=== PATIENT | female | born 1945 | race Caucasian/White ===

== ENCOUNTER → 2016-07-07 | Outpatient (CLI) | payer OTHER, MEDICARE ==
[~2016-07-07] MED LIST: AMLO-110 PO; BUSP15TA70 PO; CALC-354 PO; CALC0.2510 PO; CHOL1000 PO; CLOP1TAB15 PO; CPR250 PO; FURO-85 PO; GLYB5TAB8 PO; LBT/100 PO; LEVO150T PO; PRED20TA PO; ROSU40TA PO; SITA100T3 PO; SYN150 PO; TRAM-10 PO; VSC/5 PO
[2016-07-07 12:17] LABS: BASO % 0.2 %; BASO ABS # 0.02 K/uL (0-0.2); COMPLETE YES; HEMATOCRIT 31.1 % (37-47); IG% 0.2 %; LYMPH % 11.6 %; LYMPH ABS # 0.99 K/uL (1.2-3.4); MEAN CELL VOLUME 84.1 fL (80-100); MEAN CORPUSCULAR HEMOGLOBIN 28.1 pg (25-34); MEAN CORPUSCULAR HGB CONC 33.4 g/dl (32-36); MEAN PLATELET VOLUME 9.8 fL (7.4-10.4); MONO % 3.6 %; NEUT % 82.4 %; PLATELET COUNT 197 K/uL (130-400); WHITE BLOOD COUNT 8.55 K/uL (4.8-10.8)
[2016-07-07 12:27] LABS: BLOOD UREA NITROGEN 37 mg/dl (7-18); BUN/CREATININE RATIO 19.7 (10-20); CALCIUM 9.5 mg/dl (8.5-10.1); CARBON DIOXIDE 17 mmol/L (21-32); CHLORIDE 109 mmol/L (98-107); CHOLESTEROL 169 mg/dl (0-200); GLUCOSE 199 mg/dl (70-99); SODIUM 137 mmol/L (136-145); TRIGLYCERIDES 165 mg/dl (0-150); VERY LOW DENSITY LIPOPROT CALC 33 mg/dl
[2016-07-07 12:35] LABS: ALB/GLOB RATIO 0.7 (0.9-2); ALKALINE PHOSPHATASE 57 U/L (45-117); ALT/SGPT 15 U/L (12-78); AST/SGOT 13 U/L (15-37); CHOLESTEROL/HDL RATIO 3.2; FERRITIN 96.7 ng/ml (8.0-388.0); HDL CHOLESTEROL 53 mg/dl; LDL CHOLESTEROL CALCULATED 83 mg/dl; THYROID STIMULATING HORMONE 0.796 uIu/ml (0.300-4.500); TOTAL IRON BINDING CAPACITY 282 mcg/dl (250-450)
[2016-07-07 12:56] LABS: ESTIMATED AVERAGE GLUCOSE 169 mg/dl; HA1C FLAG Normal (Normal)
--- NOTE | 2016-07-17 10:06 | CODING QUERY MEDICAL NECESSITY ---
CQSUPPORTING DIAGNOSIS NEEDED A supporting diagnosis is required for the test/procedure performed on this patient in order for us to be reimbursed by the patient's insurance. Please provide a supporting diagnosis for the following test/procedure listed below next to the test name along with your signature. *If there is no additional diagnosis for this patient that would support the following test/procedure please document that below next to the test/procedure. Test(s)/Procedure(s) that require a supporting diagnosis: DOS 07/07/16 VITAMIN B12 TEST Provider Signature: Date: Thank you Akanksha Holt Health Information Management Once completed, please kindly fax back to [phone] For questions please call [phone]
== END | disposition home or self-care (01) ==
LOC: C.LABBFT 10:03
PROVIDERS: ATTEND Internal Medicine
DX: N39.0 Urinary tract infection, site not specified (principal); E11.29 Type 2 diabetes mellitus with other diabetic kidney complication; D64.9 Anemia, unspecified

== ENCOUNTER 2016-09-02 19:54 | Emergency (ER) | payer OTHER, MEDICARE ==
[~2016-09-02] VITALS: Ht 162.6 cm; Wt 109.0 kg
[~2016-09-02 19:54] MED LIST changes: -CALC0.2510 PO; -CHOL1000 PO; -CPR250 PO; -FURO-85 PO; -PRED20TA PO; -SITA100T3 PO; -SYN150 PO; -TRAM-10 PO; -VSC/5 PO
[2016-09-02 19:56] VITALS: TEMP 36.9; Ht 162.6 cm; Wt 109.0 kg
--- NOTE | 2016-09-02 20:10 | EMERGENCY ROOM VISIT NOTE ---
History Report prepared by Mellisa: Laurel Yeung Under the Supervision of: Dr. Momo Ng M.D. First contact with patient: 20:01 Chief Complaint: PAIN (GENERALIZED) Stated Complaint: ARM AND HAND PAIN,KIDNEY DISEASE History of Present Illness The patient is a 71 year old female who presents to the Emergency Room with complaints of constant generalized severe pain beginning 5 weeks ago. The patient states that she has kidney disease and has been having a lot of pain that she believes is associated with her kidney function. The patient reports that she has a history of strokes and diabetes and is on Plavix. She notes that she fell one month ago but her pain from the fall has resolved. The patient complains of hand pain, hand swelling, buttock soreness that is now resolved, and knee pain. She denies any fever, chills, chest pain, shortness of breath, history of gout, and urinary symptoms. Source of History: patient, family Onset: 5 weeks ago Position: other (global) Symptom Intensity: severe Timing: constant Associated Symptoms: No SOB, No chest pain, No chills, No fevers, No urinary symptoms Note: The patient complains of hand pain, hand swelling, buttock soreness that is now resolved, and knee pain. Review of Systems See HPI for pertinent positives & negatives. A total of 10 systems reviewed and were otherwise negative. Past Medical & Surgical Medical Problems: (1) Benign hypertension (2) Diabetes mellitus (3) Hypothyroidism (4) Hysterectomy (5) TIA (transient ischemic attack) Old medical records were reviewed. Nurse's notes were reviewed and I agree with. Family History Cardiovascular disease Diabetes mellitus Social History Smoking Status: Former Smoker Alcohol Use: none Drug Use: none Marital Status: Housing Status: lives with family Current/Historical Medications Scheduled Amlodipine (Norvasc), 5 MG PO DAILY Buspirone Hcl (Buspar), 15 MG PO BID Calcium Carbonate-Cholecalcife (Caltrate 600+D), 1 TAB PO BID Clopidogrel (Plavix), 75 MG PO DAILY Glyburide (Micronase), 10 MG PO BID Labetalol Hcl (Normodyne), 100 MG PO BID Levothyroxine Sodium (Synthroid), 150 MCG PO DAILY Rosuvastatin Calcium (Crestor), 40 MG PO DAILY Scheduled PRN Tramadol (Ultram), 1 TABS PO Q6 PRN for Pain Allergies Coded Allergies: No Known Allergies (Verified , 09/02/16) Physical Exam Vital Signs Date Time Temp Pulse Resp B/P Pulse Ox O2 Delivery O2 Flow Rate FiO2 09/02/16 21:53 81 18 192/86 98 Room Air 09/02/16 19:56 36.9 83 20 162/76 95 Room Air Physical Exam General: Well developed well nourished non ill appearing older female in no acute distress, breathing comfortably on room air. Normal speech HEENT: Normal cephalic atraumatic. Pupils are equal round and reactive to light. Extraocular movements are intact. Oropharynx is pink with moist mucous membranes. No swelling of the mouth lips or tongue. Neck: Supple with a midline trachea. No meningeal signs or stiffness, no JVD or bruits. No Stridor. Chest: Clear to auscultation bilaterally. No wheezes or rhonchi. No increased work of breathing. Heart: regular rate and rhythm. Abdomen: Soft nontender, nondistended without rebound guarding or rigidity. Extremities: No cyanosis clubbing. No calf tenderness or assymetry. Hands are not red or warm and have minimal swelling. Spine/Back. Non tender to palpation. No CVA tenderness Skin: Good turgor without rashes. Neurologic exam: Cranial nerves two through 12 are intact. Motor and sensation are intact and symmetrical throughout. Normal motor and sensation. Medical Decision & Procedures ER Provider Diagnostic Interpretation: X-ray results as stated below per interpretation by me and the radiologist: CHEST ONE VIEW PORTABLE FINDINGS: The bones soft tissues and hemidiaphragms are normal. The cardiomediastinal silhouette is normal. The lungs are clear. The pulmonary vasculature is normal. IMPRESSION: Negative chest. Electronically signed by: Ajay Barlow M.D. 09/02/2016 8:33 PM Dictated Date/Time: 09/02/2016 8:33 PM Laboratory Results 09/02/16 20:25 Red Blood Count 3.58, Mean Corpuscular Volume 84.1, Mean Corpuscular Hemoglobin 26.8, Mean Corpuscular Hemoglobin Concent 31.9, Mean Platelet Volume 8.2, Neutrophils (%) (Auto) 85.4, Lymphocytes (%) (Auto) 8.3, Monocytes (%) (Auto) 4.7, Eosinophils (%) (Auto) 1.3, Basophils (%) (Auto) 0.2, Neutrophils # (Auto) 7.70, Lymphocytes # (Auto) 0.75, Monocytes # (Auto) 0.42, Eosinophils # (Auto) 0.12, Basophils # (Auto) 0.02 09/02/16 20:25 Test 09/02/16 20:25 09/02/16 20:38 White Blood Count 9.02 K/uL (4.8-10.8) Red Blood Count 3.58 M/uL (4.2-5.4) Hemoglobin 9.6 g/dL (12.0-16.0) Hematocrit 30.1 % (37-47) Mean Corpuscular Volume 84.1 fL (80-100) Mean Corpuscular Hemoglobin 26.8 pg (25-34) Mean Corpuscular Hemoglobin Concent 31.9 g/dl (32-36) Platelet Count 190 K/uL (130-400) Mean Platelet Volume 8.2 fL (7.4-10.4) Neutrophils (%) (Auto) 85.4 % Lymphocytes (%) (Auto) 8.3 % Monocytes (%) (Auto) 4.7 % Eosinophils (%) (Auto) 1.3 % Basophils (%) (Auto) 0.2 % Neutrophils # (Auto) 7.70 K/uL (1.4-6.5) Lymphocytes # (Auto) 0.75 K/uL (1.2-3.4) Monocytes # (Auto) 0.42 K/uL (0.11-0.59) Eosinophils # (Auto) 0.12 K/uL (0-0.5) Basophils # (Auto) 0.02 K/uL (0-0.2) RDW Standard Deviation 46.5 fL (36.4-46.3) RDW Coefficient of Variation 15.0 % (11.5-14.5) Immature Granulocyte % (Auto) 0.1 % Immature Granulocyte # (Auto) 0.01 K/uL (0.00-0.02) Microcytosis PRESENT Anion Gap 10.0 mmol/L (3-11) Est Creatinine Clear Calc Drug Dose 27.5 ml/min Estimated GFR () 24.1 Estimated GFR (Non- 20.8 BUN/Creatinine Ratio 15.1 (10-20) Uric Acid 8.3 mg/dl (2.6-7.2) Calcium Level 9.6 mg/dl (8.5-10.1) Total Bilirubin 0.7 mg/dl (0.2-1) Direct Bilirubin 0.2 mg/dl (0-0.2) Aspartate Amino Transf (AST/SGOT) 11 U/L (15-37) Alanine Aminotransferase (ALT/SGPT) 11 U/L (12-78) Alkaline Phosphatase 67 U/L (45-117) Total Protein 7.9 gm/dl (6.4-8.2) Albumin 3.3 gm/dl (3.4-5.0) Lipase 178 U/L (73-393) Bedside Troponin I 0.000 ng/ml (0-0.045) CC-Hum-B-Type Natriuretic Peptide 979 pg/ml (0-900) Laboratory studies as stated above per my review. ECG Indication: other (Generalized pain) Rate (beats per minute): 70 Rhythm: normal sinus Findings: nonspecific-ST abn, no acute ischemic change, no ectopy Comparison ECG Date: 06/29/14 Change: no significant change ED Course 2000: Past medical records reviewed. The patient was evaluated in room A3, and a complete history and physical examination were performed. 2150: Upon reevaluation, the patient is doing well. I discussed the results and treatment plan with the patient. She verbalized agreement of the treatment plan. The patient was discharged home. Medical Decision Differential diagnosis includes renal failure, arthritis, infection, gout, electrolyte or metabolic abnormality, CHF. This patient comes in as described above. She was placed in room A3. She's been having hand pain for several months. On exam, she does have some arthritis but she has no redness or warmth or any neurologic or neurovascular compromise . She is concerned about her kidneys. Multiple blood tests were obtained. I also did obtain an EKG and there is nothing to suggest acute coronary syndrome or arrhythmia. Chest x-ray was unremarkable. She does not congestive heart failure. Blood work shows renal insufficiency with creatinine which is mildly elevated compared to her last one. Her potassium is not elevated. Uric acid is mildly elevated as well could be gout related although seems a more diffuse. I talked about pain management with her renal insufficiency and they should not use NSAIDs. She is also on Plavix. She's done well with Ultram but was only taking it once a day. I think she could take it a little more frequently and I told her to take it 1 pill every 6-8 hours but be very careful is a could make her drowsy, be especially careful been up and down. Do not take with alcohol or other sedating medications. She should follow-up with her regular doctor return if increasing pain, worsening symptoms, any new problems or concerns. Impression Primary Impression: Bilateral hand pain Additional Impression: Renal insufficiency Scribe Attestation The scribe's documentation has been prepared under my direction and personally reviewed by me in its entirety. I confirm that the note above accurately reflects all work, treatment, procedures, and medical decision making performed by me. Departure Information Dispostion Home / Self-Care Prescriptions Tramadol (Ultram) 50 Mg Tab 1 TABS PO Q6 Y for Pain, #20 TAB Prov: Momo Ng M.D. 09/02/16 Referrals Bryn Marin M.D. (PCP) Forms HOME CARE DOCUMENTATION FORM, IMPORTANT VISIT INFORMATION, WORK / SCHOOL INSTRUCTIONS Patient Instructions My [facility] Additional Instructions Rest. Drink plenty of fluids. May use Ultram/tramadol 50 mg, 1 pill every 6-8 hours as needed This medication may make you drowsy and be very careful getting up and down and do not take with any other medications that can make you drowsy and do not take with alcohol Return if: Worsening of symptoms, fever or chills, numbness weakness, any new problems or concerns Follow-up with your doctor for recheck this week Problem Qualifiers
--- NOTE | 2016-09-02 20:35 | DIAGNOSTIC IMAGING REPORT ---
CHEST ONE VIEW PORTABLE CLINICAL HISTORY: CHEST PAIN COMPARISON STUDY: 06/29/2014 FINDINGS: The bones soft tissues and hemidiaphragms are normal. The cardiomediastinal silhouette is normal. The lungs are clear. The pulmonary vasculature is normal. IMPRESSION: Negative chest. Electronically signed by: Ajay Barlow M.D. 09/02/2016 8:33 PM Dictated Date/Time: 09/02/2016 8:33 PM
[2016-09-02 20:41] LABS: HEMATOCRIT 30.1 % (37-47); MEAN CELL VOLUME 84.1 fL (80-100); MEAN CORPUSCULAR HEMOGLOBIN 26.8 pg (25-34); MEAN CORPUSCULAR HGB CONC 31.9 g/dl (32-36); MEAN PLATELET VOLUME 8.2 fL (7.4-10.4); PLATELET COUNT 190 K/uL (130-400); RED BLOOD COUNT 3.58 M/uL (4.2-5.4); WHITE BLOOD COUNT 9.02 K/uL (4.8-10.8)
[2016-09-02 20:57] LABS: BUN/CREATININE RATIO 15.1 (10-20); CREATININE 2.3 mg/dl (0.60-1.20); POTASSIUM 4.6 mmol/L (3.5-5.1); URIC ACID 8.3 mg/dl (2.6-7.2)
[2016-09-02 21:12] LABS: BASO % 0.2 %; BASO ABS # 0.02 K/uL (0-0.2); COMPLETE YES; EOS % 1.3 %; IG% 0.1 %; LYMPH % 8.3 %; LYMPH ABS # 0.75 K/uL (1.2-3.4); MICROCYTOSIS PRESENT; MONO % 4.7 %; NEUT % 85.4 %
[2016-09-02] MEDS ORDERED: TRAM-10 PO (21:43)
[2016-09-02 21:53] VITALS: BP 192/86; PULSE 81; O2SAT 98
[2016-09-02 22:13] LABS: CALCIUM 9.6 mg/dl (8.5-10.1)
[2016-11-07] MEDS ORDERED: PRED20TA PO (07:43)
[2017-01-23] MEDS ORDERED: CIPR250T5 PO (12:24)
== END 2016-09-02 22:29 | disposition home or self-care (01) ==
LOC: C.EDB 19:55 → C.EDA 22:29
DX: M79.642 Pain in left hand (principal); M79.641 Pain in right hand; N28.9 Disorder of kidney and ureter, unspecified; E11.9 Type 2 diabetes mellitus without complications; Z86.73 Personal history of transient ischemic attack (TIA), and cerebral infarction without residual deficits; Z82.49 Family history of ischemic heart disease and other diseases of the circulatory system; Z83.3 Family history of diabetes mellitus; Z87.891 Personal history of nicotine dependence

== ENCOUNTER → 2016-09-12 | Outpatient (CLI) | payer OTHER, MEDICARE ==
[~2016-09-12] MED LIST changes: +CALC0.2510 PO; +CHOL1000 PO; +CIPR250T5 PO; +FURO-85 PO; +PRED20TA PO; +SITA100T3 PO; +SYN150 PO; +TRAM-10 PO; +VSC/5 PO
[2016-09-12 17:39] LABS: BLOOD UREA NITROGEN 39 mg/dl (7-18); CALCIUM 9.7 mg/dl (8.5-10.1); CARBON DIOXIDE 21 mmol/L (21-32); CHLORIDE 107 mmol/L (98-107); GLUCOSE 197 mg/dl (70-99); SODIUM 137 mmol/L (136-145)
[2016-09-12 17:44] LABS: C-REACTIVE PROTEIN 1.69 mg/dl (0-0.29); RHEUMATOID FACTOR < 10.0 U/mL (0-15)
[2016-09-12 18:13] LABS: LYME DISEASE AB IGG NEG (NEG); LYME DISEASE AB IGM NEG (NEG)
== END | disposition home or self-care (01) ==
LOC: C.LABBFT 08:51
PROVIDERS: ATTEND Physician Assistant Medical
DX: E11.29 Type 2 diabetes mellitus with other diabetic kidney complication (principal); E11.22 Type 2 diabetes mellitus with diabetic chronic kidney disease; N18.9 Chronic kidney disease, unspecified; M19.049 Primary osteoarthritis, unspecified hand; M25.50 Pain in unspecified joint; M79.1 Myalgia

== ENCOUNTER → 2016-09-19 | Outpatient (CLI) | payer OTHER, MEDICARE ==
--- NOTE | 2016-09-19 15:57 | DIAGNOSTIC IMAGING REPORT ---
RENAL ULTRASOUND CLINICAL HISTORY: Acute kidney injury. COMPARISON STUDY: CT of the abdomen June 23, 2008. TECHNIQUE: Sonography of the kidneys and the urinary bladder was performed. FINDINGS: This exam is moderately compromised by suboptimal penetration. There is no hydronephrosis. The right kidney measures approximately 10.7 cm and the left measures approximately 13.6 cm. There is a 6.8 cm left renal cyst. The bladder is decompressed. There is moderate renal cortical thinning. IMPRESSION: 1. No hydronephrosis. 2. Moderate renal cortical thinning. 3. Study compromised by suboptimal penetration. 4. 6.8 cm left renal cyst. Electronically signed by: Ranjeet Sumner M.D. 09/19/2016 3:56 PM Dictated Date/Time: 09/19/2016 3:54 PM
== END | disposition home or self-care (01) ==
LOC: C.ULTR 15:26
PROVIDERS: ATTEND Internal Medicine Nephrology
DX: N17.9 Acute kidney failure, unspecified (principal); N28.1 Cyst of kidney, acquired

== ENCOUNTER → 2016-09-26 | Outpatient (CLI) | payer OTHER, MEDICARE ==
[2016-09-26 12:28] LABS: MEAN CELL VOLUME 84.6 fL (80-100); MEAN CORPUSCULAR HEMOGLOBIN 26.9 pg (25-34); MEAN CORPUSCULAR HGB CONC 31.8 g/dl (32-36); MEAN PLATELET VOLUME 9.2 fL (7.4-10.4); PLATELET COUNT 272 K/uL (130-400); RED BLOOD COUNT 3.31 M/uL (4.2-5.4); WHITE BLOOD COUNT 10.45 K/uL (4.8-10.8)
[2016-09-26 12:47] LABS: CALCIUM 9.8 mg/dl (8.5-10.1)
[2016-09-26 12:59] LABS: BLOOD UREA NITROGEN 38 mg/dl (7-18); BUN/CREATININE RATIO 16.4 (10-20); CARBON DIOXIDE 21 mmol/L (21-32); CHLORIDE 105 mmol/L (98-107); GLUCOSE 213 mg/dl (70-99); POTASSIUM 4.6 mmol/L (3.5-5.1); SODIUM 138 mmol/L (136-145)
[2016-09-26 13:00] LABS: PHOSPHORUS 3.3 mg/dl (2.5-4.9)
[2016-09-27 16:31] LABS: ALBUMIN 3.4 G/DL (3.8-4.8); FREE KAPPA 65.6 MG/L (3.3-19.4); FREE KAPPA/LAMBDA RATIO 1.54 (0.26-1.65); FREE LAMBDA 42.5 MG/L (5.7-26.3); GAMMA GLOBULIN 1.1 G/DL (0.8-1.7)
== END | disposition home or self-care (01) ==
LOC: C.LABBFT 10:49
PROVIDERS: ATTEND Internal Medicine Nephrology
DX: N17.9 Acute kidney failure, unspecified (principal); D64.9 Anemia, unspecified; N18.9 Chronic kidney disease, unspecified; M19.049 Primary osteoarthritis, unspecified hand

== ENCOUNTER → 2016-09-27 | Outpatient (CLI) | payer OTHER, MEDICARE ==
[2016-09-27 13:50] LABS: URINE PROTIEN/CREAT RATIO 0.6 (0-0.2); URINE TOTAL PROTEIN 71.5 mg/dl (0-11.9)
[2016-09-27 14:14] LABS: URINE APPEARANCE CLOUDY (CLEAR); URINE BILIRUBIN NEG (NEG); URINE COLOR YELLOW; URINE EPITHELIAL CELL AUTO >30 /lpf (0-5); URINE NITRITE NEG (NEG); URINE PH 7.5 (4.5-7.5); URINE SPECIFIC GRAVITY 1.013 (1.000-1.030); UROBILINOGEN NEG (NEG)
[2016-09-27 14:41] LABS: MANUAL MICROSCOPIC REQUIRED? NO; REVIEW REQ? YES; SULFASALICYLIC ACID POS (NEG)
[2016-09-29 06:41] LABS: ALBUMIN % 65.44 %; ALPHA-2-GLOBULIN % 7.78 %; BETA GLOBULIN % 17.53 %; CREATININE UR 129 MG/DL (20-320); GAMMA GLOBULIN % 8.19 %
== END | disposition home or self-care (01) ==
LOC: C.PATHSPEC 12:27 → C.LABSPEC 12:27
PROVIDERS: ATTEND Internal Medicine Nephrology
DX: N17.9 Acute kidney failure, unspecified (principal); N18.9 Chronic kidney disease, unspecified

== ENCOUNTER → 2016-10-09 | Outpatient (CLI) | payer OTHER, MEDICARE ==
--- NOTE | 2016-10-09 11:41 | DIAGNOSTIC IMAGING REPORT ---
LEFT KNEE 1 OR 2 VIEWS ROUTINE, RIGHT KNEE 1 OR 2 VIEWS ROUTINE CLINICAL HISTORY: R53.83 [id number] Shoulder pain, [id number] Polymyalgia COMPARISON STUDY: None. FINDINGS: No fracture or dislocation within the right or left knee. Bone mineralization is intact for age. Mild vascular calcifications. No significant knee effusions. Soft tissues are unremarkable. Minor cartilage space narrowing within the medial compartment of the right knee. The left knee cartilage spaces are maintained. Tiny marginal osteophytes within the right patella. IMPRESSION: Minimal degenerative changes within the right knee as described above. Unremarkable left knee Electronically signed by: Travon Castellano M.D. 10/09/2016 11:39 AM Dictated Date/Time: 10/09/2016 11:37 AM
--- NOTE | 2016-10-09 11:41 | DIAGNOSTIC IMAGING REPORT ---
RIGHT HAND MIN 3 VIEWS ROUTINE CLINICAL HISTORY: Right hand pain. Polymyalgia. COMPARISON: None. DISCUSSION: The bones are mildly osteopenic. There are vascular calcifications present. There are no acute fractures. There are moderate erosive osteoarthritic changes at the level of the proximal and distal interphalangeal joints. IMPRESSION: 1. No acute fractures 2. 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 10/09/2016 11:39 AM Dictated Date/Time: 10/09/2016 11:38 AM
--- NOTE | 2016-10-09 11:41 | DIAGNOSTIC IMAGING REPORT ---
LEFT KNEE 1 OR 2 VIEWS ROUTINE, RIGHT KNEE 1 OR 2 VIEWS ROUTINE CLINICAL HISTORY: R53.83 [id number] Shoulder pain, [id number] Polymyalgia COMPARISON STUDY: None. FINDINGS: No fracture or dislocation within the right or left knee. Bone mineralization is intact for age. Mild vascular calcifications. No significant knee effusions. Soft tissues are unremarkable. Minor cartilage space narrowing within the medial compartment of the right knee. The left knee cartilage spaces are maintained. Tiny marginal osteophytes within the right patella. IMPRESSION: Minimal degenerative changes within the right knee as described above. Unremarkable left knee Electronically signed by: Travon Castellano M.D. 10/09/2016 11:39 AM Dictated Date/Time: 10/09/2016 11:37 AM
--- NOTE | 2016-10-09 11:50 | DIAGNOSTIC IMAGING REPORT ---
LEFT HAND MIN 3 VIEWS ROUTINE CLINICAL HISTORY: R53.83 [id number] Shoulder pain, [id number] Polymyalgic COMPARISON: None. DISCUSSION: Severe degenerative change of the interphalangeal joints. Marginal erosive changes. Periarticular osteopenia. There is no evidence for soft tissue swelling. IMPRESSION: Findings consistent with developing rheumatoid change. Electronically signed by: Ajay Barlow M.D. 10/09/2016 11:49 AM Dictated Date/Time: 10/09/2016 11:48 AM
== END | disposition home or self-care (01) ==
LOC: C.RAD1850 10:59
PROVIDERS: ATTEND Internal Medicine Rheumatology
DX: M25.511 Pain in right shoulder (principal); M25.512 Pain in left shoulder; M25.561 Pain in right knee; M25.562 Pain in left knee; M35.3 Polymyalgia rheumatica; R53.83 Other fatigue; R70.0 Elevated erythrocyte sedimentation rate; M19.041 Primary osteoarthritis, right hand

== ENCOUNTER → 2016-10-16 | Outpatient (CLI) | payer OTHER, MEDICARE ==
[2016-10-16 13:17] LABS: ESTIMATED AVERAGE GLUCOSE 174 mg/dl; HA1C FLAG Normal (Normal)
== END | disposition home or self-care (01) ==
LOC: C.LABBFT 09:10
PROVIDERS: ATTEND Internal Medicine Rheumatology
DX: E11.29 Type 2 diabetes mellitus with other diabetic kidney complication (principal)

== ENCOUNTER → 2016-10-23 | Outpatient (CLI) | payer OTHER, MEDICARE ==
--- NOTE | 2016-10-23 15:25 | DIAGNOSTIC IMAGING REPORT ---
RIGHT HIP UNILATERAL 2 VIEWS CLINICAL HISTORY: M35.3 Polymyalgia [id number] director long term care (current) use of sym Right COMPARISON: None. DISCUSSION: Calcific trochanteric bursitis. Mild degenerative narrowing right hip joint space. Mineralization is at the lower limits of normal. Mild degenerative change sequelae joint. There is no evidence for soft tissue swelling. IMPRESSION: Mild degenerative change. Calcific trochanteric bursitis. Electronically signed by: Ajay Barlow M.D. 10/23/2016 3:24 PM Dictated Date/Time: 10/23/2016 3:22 PM
== END | disposition home or self-care (01) ==
LOC: C.RAD1850 15:00
PROVIDERS: ATTEND Internal Medicine Rheumatology
DX: M25.551 Pain in right hip (principal); M35.3 Polymyalgia rheumatica; Z79.52 Long term (current) use of systemic steroids

== ENCOUNTER → 2016-11-06 | Outpatient (CLI) | payer OTHER, MEDICARE ==
[~2016-11-06] MED LIST changes: -CIPR250T5 PO; +CPR250 PO
== END | disposition home or self-care (01) ==
LOC: C.LABBFT 09:30
PROVIDERS: ATTEND Internal Medicine Rheumatology
DX: M35.3 Polymyalgia rheumatica (principal); E55.9 Vitamin D deficiency, unspecified

== ENCOUNTER → 2016-11-24 | Outpatient (CLI) | payer OTHER, MEDICARE ==
[~2016-11-24] MED LIST changes: -TRAM-10 PO
[2016-11-24 12:36] LABS: HEMATOCRIT 28.9 % (37-47); MEAN CORPUSCULAR HEMOGLOBIN 27.4 pg (25-34); MEAN CORPUSCULAR HGB CONC 32.2 g/dl (32-36); MEAN PLATELET VOLUME 8.6 fL (7.4-10.4); PLATELET COUNT 227 K/uL (130-400); WHITE BLOOD COUNT 10.05 K/uL (4.8-10.8)
[2016-11-24 12:40] LABS: BLOOD UREA NITROGEN 43 mg/dl (7-18); BUN/CREATININE RATIO 18.5 (10-20); CALCIUM 9.2 mg/dl (8.5-10.1); CARBON DIOXIDE 23 mmol/L (21-32); CHLORIDE 109 mmol/L (98-107); GLUCOSE 106 mg/dl (70-99); POTASSIUM 4.5 mmol/L (3.5-5.1); SODIUM 141 mmol/L (136-145)
[2016-11-24 12:45] LABS: FERRITIN 989.6 ng/ml (8.0-388.0); PHOSPHORUS 2.9 mg/dl (2.5-4.9); TOTAL IRON BINDING CAPACITY 258 mcg/dl (250-450)
== END | disposition home or self-care (01) ==
LOC: C.LABBFT 08:24
PROVIDERS: ATTEND Internal Medicine Nephrology
DX: D64.9 Anemia, unspecified (principal); E55.9 Vitamin D deficiency, unspecified; N17.9 Acute kidney failure, unspecified; N18.9 Chronic kidney disease, unspecified

== ENCOUNTER → 2016-12-13 | Outpatient (CLI) | payer OTHER, MEDICARE | END | disposition home or self-care (01) | LOC: C.LAB1850 11:32 | PROVIDERS: ATTEND Internal Medicine Rheumatology | DX: E55.9 Vitamin D deficiency, unspecified (principal); M35.3 Polymyalgia rheumatica ==

== ENCOUNTER 2017-01-18 14:46 | Inpatient (IN) | payer OTHER, MEDICARE ==
[~2017-01-18] VITALS: Ht 177.8 cm; Wt 93.2 kg
[~2017-01-18 14:46] MED LIST changes: -CALC0.2510 PO; -CHOL1000 PO; -CPR250 PO; -FURO-85 PO; -SITA100T3 PO; -SYN150 PO; -VSC/5 PO
[2017-01-18] MEDS ORDERED: SODIUM CHLORIDE 0.9% 1000ML 1,000 ML IV STA (15:10)
[2017-01-18] MEDS ORDERED: SODIUM CHLORIDE 0.9% 250ML 250 ML IV STA (15:10)
--- NOTE | 2017-01-18 15:20 | EMERGENCY ROOM VISIT NOTE ---
History Report prepared by Mellisa: Roberto Nayak Under the Supervision of: Dr. Jyoti Grant M.D. First contact with patient: 15:07 Chief Complaint: ALTERED MENTAL STATUS Stated Complaint: ALTERED MENTAL History of Present Illness The patient is a 71 year old female who presents to the Emergency Room with complaints of altered mental status that began a couple of days ago. Per the patient's children, they have noticed she has been confused as of late. She has not left her chair for the past five days. She has been sitting in her urine and stool as well, unable to bathe herself. The patient states she is usually able to bathe herself and get to the bathroom. She has not been able to over this time. She has also not been eating her dinner or taking her medications. Yesterday, she could not recognize her daughter and was quite aggressive toward her. She has a past medical history of hypertension, diabetes, and past UTI's. She was placed on Lasix a couple of months ago. She denies any chest pain, shortness of breath, or abdominal pain. She denies any recent falls. Source of History: patient, family Onset: a couple of days ago Position: other (global) Symptom Intensity: moderate Quality: other (Confusion) Timing: constant Associated Symptoms: + weakness, No chest pain, No SOB, No abdominal pain Review of Systems See HPI for pertinent positives & negatives. A total of 10 systems reviewed and were otherwise negative. Past Medical & Surgical Medical Problems: (1) Benign hypertension (2) Diabetes mellitus (3) Hypothyroidism (4) Hysterectomy (5) TIA (transient ischemic attack) Family History Cardiovascular disease Diabetes mellitus Social History Smoking Status: Unknown if Ever Smoked Alcohol Use: none Drug Use: none Marital Status: Housing Status: lives with family Current/Historical Medications Scheduled Amlodipine (Norvasc), 5 MG PO DAILY Buspirone Hcl (Buspar), 15 MG PO BID Calcitriol (Rocaltrol Cap), 0.25 MCG PO 3XWK Cholecalciferol (Vitamin D3), 1,000 INTER.UNIT PO DAILY Clopidogrel (Plavix), 75 MG PO DAILY Furosemide (Lasix), 20 MG PO QAM Glyburide (Micronase), 10 MG PO BID Labetalol Hcl (Normodyne), 100 MG PO BID Levothyroxine Sodium (Synthroid), 150 MCG PO QAM Prednisone (Prednisone), 20 MG PO QAM Sitagliptin Phosphate (Januvia), 100 MG PO QPM Solifenacin (Vesicare), 5 MG PO DAILY Miscellaneous Medications Rosuvastatin Calcium (Crestor), 40 MG PO Allergies Coded Allergies: Statins (Unverified Allergy, Unknown, VOMITING/GI ISSUES, 01/18/17) Physical Exam Vital Signs Date Time Temp Pulse Resp B/P (MAP) Pulse Ox O2 Delivery O2 Flow Rate FiO2 01/18/17 16:58 78 20 147/58 95 Room Air 01/18/17 15:13 73 01/18/17 14:59 94 Room Air 01/18/17 14:59 36.7 76 20 160/96 92 Room Air Physical Exam Vital signs reviewed. General: Chronically ill appearing, obese elderly female, in no significant distress. Smells of old urine. Noted to be in wet pants HEENT: No scleral icterus, PERRLA, neck supple. Atraumatic. Cardiovascular: Regular rate and rhythm, no extra sounds. Pulmonary: Clear to auscultation bilaterally, normal work of breathing. Abdomen: Soft, nontender, nondistended, positive bowel sounds. Musculoskeletal: Atraumatic, no peripheral edema. Neurologic: Patient is somnolent but responsive. Answers questions appropriately. Follows simple commands. Generalized weakness. No focal deficits. Skin: Warm, dry, no rash Medical Decision & Procedures ER Provider Diagnostic Interpretation: Radiology results as stated below per my review and radiologist interpretation: CT HEAD WITHOUT CONTRAST (CT) CLINICAL HISTORY: Acute change in mental status. Weakness. COMPARISON STUDY: 09/08/2013 TECHNIQUE: Axial CT of the brain is performed from the vertex to the skull base. IV contrast was not administered for this examination. A dose lowering technique was utilized adhering to the principles of ALARA. CT DOSE: 1311.06 mGy.cm FINDINGS: No intra or extra-axial mass lesions are visualized. There is no CT evidence of acute cortical infarction. There is no evidence of midline shift. There is no acute hemorrhage. No calvarial fractures are visualized. There are patchy white matter hypodensities likely on a small vessel basis. There are bilateral basal ganglia lacunar infarcts. There is an old left cerebellar infarct. There is mild cerebellar atrophy. There is no evidence of pathologic ventricular dilatation. There is no evidence of acute sinusitis IMPRESSION: Old infarcts, similar to the prior study. No acute intracranial findings. Electronically signed by: Wilberto Worthy M.D. 01/18/2017 4:48 PM Dictated Date/Time: 01/18/2017 4:46 PM CHEST ONE VIEW PORTABLE CLINICAL HISTORY: weakness COMPARISON STUDY: 09/02/2016 FINDINGS: The study is limited from a technical standpoint. The patient's right hand projects over the right lung base. The heart is normal in size. There is no failure. There is no focal pulmonary consolidation. There are no pleural effusions.[ IMPRESSION: Technically limited AP portable study. No acute findings. Electronically signed by: Wilberto Worthy M.D. 01/18/2017 3:28 PM Dictated Date/Time: 01/18/2017 3:27 PM Laboratory Results Test 01/18/17 14:26 01/18/17 15:50 01/18/17 16:06 Estimated Average Glucose 177 mg/dl Hemoglobin A1c 7.8 % (4.5-5.6) Magnesium Level 2.2 mg/dl (1.8-2.4) Direct Bilirubin 0.2 mg/dl (0-0.2) Total Creatine Kinase 98 U/L (26-192) Lipase 252 U/L (73-393) Urine Color YELLOW Urine Appearance TURBID (CLEAR) Urine pH 8.0 (4.5-7.5) Urine Specific [place] 1.014 (1.000-1.030) Urine Protein 2+ (NEG) Urine Glucose (UA) NEG (NEG) Urine Ketones NEG (NEG) Urine Occult Blood NEG (NEG) Urine Nitrite NEG (NEG) Urine Bilirubin NEG (NEG) Urine Urobilinogen NEG (NEG) Urine Leukocyte Esterase MODERATE (NEG) Urine WBC (Auto) >30 /hpf (0-5) Urine RBC (Auto) 0-4 /hpf (0-4) Urine Hyaline Casts (Auto) 1-5 /lpf (0-5) Urine Epithelial Cells (Auto) 0-5 /lpf (0-5) Urine Bacteria (Auto) 4+ (NEG) Bedside Troponin I 0.030 ng/ml (0-0.045) Laboratory results per my review. Medications Administered Medications (Trade) Dose Ordered Sig/Kirk Route Start Time Stop Time Status Last Admin Dose Admin Sodium Chloride 250 ml @ 999 mls/hr Q16M STAT IV 01/18/17 15:10 9/21/17 15:25 DC 01/18/17 15:56 999 MLS/HR Sodium Chloride 1,000 ml @ 150 mls/hr Q6H40M STAT IV 01/18/17 15:10 01/18/17 19:07 DC 01/18/17 15:57 150 MLS/HR Sodium Chloride 1,000 ml @ 100 mls/hr Q10H IV 01/18/17 17:29 02/17/17 17:28 01/19/17 23:12 100 MLS/HR ED Course 1507: Past medical records reviewed. The patient was evaluated in room B7. A complete history and physical examination was performed. 1510: Ordered Sodium Chloride 1000 ml @ 150 mls/hr IV, Sodium Chloride 250 ml @ 999 mls/hr IV 1705: Upon reevaluation, the patient is resting comfortably. I discussed laboratory and radiographic results with the patient and her daughter. They verbalized agreement of the treatment plan. I spoke with Dr. Ordaz of the [facility]. The patient will be evaluated for further management and care. Medical Decision Differential diagnosis: Etiologies such as metabolic, infection, hypo/hyperglycemia, electrolyte abnormalities, cardiac sources, intracerebral event, toxicologic, neurologic, as well as others were entertained. This pt was evaluated and appeared to be in no distress. Pt was found to be incontinent and changed by nursing staff. IV access was obtained and lab work was drawn. Pt was hydrated with NSS. Lab work reveals mild leukocytosis, acute on chronic renal failure. Potassium is 5.0. UA is positive for infection. Head CT is negative for acute intracranial abnl. CXR is negative. Pt's daughter states she had a similar presentation with UTI in the past. Case was d/w the hospitalist service for further management. Pt's family is aware of the plan and agrees. Medication Reconcilliation Current Medication List: was personally reviewed by me Blood Pressure Screening Patient's blood pressure: Elevated blood pressure Blood pressure disposition: Elevated BP felt to be situational Consults Time Called: 1700 Consulting Physician: Dr. Ordaz - [facility] Returned Call: [phone] I reviewed the patient's case with him. He will evaluate the patient for further management. Impression Primary Impression: Urinary tract infection Additional Impressions: Acute kidney failure Altered mental status Weakness Scribe Attestation The scribe's documentation has been prepared under my direction and personally reviewed by me in its entirety. I confirm that the note above accurately reflects all work, treatment, procedures, and medical decision making performed by me. Departure Information Dispostion Being Evaluated By Hospitalist Referrals Bryn Marin M.D. (PCP) Patient Instructions My [facility] Problem Qualifiers
[2017-01-18 15:26] LABS: COMPLETE YES; EOS % 0.3 %; HEMATOCRIT 31.8 % (37-47); IG% 0.4 %; LYMPH % 8.8 %; MEAN CELL VOLUME 87.4 fL (80-100); MEAN CORPUSCULAR HEMOGLOBIN 28.3 pg (25-34); MEAN CORPUSCULAR HGB CONC 32.4 g/dl (32-36); MEAN PLATELET VOLUME 9.6 fL (7.4-10.4); MONO % 1.8 %; NEUT % 88.7 %; PLATELET COUNT 202 K/uL (130-400); RED BLOOD COUNT 3.64 M/uL (4.2-5.4); WHITE BLOOD COUNT 11.37 K/uL (4.8-10.8)
--- NOTE | 2017-01-18 15:29 | DIAGNOSTIC IMAGING REPORT ---
CHEST ONE VIEW PORTABLE CLINICAL HISTORY: weakness COMPARISON STUDY: 09/02/2016 FINDINGS: The study is limited from a technical standpoint. The patient's right hand projects over the right lung base. The heart is normal in size. There is no failure. There is no focal pulmonary consolidation. There are no pleural effusions.[ IMPRESSION: Technically limited AP portable study. No acute findings. Electronically signed by: Wilberto Worthy M.D. 01/18/2017 3:28 PM Dictated Date/Time: 01/18/2017 3:27 PM
[2017-01-18] MEDS ORDERED: SYN150 PO (15:43)
[2017-01-18] MEDS ORDERED: CHOL1000 PO (15:43)
[2017-01-18] MEDS ORDERED: FURO-85 PO (15:44)
[2017-01-18] MEDS ORDERED: SITA100T3 PO (15:44)
[2017-01-18] MEDS ORDERED: CALC0.2510 PO (15:44)
[2017-01-18 15:47] LABS: BUN/CREATININE RATIO 19.4 (10-20); CREATININE 4.9 mg/dl (0.60-1.20); MAGNESIUM 2.2 mg/dl (1.8-2.4)
[2017-01-18 16:30] LABS: URINE APPEARANCE TURBID (CLEAR); URINE BILIRUBIN NEG (NEG); URINE COLOR YELLOW; URINE EPITHELIAL CELL AUTO 0-5 /lpf (0-5); URINE NITRITE NEG (NEG); URINE SPECIFIC GRAVITY 1.014 (1.000-1.030); UROBILINOGEN NEG (NEG); ZZURINE CULT IF INDIC CATH YES
[2017-01-18 16:34] LABS: MANUAL MICROSCOPIC REQUIRED? NO; REVIEW REQ? NO
[2017-01-18 16:41] LABS: SULFASALICYLIC ACID POS (NEG)
--- NOTE | 2017-01-18 16:50 | DIAGNOSTIC IMAGING REPORT ---
CT HEAD WITHOUT CONTRAST (CT) CLINICAL HISTORY: Acute change in mental status. Weakness. COMPARISON STUDY: 09/08/2013 TECHNIQUE: Axial CT of the brain is performed from the vertex to the skull base. IV contrast was not administered for this examination. A dose lowering technique was utilized adhering to the principles of ALARA. CT DOSE: 1311.06 mGy.cm FINDINGS: No intra or extra-axial mass lesions are visualized. There is no CT evidence of acute cortical infarction. There is no evidence of midline shift. There is no acute hemorrhage. No calvarial fractures are visualized. There are patchy white matter hypodensities likely on a small vessel basis. There are bilateral basal ganglia lacunar infarcts. There is an old left cerebellar infarct. There is mild cerebellar atrophy. There is no evidence of pathologic ventricular dilatation. There is no evidence of acute sinusitis IMPRESSION: Old infarcts, similar to the prior study. No acute intracranial findings. Electronically signed by: Wilberto Worthy M.D. 01/18/2017 4:48 PM Dictated Date/Time: 01/18/2017 4:46 PM
[2017-01-18] MEDS ORDERED: ACETAMINOPHEN 325 MG TAB PO PRN (17:30)
[2017-01-18] MEDS ORDERED: ONDANSETRON INJ 2 MG/ML 2 ML VIAL IV PRN (17:30)
--- NOTE | 2017-01-18 17:36 | History and Physical ---
History & Physical Date & Time of Service: Jan 18, 2017 at 17:17 Chief Complaint: Altered Mental Primary Care Physician: Bryn Marin M.D. History of Present Illness Source: patient Pt is a 71 yo female who presents to the ER with complaints of AMS. Pt is a poor historian and was not able to reach daughter so hx obtained per ER records. Per report, she lives at home with daughter who has noticed she has become increasingly weak and has been sitting in her urine and stools. She has also been having increasing confusion, to the point she was unable to recognize daughter. Upon interview, pt not noted to be in any distress, and alert and oriented x 2. Pt states she is "here for her appendix." Past Medical/Surgical History Medical Problems: (1) Benign hypertension Status: Chronic (2) Diabetes mellitus Status: Chronic (3) Hypothyroidism Status: Chronic (4) Hysterectomy Status: Resolved (5) TIA (transient ischemic attack) Status: Resolved Family History Cardiovascular disease Diabetes mellitus Social History Smoking Status: Unknown if Ever Smoked Drug Use: none Marital Status: Housing status: lives with family Immunizations History of Influenza Vaccine: N/A Influenza Vaccine Date: Feb 01, 2009 History of Tetanus Vaccine?: Yes History of Pneumococcal: Unknown History of Hepatitis B Vaccine: No Allergies Coded Allergies: Statins (Unverified Allergy, Unknown, VOMITING/GI ISSUES, 01/18/17) Home Medications Scheduled Amlodipine (Norvasc), 5 MG PO DAILY Buspirone Hcl (Buspar), 15 MG PO BID Calcitriol (Rocaltrol Cap), 0.25 MCG PO 3XWK Cholecalciferol (Vitamin D3), 1,000 INTER.UNIT PO DAILY Clopidogrel (Plavix), 75 MG PO DAILY Furosemide (Lasix), 20 MG PO QAM Glyburide (Micronase), 10 MG PO BID Labetalol Hcl (Normodyne), 100 MG PO BID Levothyroxine Sodium (Synthroid), 150 MCG PO QAM Prednisone (Prednisone), 20 MG PO QAM Sitagliptin Phosphate (Januvia), 100 MG PO QPM Review of Systems Constitutional: + weakness, + fatigue, No fever, No chills, No sweats Respiratory: No cough, No sputum, No wheezing, No shortness of breath, No dyspnea on exertion, No dyspnea at rest Cardiovascular: No chest pain, No orthopnea, No PND, No edema, No claudication Abdomen: No pain, No nausea, No vomiting, No diarrhea, No constipation Musculoskeletal: No joint pain, No muscle pain, No swelling, No calf pain Genitourinary - Female: No dysuria, No urinary frequency, No urinary urgency, No urinary incontinence, No urinary retention Neurologic: No memory loss, No paralysis, No weakness, No numbness/tingling Psychiatric: No depression symptoms, No anhedonism, No anxiety Endocrine: No fatigue, No excessive thirst Integumentary: No rash, No itch Physical Exam Vital Signs Date Time Temp Pulse Resp B/P (MAP) Pulse Ox O2 Delivery O2 Flow Rate FiO2 01/18/17 16:58 78 20 147/58 95 Room Air 01/18/17 15:13 73 01/18/17 14:59 94 Room Air 01/18/17 14:59 36.7 76 20 160/96 92 Room Air General Appearance: WD/WN, no apparent distress, + obese Eyes: normal inspection, PERRL, EOMI, sclerae normal Neck: supple, no adenopathy, thyroid normal, no JVD Respiratory/Chest: chest non-tender, lungs clear, normal breath sounds, no respiratory distress Cardiovascular: no edema, no gallop, no JVD, no murmur Abdomen/GI: normal bowel sounds, non tender, soft, no organomegaly Back: normal inspection, no CVA tenderness, no muscle spasm, normal range of motion Extremities/Musculoskelatal: normal inspection, no calf tenderness, normal capillary refill, no pedal edema Neurologic/Psych: alert, normal mood/affect, normal reflexes, + disoriented Skin: warm/dry, no rash Lymphatic: no adenopathy Diagnostics Laboratory Results Results Past 24 Hours Test 01/18/17 14:26 01/18/17 15:50 Range/Units White Blood Count 11.37 4.8-10.8 K/uL Red Blood Count 3.64 4.2-5.4 M/uL Hemoglobin 10.3 12.0-16.0 g/dL Hematocrit 31.8 37-47 % Mean Corpuscular Volume 87.4 80-100 fL Mean Corpuscular Hemoglobin 28.3 25-34 pg Mean Corpuscular Hemoglobin Concent 32.4 32-36 g/dl Platelet Count 202 130-400 K/uL Mean Platelet Volume 9.6 7.4-10.4 fL Neutrophils (%) (Auto) 88.7 % Lymphocytes (%) (Auto) 8.8 % Monocytes (%) (Auto) 1.8 % Eosinophils (%) (Auto) 0.3 % Basophils (%) (Auto) 0.0 % Neutrophils # (Auto) 10.08 1.4-6.5 K/uL Lymphocytes # (Auto) 1.00 1.2-3.4 K/uL Monocytes # (Auto) 0.21 0.11-0.59 K/uL Eosinophils # (Auto) 0.03 0-0.5 K/uL Basophils # (Auto) 0.00 0-0.2 K/uL RDW Standard Deviation 53.2 36.4-46.3 fL RDW Coefficient of Variation 16.6 11.5-14.5 % Immature Granulocyte % (Auto) 0.4 % Immature Granulocyte # (Auto) 0.05 0.00-0.02 K/uL Sodium Level 136 136-145 mmol/L Potassium Level 5.0 3.5-5.1 mmol/L Chloride Level 106 98-107 mmol/L Carbon Dioxide Level 21 21-32 mmol/L Anion Gap 9.0 3-11 mmol/L Blood Urea Nitrogen 95 7-18 mg/dl Creatinine 4.90 0.60-1.20 mg/dl Est Creatinine Clear Calc Drug Dose 13.4 ml/min Estimated GFR () 9.7 Estimated GFR (Non- 8.3 BUN/Creatinine Ratio 19.4 10-20 Random Glucose 271 70-99 mg/dl Calcium Level 10.0 8.5-10.1 mg/dl Magnesium Level 2.2 1.8-2.4 mg/dl Total Bilirubin 0.8 0.2-1 mg/dl Direct Bilirubin 0.2 0-0.2 mg/dl Aspartate Amino Transf (AST/SGOT) 14 15-37 U/L Alanine Aminotransferase (ALT/SGPT) 19 12-78 U/L Alkaline Phosphatase 81 45-117 U/L Total Creatine Kinase 98 26-192 U/L Total Protein 7.6 6.4-8.2 gm/dl Albumin 3.7 3.4-5.0 gm/dl Lipase 252 73-393 U/L Urine Color YELLOW Urine Appearance TURBID CLEAR Urine pH 8.0 4.5-7.5 Urine Specific [place] 1.014 1.000-1.030 Urine Protein 2+ NEG Urine Glucose (UA) NEG NEG Urine Ketones NEG NEG Urine Occult Blood NEG NEG Urine Nitrite NEG NEG Urine Bilirubin NEG NEG Urine Urobilinogen NEG NEG Urine Leukocyte Esterase MODERATE NEG Urine WBC (Auto) >30 0-5 /hpf Urine RBC (Auto) 0-4 0-4 /hpf Urine Hyaline Casts (Auto) 1-5 0-5 /lpf Urine Epithelial Cells (Auto) 0-5 0-5 /lpf Urine Bacteria (Auto) 4+ NEG Microbiology Results 01/18/17 Blood Culture, Received Pending 01/18/17 Blood Culture, Received Pending 01/18/17 Urine Culture, Received Pending Impression Assessment and Plan Pt is a 71 yo female admitted for worsening confusion and incontinence of urine/ stool Encephalopathy likely infectious in nature vs metabolic due to worsening renal insuff. UA indicative of UTI. Urine cx pos for pansens E Coli on 06/2016. Will start on cipro 500 mg IV daily. Obtain urine cx as well. Not noted to be in sepsis. Mild leukocytosis. CT head neg for any acute abnormality. Discharge planning. PT/OT consulted. Will likely need placement. Acute on CKD stage 3 - Will utilize IV NS at 100 cc/hr. Baseline Cr 2.3. Hold lasix at this time. DM II - Hold PO meds, place on ISS at this time. Check HgA1c HTN - uncontrolled, cont labetolol 100 mg PO BID Hx of CVA - Cont plavix a this time DVT ppx with heparin
[2017-01-18] MEDS ORDERED: GLUCOSE 40% GEL 15 GM TUBE PO PRN (18:00)
[2017-01-18] MEDS ORDERED: GLUCOSE 10 TABS/TUBE PO PRN (18:00)
[2017-01-18] MEDS ORDERED: GLUCAGON FOR INJ 1 MG VIAL SQ PRN (18:00)
[2017-01-18] MEDS ORDERED: DEXTROSE 50% 50 ML SYR IV PRN (18:00)
[2017-01-18] MEDS: SODIUM CHLORIDE 0.9% 1000ML 1,000 ML IV SCH (18:30)
[2017-01-18] MEDS ORDERED: IV FLUIDS COMPLETED PRN (19:00)
[2017-01-18 19:10] VITALS: BP 117/62; PULSE 79; TEMP 36.8; O2SAT 97
[2017-01-18 19:33] VITALS: BP 117/62; PULSE 79; TEMP 36.8; Ht 177.8 cm; Wt 93.2 kg
[2017-01-18 19:54] LABS: PROTHROMBIN TIME (PATIENT) 10.3 SECONDS (9.0-12.0)
[2017-01-18] MEDS ORDERED: VSC/5 PO (20:19)
[2017-01-18] MEDS ORDERED: ROSU40TA PO (20:19)
[2017-01-18] MEDS: INSULIN ASPART 100 UNITS/ML 3 ML PEN SC SCH (21:00)
[2017-01-18] MEDS: CIPROFLOXACIN / D5W 400 MG in PREMIXED IN D5W 200 ML IV SCH (21:04)
[2017-01-18] MEDS: BusPIRone 15 MG TAB PO SCH (21:55)
[2017-01-18] MEDS: LABETALOL HCL 100 MG TAB PO SCH (21:55)
[2017-01-18] MEDS: HEPARIN SOD 5000 UNIT/0.5 ML CARP SQ SCH (21:57)
[2017-01-19] VITALS (9 sets, daily range): BP systolic 129–188; BP diastolic 65–82; PULSE 59–80; TEMP 36.4–37.1; O2SAT 94–97
[2017-01-19] MEDS: SODIUM CHLORIDE 0.9% 1000ML 1,000 ML IV SCH ×3 (03:17→23:12)
[2017-01-19 06:06] LABS: ESTIMATED AVERAGE GLUCOSE 177 mg/dl; HA1C FLAG Normal (Normal)
[2017-01-19] MEDS: LEVOTHYROXINE 150 MCG TAB PO SCH (06:17)
[2017-01-19] MEDS: HEPARIN SOD 5000 UNIT/0.5 ML CARP SQ SCH ×3 (06:22→21:45)
[2017-01-19 06:47] LABS: BASO % 0.2 %; BASO ABS # 0.02 K/uL (0-0.2); COMPLETE YES; EOS % 2.1 %; HEMATOCRIT 29.4 % (37-47); IG% 0.8 %; LYMPH % 18.4 %; LYMPH ABS # 1.65 K/uL (1.2-3.4); MEAN CELL VOLUME 87.8 fL (80-100); MEAN CORPUSCULAR HEMOGLOBIN 28.7 pg (25-34); MEAN CORPUSCULAR HGB CONC 32.7 g/dl (32-36); MEAN PLATELET VOLUME 9.7 fL (7.4-10.4); NEUT % 72.5 %; PLATELET COUNT 174 K/uL (130-400); RED BLOOD COUNT 3.35 M/uL (4.2-5.4); WHITE BLOOD COUNT 8.99 K/uL (4.8-10.8)
[2017-01-19 07:10] LABS: BUN/CREATININE RATIO 19.7 (10-20); CALCIUM 9.2 mg/dl (8.5-10.1); CREATININE 3.8 mg/dl (0.60-1.20); POTASSIUM 4.4 mmol/L (3.5-5.1)
[2017-01-19 07:13] LABS: ALB/GLOB RATIO 0.9 (0.9-2)
[2017-01-19] MEDS: BusPIRone 15 MG TAB PO SCH ×2 (07:49→20:47)
[2017-01-19] MEDS: CLOPIDOGREL BISULFATE 75 MG TAB PO SCH (07:49)
[2017-01-19] MEDS: CALCITRIOL 0.25 MCG CAP PO SCH (07:49)
[2017-01-19] MEDS: LABETALOL HCL 100 MG TAB PO SCH ×2 (07:49→20:47)
[2017-01-19] MEDS: CHOLECALCIFEROL 1000 INTER.UNIT TAB PO SCH (07:50)
[2017-01-19] MEDS: INSULIN ASPART 100 UNITS/ML 3 ML PEN SC SCH ×4 (08:00→20:48)
--- NOTE | 2017-01-19 18:13 | Progress Note ---
Subjective Date of Service: Jan 19, 2017. Subjective Pt evaluation today including: conversation w/ patient, physical exam, chart review, lab review, review of inpatient medication list feeling better still somewhat confused but better. [email or web address], thinks we're in [place] but doesn't protest to realizing she's in hospital otherwise no complaints no f/c/s no breathing problems Problem List Medical Problems: (1) Acute kidney failure Status: Acute (2) Bilateral hand pain Status: Acute (3) Urinary tract infection Status: Acute Review of Systems ROS otherwise unobtainable except for as above Objective Vital Signs Date Time Temp Pulse Resp B/P (MAP) Pulse Ox O2 Delivery O2 Flow Rate FiO2 01/19/17 14:50 36.7 70 20 144/81 (102) 94 01/19/17 12:00 Room Air 01/19/17 11:15 36.7 69 20 148/82 (104) 96 Room Air 01/19/17 07:45 Room Air 01/19/17 07:01 36.6 70 18 154/81 (105) 97 Room Air 01/19/17 04:00 Room Air 01/19/17 03:47 36.8 59 16 150/65 (93) 95 Room Air 01/19/17 00:26 36.4 64 17 129/67 (87) 96 Room Air 01/19/17 00:00 Room Air 01/18/17 20:31 Room Air 01/18/17 19:33 36.8 79 22 117/62 01/18/17 19:10 36.8 79 22 117/62 (80) 97 Room Air Physical Exam General Appearance: no apparent distress Eyes: EOMI ENT: hearing grossly normal Neck: trachea midline Respiratory/Chest: no respiratory distress, no accessory muscle use Extremities: normal range of motion Neurologic/Psychiatric: special education aide II-XII nml as tested, alert, normal mood/affect, + disoriented (see above) Skin: normal color, warm/dry Laboratory Results Last 24 Hours Test 01/18/17 19:22 01/18/17 21:02 01/19/17 06:10 01/19/17 07:14 Prothrombin Time 10.3 SECONDS Prothromb Time International Ratio 1.0 Activated Partial Thromboplast Time 26.6 SECONDS Partial Thromboplastin Ratio 1.0 Bedside Glucose 109 mg/dl 71 mg/dl White Blood Count 8.99 K/uL Red Blood Count 3.35 M/uL Hemoglobin 9.6 g/dL Hematocrit 29.4 % Mean Corpuscular Volume 87.8 fL Mean Corpuscular Hemoglobin 28.7 pg Mean Corpuscular Hemoglobin Concent 32.7 g/dl Platelet Count 174 K/uL Mean Platelet Volume 9.7 fL Neutrophils (%) (Auto) 72.5 % Lymphocytes (%) (Auto) 18.4 % Monocytes (%) (Auto) 6.0 % Eosinophils (%) (Auto) 2.1 % Basophils (%) (Auto) 0.2 % Neutrophils # (Auto) 6.52 K/uL Lymphocytes # (Auto) 1.65 K/uL Monocytes # (Auto) 0.54 K/uL Eosinophils # (Auto) 0.19 K/uL Basophils # (Auto) 0.02 K/uL RDW Standard Deviation 54.1 fL RDW Coefficient of Variation 16.7 % Immature Granulocyte % (Auto) 0.8 % Immature Granulocyte # (Auto) 0.07 K/uL Sodium Level 142 mmol/L Potassium Level 4.4 mmol/L Chloride Level 114 mmol/L Carbon Dioxide Level 20 mmol/L Anion Gap 8.0 mmol/L Blood Urea Nitrogen 75 mg/dl Creatinine 3.80 mg/dl Est Creatinine Clear Calc Drug Dose 17.3 ml/min Estimated GFR () 13.2 Estimated GFR (Non- 11.4 BUN/Creatinine Ratio 19.7 Random Glucose 67 mg/dl Calcium Level 9.2 mg/dl Total Bilirubin 0.6 mg/dl Aspartate Amino Transf (AST/SGOT) 15 U/L Alanine Aminotransferase (ALT/SGPT) 17 U/L Alkaline Phosphatase 72 U/L Total Protein 6.6 gm/dl Albumin 3.1 gm/dl Globulin 3.5 gm/dl Albumin/Globulin Ratio 0.9 Test 01/19/17 11:23 01/19/17 16:02 Bedside Glucose 211 mg/dl 256 mg/dl Assessment and Plan Infectious / septic and metabolic encephalopathy -due to UTI and ARF -continue cipro and supportive care UTI -gram negative bacilli -continue cipro pending further ID&S Acute renal failure on CKD stage 3 present on admission - continue IVF, improving. Baseline Cr 2.3. Hold lasix at this time. DM II - A1c 7.8. increase insulins HTN - reasonable control at this time, cont labetolol 100 mg PO BID Hx of CVA - Cont plavix a this time DVT ppx with heparin
[2017-01-19] MEDS: CIPROFLOXACIN / D5W 400 MG in PREMIXED IN D5W 200 ML IV SCH (20:34)
[2017-01-19] MEDS: INSULIN GLARGINE SOLOSTAR 100 UNITS/ML 3 ML PEN SC SCH (20:49)
[2017-01-20 00:21] VITALS: BP 147/72; PULSE 72; TEMP 36.4; O2SAT 97
[2017-01-20 05:11] VITALS: BP 152/76; PULSE 64; TEMP 36.7; O2SAT 95
[2017-01-20] MEDS: HEPARIN SOD 5000 UNIT/0.5 ML CARP SQ SCH ×3 (05:37→20:41)
[2017-01-20] MEDS: LEVOTHYROXINE 150 MCG TAB PO SCH (05:38)
[2017-01-20 07:36] VITALS: BP 171/80; PULSE 65; TEMP 36.4; O2SAT 97
[2017-01-20] MEDS: BusPIRone 15 MG TAB PO SCH ×2 (07:49→19:46)
[2017-01-20] MEDS: CHOLECALCIFEROL 1000 INTER.UNIT TAB PO SCH (07:49)
[2017-01-20] MEDS: CLOPIDOGREL BISULFATE 75 MG TAB PO SCH (07:49)
[2017-01-20] MEDS: LABETALOL HCL 100 MG TAB PO SCH ×2 (07:49→19:47)
[2017-01-20 08:23] LABS: CREATININE 2.9 mg/dl (0.60-1.20)
[2017-01-20 08:24] LABS: BUN/CREATININE RATIO 20.6 (10-20); CALCIUM 9.1 mg/dl (8.5-10.1); POTASSIUM 3.9 mmol/L (3.5-5.1)
[2017-01-20] MEDS: INSULIN ASPART 100 UNITS/ML 3 ML PEN SC SCH ×4 (08:44→20:40)
[2017-01-20] MEDS: INSULIN GLARGINE SOLOSTAR 100 UNITS/ML 3 ML PEN SC SCH ×2 (08:45→20:41)
[2017-01-20] MEDS: SODIUM CHLORIDE 0.9% 1000ML 1,000 ML IV SCH ×2 (09:35→19:51)
[2017-01-20 11:08] VITALS: BP 147/75; PULSE 65; TEMP 36.6; O2SAT 97
[2017-01-20 16:30] VITALS: BP 158/78; PULSE 72; TEMP 36.4; O2SAT 98
--- NOTE | 2017-01-20 17:10 | Progress Note ---
Subjective Date of Service: Jan 20, 2017. Subjective Pt evaluation today including: conversation w/ patient, conversation w/ family , physical exam, chart review, lab review, review of inpatient medication list feeling better, more like herself. is weak but very against going to rehab. "i 'm 71, what can i really gain?" when discussing fall risk, losing independence forever etc she notes "i'm not going to listen to you" discussed with family - dtr annmarie notes she is concerned about mom's fall risk and that she's home alone unsupervised most of the day when brother at work, so she'll be tlaking w pt to reconsider Problem List Medical Problems: (1) Acute kidney failure Status: Acute (2) Altered mental status Status: Acute (3) Bilateral hand pain Status: Acute (4) Urinary tract infection Status: Acute (5) Weakness Status: Acute Review of Systems all other ROS otherwise negative except for as above Objective Vital Signs Date Time Temp Pulse Resp B/P (MAP) Pulse Ox O2 Delivery O2 Flow Rate FiO2 01/20/17 11:08 36.6 65 18 147/75 (99) 97 Room Air 01/20/17 08:00 Room Air 01/20/17 07:36 36.4 65 20 171/80 (110) 97 Room Air 01/20/17 05:11 36.7 64 18 152/76 (101) 95 Room Air 01/20/17 04:00 Room Air 01/20/17 00:21 36.4 72 19 147/72 (97) 97 Room Air 01/20/17 00:00 Room Air 01/19/17 20:43 73 188/81 (116) 01/19/17 20:00 94 Room Air 01/19/17 19:39 37.1 80 19 147/81 (103) 95 Room Air Physical Exam General Appearance: no apparent distress Eyes: EOMI ENT: hearing grossly normal Neck: trachea midline Respiratory/Chest: no respiratory distress, no accessory muscle use Neurologic/Psychiatric: policy advisor II-XII nml as tested, alert Skin: normal color, warm/dry Laboratory Results Last 24 Hours Test 01/19/17 20:11 01/20/17 07:23 01/20/17 07:28 01/20/17 11:18 Bedside Glucose 282 mg/dl 79 mg/dl 229 mg/dl Sodium Level 142 mmol/L Potassium Level 3.9 mmol/L Chloride Level 112 mmol/L Carbon Dioxide Level 18 mmol/L Anion Gap 12.0 mmol/L Blood Urea Nitrogen 60 mg/dl Creatinine 2.90 mg/dl Est Creatinine Clear Calc Drug Dose 22.6 ml/min Estimated GFR () 18.2 Estimated GFR (Non- 15.7 BUN/Creatinine Ratio 20.6 Random Glucose 76 mg/dl Calcium Level 9.1 mg/dl Test 01/20/17 16:47 Bedside Glucose 299 mg/dl Assessment and Plan Infectious / septic and metabolic encephalopathy -due to UTI and ARF -continue cipro and supportive care, improving deconditioning/weakness -high risk for falls/catastrophes without rehab - family aware. case management aware. discussing with pt/family ongoing UTI -sensitive to cipro -continue cipro x7 days for complicated UTI - can change to PO Acute renal failure on CKD stage 3 present on admission - continue IVF, improving. Baseline Cr 2.3. Hold lasix at this time. DM II - A1c 7.8. sugars high postprandial, lower fasting - tighten mealtime, adjust lantus, follow HTN - reasonable control at this time, cont labetolol 100 mg PO BID Hx of CVA - Cont plavix at this time DVT ppx with heparin SQ
[2017-01-20] MEDS: CIPROFLOXACIN 250 MG TAB PO SCH (19:51)
[2017-01-21] VITALS: BP 159/80; PULSE 66; TEMP 36.8; O2SAT 94
[2017-01-21 05:13] VITALS: BP 150/74; PULSE 64; TEMP 36.7; O2SAT 94
[2017-01-21] MEDS: HEPARIN SOD 5000 UNIT/0.5 ML CARP SQ SCH ×3 (05:41→21:07)
[2017-01-21] MEDS: SODIUM CHLORIDE 0.9% 1000ML 1,000 ML IV SCH (05:41)
[2017-01-21] MEDS: LEVOTHYROXINE 150 MCG TAB PO SCH (05:44)
[2017-01-21 07:20] LABS: HEMATOCRIT 29.8 % (37-47); MEAN CELL VOLUME 89.5 fL (80-100); MEAN CORPUSCULAR HEMOGLOBIN 28.8 pg (25-34); MEAN CORPUSCULAR HGB CONC 32.2 g/dl (32-36); MEAN PLATELET VOLUME 9.2 fL (7.4-10.4); PLATELET COUNT 169 K/uL (130-400); RED BLOOD COUNT 3.33 M/uL (4.2-5.4); WHITE BLOOD COUNT 7.77 K/uL (4.8-10.8)
[2017-01-21 07:30] VITALS: BP 167/85; PULSE 72; TEMP 36.7; O2SAT 97
[2017-01-21 07:50] LABS: BUN/CREATININE RATIO 19.8 (10-20); CALCIUM 9.3 mg/dl (8.5-10.1); CREATININE 2.5 mg/dl (0.60-1.20); POTASSIUM 4.3 mmol/L (3.5-5.1)
[2017-01-21] MEDS: CHOLECALCIFEROL 1000 INTER.UNIT TAB PO SCH (08:42)
[2017-01-21] MEDS: CLOPIDOGREL BISULFATE 75 MG TAB PO SCH (08:42)
[2017-01-21] MEDS: LABETALOL HCL 100 MG TAB PO SCH ×2 (08:42→21:05)
[2017-01-21] MEDS: CIPROFLOXACIN 250 MG TAB PO SCH ×2 (08:42→21:05)
[2017-01-21] MEDS: BusPIRone 15 MG TAB PO SCH ×2 (08:42→21:05)
[2017-01-21] MEDS: INSULIN GLARGINE SOLOSTAR 100 UNITS/ML 3 ML PEN SC SCH ×2 (08:44→21:07)
[2017-01-21] MEDS: INSULIN ASPART 100 UNITS/ML 3 ML PEN SC SCH ×4 (08:44→21:07)
[2017-01-21 15:50] VITALS: BP 159/79; PULSE 72; TEMP 36.5; O2SAT 97
--- NOTE | 2017-01-21 15:51 | Progress Note ---
Subjective Date of Service: Jan 21, 2017. Subjective Pt evaluation today including: conversation w/ patient, physical exam, chart review, lab review, review of inpatient medication list feeling about the same. no new complaints. nursing notes some ongoing periods of confusion. no new issues have arisen. ROS otherwise unobtainable except for as above Problem List Medical Problems: (1) Acute kidney failure Status: Acute (2) Altered mental status Status: Acute (3) Bilateral hand pain Status: Acute (4) Urinary tract infection Status: Acute (5) Weakness Status: Acute Review of Systems all other ROS otherwise negative except for as above Objective Vital Signs Date Time Temp Pulse Resp B/P (MAP) Pulse Ox O2 Delivery O2 Flow Rate FiO2 01/21/17 08:00 Room Air 01/21/17 07:30 36.7 72 16 167/85 (112) 97 Room Air 01/21/17 05:13 36.7 64 17 150/74 (99) 94 Room Air 01/21/17 00:00 36.8 66 18 159/80 (106) 94 Room Air 01/21/17 00:00 Room Air 01/20/17 20:00 Room Air 01/20/17 16:30 36.4 72 16 158/78 (104) 98 Room Air 01/20/17 16:30 Room Air Physical Exam General Appearance: no apparent distress Eyes: EOMI ENT: hearing grossly normal Neck: trachea midline Respiratory/Chest: no respiratory distress, no accessory muscle use Extremities: normal range of motion Neurologic/Psychiatric: starch cooker II-XII nml as tested, alert Skin: normal color, warm/dry Laboratory Results Last 24 Hours Test 01/20/17 16:47 01/20/17 20:19 01/21/17 06:44 01/21/17 07:37 Bedside Glucose 299 mg/dl 181 mg/dl 92 mg/dl White Blood Count 7.77 K/uL Red Blood Count 3.33 M/uL Hemoglobin 9.6 g/dL Hematocrit 29.8 % Mean Corpuscular Volume 89.5 fL Mean Corpuscular Hemoglobin 28.8 pg Mean Corpuscular Hemoglobin Concent 32.2 g/dl RDW Standard Deviation 55.5 fL RDW Coefficient of Variation 16.9 % Platelet Count 169 K/uL Mean Platelet Volume 9.2 fL Sodium Level 143 mmol/L Potassium Level 4.3 mmol/L Chloride Level 116 mmol/L Carbon Dioxide Level 17 mmol/L Anion Gap 10.0 mmol/L Blood Urea Nitrogen 50 mg/dl Creatinine 2.50 mg/dl Est Creatinine Clear Calc Drug Dose 26.3 ml/min Estimated GFR () 21.8 Estimated GFR (Non- 18.8 BUN/Creatinine Ratio 19.8 Random Glucose 76 mg/dl Calcium Level 9.3 mg/dl Test 01/21/17 11:43 Bedside Glucose 139 mg/dl Assessment and Plan Infectious / septic and metabolic encephalopathy -due to UTI and ARF -continue cipro and supportive care, improving overall - still a degree of confusion deconditioning/weakness -high risk for falls/catastrophes without rehab - family aware. case management aware. stable for rehab when approved and available. pt wasn't entirely amenable but not clear she has capacity to refuse right now w encephalopathy, and family (who are her caregivers) are quite positive for her having SNF or rehab UTI -sensitive to cipro -continue cipro x7 days for complicated UTI - changed to PO Acute renal failure on CKD stage 3 present on admission - now around baseline. stop IVF. DM II - A1c 7.8. sugars more reasonable today. HTN - reasonable control at this time given circumstances, cont labetolol 100 mg PO BID Hx of CVA - Cont plavix at this time DVT ppx with heparin SQ stable for SNF/rehab once set up
[2017-01-22 00:12] VITALS: BP 179/77; PULSE 70; TEMP 36.7; O2SAT 95
[2017-01-22] MEDS: LEVOTHYROXINE 150 MCG TAB PO SCH (05:35)
[2017-01-22] MEDS: HEPARIN SOD 5000 UNIT/0.5 ML CARP SQ SCH ×3 (05:41→20:51)
[2017-01-22 06:36] LABS: BUN/CREATININE RATIO 17.5 (10-20); CALCIUM 9.3 mg/dl (8.5-10.1); CREATININE 2.3 mg/dl (0.60-1.20); POTASSIUM 4.2 mmol/L (3.5-5.1)
[2017-01-22 08:09] VITALS: BP_SYST 180; BP_SYST 212; BP_DIAS 80; BP_DIAS 90; PULSE 73; TEMP 36.8; O2SAT 96
[2017-01-22] MEDS: LABETALOL HCL 100 MG TAB PO SCH ×2 (08:39→20:36)
[2017-01-22] MEDS: CHOLECALCIFEROL 1000 INTER.UNIT TAB PO SCH (08:39)
[2017-01-22] MEDS: BusPIRone 15 MG TAB PO SCH ×2 (08:39→20:36)
[2017-01-22] MEDS: CALCITRIOL 0.25 MCG CAP PO SCH (08:39)
[2017-01-22] MEDS: CLOPIDOGREL BISULFATE 75 MG TAB PO SCH (08:39)
[2017-01-22] MEDS: CIPROFLOXACIN 250 MG TAB PO SCH ×2 (08:39→20:36)
[2017-01-22] MEDS: INSULIN GLARGINE SOLOSTAR 100 UNITS/ML 3 ML PEN SC SCH ×2 (08:43→20:51)
[2017-01-22] MEDS: INSULIN ASPART 100 UNITS/ML 3 ML PEN SC SCH ×4 (08:43→20:51)
[2017-01-22 09:04] VITALS: O2SAT 96
[2017-01-22 10:16] LABS: HEMATOCRIT 32.3 % (37-47); MEAN CELL VOLUME 90.7 fL (80-100); MEAN CORPUSCULAR HEMOGLOBIN 28.4 pg (25-34); MEAN CORPUSCULAR HGB CONC 31.3 g/dl (32-36); PLATELET COUNT 203 K/uL (130-400); RED BLOOD COUNT 3.56 M/uL (4.2-5.4); WHITE BLOOD COUNT 8.38 K/uL (4.8-10.8)
[2017-01-22 10:43] VITALS: BP 171/85
--- NOTE | 2017-01-22 14:53 | Hospitalist Progress Note ---
Hospitalist Progress Note Date of Service Jan 22, 2017. (Yamileth Stringer .SIDNEYC) Subjective Pt evaluation today including: conversation w/ patient, physical exam, chart review, lab review, review of inpatient medication list Pain: None PO Intake: Tolerating PO diet Voiding: no voiding problems Patient reports feeling well. She does admit to weakness and fatigue. She states she is eating well and denies any urinary symptoms. The patient denies fevers, chills, sweats, chest pain, palpitations, claudication, cough, wheezing , shortness of breath, nausea, vomiting, abdominal pain, dysuria, hematuria, urinary retention, paralysis, weakness, numbness and tingling. Additional Comments: See HPI for pertinent positives and negatives. All other systems reviewed and negative. (Yamileth Stringer PA-C) Objective Vital Signs Date Time Temp Pulse Resp B/P (MAP) Pulse Ox O2 Delivery O2 Flow Rate FiO2 01/22/17 10:43 171/85 (113) 01/22/17 09:04 96 Room Air 01/22/17 08:09 36.8 73 18 212/80 (124) 96 Room Air 180/90 (120) 01/22/17 08:00 Room Air 01/22/17 00:12 36.7 70 17 179/77 (111) 95 Room Air 01/22/17 00:00 Room Air 01/21/17 16:30 Room Air 01/21/17 15:50 36.5 72 18 159/79 (105) 97 Room Air (Yamileth Stringer PA-C) Physical Exam Notes: General appearance: Well-developed, well-nourished, no apparent distress Head: Normocephalic, atraumatic Eyes: Normal inspection, PERRL, EOMI ENT: Normal ENT inspection, hearing grossly normal, pharynx normal Neck: Supple, no JVD, trachea midline Respiratory/Chest: Lungs clear to auscultation, normal breath sounds, no respiratory distress Cardiovascular: Regular rate & rhythm, no gallop, no murmur Abdomen/GI: Normal bowel sounds, non-tender, soft Extremities/Musculoskeletal: Normal inspection, no calf tenderness, no pedal edema Neurological/Psych: +Confused. Pt told me she was refusing rehab because she had worked at [employer] [facility] [employer] and didn't like it, but she had told case management that it was [employer] she worked for. Could not remember name of [facility] but knew she was in a hospital in [place]. Alert, normal mood/affect, oriented x 3 Skin: Normal color, warm/dry, no rash (Yamileth Stringer ., PA-C) Laboratory Results Last 24 Hours Test 01/21/17 16:25 01/21/17 20:12 01/22/17 05:46 01/22/17 07:23 Bedside Glucose 171 mg/dl 174 mg/dl 100 mg/dl White Blood Count 8.38 K/uL Red Blood Count 3.56 M/uL Hemoglobin 10.1 g/dL Hematocrit 32.3 % Mean Corpuscular Volume 90.7 fL Mean Corpuscular Hemoglobin 28.4 pg Mean Corpuscular Hemoglobin Concent 31.3 g/dl RDW Standard Deviation 57.3 fL RDW Coefficient of Variation 17.0 % Platelet Count 203 K/uL Mean Platelet Volume 10.0 fL Sodium Level 143 mmol/L Potassium Level 4.2 mmol/L Chloride Level 115 mmol/L Carbon Dioxide Level 20 mmol/L Anion Gap 8.0 mmol/L Blood Urea Nitrogen 40 mg/dl Creatinine 2.30 mg/dl Est Creatinine Clear Calc Drug Dose 28.6 ml/min Estimated GFR () 24.1 Estimated GFR (Non- 20.8 BUN/Creatinine Ratio 17.5 Random Glucose 87 mg/dl Calcium Level 9.3 mg/dl (Yamileth Stringer ., PA-C) Assessment and Plan 71 y/o female with a history of HTN, HLD, CAD, leg edema, DM II, CKD stage III, hypothyroidism, PMR, and anxiety who presented with altered mental status. UTI with encephalopathy--stable. Oriented but confused -Admit to med/surg -Urine culture positive for pansensitive E. coli -Continue Cipro 250 mg PO BID. Day #5 of 7 MARGARET on CKD stage III--stable. Baseline creatinine 2.3 -Pt had received IVF -Creatinine stable, at baseline -IVF d/c'd Deconditioning/weakness -High fall risk -PT/OT evaluate and treat. Recommend rehab. Family wants pt to go to [facility] but pt is refusing -Unclear if pt capable of making decisions. Oriented but still with confusion -Talked to pt again about rehab, and she is agreeable to learning more about all the different facilities in the area -Case management spoke to pt again, and she is now agreeable to [facility]. Referral sent HTN, CAD, h/o CVA--stable. BP had been elevated this morning but improving -Continue labetalol 100 mg PO BID, Plavix 75 mg PO qd -Norvasc had been on hold, will resume 5 mg PO qd HLD -Pt's statin had been d/c'd by PCP due to myalgias DM II--HgbA1c 7.8 on 01/18/17 -Hold glyburide and Januvia -Lantus 15 units SC qam and 5 units SC qhs -Insulin sliding scale -Check BSGs q ac and qhs Hypothyroidism -Continue Synthroid 150 mcg PO qd PMR -Continue Prednisone 20 mg PO qd Anxiety -Continue Buspar 15 mg PO BID DVT prophylaxis -Heparin 5000 units SC q8h Dispo -Lives with son. PT recommends rehab. Will send referral to [facility] (Yamileth Stringer ., CARLOZ) Reviewed: Pt Seen/Exam by Me (Pratima Contreras MD) History Physician Value Analysis Coordinator Supervision Note: I interviewed and examined the patient. Discussed with SHAYY Stringer and agree with findings and plan as documented in the note. Any exceptions or clarifications are listed here: Pt feeling much better, stronger, was able to ambulate today. Denies CP/SOB/Abd pain. Vitals reviewed NAD RRR 2/6 LAWRENCE at [facility] no wcr Abd +BS soft NT ND Ext no edema 71 yo female here with UTI and acute metabolic encephalopathy and MARGARET on CKD stage IV. 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 Also with acute on chronic metabolic acidosis likely related to her CKD stage IV and infection superimposed (no lactate drawn on admission but may have had lactic acidosis) -renally dose all meds, holding lasix but can restart on discharge most likely, avoid nephrotoxins--> consider getting established with Nephrology as an outpt as she may end up needing dialysis in the future -plan to dc to SNF when bed available Documented By: Pratima Contreras (Pratima Contreras MD)
[2017-01-22 15:08] VITALS: BP 141/82; PULSE 66; TEMP 37.3; O2SAT 95
[2017-01-22] MEDS ORDERED: AMLODIPINE BESYLATE 5 MG TAB PO ONE (17:45)
[2017-01-22 20:45] VITALS: BP 188/78; PULSE 65
[2017-01-23 00:04] VITALS: BP 154/68; PULSE 61; TEMP 36.8; O2SAT 95
[2017-01-23] MEDS: LEVOTHYROXINE 150 MCG TAB PO SCH (05:35)
[2017-01-23] MEDS: HEPARIN SOD 5000 UNIT/0.5 ML CARP SQ SCH ×2 (05:36→12:50)
[2017-01-23 06:28] LABS: HEMATOCRIT 31.8 % (37-47); MEAN CELL VOLUME 90.3 fL (80-100); MEAN CORPUSCULAR HEMOGLOBIN 28.7 pg (25-34); MEAN CORPUSCULAR HGB CONC 31.8 g/dl (32-36); MEAN PLATELET VOLUME 9.4 fL (7.4-10.4); PLATELET COUNT 184 K/uL (130-400); RED BLOOD COUNT 3.52 M/uL (4.2-5.4); WHITE BLOOD COUNT 8.45 K/uL (4.8-10.8)
[2017-01-23 07:02] LABS: BUN/CREATININE RATIO 15.8 (10-20); CREATININE 2.2 mg/dl (0.60-1.20); POTASSIUM 3.9 mmol/L (3.5-5.1)
[2017-01-23] MEDS: CIPROFLOXACIN 250 MG TAB PO SCH (07:42)
[2017-01-23] MEDS: CHOLECALCIFEROL 1000 INTER.UNIT TAB PO SCH (07:42)
[2017-01-23] MEDS: LABETALOL HCL 100 MG TAB PO SCH (07:42)
[2017-01-23] MEDS: CLOPIDOGREL BISULFATE 75 MG TAB PO SCH (07:42)
[2017-01-23] MEDS: BusPIRone 15 MG TAB PO SCH (07:43)
[2017-01-23 08:01] VITALS: BP 176/73; PULSE 60; TEMP 36.9; O2SAT 96
[2017-01-23] MEDS: INSULIN GLARGINE SOLOSTAR 100 UNITS/ML 3 ML PEN SC SCH (08:26)
[2017-01-23] MEDS: INSULIN ASPART 100 UNITS/ML 3 ML PEN SC SCH ×2 (08:26→12:50)
[2017-01-23] MEDS ORDERED: AMLODIPINE BESYLATE 5 MG TAB PO SCH (09:00)
[2017-01-23] MEDS ORDERED: CPR250 PO (12:24)
--- NOTE | 2017-01-23 12:40 | Discharge Instructions ---
Discharge Instructions Date of Service Jan 23, 2017. Admission Reason for Admission: Acute Kidney Failure, Urinary Tract Infection Discharge Discharge Diagnosis / Problem: Urinary tract infection, encephalopathy, acute kidney injury Discharge Goals Goal(s): Decrease discomfort, Improve function, Diagnostic testing, Therapeutic intervention Activity Recommendations Activity Level: Assistance Required Therapies: Physical Therapy, Occupational Therapy Exercise/Sports Limitations: as tolerated . Additional Information Patient informed of condition: Yes Advance Directives: No DNR: No Level of Care: Acute Rehab Communicable Disease: No Prognosis: Stable Pryor Catheter: No Instructions / Follow-Up Instructions / Follow-Up The patient was admitted to the hospital with worsening confusion and incontinence. The patient was found to have a urinary tract infection with wood- sensitive E. Coli. She was started on Cipro. She has completed 6 days of a 7 day course of the Cipro. She was not septic on arrival. Head CT and CXR were negative for acute abnormalities. She was found to have acute kidney injury on top of her CKD and was treated with IVF. Her home Lasix was held. As her renal function has returned to her baseline for the last 2 days prior to discharge, this may be resumed. PT/OT evaluated the patient and recommended rehab. Medications: *Cipro 250 mg by mouth twice daily x 1 more day to complete 7 day course for complicated UTI. *Resume home Lasix as prescribed. *Statin discontinued. Per outpatient records, patient had been having myalgias and was instructed to stop her statin. *Continue other home medications as prescribed. Follow up: *Follow up with primary care provider in 1 week regarding hospital stay. *Continue routine follow up with nephrology regarding chronic kidney disease and chronic metabolic acidosis. Please seek medical attention if patient experiences fevers, chills, sweats, dizziness/lightheadedness, loss of consciousness, fall, chest pain, shortness of breath, nausea, vomiting, numbness or tingling. Current Hospital Diet Patient's current hospital diet: Diabetes Type 2 Diet Discharge Diet Recommended Diet: Diabetes Type 2 Diet Pending Studies Studies pending at discharge: no Physician Orders On Transfer Special Precautions: Fall precautions Vital Signs: Routine Additional Orders: 1 more day of Cipro Laboratory Results Hemoglobin A1c Test 01/18/17 14:26 Range/Units Estimated Average Glucose 177 mg/dl Hemoglobin A1c 7.8 H 4.5-5.6 % Medical Emergencies . Who to Call and When: Medical Emergencies: If at any time you feel your situation is an emergency, please call 911 immediately. . Non-Emergent Contact Non-Emergency issues call your: Primary Care Provider, Stake Setter Call Non-Emergent contact if: you have a fever, you have any medication questions . Past History Medical & Surgical History: (1) Urinary tract infection (2) Altered mental status (3) Acute kidney failure . "Provider Documentation" section prepared by Yamileth Stringer. . Core Measure Problem Core Measures: None
--- NOTE | 2017-01-23 12:49 | Discharge Summary ---
Discharge Summary Date of Service Jan 23, 2017. (Yamileth Stringer .CARLOZ) Discharge Summary Admission Date: Jan 20, 2017 at 17:11 Discharge Date: Jan 23, 2017 Discharge Disposition: intermediate facility ([facility]) Principal Diagnosis: Urinary tract infection, encephalopathy, acute kidney injury Problems/Secondary Diagnoses: HTN HLD CAD Leg edema DM II CKD stage III Hypothyroidism PMR Anxiety Immunizations: Have You Had Influenza Vaccine: N/A Influenza Vaccine Date: Feb 01, 2009 History of Tetanus Vaccine?: Yes History of Pneumococcal: Unknown History of Hepatitis B Vaccine: No Procedures: CT HEAD WITHOUT CONTRAST (CT) CLINICAL HISTORY: Acute change in mental status. Weakness. COMPARISON STUDY: 09/08/2013 TECHNIQUE: Axial CT of the brain is performed from the vertex to the skull base. IV contrast was not administered for this examination. A dose lowering technique was utilized adhering to the principles of ALARA. CT DOSE: 1311.06 mGy.cm FINDINGS: No intra or extra-axial mass lesions are visualized. There is no CT evidence of acute cortical infarction. There is no evidence of midline shift. There is no acute hemorrhage. No calvarial fractures are visualized. There are patchy white matter hypodensities likely on a small vessel basis. There are bilateral basal ganglia lacunar infarcts. There is an old left cerebellar infarct. There is mild cerebellar atrophy. There is no evidence of pathologic ventricular dilatation. There is no evidence of acute sinusitis IMPRESSION: Old infarcts, similar to the prior study. No acute intracranial findings. CHEST ONE VIEW PORTABLE CLINICAL HISTORY: weakness COMPARISON STUDY: 09/02/2016 FINDINGS: The study is limited from a technical standpoint. The patient's right hand projects over the right lung base. The heart is normal in size. There is no failure. There is no focal pulmonary consolidation. There are no pleural effusions.[ IMPRESSION: Technically limited AP portable study. No acute findings. (Yamileth Stringer .CARLOZ) Medication Reconciliation New Medications: Ciprofloxacin (Ciprofloxacin HCl) 250 Mg Tab 250 MG PO BID for 1 Day, #2 TAB Continued Medications: Amlodipine (Norvasc) 5 Mg Tab 5 MG PO DAILY, TAB Buspirone Hcl (Buspar) 15 Mg Tab 15 MG PO BID, TAB Calcitriol (Rocaltrol Cap) 0.25 Mcg Cap 0.25 MCG PO 3XWK, CAP Cholecalciferol (Vitamin D3) 1,000 Unit Tab 1000 INTER.UNIT PO DAILY, TAB 3 Refills Clopidogrel (Plavix) 75 Mg Tab 75 MG PO DAILY, TAB Furosemide (Lasix) 20 Mg Tab 20 MG PO QAM, TAB Glyburide (Micronase) 5 Mg Tab 10 MG PO BID, TAB Labetalol Hcl (Normodyne) 100 Mg Tab 100 MG PO BID Levothyroxine Sodium (Synthroid) 150 Mcg Tab 150 MCG PO QAM Prednisone (Prednisone) 20 Mg Tab 20 MG PO QAM, #5 TAB Sitagliptin Phosphate (Januvia) 100 Mg Tab 100 MG PO QPM, TAB Solifenacin (Vesicare) 5 Mg Tab 5 MG PO DAILY, TAB Discontinued Medications: Rosuvastatin Calcium (Crestor) 40 Mg Tab 40 MG PO, TAB Referrals At Discharge Follow up Referrals: Family Practice Referral - Within 1 Week with Bryn Marin M.D. Discharge Exam Patient reports feeling well. She states she did very well with physical therapy today. She denies any complaints currently and does not feel as weak or fatigued as yesterday. The patient denies fevers, chills, sweats, chest pain , palpitations, claudication, cough, wheezing, shortness of breath, nausea, vomiting, abdominal pain, dysuria, hematuria, urinary retention, paralysis, weakness, numbness and tingling. Review of Systems: Constitutional: No fever, No chills, No sweats, No weakness, No fatigue Eyes: No worsening of vision, No eye pain, No diplopia ENT: No hearing loss, No sore throat, No trouble swallowing Respiratory: No cough, No wheezing, No shortness of breath Cardiovascular: No chest pain, No claudication, No palpitations Abdomen: No pain, No nausea, No vomiting Musculoskeletal: No joint pain, No muscle pain, No calf pain Genitourinary - Female: No dysuria, No urinary retention, No hematuria Neurologic: No paralysis, No weakness, No numbness/tingling Integumentary: No rash, No itch, No color change Physical Exam: General Appearance: WD/WN, no apparent distress Eyes: normal inspection, PERRL, EOMI ENT: normal ENT inspection, hearing grossly normal, pharynx normal Neck: supple, no JVD, trachea midline Respiratory/Chest: lungs clear, normal breath sounds, no respiratory distress Cardiovascular: regular rate, rhythm, no gallop, no murmur Abdomen / GI: normal bowel sounds, non tender, soft Extremities: normal inspection, no calf tenderness, no pedal edema Neurologic/Psychiatric: alert, normal mood/affect, + disoriented ( disoriented to time. Pt knew it was 2016 but thought it was October. Oriented to person and place) Skin: normal color, warm/dry, no rash (Yamileth Stringer PA-C) Hospital Course 71 y/o female with a history of HTN, HLD, CAD, leg edema, DM II, CKD stage III, hypothyroidism, PMR, and anxiety who presented with altered mental status. UTI with encephalopathy--stable. Oriented but easily confused -Admit to med/surg -Urine culture positive for pansensitive E. coli -Continue Cipro 250 mg PO BID. Day #6 of 7 MARGARET on CKD stage III--stable. Baseline creatinine 2.3 -Pt had received IVF -Creatinine stable, at baseline -IVF d/c'd -May resume Lasix on discharge Deconditioning/weakness -High fall risk -PT/OT evaluate and treat. Recommend rehab. -Pt accepted to [facility] HTN, CAD, h/o CVA--stable -Continue labetalol 100 mg PO BID, Norvasc 5 mg PO qd, Plavix 75 mg PO qd HLD -Pt's statin had been d/c'd by PCP due to myalgias DM II--HgbA1c 7.8 on 01/18/17 -Hold glyburide and Januvia, resume on discharge -Lantus 15 units SC qam and 5 units SC qhs -Insulin sliding scale -Check BSGs q ac and qhs Hypothyroidism -Continue Synthroid 150 mcg PO qd PMR -Continue Prednisone 20 mg PO qd Anxiety -Continue Buspar 15 mg PO BID DVT prophylaxis -Heparin 5000 units SC q8h Dispo -Lives with son. PT recommends rehab. Accepted to [facility] Total Time Spent: Greater than 30 minutes This includes examination of the patient, discharge planning, medication reconciliation, and communication with other providers. (Yamileth Stringer ., CARLOZ) Discharge Instructions Please refer to the electronic Patient Visit Report (Discharge Instructions) for additional information. (Yamileth Stringer ., CARLOZ) Additional Copies To Bryn Marin M.D. Reviewed: Pt Seen/Exam by Me (Pratima Contreras MD) History Physician Stitcher Operator Supervision Note: I interviewed and examined the patient. Discussed with SHAYY Stringer and agree with findings and plan as documented in the note. Any exceptions or clarifications are listed here: Pt feeling well. Denies CP/SOB/Abd pain. Vitals reviewed NAD RRR 2/6 [facility] at [facility] no wcr Abd +BS soft NT ND Ext no edema 71 yo female here with UTI and acute metabolic encephalopathy and MARGARET on CKD stage IV. UTI and encephalopathy improving, continue 7 day course of Cipro Shoe Dresser improved back to baseline. Also with acute on chronic metabolic acidosis likely related to her CKD stage IV and infection superimposed (no lactate drawn on admission but may have had lactic acidosis)-hedis nurse improved to 2.2 and HCO3 improved to 22 on day of discharge -renally dose all meds, restart lasix on discharge most likely, avoid nephrotoxins--> f/u with Nephrology as an outpt - dc to SNF today Documented By: Pratima Contreras (Pratima Contreras MD)
[2017-01-23 13:03] VITALS: BP 176/73; PULSE 60; TEMP 36.9; O2SAT 96
== END 2017-01-23 15:33 | DRG 682 ==
LOC: EDBD 14:46 → C.EDB 14:47 → C.MED 17:30 → ENRESERV 17:55 → OBSVTOIN 01-20 17:11
PROVIDERS: ADMIT Hospitalist; ATTEND Family Medicine
DX: N17.9 Acute kidney failure, unspecified (principal); G93.41 Metabolic encephalopathy; E87.2 Acidosis; N39.0 Urinary tract infection, site not specified; B96.20 Unspecified Escherichia coli [E. coli] as the cause of diseases classified elsewhere; R53.81 Other malaise; R53.1 Weakness; R15.9 Full incontinence of feces; R32 Unspecified urinary incontinence; I25.10 Atherosclerotic heart disease of native coronary artery without angina pectoris; I12.9 Hypertensive chronic kidney disease with stage 1 through stage 4 chronic kidney disease, or unspecified chronic kidney disease; E11.22 Type 2 diabetes mellitus with diabetic chronic kidney disease; N18.3 Chronic kidney disease, stage 3 (moderate); E78.5 Hyperlipidemia, unspecified; R60.0 Localized edema; M35.3 Polymyalgia rheumatica; E03.9 Hypothyroidism, unspecified; F41.9 Anxiety disorder, unspecified; E66.9 Obesity, unspecified; Z68.30 Body mass index [BMI] 30.0-30.9, adult; Z91.81 History of falling; Z86.73 Personal history of transient ischemic attack (TIA), and cerebral infarction without residual deficits; Z79.02 Long term (current) use of antithrombotics/antiplatelets; Z79.52 Long term (current) use of systemic steroids; Z79.84 Long term (current) use of oral hypoglycemic drugs; Z79.899 Other long term (current) drug therapy

== ENCOUNTER → 2017-03-05 | Outpatient (CLI) | payer OTHER, MEDICARE ==
[~2017-03-05] MED LIST changes: -CALC-354 PO; +CALC0.2510 PO; +CHOL1000 PO; +CIPR250T5 PO; +FURO-85 PO; -LEVO150T PO; -ROSU40TA PO; +SITA100T3 PO; +SYN150 PO; +VSC/5 PO
== END | disposition home or self-care (01) ==
LOC: C.LAB1850 14:20
PROVIDERS: ATTEND Internal Medicine Rheumatology
DX: M35.3 Polymyalgia rheumatica (principal); Z79.52 Long term (current) use of systemic steroids

== ENCOUNTER → 2017-04-03 | Outpatient (CLI) | payer OTHER, MEDICARE | END | disposition home or self-care (01) | LOC: C.LABBFT 13:58 | PROVIDERS: ATTEND Internal Medicine Rheumatology | DX: M25.50 Pain in unspecified joint (principal); M35.3 Polymyalgia rheumatica ==

== ENCOUNTER → 2017-05-08 | Outpatient (CLI) | payer OTHER, MEDICARE | END | disposition home or self-care (01) | LOC: C.LABBFT 13:52 | PROVIDERS: ATTEND Internal Medicine Rheumatology | DX: R70.0 Elevated erythrocyte sedimentation rate (principal); M35.3 Polymyalgia rheumatica; Z79.52 Long term (current) use of systemic steroids ==

== ENCOUNTER → 2017-07-03 | Outpatient (CLI) | payer OTHER, MEDICARE ==
[~2017-07-03] MED LIST changes: +CIPR250T23 PO; -CIPR250T5 PO
== END | disposition home or self-care (01) ==
LOC: C.LAB1850 14:03
PROVIDERS: ATTEND Internal Medicine Rheumatology
DX: Z51.81 Encounter for therapeutic drug level monitoring (principal); M35.3 Polymyalgia rheumatica; Z79.52 Long term (current) use of systemic steroids; M62.81 Muscle weakness (generalized)

== ENCOUNTER → 2017-07-31 | Outpatient (CLI) | payer OTHER, MEDICARE | END | disposition home or self-care (01) | LOC: C.LABBFT 09:03 | PROVIDERS: ATTEND Internal Medicine Rheumatology | DX: M35.3 Polymyalgia rheumatica (principal); Z79.52 Long term (current) use of systemic steroids; M81.8 Other osteoporosis without current pathological fracture ==

== ENCOUNTER → 2017-08-09 | Outpatient (CLI) | payer OTHER, MEDICARE ==
[2017-08-09 12:37] LABS: BASO % 0.1 %; BASO ABS # 0.01 K/uL (0-0.2); EOS % 0.9 %; EOS ABS # 0.11 K/uL (0-0.5); HEMATOCRIT 31.4 % (37-47); HEMOGLOBIN 10.4 g/dL (12.0-16.0); IG# 0.28 K/uL (0.00-0.02); LYMPH % 13.1 %; LYMPH ABS # 1.62 K/uL (1.2-3.4); MEAN CELL VOLUME 87.5 fL (80-100); MEAN CORPUSCULAR HGB CONC 33.1 g/dl (32-36); MEAN PLATELET VOLUME 9.4 fL (7.4-10.4); NEUT % 79.6 %; NEUT ABS # 9.86 K/uL (1.4-6.5); PLATELET COUNT 230 K/uL (130-400); RED CELL DISTRIBUTION WIDTH CV 16.8 % (11.5-14.5); RED CELL DISTRIBUTION WIDTH SD 53.5 fL (36.4-46.3); WHITE BLOOD COUNT 12.38 K/uL (4.8-10.8)
[2017-08-09 13:05] LABS: HEMOGLOBIN A1C 8.3 % (4.5-5.6)
[2017-08-09 13:14] LABS: ALBUMIN 3.4 gm/dl (3.4-5.0); ALT/SGPT 15 U/L (12-78); AST/SGOT 8 U/L (15-37); BLOOD UREA NITROGEN 60 mg/dl (7-18); CALCIUM 9.5 mg/dl (8.5-10.1); CARBON DIOXIDE 19 mmol/L (21-32); CREATININE 2.52 mg/dl (0.60-1.20); GLUCOSE 173 mg/dl (70-99); POTASSIUM 5.4 mmol/L (3.5-5.1); SODIUM 135 mmol/L (136-145)
[2017-08-09 13:25] LABS: ALKALINE PHOSPHATASE 57 U/L (45-117); CHOLESTEROL 422 mg/dl (0-200); TOTAL PROTEIN 7.7 gm/dl (6.4-8.2)
== END | disposition home or self-care (01) ==
LOC: C.LABBFT 10:27
PROVIDERS: ATTEND Nurse Practitioner
DX: E11.29 Type 2 diabetes mellitus with other diabetic kidney complication (principal); N18.9 Chronic kidney disease, unspecified; E03.9 Hypothyroidism, unspecified

== ENCOUNTER → 2017-09-04 | Outpatient (CLI) | payer OTHER, MEDICARE | END | disposition home or self-care (01) | LOC: C.LABBFT 10:00 | PROVIDERS: ATTEND Internal Medicine Rheumatology | DX: M25.511 Pain in right shoulder (principal); M25.512 Pain in left shoulder ==

== ENCOUNTER → 2017-09-06 | Outpatient (CLI) | payer OTHER, MEDICARE ==
[~2017-09-06] MED LIST changes: -CIPR250T23 PO; +CIPR250T26 PO
[2017-09-06 12:14] LABS: BASO % 0.1 %; BASO ABS # 0.01 K/uL (0-0.2); EOS % 1.1 %; EOS ABS # 0.14 K/uL (0-0.5); HEMATOCRIT 25.9 % (37-47); HEMOGLOBIN 8.5 g/dL (12.0-16.0); IG# 0.11 K/uL (0.00-0.02); LYMPH ABS # 1.51 K/uL (1.2-3.4); MEAN CELL VOLUME 86.9 fL (80-100); MEAN CORPUSCULAR HEMOGLOBIN 28.5 pg (25-34); MEAN CORPUSCULAR HGB CONC 32.8 g/dl (32-36); MONO % 4.5 %; MONO ABS # 0.57 K/uL (0.11-0.59); NEUT % 81.4 %; NEUT ABS # 10.23 K/uL (1.4-6.5); PLATELET COUNT 268 K/uL (130-400); RED CELL DISTRIBUTION WIDTH SD 54.1 fL (36.4-46.3); WHITE BLOOD COUNT 12.57 K/uL (4.8-10.8)
[2017-09-06 12:34] LABS: ALBUMIN 3.3 gm/dl (3.4-5.0); ALKALINE PHOSPHATASE 66 U/L (45-117); ALT/SGPT 20 U/L (12-78); AST/SGOT 13 U/L (15-37); BLOOD UREA NITROGEN 63 mg/dl (7-18); CALCIUM 9.4 mg/dl (8.5-10.1); CARBON DIOXIDE 22 mmol/L (21-32); CREATININE 2.26 mg/dl (0.60-1.20); GLUCOSE 155 mg/dl (70-99); POTASSIUM 4.9 mmol/L (3.5-5.1); SODIUM 137 mmol/L (136-145); TOTAL PROTEIN 7.6 gm/dl (6.4-8.2)
== END | disposition home or self-care (01) ==
LOC: C.LABBFT 10:22
PROVIDERS: ATTEND Internal Medicine Rheumatology
DX: R32 Unspecified urinary incontinence (principal); R70.0 Elevated erythrocyte sedimentation rate; M35.3 Polymyalgia rheumatica

== ENCOUNTER 2018-05-13 12:26 | Inpatient (IN) ==
[2018-05-13 13:47] LABS: Appearance Urine Turbid (Clear); Bacteria Urine Automated 1+ (Negative); Glucose Urine UA 1+ (Negative); Ketones Urine Negative (Negative); Leukocyte Esterase Urine 2+ (Negative); Nitrite Urine Negative (Negative); Protein Urine 3+ (Negative); Urobilinogen Urine Negative (Negative); WBC Urine Automated >30 /hpf (0-5)
[2018-05-13 13:49] LABS: Color Urine Brown
[2018-05-13 13:52] LABS: Bilirubin Urine Negative (Negative); Ictotest Urine Negative (Negative)
[2018-05-13 13:58] LABS: Basophils # (auto) 0.01 K/uL (0-0.2); Basophils % (auto) 0.1 %; Eosinophils # (auto) 0.07 K/uL (0-0.5); Eosinophils % (auto) 0.5 %; Hematocrit (blood only) 32.3 % (37-47); Hemoglobin 10.3 g/dL (12.0-16.0); Immature Granulocytes # (auto) 0.03 K/uL (0.00-0.02); Immature Granulocytes % (auto) 0.2 %; Lymphocytes # (auto) 0.65 K/uL (1.2-3.4); Mean Corpuscular Hgb Conc 31.9 g/dL (32-36); Mean Corpuscular Volume 89.5 fL (80-100); Mean Platelet Volume 10.1 fL (7.4-10.4); Monocytes # (auto) 0.18 K/uL (0.11-0.59); Monocytes % (auto) 1.4 %; Neutrophils # (auto) 12.07 K/uL (1.4-6.5); Neutrophils % (auto) 92.8 %; Platelet Count 211 K/uL (130-400); RDW Coefficient of Variation 15.6 % (11.5-14.5); RDW Standard Deviation 50.6 fL (36.4-46.3); Red Blood Count 3.61 M/uL (4.2-5.4); White Blood Count 13.01 K/uL (4.8-10.8)
--- NOTE | 2018-05-13 14:03 | XRay Report ---
XR chest 1V portable CLINICAL HISTORY: weakness COMPARISON STUDY: 01/31/2018 FINDINGS: The cardiac and mediastinal contours are normal. There is no evidence of focal pulmonary co nsolidation. There is no evidence of failure. No pleural effusions are visualized.[ IMPRESSION: No active disease in the chest. Electronically signed by: Wilberto Worthy M.D. 05/13/2018 2:01 PM
[2018-05-13] MEDS ORDERED: CEFEPIME 2,000 MG in SYRINGE 7.5 ML IV STA (14:09)
[2018-05-13 14:13] LABS: Alanine Aminotransferase 17 U/L (12-78); Albumin Level 3.3 gm/dl (3.4-5.0); Aspartate Aminotransferase 10 U/L (15-37); BUN Creatinine Ratio 15.2 (10-20); Blood Urea Nitrogen 60 mg/dl (7-18); Calcium 10.1 mg/dl (8.5-10.1); Carbon Dioxide 17 mmol/L (21-32); Chloride 108 mmol/L (98-107); Est GFR (African American) 12.4; Est GFR (Non-African American) 10.7; Glucose 201 mg/dl (70-99); Potassium 5.5 mmol/L (3.5-5.1); Sodium 137 mmol/L (136-145)
[2018-05-13 14:24] LABS: Albumin Globulin Ratio 0.8 (0.9-2); Alkaline Phosphatase 50 U/L (45-117); Bilirubin,Total 0.7 mg/dl (0.2-1); Globulin 4.1 gm/dl (2.5-4.0); Total Protein 7.4 gm/dl (6.4-8.2); Troponin I 0.016 ng/ml (0-0.045)
[2018-05-13] MEDS ORDERED: SODIUM CHLORIDE 0.9% 500 ML IV ONE (14:35)
--- NOTE | 2018-05-13 17:02 | History & Physical Report ---
Date of Service May 13, 2018 Assessment & Plan (1) UTI (urinary tract infection): Probable early sepsis given confusion UA noted Failed oupt tx with amoxicillin Urine cx pending Blood cx pending Cefepime started in the ED for prior cx sensitivity noted, however given presumed failure of amoxcillin, will add vanco as well until C&S returned (2) Generalized weakness: Likely related to above Monitor with current tx PT/OT pending Has private duty home nursing M-F (3) Acute kidney injury: Likely dehydration in the setting of UTI Gentle IVF and monitor (4) HTN (hypertension): Elevated in the ED Son states pt takes meds in the afternoon and is therefor due Give amlodipine and labetolol now (5) Diabetes: Holding PO meds Lantus 10 units HS as at home SSI PRN (6) Hypothyroid: continue home meds TSH WNL (7) Personal history of transient ischemic attack (TIA), and cerebral infarction without residual deficits: Continue home plavix (8) PMR (polymyalgia rheumatica): Presumed dx as pt could not confirm Continue home steroid dosing (9) Anxiety and depression: continue home meds (10) HLD (hyperlipidemia): continue home meds (11) Hyperkalemia: Monitor with IVF Mild elevation, will hold on kayexalate, etc (12) DVT prophylaxis: SCDs Avoid rx given plavix use to avoid GIB History of Present Illness Chief Complaint: 73 y/o F c/o weakness. Pt states she has been hallucinating and confused starting yesterday "like I was in a car accident is the best way I can explain it". She states this comes and goes. Pt was dx with a UTI and started on Bactrim. She is unclear how she came to the doctor to be dx with a UTI. Son states it was more for weakness and so a urine was checked. Pt denies dysuria or other UTI sx. She had diarrhea with bactrim after the first day, so this was changed to amoxicillin. She has been on this x4 days and while she tolerated it without issue, she is getting worse. She felt like she couldn't "catch my breath" yesterday. She was nauseated and had an episode of emesis in the last few days. She has not been eating much. Son is present. He lives with her. He states that there is a private duty retired RN who comes in for 4hrs daily M-F. She helps with bathing and medications, etc. He states pt takes her BP meds in the afternoon and has not had them yet today. Pt is unable to tell me what she takes and when. She confirms that she takes prednisone, but does not know why. She confirms that she takes plavix but does not know why until I prompted that it can be for TIA. Denies full CVA hx. Pt denies fever, SOB, chest pain, abd pain, n/v/c/d, LE pain or swelling at present. She states she does feel confused, but not as much as YARN EXAMINER. Primary Care Provider: Bryn Marin III, MD Allergies Allergy/AdvReac Type Severity Reaction Status Date / Time [id number] Reductase Allergy Unknown VOMITING/GI Verified 05/13/18 13:30 Inhibitor ISSUES Home Medications Home Medications Medication Instructions Recorded Confirmed Type amlodipine 10 mg PO QAM 01/31/18 05/13/18 History bupropion HCl 150 mg PO BID 01/31/18 05/13/18 History buspirone 15 mg PO BID 01/31/18 05/13/18 History calcitriol 0.25 mcg PO 3XWK 01/31/18 05/13/18 History cholecalciferol (vitamin D3) 1,000 unit PO QAM 01/31/18 05/13/18 History [Vitamin D3] clopidogrel 75 mg PO QAM 01/31/18 05/13/18 History diclofenac sodium 2 g TOPICAL TID 01/31/18 05/13/18 History labetalol 100 mg PO BID 01/31/18 05/13/18 History levothyroxine 150 mcg PO QAM 01/31/18 05/13/18 History rosuvastatin [Crestor] 40 mg PO DAILY 01/31/18 05/13/18 History sitagliptin [Januvia] 100 mg PO DAILY 01/31/18 05/13/18 History amoxicillin 250 mg PO TID 05/13/18 05/13/18 History ergocalciferol (vitamin D2) 50,000 unit PO WK 05/13/18 05/13/18 History ferrous sulfate 325 mg PO BID 05/13/18 05/13/18 History glyburide 5 mg PO BID 05/13/18 05/13/18 History insulin glargine [Lantus Solostar 10 units SQ PM 05/13/18 05/13/18 History U-100 Insulin] insulin lispro [Humalog KwikPen 0 unit SUBCUT UD 05/13/18 05/13/18 History Insulin] prednisone 17.5 mg PO QAM 05/13/18 05/13/18 History tocilizumab [Actemra] 400 mg IV MONTHLY 05/13/18 05/13/18 History Past Med/Surg History Medical History Hypothyroid Personal history of transient ischemic attack (TIA), and cerebral infarction without residual deficits PMR (polymyalgia rheumatica) Anxiety and depression HTN (hypertension) HLD (hyperlipidemia) Diabetes Overactive bladder Anemia (Acute) Shortness of breath (Acute) TIA (transient ischemic attack) (Resolved) Bilateral leg edema Cramp of both lower extremities SEN (headache) Renal insufficiency TIA (transient ischemic attack) Surgical History Status post hysterectomy Family History Other No pertinent family history Social History Current Living Situation: Family Feels Safe at Home: Yes Smoking Status: Never smoker Hx Alcohol Use: No Hx Substance Use: No Beliefs That Will Affect Care: None Preferred Language: [place] Review of Systems Pertinent positives and negatives reviewed in HPI--all others negative Physical Exam 2 Vital Signs (Past 24 Hours): Last Vital Signs Temp 36.7 C 05/13/18 12:33 Pulse 102 H 05/13/18 15:28 Resp 20 05/13/18 15:28 BP 204/119 H 05/13/18 15:28 Pulse Ox 96 05/13/18 15:28 Constitutional: WD/WN, vitals as above Eyes: normal visual [place]nesen by confrontation and + anicteric sclerae Neck: normal visual inspection and trachea midline Respiratory: normal respiratory effort, lungs clear to auscultation Cardiovascular: Rate/Rhythm: regular rate and regular rhythm Gastrointestinal (Abdomen): Inspection/Auscultation: abdomen not distended Percussion/Palpation: abdomen soft; abdomen nontender Musculoskeletal: Head/Neck/Chest: normocephalic and head atraumatic negative for edema, peripheral pulses intact Skin: no rashes, warm and dry Neurologic: awake Speech / Cognition: normal speech answers questions however son does correct some responses regarding meds and HHN, speech is clear Psychiatric: Orientation: alert, oriented to person, oriented to place, oriented to time and cooperative Eye Contact: good eye contact Speech: normal rate/rhythm/volume of speech Results & Data Diagnostic Findings CXR neg for acute Code Status & VTE Plan Code Status Full code although states she does not want prolonged mechanical life support. Son is present. VTE Prophylaxis Plan VTE Prophylaxis will be ordered: Yes _ (1) UTI (urinary tract infection) Encounter type: Hematuria presence: with hematuria Indwelling urinary catheter type: Urinary tract infection type: acute cystitis Qualified Code(s) : N30.01 - Acute cystitis with hematuria
[2018-05-13] MEDS ORDERED: LABETALOL HCL 100 MG TAB PO ONE (17:24)
[2018-05-13] MEDS ORDERED: AMLODIPINE BESYLATE 5 MG TAB PO ONE (17:24)
[2018-05-13] MEDS ORDERED: CARBOHYDRATES FOR HYPOGLYCEMIA PO PRN (18:40)
[2018-05-13] MEDS ORDERED: GLUCOSE 40% GEL 15 GM TUBE PO PRN (18:40)
[2018-05-13] MEDS ORDERED: INSULIN LISPRO SQ SCH (18:40)
[2018-05-13] MEDS ORDERED: GLUCAGON FOR INJ 1 MG VIAL SQ PRN (18:40)
[2018-05-13] MEDS ORDERED: VANCOMYCIN HCL 500 MG in SODIUM CHLORIDE 0.9% 250 ML IV SCH (18:40)
[2018-05-13] MEDS ORDERED: ONDANSETRON INJ 2 MG/ML 2 ML VIAL IV PRN (18:40)
[2018-05-13] MEDS ORDERED: TOCILIZUMAB 400 MG IV SCH (18:40)
[2018-05-13] MEDS ORDERED: VANCOMYCIN CONSULT ACTIVE PRN (18:40)
[2018-05-13] MEDS ORDERED: MAGNESIUM HYDROXIDE SUSP 30 ML UDC PO PRN (18:40)
[2018-05-13] MEDS ORDERED: ACETAMINOPHEN 325 MG TAB PO PRN (18:40)
[2018-05-13] MEDS ORDERED: GLUCOSE 10 TABS/TUBE PO PRN (18:40)
[2018-05-13] MEDS ORDERED: DEXTROSE 50% 50 ML SYRINGE IV PRN (18:40)
[2018-05-13] MEDS ORDERED: PNEUMOCOCCAL ADMINISTRATION CHARGE ONE (19:00)
[2018-05-13] MEDS ORDERED: INFLUENZA VACCINE HIGH DOSE 65+ 0.5 ML SYR IM ONE (19:00)
[2018-05-13] MEDS ORDERED: PNEUMOCOCCAL POLYSACCHARIDES 25 MCG/0.5 ML VIAL/SYR IM ONE (19:00)
[2018-05-13] MEDS ORDERED: INFLUENZA ADMINISTRATION CHARGE ONE (19:00)
--- NOTE | 2018-05-13 19:12 | Emergency Department Note ---
Entered by Anastacio Knight acting as a scribe for Marco Rodríguez MD History of Present Illness General Chief complaint: Urinary Symptoms Stated complaint: WEAKNESS UTI Source: patient History of Present Illness Onset (ago): hour(s) (today) Location: head (generalized), upper extremity (generalized) and lower extremity (generalized) Pain Consistency: + other (persistent) Quality: + other (weakness, hematuria) Associated symptoms: + confusion (earlier today) and + other (recent UTI treated with antibiotics); no chest pain and no nausea/vomiting The patient is a 73 year old female who presents to the Emergency Room with complaints of persistent generalized weakness and hematuria beginning today. The patient reports that she is usually able to stand up from bed without assistance and walk using her walker, but today she has been unable to get out of bed unless she has help. The caregiver reports that the patient had hematuria this morning, noting that it appeared red. Nursing staff state that the urine sample obtained here appears �like tea.� The patient states that she felt confused earlier but not currently, although the caregiver notes that her confusion has recently been increasing. She notes that the patient was diagnosed with a UTI six days ago and was placed on Bactrim for a single day, developed abdominal cramping, and then was switched to Amoxicillin that she has now taken for four days. The patient denies nausea, current abdominal pain, chest pain, back pain, urinary frequency, or burning with urination. She states that she ate breakfast this morning. She reports that she lives at home with family. Home Medications Home Medications Medication Instructions Recorded Confirmed Type amlodipine 10 mg PO QAM 01/31/18 05/13/18 History bupropion HCl 150 mg PO BID 01/31/18 05/13/18 History buspirone 15 mg PO BID 01/31/18 05/13/18 History calcitriol 0.25 mcg PO 3XWK 01/31/18 05/13/18 History cholecalciferol (vitamin D3) 1,000 unit PO QAM 01/31/18 05/13/18 History [Vitamin D3] clopidogrel 75 mg PO QAM 01/31/18 05/13/18 History diclofenac sodium 2 g TOPICAL TID 01/31/18 05/13/18 History labetalol 100 mg PO BID 01/31/18 05/13/18 History levothyroxine 150 mcg PO QAM 01/31/18 05/13/18 History rosuvastatin [Crestor] 40 mg PO DAILY 01/31/18 05/13/18 History sitagliptin [Januvia] 100 mg PO DAILY 01/31/18 05/13/18 History amoxicillin 250 mg PO TID 05/13/18 05/13/18 History ergocalciferol (vitamin D2) 50,000 unit PO WK 05/13/18 05/13/18 History ferrous sulfate 325 mg PO BID 05/13/18 05/13/18 History glyburide 5 mg PO BID 05/13/18 05/13/18 History insulin glargine [Lantus Solostar 10 units SQ PM 05/13/18 05/13/18 History U-100 Insulin] insulin lispro [Humalog KwikPen 0 unit SUBCUT UD 05/13/18 05/13/18 History Insulin] prednisone 17.5 mg PO QAM 05/13/18 05/13/18 History tocilizumab [Actemra] 400 mg IV MONTHLY 05/13/18 05/13/18 History Allergies Allergy/AdvReac Type Severity Reaction Status Date / Time [id number]-Gwt-Sms Reductase Allergy Unknown VOMITING/GI Verified 05/13/18 13:30 Inhibitor ISSUES Past Med/Surg History Medical History Hypothyroid Personal history of transient ischemic attack (TIA), and cerebral infarction without residual deficits PMR (polymyalgia rheumatica) Anxiety and depression HTN (hypertension) HLD (hyperlipidemia) Diabetes Overactive bladder Anemia (Acute) Shortness of breath (Acute) TIA (transient ischemic attack) (Resolved) Bilateral leg edema Cramp of both lower extremities SEN (headache) Renal insufficiency TIA (transient ischemic attack) Surgical History Status post hysterectomy Family History Other No pertinent family history Social History Current Living Situation: Family Other Information That Helps Us Care for You: No Safety Concerns: Feels Safe At This Time Smoking Status: Former smoker Hx Alcohol Use: No Hx Substance Use: No Beliefs That Will Affect Care: None Preferred Language: Amharic 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 and A total of 10 systems reviewed and were otherwise negative Physical Exam Vital Signs Vital Signs - 24 hr 05/13/18 12:33 05/13/18 13:34 05/13/18 14:20 Temperature 36.7 C Temperature Source Oral Sepsis Recent Fever Within 48 Hours No Sepsis New/Unexplained Change in Mental Status No Sepsis Action Taken by Nursing No Action Required Pulse Rate 76 Pulse Rate [Apical] 81 80 Respiratory Rate 18 20 18 Respiratory Effort / Characteristics Non-Labored Respiratory Depth Normal Blood Pressure 165/68 H Blood Pressure [Right Arm] 207/73 H 200/70 H Blood Pressure Mean 100 Blood Pressure Mean [Right Arm] 117 113 Blood Pressure Position [Right Arm] Pulse Oximetry 97 94 96 Pulse Oximetry [Left Hand] Oxygen Delivery Method Room Air Room Air Room Air Oxygen Delivery Method [Left Hand] 05/13/18 15:28 05/13/18 17:20 05/13/18 18:06 Temperature 36.8 C Temperature Source Oral Sepsis Recent Fever Within 48 Hours Sepsis New/Unexplained Change in Mental Status Sepsis Action Taken by Nursing Pulse Rate Pulse Rate [Apical] 102 H 92 H 89 Respiratory Rate 20 20 16 Respiratory Effort / Characteristics Non-Labored Respiratory Depth Normal Blood Pressure Blood Pressure [Right Arm] 204/119 H 180/113 H 198/74 H Blood Pressure Mean Blood Pressure Mean [Right Arm] 147 135 115 Blood Pressure Position [Right Arm] Sitting Pulse Oximetry 96 94 97 Pulse Oximetry [Left Hand] Oxygen Delivery Method Room Air Room Air Room Air Oxygen Delivery Method [Left Hand] 05/13/18 18:40 05/13/18 18:41 Temperature Temperature Source Sepsis Recent Fever Within 48 Hours Sepsis New/Unexplained Change in Mental Status Sepsis Action Taken by Nursing Pulse Rate 89 Pulse Rate [Apical] Respiratory Rate Respiratory Effort / Characteristics Respiratory Depth Blood Pressure Blood Pressure [Right Arm] Blood Pressure Mean Blood Pressure Mean [Right Arm] Blood Pressure Position [Right Arm] Pulse Oximetry Pulse Oximetry [Left Hand] 96 Oxygen Delivery Method Oxygen Delivery Method [Left Hand] Room Air Constitutional: Vital signs reviewed. Eyes: Pupils are equal round reactive to light. Conjunctiva are noninjected. ENT: Pharynx is clear without erythema or exudate. Mucous membranes are moist. Neck supple without meningeal signs. Respiratory: Clear to auscultation bilaterally. Breath sounds are equal bilaterally. Cardiovascular: Early systolic humming murmur, best heard in the second left ICS GI: Soft, nondistended and nontender. Bowel sounds are present. Musculoskeletal: No peripheral edema. No lower extremity tenderness. Integumentary: No cyanosis. Neurological: The patient is awake and alert. No focal deficits. Psychiatric: Normal affect. Course 1309: Past medical records reviewed. The patient was evaluated in room D4B, and a complete history and physical examination were performed. 1430: I updated the patient on her test results. 1440: I consulted Dr. Almodovar � [facility] Hospitalist. She will reevaluate the patient for hospitalization. Consultations Consultation #1: I consulted Dr. Almodovar � [facility] Hospitalist. She will reevaluate the patient for hospitalization. Time: 14:40 Administered Medications Discontinued Medications Amlodipine Besylate (Norvasc) 10 mg PO NOW ONE Stop: 05/13/18 17:25 Last Admin: 05/13/18 17:40 Dose: 10 mg Cefepime HCl 2,000 mg/ Syringe 20 mls @ 5.5 mls/min IV NOW STA Stop: 05/13/18 14:12 Last Admin: 05/13/18 14:18 Dose: 5.5 mls/min Sodium Chloride (Nss) 500 mls @ 999 mls/hr IV .Q31M ONE Stop: 05/13/18 15:05 Last Infusion: 05/13/18 15:55 Dose: 0 mls/hr Admin: 05/13/18 14:54 Dose: 999 mls/hr Labetalol HCl (Normodyne) 100 mg PO NOW ONE Stop: 05/13/18 17:25 Last Admin: 05/13/18 17:40 Dose: 100 mg Medical Decision Making Differential Diagnosis Differential diagnosis: UTI, urosepsis, anemia, cardiac, dehydration Medical Records Attestation: I reviewed the patient's medical records. Home Medications Current Medication List: was personally reviewed by me Laboratory Data Attestation: I reviewed the patient's lab results. Result diagrams: 05/13/18 13:45 05/13/18 13:45 Lab Results 05/13/18 05/13/18 05/13/18 Range/Units 12:55 13:45 13:45 WBC 13.01 H (4.8-10.8) K/uL RBC 3.61 L (4.2-5.4) M/uL Hgb 10.3 L (12.0-16.0) g/dL Hct 32.3 L (37-47) % MCV 89.5 (80-100) fL MCH 28.5 (25-34) pg MCHC 31.9 L (32-36) g/dL RDW Std Deviation 50.6 H (36.4-46.3) fL RDW Coeff of Tanya 15.6 H (11.5-14.5) % Plt Count 211 (130-400) K/uL MPV 10.1 (7.4-10.4) fL Immature Gran % (Auto) 0.2 % Neut % (Auto) 92.8 % Lymph % (Auto) 5.0 % Piatt % (Auto) 1.4 % Eos % (Auto) 0.5 % Baso % (Auto) 0.1 % Immature Gran # (Auto) 0.03 H (0.00-0.02) K/uL Neut # (Auto) 12.07 H (1.4-6.5) K/uL Lymph # (Auto) 0.65 L (1.2-3.4) K/uL Piatt # (Auto) 0.18 (0.11-0.59) K/uL Eos # (Auto) 0.07 (0-0.5) K/uL Baso # (Auto) 0.01 (0-0.2) K/uL Sodium 137 (136-145) mmol/L Potassium 5.5 H (3.5-5.1) mmol/L Chloride 108 H (98-107) mmol/L Carbon Dioxide 17 L (21-32) mmol/L Anion Gap 12.0 H (3-11) BUN 60 H (7-18) mg/dl Creatinine 3.94 H (0.6-1.2) mg/dl Est Cr Clr Drug Dosing Not Reportable Est GFR ( Amer) 12.4 Est GFR (Non-Af Amer) 10.7 BUN/Creatinine Ratio 15.2 (10-20) Glucose 201 H (70-99) mg/dl Calcium 10.1 (8.5-10.1) mg/dl Total Bilirubin 0.7 (0.2-1) mg/dl AST 10 L (15-37) U/L ALT 17 (12-78) U/L Alkaline Phosphatase 50 (45-117) U/L Troponin I 0.016 (0-0.045) ng/ml Total Protein 7.4 (6.4-8.2) gm/dl Albumin 3.3 L (3.4-5.0) gm/dl Globulin 4.1 H (2.5-4.0) gm/dl Albumin/Globulin Ratio 0.8 L (0.9-2) TSH 0.423 (0.300-4.500) uIu/ml Urine Color Brown Urine Appearance Turbid H (Clear) Urine pH 5.0 (4.5-7.5) Ur Specific [place] 1.020 (1.000-1.030) Urine Protein 3+ H (Negative) Urine Glucose (UA) 1+ H (Negative) Urine Ketones Negative (Negative) Urine Blood 3+ H (Negative) Urine Nitrite Negative (Negative) Urine Bilirubin Negative (Negative) Urine Urobilinogen Negative (Negative) Ur Leukocyte Esterase 2+ H (Negative) Urine WBC (Auto) >30 H (0-5) /hpf Urine RBC (Auto) >30 H (0-4) /hpf U Hyaline Cast (Auto) 5-10 H (0-5) /lpf U Epithel Cells (Auto) 5-10 H (0-5) /lpf Urine Bacteria (Auto) 1+ H (Negative) Granular Casts 1-5 H (0) /lpf Urine Yeast Not Reportable Imaging Data Radiologist's Impression: Radiology results as stated below per my review and the radiologist's interpretation: XR chest 1V portable CLINICAL HISTORY: weakness COMPARISON STUDY: 01/31/2018 FINDINGS: The cardiac and mediastinal contours are normal. There is no evidence of focal pulmonary consolidation. There is no evidence of failure. No pleural effusions are visualized.[ IMPRESSION: No active disease in the chest. Electronically signed by: Wilberto Worthy M.D. 05/13/2018 2:01 PM ECG Data Attestation: I personally reviewed and interpreted this ECG as follows: Indication: weakness Rate (beats per minute): 72 Rhythm: normal sinus Findings: + ST depression (slight in leads V6 and I); no PVC and no ST elevation Blood Pressure Blood Pressure Findings: Elevated blood pressure Blood Pressure Disposition: further management by hospitalist NEPTALI Narrative I did perform a limited focused review of portions of the patient's old chart on the electronic medical record. The patient was admitted in January for altered mental status with MARGARET and UTI. Her cultures at that time grew gardnerella. I did evaluate the patient as noted above. Patient is presenting with generalized weakness. She was diagnosed with a UTI last week and has been on antibiotics for about 5 days. Her family is concerned that she is having a worsening infection. She has no complaints other than feeling weak. She has no abdominal pain or back pain or dysuria. Her urine here is tea colored. IV access was established. The patient was placed on a continuous hall monitor. I did order and personally review the patient's 12-lead EKG and chest x-ray as described above. Twelve-lead EKG shows some nonspecific ST changes. Chest x-ray does not show any evidence of pneumonia. I did order and review the patient's blood work as noted in the electronic medical record. Her creatinine is elevated with some mild hyperkalemia. She has an elevated white count as well. I did order a urinalysis. She does have an obvious infection. I did treat her with cefepime IV after discussion with the ED pharmacist and review of her cultures. I did recommend hospitalization. I did discuss the case with the hospitalist and rehabilitation caseworker. Impression & Plan Acute kidney injury, UTI (urinary tract infection), Failure of outpatient treatment, Generalized weakness, Hyperkalemia Discharge Plan Visit Data *Final* Discharge Date/Time: 05/13/18 17:48 Chief Complaint: Urinary Symptoms Stated Complaint: WEAKNESS UTI ED Provider: Marco Rodríguez Discharge Problem: Acute kidney injury, UTI (urinary tract infection), Failure of outpatient treatment, Generalized weakness, Hyperkalemia Patient Disposition: Admitted As Inpatient Discharge Instructions Interventions: ED Discharge Assessment Last Done: 05/13/18 17:48 The scribe's documentation has been prepared under my direction and personally reviewed by me in its entirety. I confirm that the note above accurately reflects all work, treatment, procedures, and medical decision making performed by me.
[2018-05-13] MEDS: SODIUM CHLORIDE 0.45 % 1,000 ML IV SCH (19:52)
[2018-05-13] MEDS ORDERED: VANCOMYCIN HCL 1,750 MG in SODIUM CHLORIDE 0.9% 500 ML IV ONE (20:00)
[2018-05-13] MEDS: LABETALOL HCL 100 MG TAB PO SCH (20:27)
[2018-05-13] MEDS: FERROUS SULFATE 325 MG TAB PO SCH (20:27)
[2018-05-13] MEDS: AMLODIPINE BESYLATE 5 MG TAB PO SCH (20:29)
[2018-05-13] MEDS: BusPIRone 15 MG TAB PO SCH (20:32)
[2018-05-13] MEDS: BuPROPion SR 150 MG TABCR PO SCH (20:32)
[2018-05-13] MEDS: CEFEPIME 1,000 MG in SYRINGE 0 ML IV SCH (20:35)
[2018-05-13] MEDS: INSULIN GLARGINE SOLOSTAR 100 UNITS/ML 3 ML PEN SQ SCH (20:41)
[2018-05-13] MEDS: INSULIN ASPART 100 UNITS/ML 3 ML PEN SC SCH (20:43)
[2018-05-13] MEDS: DICLOFENAC SOD 1% GEL 100 GM TUBE EXT SCH (21:24)
[2018-05-14] MEDS: LEVOTHYROXINE SODIUM 150 MCG TABLET PO SCH (06:14)
[2018-05-14 06:36] LABS: Basophils # (auto) 0.02 K/uL (0-0.2); Basophils % (auto) 0.2 %; Eosinophils # (auto) 0.34 K/uL (0-0.5); Eosinophils % (auto) 3.5 %; Hematocrit (blood only) 30.4 % (37-47); Hemoglobin 9.7 g/dL (12.0-16.0); Immature Granulocytes # (auto) 0.04 K/uL (0.00-0.02); Immature Granulocytes % (auto) 0.4 %; Lymphocytes # (auto) 1.73 K/uL (1.2-3.4); Lymphocytes % (auto) 17.7 %; Mean Corpuscular Hgb Conc 31.9 g/dL (32-36); Mean Corpuscular Volume 89.1 fL (80-100); Mean Platelet Volume 10.1 fL (7.4-10.4); Monocytes # (auto) 0.61 K/uL (0.11-0.59); Monocytes % (auto) 6.2 %; Neutrophils # (auto) 7.03 K/uL (1.4-6.5); Platelet Count 197 K/uL (130-400); RDW Coefficient of Variation 15.6 % (11.5-14.5); RDW Standard Deviation 49.8 fL (36.4-46.3); Red Blood Count 3.41 M/uL (4.2-5.4); White Blood Count 9.77 K/uL (4.8-10.8)
[2018-05-14 06:51] LABS: Estimated Average Glucose 180 mg/dl
[2018-05-14 07:06] LABS: BUN Creatinine Ratio 15.7 (10-20); Calcium 9.3 mg/dl (8.5-10.1); Creatinine Clr Calc Pharmacy 16.4 ml/min; Est GFR (Non-African American) 13.8; Magnesium 2.1 mg/dl (1.8-2.4); Phosphorus 3.7 mg/dl (2.5-4.9); Potassium 4.3 mmol/L (3.5-5.1)
[2018-05-14] MEDS: INSULIN ASPART 100 UNITS/ML 3 ML PEN SC SCH ×4 (07:53→20:40)
[2018-05-14] MEDS: CHOLECALCIFEROL 1,000 UNITS TAB PO SCH (07:55)
[2018-05-14] MEDS: CLOPIDOGREL BISULFATE 75 MG TAB PO SCH (07:55)
[2018-05-14] MEDS: ROSUVASTATIN CALCIUM 20 MG TAB PO SCH (07:56)
[2018-05-14] MEDS: predniSONE 5 MG TAB PO SCH (07:56)
[2018-05-14] MEDS: FERROUS SULFATE 325 MG TAB PO SCH ×2 (07:56→20:09)
[2018-05-14] MEDS: LABETALOL HCL 100 MG TAB PO SCH ×2 (07:56→20:09)
[2018-05-14] MEDS: AMLODIPINE BESYLATE 5 MG TAB PO SCH (07:57)
[2018-05-14] MEDS: BuPROPion SR 150 MG TABCR PO SCH ×2 (07:57→20:09)
[2018-05-14] MEDS: BusPIRone 15 MG TAB PO SCH ×2 (07:57→20:09)
[2018-05-14] MEDS: CEFEPIME 1,000 MG in SYRINGE 0 ML IV SCH (08:03)
[2018-05-14] MEDS: SODIUM CHLORIDE 0.45 % 1,000 ML IV SCH ×2 (08:05→20:08)
[2018-05-14] MEDS ORDERED: CEFEPIME CONSULT ACTIVE PRN (08:48)
[2018-05-14] MEDS: DICLOFENAC SOD 1% GEL 100 GM TUBE EXT SCH ×3 (10:48→20:10)
[2018-05-14] MEDS ORDERED: Nursing to Pharmacy Communication ONE ×2 (16:55→19:11)
[2018-05-14] MEDS ORDERED: INSULIN ASPART 100 UNITS/ML 3 ML PEN SC STA ×2 (16:59→19:13)
[2018-05-14] MEDS: INSULIN GLARGINE SOLOSTAR 100 UNITS/ML 3 ML PEN SQ SCH (20:40)
--- NOTE | 2018-05-14 22:57 | Hospitalist Progress Note ---
Date of Service May 14, 2018 Assessment & Plan (1) UTI (urinary tract infection): Probable early sepsis given confusion on admission. UA noted Failed oupt tx with amoxicillin Urine cx pending (05/14) Blood cx pending (05/14) Cefepime started in the ED for prior cx sensitivity noted, however given presumed failure of amoxcillin, will add vanco as well until C&S returned. Continue above antibiotics given no sensitivites as of yet. 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 (3) Acute kidney injury: Likely dehydration in the setting of UTI Gentle IVF and monitor. Will continue IVF given her acute renal failue. (4) HTN (hypertension): BP remains elevated, will continue home meds for now. (5) Diabetes: Lantus 10 units HS as at home SSI PRN (6) Hypothyroid: continue home meds TSH WNL (7) Personal history of transient ischemic attack (TIA), and cerebral infarction without residual deficits: Continue home plavix (8) PMR (polymyalgia rheumatica): Presumed dx as pt could not confirm Continue home steroid dosing (9) Anxiety and depression: continue home meds (10) HLD (hyperlipidemia): continue home meds (11) Hyperkalemia: Monitor with IVF Mild elevation, will continue to hold kaylexalate (12) Acute renal failure due to tubular necrosis: * Acute kidney failure with ATN Probable 73 yo female presenting with confusion and UTI with failed outpatient tx. Cr 3.94, UA brown, turbid, with granular casts 1-5 and hyaline casts 5-10. Treatment: 500 cc NSS bolus, then continuous, IV cefepime, IV vancomcyin, I/O Will continue to monitor creatinine. May consider nephro consult. (13) Metabolic encephalopathy: Patient has acute metabolic encephalopathy. Likely from acute renal failure. (14) CKD (chronic kidney disease) stage 4, GFR 15-29 ml/min: Probable CKD stage 4. Will continue to monitor BMP daily. Will continue fluids at this time. (15) DVT prophylaxis: SCDs Avoid rx given plavix use to avoid GIB Spent 35 minutes in management of patient. Subjective 73 yo female continues to be confused. She knows she is in the hospital, but does not know why she is in the hospital, nor does she know the month, date or year. Patient reports she denies any symptoms. Constitutional: no fever and no chills Eyes: no diplopia Ear, Nose, Mouth, Throat: no ear trauma and no hyperacusis Respiratory: no cough Cardiovascular: no chest pain Gastrointestinal: no abdominal pain Musculoskeletal: no back pain Integumentary: no rash Neurologic: no falls Psychiatric: no hopelessness Endocrine: no fatigue Physical Exam 2 Vital Signs (Past 24 Hours): Last Vital Signs Temp 36.9 C 05/14/18 19:33 Pulse 74 05/14/18 19:33 Resp 18 05/14/18 19:33 BP 153/84 H 05/14/18 19:33 Pulse Ox 97 05/14/18 19:33 Physical Exam: Constitutional: WD/WN, vitals as above Neck: normal visual inspection and trachea midline Respiratory: normal respiratory effort, lungs clear to auscultation Cardiovascular: Rate/Rhythm: regular rate and regular rhythm Gastrointestinal (Abdomen): Inspection/Auscultation: abdomen not distended Percussion/Palpation: abdomen soft; abdomen nontender Musculoskeletal: Head/Neck/Chest: normocephalic and head atraumatic negative for edema, peripheral pulses intact Skin: no rashes, warm and dry Neurologic: awake Speech / Cognition: normal speech Psychiatric: Orientation: alert, oriented to person, oriented to place, and cooperative. Not oriented to time. Eye Contact: good eye contact Speech: normal rate/rhythm/volume of speech _ (1) UTI (urinary tract infection) Encounter type: Hematuria presence: with hematuria Indwelling urinary catheter type: Urinary tract infection type: acute cystitis Qualified Code(s) : N30.01 - Acute cystitis with hematuria
[2018-05-15] MEDS: LEVOTHYROXINE SODIUM 150 MCG TABLET PO SCH (05:47)
[2018-05-15] MEDS: SODIUM CHLORIDE 0.45 % 1,000 ML IV SCH ×2 (05:47→15:21)
[2018-05-15] MEDS ORDERED: CEFEPIME 1,000 MG in SYRINGE 0 ML IV SCH (08:00)
[2018-05-15] MEDS: FERROUS SULFATE 325 MG TAB PO SCH ×2 (08:36→21:13)
[2018-05-15] MEDS: ROSUVASTATIN CALCIUM 20 MG TAB PO SCH (08:36)
[2018-05-15] MEDS: AMLODIPINE BESYLATE 5 MG TAB PO SCH (08:36)
[2018-05-15] MEDS: BuPROPion SR 150 MG TABCR PO SCH ×2 (08:36→21:14)
[2018-05-15] MEDS: predniSONE 5 MG TAB PO SCH (08:36)
[2018-05-15] MEDS: LABETALOL HCL 100 MG TAB PO SCH ×2 (08:36→21:13)
[2018-05-15] MEDS: CHOLECALCIFEROL 1,000 UNITS TAB PO SCH (08:36)
[2018-05-15] MEDS: CLOPIDOGREL BISULFATE 75 MG TAB PO SCH (08:36)
[2018-05-15] MEDS: BusPIRone 15 MG TAB PO SCH ×2 (08:37→21:12)
[2018-05-15] MEDS: INSULIN ASPART 100 UNITS/ML 3 ML PEN SC SCH ×4 (08:40→21:16)
[2018-05-15] MEDS: DICLOFENAC SOD 1% GEL 100 GM TUBE EXT SCH ×3 (08:56→21:13)
[2018-05-15 09:51] LABS: Basophils # (auto) 0.01 K/uL (0-0.2); Basophils % (auto) 0.1 %; Eosinophils # (auto) 0.32 K/uL (0-0.5); Eosinophils % (auto) 3.2 %; Hemoglobin 10.5 g/dL (12.0-16.0); Immature Granulocytes # (auto) 0.04 K/uL (0.00-0.02); Immature Granulocytes % (auto) 0.4 %; Lymphocytes % (auto) 14.9 %; Mean Corpuscular Hgb Conc 31.8 g/dL (32-36); Mean Corpuscular Volume 88.9 fL (80-100); Mean Platelet Volume 10.2 fL (7.4-10.4); Monocytes # (auto) 0.35 K/uL (0.11-0.59); Monocytes % (auto) 3.5 %; Neutrophils # (auto) 7.84 K/uL (1.4-6.5); Neutrophils % (auto) 77.9 %; Platelet Count 210 K/uL (130-400); RDW Coefficient of Variation 15.6 % (11.5-14.5); RDW Standard Deviation 50.5 fL (36.4-46.3); Red Blood Count 3.71 M/uL (4.2-5.4); White Blood Count 10.06 K/uL (4.8-10.8)
[2018-05-15 10:17] LABS: BUN Creatinine Ratio 16.5 (10-20); Creatinine Clr Calc Pharmacy 18.4 ml/min; Est GFR (African American) 18.6; Est GFR (Non-African American) 16.1; Potassium 4.1 mmol/L (3.5-5.1)
--- NOTE | 2018-05-15 12:45 | Hospitalist Progress Note ---
Date of Service May 15, 2018 Assessment & Plan (1) UTI (urinary tract infection): Probable early sepsis given confusion on admission. UA noted Failed oupt tx with amoxicillin Urine cx positive E. Coli (05/15) Blood cx negative (05/15) Initially on cefepime, now on ceftriaxone. 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 Consult Neuro. (3) Acute kidney injury: Likely dehydration in the setting of UTI Gentle IVF and monitor. Will continue IVF given her acute renal failue. (4) HTN (hypertension): BP remains elevated, will continue home meds for now. (5) Diabetes: Lantus 10 units HS as at home SSI PRN (6) Hypothyroid: continue home meds TSH WNL (7) Personal history of transient ischemic attack (TIA), and cerebral infarction without residual deficits: Continue home plavix (8) PMR (polymyalgia rheumatica): Presumed dx as pt could not confirm Continue home steroid dosing (9) Anxiety and depression: continue home meds (10) HLD (hyperlipidemia): continue home meds (11) Hyperkalemia: Monitor with IVF Mild elevation, will continue to hold kaylexalate (12) Acute renal failure due to tubular necrosis: * Acute kidney failure with ATN Probable 73 yo female presenting with confusion and UTI with failed outpatient tx. Cr 3.94, UA brown, turbid, with granular casts 1-5 and hyaline casts 5-10. Will continue to monitor creatinine. May consider nephro consult. (13) Metabolic encephalopathy: Patient has acute metabolic encephalopathy. Likely from acute renal failure.Patient appears to be nearing baseline. Concerned over advanced dementia. will consult neurology. Patient may benefit from placement. (14) CKD (chronic kidney disease) stage 4, GFR 15-29 ml/min: Probable CKD stage 4. Will continue to monitor BMP daily. Will continue fluids at this time. (15) DVT prophylaxis: SCDs Avoid rx given plavix use to avoid GIB Spent 65 minutes in management of patient. fROM 10:00 TO 11:05 Subjective Caregiver is at bedisde. She states that since she has been seeing the patient. She has been having visual halucinations and has been confused. Patient does not remember the names of her caregiver and her son. She calls her son . When left alone, sometimes patient wonders around the house. Te caregiver takes care of the patient in the morning and the son in the afternoon. Howevr sometimes, there are gaps and patient may be by herself at home. Caregiver states that the patient's son states was hospitalized with a possible UTI and since then she has been hallucinating. However her dementia predates this. Patient is able to get clothes on, but most of the time needs help. Physical Exam 2 Vital Signs (Past 24 Hours): Last Vital Signs Temp 36.6 C 05/15/18 11:33 Pulse 59 L 05/15/18 11:33 Resp 16 05/15/18 11:33 BP 141/78 H 05/15/18 11:33 Pulse Ox 97 05/15/18 11:33 Physical Exam: Constitutional: WD/WN, vitals as above Neck: normal visual inspection and trachea midline Respiratory: normal respiratory effort, lungs clear to auscultation Cardiovascular: Rate/Rhythm: regular rate and regular rhythm Gastrointestinal (Abdomen): Inspection: abdomen not distended Percussion/ Palpation: abdomen soft; abdomen nontender Musculoskeletal: Head/Neck/Chest: normocephalic and head atraumatic negative for edema, peripheral pulses intact Skin: no rashes, warm and dry Neurologic: awake Speech / Cognition: normal speech Psychiatric: Orientation: alert, oriented to person, oriented to place, and cooperative. Not oriented to time. Eye Contact: good eye contact Speech: normal rate/rhythm/volume of speech _ (1) UTI (urinary tract infection) Encounter type: Hematuria presence: with hematuria Indwelling urinary catheter type: Urinary tract infection type: acute cystitis Qualified Code(s) : N30.01 - Acute cystitis with hematuria
[2018-05-15] MEDS: INSULIN GLARGINE SOLOSTAR 100 UNITS/ML 3 ML PEN SQ SCH (21:14)
[2018-05-16] MEDS: SODIUM CHLORIDE 0.45 % 1,000 ML IV SCH ×2 (03:18→16:27)
[2018-05-16] MEDS: LEVOTHYROXINE SODIUM 150 MCG TABLET PO SCH (05:33)
[2018-05-16] MEDS: cefTRIAXone SODIUM 1,000 MG in DEXTROSE 5% 50 ML IV SCH (08:19)
[2018-05-16] MEDS: DICLOFENAC SOD 1% GEL 100 GM TUBE EXT SCH ×3 (08:20→20:56)
[2018-05-16] MEDS: INSULIN ASPART 100 UNITS/ML 3 ML PEN SC SCH ×4 (08:22→20:58)
[2018-05-16] MEDS: BuPROPion SR 150 MG TABCR PO SCH ×2 (08:24→20:56)
[2018-05-16] MEDS: CLOPIDOGREL BISULFATE 75 MG TAB PO SCH (08:24)
[2018-05-16] MEDS: CHOLECALCIFEROL 1,000 UNITS TAB PO SCH (08:24)
[2018-05-16] MEDS: AMLODIPINE BESYLATE 5 MG TAB PO SCH (08:24)
[2018-05-16] MEDS: predniSONE 5 MG TAB PO SCH (08:24)
[2018-05-16] MEDS: FERROUS SULFATE 325 MG TAB PO SCH ×2 (08:25→20:55)
[2018-05-16] MEDS: BusPIRone 15 MG TAB PO SCH ×2 (08:25→20:55)
[2018-05-16] MEDS: ROSUVASTATIN CALCIUM 20 MG TAB PO SCH (08:25)
[2018-05-16] MEDS: LABETALOL HCL 100 MG TAB PO SCH ×2 (08:25→20:57)
--- NOTE | 2018-05-16 08:28 | Neurology Consultation ---
Date of Consultation May 16, 2018 Assessment & Plan (1) Dementia: Patient had acute encephalopathy likely secondary to a combination of metabolic issues (anemia, chronic renal disease, diabetes) and an acute urinary tract infection which had not been responding to her antibiotic as an outpatient. I believe the patient has a significant underlying dementia, likely secondary to vascular causes. Any metabolic issues or infection would create a worsening of her dementia. Today, she is quite calm and cooperative at although she has significant dementia I see no evidence of acute encephalopathy. Currently she has no focal neurologic findings or meningeal signs. (2) Generalized weakness: Patient has a generalized sense of weakness particularly on admission. She denies any specific weakness, and in fact, on exam she is quite strong with no focal weakness, proximal weakness, or generalize issues including rigidity a comma spasticity, tremor. She has no evidence of Parkinson's disease. Certainly, she cannot walk well and this is likely multifactorial including diabetes, underlying rheumatologic/inflammatory disease, and her recent urinary tract infection. 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 (3) Anxiety and depression: Patient has an underlying history of dementia a generalized anxiety disorder. These issues seem fairly stable today. (4) Personal history of transient ischemic attack (TIA), and cerebral infarction without residual deficits: Patient has a history of old lacunar infarcts in various places as listed above including central ernestina to the right, left cerebellum, and left periventricular white matter. In addition she has chronic cerebral ischemia in general. She is on clopidogrel and stable. There is nothing by this current history or exam that suggest a new TIA or stroke. Recommendations: 1. Continue treating urinary tract infection as you are doing 2. Controlling glucose, renal function, blood pressure, and anemia as best as can be done will help as well. 3. Physical and occupational therapy for general strengthening/gait training 4. Social service consult as it seems apparent the patient's family is not interested in taking her home again. She may need placement. 5. I see no need for additional neurologic testing at this time, although if she changes/worsens, I might consider an MRI of the brain and compare to the previous study. I see no need to order this now. 6. Continue steroid use as per Dr. Morgan for her temporal arteritis/polymyalgia rheumatica. 7. Continue clopidogrel 75 mg daily to prevent TIAs and strokes. 8. She can be followed as an outpatient. I have no desire to initiate a new medication during this hospitalization for dementia. I may consider memantine. Overall, I spent a total of 85 minutes with this case including review of records, review of films, direct evaluation the patient at bedside, and discussion of the case with the patient, clinical staff, and Dr. Chase. History of Present Illness Reason for Consultation: Patient is a 73-year-old , who I was asked to see at the request of Dr. Chase, for neurologic consultation regarding confusion/ dementia. Requesting Physician: Dr. Chase Attending Physician: Kevin Chase History of Present Illness This patient has a longstanding history of diabetes, hypertension, and chronic renal disease. In November of 2012, she had an MRI of the brain because of some new onset visual symptoms in each showed old lacunar type infarcts in the right central ernestina, left cerebellum, and left deep periventricular white matter. There was scattered old diffuse small vessel ischemic changes as well. Patient has been on clopidogrel and has been very stable with no further neurovascular events as far as anyone is aware. In August of 2017, patient was diagnosed with temporal arteritis with a sed rate of greater than 140. She was put on high-dose steroids and improved. She already had a diagnosis polymyalgia rheumatica. Currently, she is down to 17.5 mg a day of prednisone and is stable. She last saw Rheumatology, Dr. Morgan, April 28. On May 07, 2018, a sed rate was 61. Patient carries a diagnosis of confusion and memory loss, chronic depression and generalized anxiety disorder, and chronic weakness and fatigue. She is incontinent of urine and has chronic anemia. There is also a diagnosis carotid artery stenosis in the past. For approximately 5-7 days prior to admission the patient was having increased confusion, generalized weakness, hallucinations, and poor ability to walk/ ambulate. On May 13, they saw Dr. Marin, her primary care physician, who sent her to the emergency room because of the relatively acute deterioration. At that time, she had had a urinary tract infection and been on amoxicillin for 5 days and was not improving. She arrived to the emergency room May 13 with a blood pressure of 165/68, temperature 36.7�, pulse 76, respiratory 18, and O2 saturation 97%. She was described as alert and oriented on admission. BUN was 60 and creatinine was 3.94. Yesterday BUN was 47 and creatinine was 2.82. She has elevated glucose is but these are variable. She is anemic. The patient has an E coli UTI which was resistant I believe to amoxicillin. She is now on other antibiotics which the organism is sensitive to. She has made improvements and remained afebrile. Today, the patient is calm and has no complaints of pain, headaches, shortness of breath, vision problems, dizziness, weakness, numbness, or fatigue. She denies just about any review of systems that I ask her. Nursing reports no new problems overnight and she has been pleasant and cooperative. She has significant dementia however. Allergies Allergy/AdvReac Type Severity Reaction Status Date / Time [id number]-Aqh-Igq Reductase Allergy Unknown VOMITING/GI Verified 05/13/18 13:30 Inhibitor ISSUES Home Medications Home Medications Medication Instructions Recorded Confirmed Type amlodipine 10 mg PO QAM 01/31/18 05/13/18 History bupropion HCl 150 mg PO BID 01/31/18 05/13/18 History buspirone 15 mg PO BID 01/31/18 05/13/18 History calcitriol 0.25 mcg PO 3XWK 01/31/18 05/13/18 History cholecalciferol (vitamin D3) 1,000 unit PO QAM 01/31/18 05/13/18 History [Vitamin D3] clopidogrel 75 mg PO QAM 01/31/18 05/13/18 History diclofenac sodium 2 g TOPICAL TID 01/31/18 05/13/18 History labetalol 100 mg PO BID 01/31/18 05/13/18 History levothyroxine 150 mcg PO QAM 01/31/18 05/13/18 History rosuvastatin [Crestor] 40 mg PO DAILY 01/31/18 05/13/18 History sitagliptin [Januvia] 100 mg PO DAILY 01/31/18 05/13/18 History amoxicillin 250 mg PO TID 05/13/18 05/13/18 History ergocalciferol (vitamin D2) 50,000 unit PO WK 05/13/18 05/13/18 History ferrous sulfate 325 mg PO BID 05/13/18 05/13/18 History glyburide 5 mg PO BID 05/13/18 05/13/18 History insulin glargine [Lantus Solostar 10 units SQ PM 05/13/18 05/13/18 History U-100 Insulin] insulin lispro [Humalog KwikPen 0 unit SUBCUT UD 05/13/18 05/13/18 History Insulin] prednisone 17.5 mg PO QAM 05/13/18 05/13/18 History tocilizumab [Actemra] 400 mg IV MONTHLY 05/13/18 05/13/18 History Patient History Medical History Hypothyroid Personal history of transient ischemic attack (TIA), and cerebral infarction without residual deficits PMR (polymyalgia rheumatica) Anxiety and depression HTN (hypertension) HLD (hyperlipidemia) Diabetes Overactive bladder Anemia (Acute) Shortness of breath (Acute) TIA (transient ischemic attack) (Resolved) Bilateral leg edema Cramp of both lower extremities SEN (headache) Renal insufficiency TIA (transient ischemic attack) Surgical History Status post hysterectomy Family History Mother , around age 70 Diabetes Hypertension Coronary artery disease Father , around age 70 Hypertension Diabetes Coronary artery disease Other No pertinent family history Social History marital status: / Current Living Situation: Family current occupational status: 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 Constitutional: no fever and no fatigue Eyes: no diplopia, no eye pain and no worsening vision Ear, Nose, Mouth, Throat: no ear pain, no tinnitus, no hearing loss and no dysphagia Respiratory: no cough and no dyspnea Cardiovascular: no chest pain, no dyspnea and no palpitations Gastrointestinal: no abdominal pain, no nausea and no vomiting Genitourinary (Female): no dysuria, no urinary frequency and no urinary incontinence Musculoskeletal: no back pain, no neck pain, no radicular pain, no myalgia, no muscle weakness and no muscle atrophy Integumentary: no rash and no lesions Neurologic: no gait abnormality, no falls, no localized weakness, no generalized weakness, no tingling, no numbness, no tremor(s), no abnormal movements, no dizziness, no headache(s), no abnormal speech, no behavioral changes, no confusion and no memory loss Psychiatric: no depression, no abnormal sleep pattern, no anxiety, no difficulty concentrating, no confusion and no hallucinations Endocrine: no fatigue and no flushing Hematologic / Lymphatic: no easy bleeding and no easy bruising Allergy / Immunological: no urticaria Physical Exam 2 Vital Signs (Past 24 Hours): Last Vital Signs Temp 37.0 C 05/16/18 07:15 Pulse 64 05/16/18 07:15 Resp 20 05/16/18 07:15 BP 178/76 H 05/16/18 07:15 Pulse Ox 96 05/16/18 07:15 Physical Exam: The patient is right-handed. The patient is awake, alert, and attentive. Speech is normal without any aphasia or dysarthria. Mood and affect the are normal appropriate. She is pleasant and cooperative. She is attentive and concentrates fairly well to the question not getting distracted. Her memory is poor long and short-term. She did know her name, the fact that she was in a hospital ([facility]), new left from right, and followed one-step commands very well. She did not know her age date, day of the week, month, year, president, and had no idea why she was in the hospital. She thought had something to do with her heart. She thought she live with both parents her all 4 children at 1st but later on after we set her up in the chair she said that she lives with her and 1 son. The discs are sharp with positive venous pulsations bilaterally. There are no exudates, hemorrhages, or blood vessel changes seen. Pupils are 4 mm bilaterally and reactive to light. Extraocular eye muscles are intact without nystagmus. Visual acuity and visual christensen seem normal grossly to confrontation. There are no deficits to sensation in the face in all 3 distributions of the fifth cranial nerve bilaterally. Corneal reflexes are positive bilaterally. Facial strength and symmetry was normal bilaterally. Hearing seems intact grossly to voice and finger rub bilaterally. Palate moves well without asymmetry. There is normal sternocleidomastoid and trapezius (shoulder shrug) strength bilaterally. Tongue is midline with good strength bilaterally. Neck has a full range of motion without discomfort. There are no cervical bruits bilaterally. There are no cranial or ocular bruits. Heart is without murmur. There is a regular rhythm and rate. Cervical, thoracic, and lumbar spine are nontender to palpation. Gait is narrow based, but very slow and cautious taking short steps. Stance sitting up on the edge of the bed is normal. She needs the assistance of at least 1 to walk. With outstretched arms there is no drift. There are no resting, postural, or action tremors. There is no ataxia with finger to nose testing. There is good facility in the hands. No other abnormal involuntary movements are noted. Motor strength is 5/5 diffusely in the arms bilaterally including deltoids, biceps, triceps, brachioradialis, wrist flexors and extensors, outsole splicer, and intrinsic hand muscles. Motor strength is 5/5 diffusely in the legs bilaterally including hip flexors, quadriceps, hamstrings, gastrocnemius, tibialis anterior , tibialis posterior, and Peroneii muscles bilaterally. Toe extensors are normal and there is good bulk in the extensor digitorum brevis muscles bilaterally. I noted no focal weakness or atrophy. The limbs have good tone without rigidity or spasticity. There is no atrophy noted in the muscles. Muscle bulk is normal, there is no tenderness to palpation , no myotonia to percussion, and no fasciculations seen. Sensory examination is intact to touch and pin throughout all 4 limbs diffusely. Reflexes are 1/4 in the biceps, triceps, brachioradialis, quadriceps, and Achilles tendons bilaterally. Toes are downgoing with plantar stimulation bilaterally. Peripheral pulses are present and of normal quality distally in all 4 limbs. There is no peripheral edema noted in the limbs.
[2018-05-16] MEDS: INSULIN GLARGINE SOLOSTAR 100 UNITS/ML 3 ML PEN SQ SCH (20:57)
--- NOTE | 2018-05-16 21:30 | Hospitalist Progress Note ---
Date of Service May 16, 2018 Assessment & Plan (1) UTI (urinary tract infection): UA noted Failed oupt tx with amoxicillin Urine cx positive E. Coli (05/15) Blood cx negative (05/16) Initially on cefepime, now on ceftriaxone. Will continue on ceftriaxone (05/16) Will switch to nitrofurantoin tomorrow. Unsure how much of a role this is playing. 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 Consult Neuro. Ann patient has advanced dementia. May likely start on namenda as an outpatient. (3) Acute kidney injury: Likely dehydration in the setting of UTI Gentle IVF and monitor. Will continue IVF given her acute renal failue. (4) HTN (hypertension): BP remains elevated, will continue home meds for now. (5) Diabetes: Lantus 10 units HS as at home SSI PRN (6) Hypothyroid: continue home meds TSH WNL (7) Personal history of transient ischemic attack (TIA), and cerebral infarction without residual deficits: Continue home plavix (8) PMR (polymyalgia rheumatica): Presumed dx as pt could not confirm Continue home steroid dosing (9) Anxiety and depression: continue home meds (10) HLD (hyperlipidemia): continue home meds (11) Hyperkalemia: Monitor with IVF Mild elevation, will continue to hold kaylexalate (12) Acute renal failure due to tubular necrosis: * Acute kidney failure with ATN Probable 73 yo female presenting with confusion and UTI with failed outpatient tx. Cr 3.94, UA brown, turbid, with granular casts 1-5 and hyaline casts 5-10. (13) Metabolic encephalopathy: Patient has acute metabolic encephalopathy. Likely from acute renal failure.Patient appears to be nearing baseline. Concerned over advanced dementia. will consult neurology. Patient may benefit from placement. Awaiting placement (14) CKD (chronic kidney disease) stage 4, GFR 15-29 ml/min: Probable CKD stage 4. Will continue to monitor BMP daily. Will continue fluids at this time. (15) DVT prophylaxis: SCDs Avoid rx given plavix use to avoid GIB Spent 35 minutes in management of patient. This included phone call to son. Subjective Patient appears more awake and is able to maintain a conversation. Patient has no complaints today. Caregiver is at bedside and states that patient is back to her baseline. I called the son and updated him. All questions were answered. Physical Exam 2 Vital Signs (Past 24 Hours): Last Vital Signs Temp 36.8 C 05/16/18 15:19 Pulse 78 05/16/18 21:04 Resp 18 05/16/18 21:04 BP 147/75 H 05/16/18 21:04 Pulse Ox 97 05/16/18 21:04 Physical Exam: Constitutional: WD/WN, vitals as above Neck: normal visual inspection and trachea midline Respiratory: normal respiratory effort, lungs clear to auscultation Cardiovascular: Rate/Rhythm: regular rate and regular rhythm Gastrointestinal (Abdomen): Inspection: abdomen not distended Percussion/ Palpation: abdomen soft; abdomen nontender Musculoskeletal: Head/Neck/Chest: normocephalic and head atraumatic negative for edema, peripheral pulses intact Skin: no rashes, warm and dry Neurologic: awake Speech / Cognition: normal speech Psychiatric: Orientation: alert, oriented to person, oriented to place, and cooperative. Not oriented to time. Eye Contact: good eye contact Speech: normal rate/rhythm/volume of speech _ (1) UTI (urinary tract infection) Encounter type: Hematuria presence: with hematuria Indwelling urinary catheter type: Urinary tract infection type: acute cystitis Qualified Code(s) : N30.01 - Acute cystitis with hematuria
[2018-05-17] MEDS: SODIUM CHLORIDE 0.45 % 1,000 ML IV SCH (05:11)
[2018-05-17] MEDS: LEVOTHYROXINE SODIUM 150 MCG TABLET PO SCH (05:37)
--- NOTE | 2018-05-17 07:22 | Neurology Progress Note ---
Date of Service May 17, 2018 Assessment & Plan (1) Dementia: Patient had acute encephalopathy likely secondary to a combination of metabolic issues (anemia, chronic renal disease, diabetes) and an acute urinary tract infection which had not been responding to her antibiotic as an outpatient. I believe the patient has a significant underlying dementia, likely secondary to vascular causes. Any metabolic issues or infection would create a worsening of her dementia. Today, she is quite calm and cooperative, similar to yesterday. Although she has significant dementia, I see no evidence of acute encephalopathy. Currently she has no focal neurologic findings or meningeal signs. (2) Generalized weakness: Patient has a generalized sense of weakness particularly on admission. She denies any specific weakness, and in fact, on exam she is quite strong with no focal weakness, proximal weakness, or generalize issues including rigidity a comma spasticity, tremor. She has no evidence of Parkinson's disease. Certainly, she cannot walk well and this is likely multifactorial including diabetes, underlying rheumatologic/inflammatory disease, and her recent urinary tract infection. 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 (3) Anxiety and depression: Patient has an underlying history of dementia a generalized anxiety disorder. These issues seem fairly stable today. (4) Personal history of transient ischemic attack (TIA), and cerebral infarction without residual deficits: Patient has a history of old lacunar infarcts in various places as listed above including central ernestina to the right, left cerebellum, and left periventricular white matter. In addition she has chronic cerebral ischemia in general. She is on clopidogrel and stable. There is nothing by this current history or exam that suggest a new TIA or stroke. Recommendations: 1. Continue treating urinary tract infection as you are doing 2. Controlling glucose, renal function, blood pressure, and anemia as best as can be done will help as well. 3. Physical and occupational therapy for general strengthening/gait training 4. Social service consult as it seems apparent the patient's family is not interested in taking her home again. She may need placement. 5. I see no need for additional neurologic testing at this time, although if she changes/worsens, I might consider an MRI of the brain and compare to the previous study. I see no need to order this now. 6. Continue steroid use as per Dr. Morgan for her temporal arteritis/polymyalgia rheumatica. 7. Continue clopidogrel 75 mg daily to prevent TIAs and strokes. 8. I have no further recommendations to make otherwise, please contact me if I can be of further assistance. She can be followed as an outpatient. I have no desire to initiate a new medication during this hospitalization for dementia. I may consider memantine. Overall, I spent a total of 25 minutes with this case including review of records, direct evaluation the patient at bedside, and discussion of the case with the patient and clinical staff. Subjective Patient has no complaint of pain. She is not dizzy and has no weakness, vision problems, or shortness of breath. Nursing reports no issues overnight although she can get confused. She is afebrile and glucose was 242 this morning Physical Exam 2 Vital Signs (Past 24 Hours): Last Vital Signs Temp 36.8 C 05/16/18 23:23 Pulse 62 05/16/18 23:23 Resp 18 05/16/18 23:23 BP 152/73 H 05/16/18 23:23 Pulse Ox 96 05/16/18 23:23 Physical Exam: She is awake and alert. She is lying in bed watching TV. I asked how she was doing and she answered she is watching �[employer]�. She knows her name and where she is. She follows one-step commands well. She is moving her limbs equally. She has no abnormal involuntary movements. There is no facial droop. Extraocular eye muscles are intact without nystagmus
[2018-05-17] MEDS: FERROUS SULFATE 325 MG TAB PO SCH ×2 (09:33→21:43)
[2018-05-17] MEDS: BuPROPion SR 150 MG TABCR PO SCH ×2 (09:33→21:44)
[2018-05-17] MEDS: predniSONE 5 MG TAB PO SCH (09:33)
[2018-05-17] MEDS: LABETALOL HCL 100 MG TAB PO SCH ×2 (09:34→21:42)
[2018-05-17] MEDS: CLOPIDOGREL BISULFATE 75 MG TAB PO SCH (09:34)
[2018-05-17] MEDS: AMLODIPINE BESYLATE 5 MG TAB PO SCH (09:34)
[2018-05-17] MEDS: BusPIRone 15 MG TAB PO SCH ×2 (09:34→21:43)
[2018-05-17] MEDS: cefTRIAXone SODIUM 1,000 MG in DEXTROSE 5% 50 ML IV SCH (09:34)
[2018-05-17] MEDS: CHOLECALCIFEROL 1,000 UNITS TAB PO SCH (09:34)
[2018-05-17] MEDS: ROSUVASTATIN CALCIUM 20 MG TAB PO SCH (09:35)
[2018-05-17] MEDS: INSULIN ASPART 100 UNITS/ML 3 ML PEN SC SCH ×4 (09:37→21:47)
[2018-05-17] MEDS: DICLOFENAC SOD 1% GEL 100 GM TUBE EXT SCH ×3 (09:39→21:44)
[2018-05-17 17:33] LABS: Basophils # (auto) 0.01 K/uL (0-0.2); Basophils % (auto) 0.1 %; Eosinophils # (auto) 0.02 K/uL (0-0.5); Eosinophils % (auto) 0.2 %; Hematocrit (blood only) 33.6 % (37-47); Hemoglobin 10.7 g/dL (12.0-16.0); Immature Granulocytes # (auto) 0.05 K/uL (0.00-0.02); Immature Granulocytes % (auto) 0.5 %; Lymphocytes # (auto) 0.63 K/uL (1.2-3.4); Lymphocytes % (auto) 6.1 %; Mean Corpuscular Hgb Conc 31.8 g/dL (32-36); Mean Corpuscular Volume 89.8 fL (80-100); Mean Platelet Volume 9.5 fL (7.4-10.4); Monocytes # (auto) 0.17 K/uL (0.11-0.59); Monocytes % (auto) 1.6 %; Neutrophils # (auto) 9.48 K/uL (1.4-6.5); Neutrophils % (auto) 91.5 %; Platelet Count 218 K/uL (130-400); RDW Coefficient of Variation 15.7 % (11.5-14.5); RDW Standard Deviation 51.5 fL (36.4-46.3); Red Blood Count 3.74 M/uL (4.2-5.4); White Blood Count 10.36 K/uL (4.8-10.8)
[2018-05-17 18:15] LABS: Calcium 9.5 mg/dl (8.5-10.1); Creatinine Clr Calc Pharmacy 18.6 ml/min; Est GFR (African American) 18.8; Est GFR (Non-African American) 16.2; Potassium 5.3 mmol/L (3.5-5.1)
[2018-05-17] MEDS: CIPROFLOXACIN 500 MG TAB PO SCH (21:45)
[2018-05-17] MEDS: INSULIN GLARGINE SOLOSTAR 100 UNITS/ML 3 ML PEN SQ SCH (21:46)
--- NOTE | 2018-05-17 22:58 | Hospitalist Progress Note ---
Date of Service May 17, 2018 Assessment & Plan (1) UTI (urinary tract infection): UA noted Failed oupt tx with amoxicillin Urine cx positive E. Coli (05/15) Blood cx negative (05/16) Initially on cefepime, now on ceftriaxone. Will continue on ceftriaxone (05/16) Due to GFR, patient was switched to cipro. will be on this medicine for 3 days. As stated previously, unsure if this is playing a role in her confusion. 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 Consult Neuro. Ann patient has advanced dementia. May likely start on namenda as an outpatient. (3) Acute kidney injury: Likely dehydration in the setting of UTI Gentle IVF and monitor. Her creat is at 2.8, which is likely her new baseline. will recheck creat in AM. Will stop her IVF as she appears to be back to her baseline. (4) HTN (hypertension): BP remains elevated, will continue home meds for now. (5) Diabetes: Lantus 10 units HS as at home SSI PRN (6) Hypothyroid: continue home meds TSH WNL (7) Personal history of transient ischemic attack (TIA), and cerebral infarction without residual deficits: Continue home plavix (8) PMR (polymyalgia rheumatica): Presumed dx as pt could not confirm Continue home steroid dosing (9) Anxiety and depression: continue home meds (10) HLD (hyperlipidemia): continue home meds (11) Hyperkalemia: Monitor with IVF Mild elevation, will continue to hold kaylexalate (12) Acute renal failure due to tubular necrosis: * Acute kidney failure with ATN Probable 73 yo female presenting with confusion and UTI with failed outpatient tx. Cr 3.94, UA brown, turbid, with granular casts 1-5 and hyaline casts 5-10. (13) Metabolic encephalopathy: Patient has acute metabolic encephalopathy. Likely from acute renal failure.Patient appears to be nearing baseline. Concerned over advanced dementia. will consult neurology. Patient may benefit from placement. Awaiting placement (14) CKD (chronic kidney disease) stage 4, GFR 15-29 ml/min: Probable CKD stage 4. Will continue to monitor BMP daily. Will continue fluids at this time. (15) DVT prophylaxis: SCDs Avoid rx given plavix use to avoid GIB Spent 25 minutes in management of patient. This included discussion with informatics consultant. Subjective Patient states she has no complaints at this time. All questions were answered. Physical Exam 2 Vital Signs (Past 24 Hours): Last Vital Signs Temp 36.8 C 05/17/18 14:54 Pulse 74 05/17/18 21:45 Resp 18 05/17/18 14:54 BP 157/79 H 05/17/18 21:45 Pulse Ox 95 05/17/18 14:54 Physical Exam: Constitutional: WD/WN, vitals as above Neck: normal visual inspection and trachea midline Respiratory: normal respiratory effort, lungs clear to auscultation Cardiovascular: Rate/Rhythm: regular rate and regular rhythm Gastrointestinal (Abdomen): Inspection: abdomen not distended Percussion/ Palpation: abdomen soft; abdomen nontender Musculoskeletal: Head/Neck/Chest: normocephalic and head atraumatic negative for edema, peripheral pulses intact Skin: no rashes, warm and dry Neurologic: awake Speech / Cognition: normal speech Psychiatric: Orientation: alert, oriented to person, oriented to place, and cooperative. Not oriented to time. Eye Contact: good eye contact Speech: normal rate/rhythm/volume of speech _ (1) UTI (urinary tract infection) Encounter type: Hematuria presence: with hematuria Indwelling urinary catheter type: Urinary tract infection type: acute cystitis Qualified Code(s) : N30.01 - Acute cystitis with hematuria
[2018-05-18] MEDS: LEVOTHYROXINE SODIUM 150 MCG TABLET PO SCH (06:13)
[2018-05-18] MEDS: AMLODIPINE BESYLATE 5 MG TAB PO SCH (07:59)
[2018-05-18] MEDS: CLOPIDOGREL BISULFATE 75 MG TAB PO SCH (08:00)
[2018-05-18] MEDS: predniSONE 5 MG TAB PO SCH (08:00)
[2018-05-18] MEDS: CHOLECALCIFEROL 1,000 UNITS TAB PO SCH (08:00)
[2018-05-18] MEDS: LABETALOL HCL 100 MG TAB PO SCH ×2 (08:00→21:52)
[2018-05-18] MEDS: BuPROPion SR 150 MG TABCR PO SCH ×2 (08:00→21:52)
[2018-05-18] MEDS: BusPIRone 15 MG TAB PO SCH ×2 (08:01→21:52)
[2018-05-18] MEDS: ROSUVASTATIN CALCIUM 20 MG TAB PO SCH (08:01)
[2018-05-18] MEDS: FERROUS SULFATE 325 MG TAB PO SCH ×2 (08:01→21:52)
[2018-05-18] MEDS ORDERED: cefUROXime axetil 250 MG TABLET PO SCH (09:00)
[2018-05-18] MEDS ORDERED: NITROFURANTOIN MONOHYDRATE 100 MG CAP PO SCH (09:00)
[2018-05-18] MEDS: INSULIN ASPART 100 UNITS/ML 3 ML PEN SC SCH ×4 (09:58→21:55)
[2018-05-18] MEDS: DICLOFENAC SOD 1% GEL 100 GM TUBE EXT SCH ×3 (09:59→22:00)
[2018-05-18] MEDS: CIPROFLOXACIN 500 MG TAB PO SCH (21:52)
[2018-05-18] MEDS: INSULIN GLARGINE SOLOSTAR 100 UNITS/ML 3 ML PEN SQ SCH (21:55)
[2018-05-19] MEDS: LEVOTHYROXINE SODIUM 150 MCG TABLET PO SCH (05:56)
[2018-05-19] MEDS: predniSONE 5 MG TAB PO SCH (07:42)
[2018-05-19] MEDS: ROSUVASTATIN CALCIUM 20 MG TAB PO SCH (07:43)
[2018-05-19] MEDS: BusPIRone 15 MG TAB PO SCH ×2 (07:43→20:42)
[2018-05-19] MEDS: CLOPIDOGREL BISULFATE 75 MG TAB PO SCH (07:44)
[2018-05-19] MEDS: BuPROPion SR 150 MG TABCR PO SCH ×2 (07:44→20:44)
[2018-05-19] MEDS: CHOLECALCIFEROL 1,000 UNITS TAB PO SCH (07:44)
[2018-05-19] MEDS: LABETALOL HCL 100 MG TAB PO SCH ×2 (07:44→20:43)
[2018-05-19] MEDS: FERROUS SULFATE 325 MG TAB PO SCH ×2 (07:45→20:43)
[2018-05-19] MEDS: AMLODIPINE BESYLATE 5 MG TAB PO SCH (07:45)
[2018-05-19] MEDS: DICLOFENAC SOD 1% GEL 100 GM TUBE EXT SCH ×4 (07:55→20:44)
[2018-05-19] MEDS: INSULIN ASPART 100 UNITS/ML 3 ML PEN SC SCH ×4 (09:08→20:47)
--- NOTE | 2018-05-19 12:38 | Hospitalist Progress Note ---
Date of Service May 18, 2018 Assessment & Plan (1) UTI (urinary tract infection): UA noted Failed oupt tx with amoxicillin Urine cx positive E. Coli (05/15) Blood cx negative (05/16) Initially on cefepime, then on ceftriaxone Due to GFR, patient was switched to cipro (05/17). will be on this medicine for 3 days. As stated previously, unsure if this is playing a role in her confusion. 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 Consult Neuro. Ann patient has advanced dementia. May likely start on namenda as an outpatient. (3) Acute kidney injury: Likely dehydration in the setting of UTI Gentle IVF and monitor. Her creat is at 2.8, which is likely her new baseline. will recheck creat in AM. Will stop her IVF as she appears to be back to her baseline. (4) HTN (hypertension): BP remains elevated, will continue home meds for now. (5) Diabetes: Lantus 10 units HS as at home SSI PRN (6) Hypothyroid: continue home meds TSH WNL (7) Personal history of transient ischemic attack (TIA), and cerebral infarction without residual deficits: Continue home plavix (8) PMR (polymyalgia rheumatica): Presumed dx as pt could not confirm Continue home steroid dosing (9) Anxiety and depression: continue home meds (10) HLD (hyperlipidemia): continue home meds (11) Hyperkalemia: Monitor with IVF Mild elevation, will continue to hold kaylexalate (12) Acute renal failure due to tubular necrosis: * Acute kidney failure with ATN Probable 73 yo female presenting with confusion and UTI with failed outpatient tx. Cr 3.94, UA brown, turbid, with granular casts 1-5 and hyaline casts 5-10. (13) Metabolic encephalopathy: Patient has acute metabolic encephalopathy. Likely from acute renal failure.Patient appears to be nearing baseline. Concerned over advanced dementia. will consult neurology. Patient may benefit from placement. Awaiting placement (14) CKD (chronic kidney disease) stage 4, GFR 15-29 ml/min: Probable CKD stage 4. Will continue to monitor BMP daily. Will continue fluids at this time. (15) DVT prophylaxis: SCDs Avoid rx given plavix use to avoid GIB Spent 25 minutes in management of patient. Subjective Patient reports feeling fine. Patient has no new complaints. Physical Exam 2 Vital Signs (Past 24 Hours): Last Vital Signs Temp 36.6 C 05/18/18 14:59 Pulse 78 05/18/18 14:59 Resp 18 05/18/18 14:59 BP 138/66 H 05/18/18 14:59 Pulse Ox 100 05/18/18 14:59 Physical Exam: Constitutional: WD/WN, vitals as above Neck: normal visual inspection and trachea midline Respiratory: normal respiratory effort, lungs clear to auscultation Cardiovascular: Rate/Rhythm: regular rate and regular rhythm Gastrointestinal (Abdomen): Inspection: abdomen not distended Percussion/ Palpation: abdomen soft; abdomen nontender Musculoskeletal: Head/Neck/Chest: normocephalic and head atraumatic negative for edema, peripheral pulses intact Skin: no rashes, warm and dry Neurologic: awake Speech / Cognition: normal speech Psychiatric: Orientation: alert, oriented to person, oriented to place, and cooperative. Not oriented to time. Eye Contact: good eye contact Speech: normal rate/rhythm/volume of speech _ (1) UTI (urinary tract infection) Encounter type: Hematuria presence: with hematuria Indwelling urinary catheter type: Urinary tract infection type: acute cystitis Qualified Code(s) : N30.01 - Acute cystitis with hematuria
--- NOTE | 2018-05-19 13:39 | Hospitalist Progress Note ---
Date of Service May 19, 2018 Assessment & Plan (1) UTI (urinary tract infection): UA noted Failed oupt tx with amoxicillin Urine cx positive E. Coli (05/15) Blood cx negative (05/16) Initially on cefepime, then on ceftriaxone Due to GFR, patient was switched to cipro (05/17). will be on this medicine for 3 days. Last dose will be 05/20 (AM) As stated previously, unsure if this is playing a role in her confusion. (2) Generalized weakness: Likely related to above Monitor with current tx PT/OT consulted Has private duty home nursing M-F. Consult Neuro. Agree patient has advanced dementia. May likely start on namenda as an outpatient. (3) Acute kidney injury: Likely dehydration in the setting of UTI Gentle IVF was given for first 3 days of hospital stay. Her creat is at 3.1; Patient though appears hydrated and no longer dry. Will hold fluids. (4) HTN (hypertension): BP remains elevated, will continue home meds for now. Will add lisnopril at PM. However at a low dose due to low GFR (5) Diabetes: Lantus 10 units HS as at home SSI PRN (6) Hypothyroid: continue home meds TSH WNL (7) Personal history of transient ischemic attack (TIA), and cerebral infarction without residual deficits: Continue home plavix (8) PMR (polymyalgia rheumatica): Presumed dx as pt could not confirm Continue home steroid dosing (9) Anxiety and depression: continue home meds (10) HLD (hyperlipidemia): continue home meds (11) Hyperkalemia: Monitor with IVF Mild elevation, will continue to hold kaylexalate (12) Acute renal failure due to tubular necrosis: * Acute kidney failure with ATN Probable 73 yo female presenting with confusion and UTI with failed outpatient tx. Cr 3.94, UA brown, turbid, with granular casts 1-5 and hyaline casts 5-10. (13) Metabolic encephalopathy: Patient has acute metabolic encephalopathy. Likely from acute renal failure.Patient appears to be nearing baseline. Concerned over advanced dementia. Consulted neuro who agree with above. May add namenda at f/u appointment Patient may benefit from placement. Awaiting placement (14) CKD (chronic kidney disease) stage 4, GFR 15-29 ml/min: Probable CKD stage 4. Will continue to monitor BMP daily. Will continue fluids at this time. (15) DVT prophylaxis: SCDs Avoid rx given plavix use to avoid GIB Spent 25 minutes in management of patient. Awaiting placement. Subjective Patient reports no symptoms today. Patient tolerated her lunch. Physical Exam 2 Vital Signs (Past 24 Hours): Last Vital Signs Temp 36.8 C 05/19/18 07:09 Pulse 74 05/19/18 07:09 Resp 20 05/19/18 07:09 BP 170/78 H 05/19/18 12:45 Pulse Ox 95RA by 05/19/18 12:45 Physical Exam: Constitutional: WD/WN, vitals as above Neck: normal visual inspection and trachea midline Respiratory: normal respiratory effort, lungs clear to auscultation Cardiovascular: Rate/Rhythm: regular rate and regular rhythm Gastrointestinal (Abdomen): Inspection: abdomen not distended Percussion/ Palpation: abdomen soft; abdomen nontender Musculoskeletal: Head/Neck/Chest: normocephalic and head atraumatic negative for edema, peripheral pulses intact Skin: no rashes, warm and dry Neurologic: awake Speech / Cognition: normal speech Psychiatric: Orientation: alert, oriented to person, oriented to place, and cooperative. Not oriented to time. Eye Contact: good eye contact Speech: normal rate/rhythm/volume of speech _ (1) UTI (urinary tract infection) Encounter type: Hematuria presence: with hematuria Indwelling urinary catheter type: Urinary tract infection type: acute cystitis Qualified Code(s) : N30.01 - Acute cystitis with hematuria
[2018-05-19 14:30] LABS: BUN Creatinine Ratio 15.4 (10-20); Creatinine Clr Calc Pharmacy 16.6 ml/min; Est GFR (African American) 16.3; Est GFR (Non-African American) 14.1; Potassium 4.8 mmol/L (3.5-5.1)
[2018-05-19] MEDS: CIPROFLOXACIN 500 MG TAB PO SCH (20:42)
[2018-05-19] MEDS: INSULIN GLARGINE SOLOSTAR 100 UNITS/ML 3 ML PEN SQ SCH (20:45)
[2018-05-19] MEDS ORDERED: LISINOPRIL 2.5 MG TAB PO SCH (21:00)
[2018-05-20] MEDS: LEVOTHYROXINE SODIUM 150 MCG TABLET PO SCH (06:34)
[2018-05-20] MEDS: ROSUVASTATIN CALCIUM 20 MG TAB PO SCH (08:00)
[2018-05-20] MEDS: predniSONE 5 MG TAB PO SCH (08:00)
[2018-05-20] MEDS: AMLODIPINE BESYLATE 5 MG TAB PO SCH (08:00)
[2018-05-20] MEDS: CLOPIDOGREL BISULFATE 75 MG TAB PO SCH (08:01)
[2018-05-20] MEDS: CHOLECALCIFEROL 1,000 UNITS TAB PO SCH (08:01)
[2018-05-20] MEDS: BusPIRone 15 MG TAB PO SCH (08:01)
[2018-05-20] MEDS: BuPROPion SR 150 MG TABCR PO SCH (08:01)
[2018-05-20] MEDS: LABETALOL HCL 100 MG TAB PO SCH (08:01)
[2018-05-20] MEDS: FERROUS SULFATE 325 MG TAB PO SCH (08:01)
[2018-05-20] MEDS: DICLOFENAC SOD 1% GEL 100 GM TUBE EXT SCH (08:05)
[2018-05-20] MEDS: INSULIN ASPART 100 UNITS/ML 3 ML PEN SC SCH ×2 (09:14→12:54)
--- NOTE | 2018-05-20 09:48 | Hospitalist Progress Note ---
Date of Service May 20, 2018 Assessment & Plan (1) UTI (urinary tract infection): UA failed oupt tx with amoxicillin Urine cx positive E. Coli (05/15) Blood cx negative (05/16) Initially on cefepime, switched to renal dosed cipro (05/17 last dose 05/20) concern that infection maybe causing metabolic encephalopathy (2) Generalized weakness: PT/OT consulted Has private duty home nursing M-F. Consulting Neurologist agrees patient has advanced dementia. Considering to start on namenda as an outpatient. (3) Acute kidney injury: Pt has had eleveted Cr for some time, maybe not acute kidney injury but more her baseline of CKD 4 (4) HTN (hypertension): BP added lisnopril at PM with some increase in renal numbers will stop and escalate labetolol, also taking amlodipine (5) Diabetes: Lantus 10 units HS as at home SSI PRN (6) Hypothyroid: clinically stable TSH WNL (7) Personal history of transient ischemic attack (TIA), and cerebral infarction without residual deficits: Continue home plavix (8) PMR (polymyalgia rheumatica): Presumed dx as pt could not confirm Continue home steroid dosing, wathcing for need for stress dosing (9) Anxiety and depression: continue buspar and wellbutrin (10) DVT prophylaxis: SCDs Avoid rx given plavix use to avoid GIB Spent 25 minutes in management of patient. Awaiting placement. Physical Exam 2 Vital Signs (Past 24 Hours): Last Vital Signs Temp 36.7 C 05/20/18 07:13 Pulse 71 05/20/18 07:13 Resp 20 05/20/18 07:13 BP 175/85 H 05/20/18 07:13 Pulse Ox 95 05/20/18 07:13 _ (1) UTI (urinary tract infection) Encounter type: Hematuria presence: with hematuria Indwelling urinary catheter type: Urinary tract infection type: acute cystitis Qualified Code(s) : N30.01 - Acute cystitis with hematuria
--- NOTE | 2018-05-20 16:28 | Discharge Summary ---
Date of Service May 20, 2018 Principal Diagnosis e coli uti poa, deconditioining Discharge Exam The patient appeared well nourished and normally developed. Although pleasantly confused Vital signs as documented. Head exam is unremarkable. normocephalic, atraumatic Neck is without jugular venous distension, thyromegaly, or lymphademopathy Lungs are clear to auscultation and percussion. Cardiac exam reveals Rhythm is regular. First and second heart sounds normal. Abdominal exam reveals normal bowel sounds, no masses, no organomegaly Extremities are nonedematous and both pedal pulses are present Neurologic exam is A&Ox2, no focal deficits, strength is equal bilateral Psychologically seems neither anxious or depressed Skin is warm Dry without bruises or lesions Discharge Data Allergies Allergy/AdvReac Type Severity Reaction Status Date / Time [id number] Reductase Allergy Unknown VOMITING/GI Verified 05/13/18 13:30 Inhibitor ISSUES Consultations 05/13/18 14:23 ED Decision to Admit Stat 05/13/18 18:40 Consult Case Management - Discharge Planning Routine 05/15/18 12:33 Consult Neurology Routine Hospital Course (1) UTI (urinary tract infection): UA failed oupt tx with amoxicillin Urine cx positive E. Coli (05/15) Blood cx negative (05/16) Initially on cefepime, switched to renal dosed cipro (05/17 last dose 05/20) concern that infection may have been causing metabolic encephalopathy (2) Generalized weakness: PT/OT consulted will transition to snf for subacute rehab Consulting Neurologist agrees patient has advanced dementia. Considering to start on namenda as an outpatient. (3) Acute kidney injury: Pt has had eleveted Cr for some time, maybe not acute kidney injury but more her baseline of CKD 4, will recommend snf follow Chemistry closely (4) HTN (hypertension): BP added lisnopril at PM with some increase in renal numbers will stop and escalate labetolol, also taking amlodipine (5) Diabetes: Lantus 10 units HS as at home SSI PRN (6) Hypothyroid: clinically stable TSH WNL (7) Personal history of transient ischemic attack (TIA), and cerebral infarction without residual deficits: Continue home plavix (8) PMR (polymyalgia rheumatica): Presumed dx as pt could not confirm Continue home steroid dosing, watching for need for stress dosing (9) Anxiety and depression: continue buspar and wellbutrin Total Time Total Time Spent Total Time Spent (In Minutes): greater than 30 minutes were required to prepare discharge Discharge Plan Discharge Items Patient Disposition: Transfer Longterm Fac Reason For Visit: UTI,FAILURE OF OUTPT Discharge Diagnosis: urinary infection, failing outpt treatment hypertension, needs continued monitoring and med adjust Discharge Goals: Decrease discomfort and Diagnostic testing Activity: Resume your previous activity Non-emergency contact: Primary Care Provider Call non-emergency contact if: you have any medication questions Diet: Low Sodium (2gm) Addtl Provider Instructions: Pt did have some increased CR with quinton inhibitor use, please monitor renal funciton and blood pressure in the next few weeks Prescriptions: New insulin glargine [Lantus Solostar U-100 Insulin] 100 unit/mL (3 mL) Insulin Pen 10 unit subcut PM Qty: 1 RF: 0 Continue bupropion HCl 150 mg Tablet Sustained-Release 12 Hr 150 mg PO BID RF: 0 clopidogrel 75 mg Tablet 75 mg PO QAM RF: 0 amlodipine 10 mg Tablet 10 mg PO QAM RF: 0 levothyroxine 150 mcg Tablet 150 mcg PO QAM RF: 0 calcitriol 0.25 mcg Capsule 0.25 mcg PO 3XWK RF: 0 buspirone 15 mg Tablet 15 mg PO BID RF: 0 cholecalciferol (vitamin D3) [Vitamin D3] 1,000 unit Capsule 1,000 unit PO QAM RF: 0 rosuvastatin [Crestor] 40 mg Tablet 40 mg PO DAILY RF: 0 diclofenac sodium 1 % Gel 2 g TOPICAL TID RF: 0 prednisone 5 mg tablet 17.5 mg PO QAM RF: 0 ergocalciferol (vitamin D2) 50,000 unit Capsule 50,000 unit PO WK RF: 0 ferrous sulfate 325 mg (65 mg iron) Tablet,Delayed Release (Dr/Ec) 325 mg PO BID RF: 0 Changed labetalol 100 mg Tablet 200 mg PO BID Qty: 60 RF: 0 insulin glargine [Lantus Solostar U-100 Insulin] 100 unit/mL (3 mL) insulin pen 1 units SQ UD Qty: 15 RF: 0 Discontinued sitagliptin [Januvia] 100 mg Tablet 100 mg PO DAILY RF: 0 glyburide 5 mg Tablet 5 mg PO BID RF: 0 amoxicillin 250 mg capsule 250 mg PO TID RF: 0 insulin lispro [Humalog KwikPen Insulin] 100 unit/mL insulin pen subcut UD RF: 0 tocilizumab [Actemra] 400 mg/20 mL (20 mg/mL) Solution 400 mg IV MONTHLY RF: 0 Stand-Alone Forms: [facility] Discharge Orders: Discharge Order (Routine); Ordered 05/20/18 Ordered By: Marco Chauhan Skilled Items Patient informed of condition?: Yes DNR: No Discharge Level of Care: Skilled Communicable Disease: No Discharge Prognosis: Stable Admission Data Admit Date/Time: 05/13/18 16:53 Attending Provider: Marco Chauhan Admit Provider: Avelina Almodovar Primary Care Provider: Bryn Marin III Other Providers: Avelina Almodovar ; Rosie Rodgers George A Service: Medical Other Interventions: Discharge Summary Assessment (RN) Last Done: 05/20/18 13:45 Pending Studies at Discharge: No DC Date/Time DO NOT enter until pt leaves facility: 05/20/18 14:00
[2018-05-20] MEDS ORDERED: LABETALOL HCL 100 MG TAB PO SCH (21:00)
--- NOTE | 2018-05-22 06:28 | Coding Query ---
To promote full compliance with coding requirements relating to patient care, provider participation is requested in all cases of elementary education tutor uncertainty. Please assist us with the question(s) below: Coding Question: Sepsis was documented in the H&P and PN until 05/16 then subsequently fell off all further documentation. Please indicate if it is still a possible diagnosis or ruled out. Thank you for your help! SEPSIS ( ) Diagnosed and POA ( ) Diagnosed and not POA (xxx ) Ruled out ( ) Other (please specify) MTDD
== END 2018-05-20 14:00 | DRG 689 ==
LOC: ED 12:26 → SUATTDRO 16:53 → 2S 16:53 → 4W 05-15 13:59

== ENCOUNTER 2018-08-01 23:04 | Inpatient (IN) ==
[2018-08-01] MEDS ORDERED: D5W AND NSS 1,000 ML IV STA (23:34)
[2018-08-01 23:42] LABS: Basophils # (auto) 0.01 K/uL (0-0.2); Basophils % (auto) 0.1 %; Eosinophils # (auto) 0.06 K/uL (0-0.5); Eosinophils % (auto) 0.7 %; Hematocrit (blood only) 30.4 % (37-47); Hemoglobin 9.7 g/dL (12.0-16.0); Immature Granulocytes % (auto) 1.2 %; Lymphocytes # (auto) 1.27 K/uL (1.2-3.4); Lymphocytes % (auto) 15.9 %; Mean Corpuscular Hgb Conc 31.9 g/dL (32-36); Mean Corpuscular Volume 89.4 fL (80-100); Mean Platelet Volume 9.2 fL (7.4-10.4); Monocytes # (auto) 0.46 K/uL (0.11-0.59); Monocytes % (auto) 5.7 %; Neutrophils # (auto) 6.11 K/uL (1.4-6.5); Neutrophils % (auto) 76.4 %; Platelet Count 277 K/uL (130-400); RDW Coefficient of Variation 16.9 % (11.5-14.5); RDW Standard Deviation 55.7 fL (36.4-46.3); White Blood Count 8.01 K/uL (4.8-10.8)
[2018-08-02 00:03] LABS: Alanine Aminotransferase 19 U/L (12-78); Albumin Level 3.5 gm/dl (3.4-5.0); Aspartate Aminotransferase 12 U/L (15-37); BUN Creatinine Ratio 15.3 (10-20); Blood Urea Nitrogen 59 mg/dl (7-18); Calcium 9.9 mg/dl (8.5-10.1); Carbon Dioxide 23 mmol/L (21-32); Chloride 111 mmol/L (98-107); Est GFR (African American) 12.8; Glucose 100 mg/dl (70-99); Potassium 4.7 mmol/L (3.5-5.1); Sodium 141 mmol/L (136-145)
[2018-08-02 00:13] LABS: Albumin Globulin Ratio 0.9 (0.9-2); Alkaline Phosphatase 52 U/L (45-117); Bilirubin,Total 0.4 mg/dl (0.2-1); Globulin 3.8 gm/dl (2.5-4.0); Total Protein 7.3 gm/dl (6.4-8.2)
[2018-08-02 00:25] LABS: T4 Free Thyroxine 1.24 ng/dl (0.8-1.6)
[2018-08-02 00:26] LABS: Appearance Urine Turbid (Clear); Bacteria Urine Automated 1+ (Negative); Bilirubin Urine Negative (Negative); Blood Urine Negative (Negative); Color Urine Yellow; Epithelial Cell Urine Auto 0-5 /lpf (0-5); Glucose Urine UA Negative (Negative); Ketones Urine Negative (Negative); Leukocyte Esterase Urine 3+ (Negative); Nitrite Urine Negative (Negative); RBC Urine Automated 0-4 /hpf (0-4); Specific Gravity Urine 1.015 (1.000-1.030); Urobilinogen Urine Negative (Negative); WBC Urine Automated >30 /hpf (0-5)
[2018-08-02] MEDS ORDERED: IMIPENEM/CILASTATIN SODIUM 500 MG in DEXTROSE 5% 100 ML IV STA (00:37)
[2018-08-02] MEDS ORDERED: DAPTOmycin 500 MG in SYRINGE 0 ML IV STA (00:37)
[2018-08-02 00:40] LABS: Protein Urine 2+ (Negative)
[2018-08-02] MEDS ORDERED: SODIUM CHLORIDE 0.9% 1000ML 500 ML IV ONE (00:43)
[2018-08-02 01:09] LABS: Troponin I < 0.015 ng/ml (0-0.045)
--- NOTE | 2018-08-02 01:36 | History & Physical Report ---
Date of Service August 02, 2018 Assessment & Plan (1) UTI (urinary tract infection): 73yoF with hx of advanced dementia, DM2, HTN, CKD, hypothyroidism, hx of TIA, PMR, anxiety/depression presents with AMS in the setting of initial hypoglycemia, hypothermia and found to have UTI. Concern for urosepsis. Concern for urosepsis -WBC and lactate normal -UA positive -UCx pending -BCx 2 pending -Previous UCx on 05/15 grew E.coli resistant to aminoglycosides, bactrim and ancef, 02/2018 culture grew pansensitive E. coli -Consider abdominal imaging if pt fails to show improvement -Received Daptomycin, imipenem/cilastin x 1 in ED -Started on Rocephin -Follow cultures AMS likely in the setting of urosepsis vs. hypoglycemia -Hx of advanced dementia -Glucose was reported to be 31 prior to ED arrival -per family nurse checks glucose Q1H per ED nursing report -possible concern of insulin overdose -improved to 100s post D5NS 1L in the ED -UA positive and concerning for UTI -Continue to monitor clinically MARGARET on CKD 4 in the setting of acute illness and significant hypovolemia -Baseline Cr around 2.5 -BUN/Cr 59/3.85 -received 2.5L fluid bolus in ED -Continue D5NS at 125cc/hr -Continue to monitor BMP HTN: -ECHO: 09/10 EF 65% mod LVH, diastolic dysfunction, mild AAV stenosis, mild MV and TV regurg -Hold lisinopril in the setting of MARGARET -Continue home amlodipine and labetalol DM: -Hold home insulin regimen in the setting of hypoglycemia -SSI as needed -Continue to monitor BSG Hypothyroidism: -TSH 0.228 likely impacted by acute illness, Nl Free T4 -Continue home levothyroxine -Follow up outpatient in 2 weeks History of transient ischemic attack (TIA), and cerebral infarction without residual deficits: -Continue home plavix PMR (polymyalgia rheumatica): -Hold home prednisone 5mg daily -stress dosing with hydrocortisone 100mg IV Q8H Anxiety and depression: -continue buspar and wellbutrin -continue ativan prn Chronic anemia: -Hgb 9.7 (baseline around 10) -Continue home fesol -Monitor closely GERD: -continue home protonix Overactive bladder: -continue home oxybutynin Diet: NPO pending improvement in mental status DVT: heparin 5000u SQ Q12H Code: Full Dispo: pcu telemetry [employer] consult: assess home care adequacy (2) Acute renal failure: (3) Hypothermia: (4) Hypoglycemia: (5) CKD (chronic kidney disease) stage 4, GFR 15-29 ml/min: (6) Dementia: (7) Hypothyroid: (8) PMR (polymyalgia rheumatica): (9) Personal history of transient ischemic attack (TIA), and cerebral infarction without residual deficits: (10) Anxiety and depression: (11) HTN (hypertension): (12) Diabetes: (13) Overactive bladder: (14) Anemia: History of Present Illness Primary Care Provider: Bryn Marin MD 73yoF with hx of dementia, DM2, HTN, CKD, hypothyroidism, hx of TIA/CVA, PMR, anxiety/depression, chronic anemia, and GERD presents with AMS in the setting of initial hypoglycemia, hypothermia and found to have UTI. Concern for urosepsis. Per nursing, BSG prior to arrival was 31. Due to pt mental status history limited/not very reliable. When examined family was not in the room. Pt aroused when name called, reports feeling cold, denies any pain. In the ED: found to have positive UA. Normal WBC and lactate. Hgb 9.7 (baseline around 10), BUN/Cr elevated at 59/3.85, Glucose improved to 100 s/p D5. Given NC 1500cc, D5NS 1L, Daptomycin, imipenem/cilastin x 1. Warmed via warming blanket. Allergies Allergy/AdvReac Type Severity Reaction Status Date / Time [id number] Reductase Allergy Unknown VOMITING/GI Verified 08/01/18 23:48 Inhibitor ISSUES Home Medications Home Medications Medication Instructions Recorded Confirmed Type amlodipine 10 mg PO QAM 01/31/18 08/01/18 History bupropion HCl 150 mg PO BID 01/31/18 08/01/18 History buspirone 15 mg PO BID 01/31/18 08/01/18 History calcitriol 0.25 mcg PO 3XWK 01/31/18 08/01/18 History cholecalciferol (vitamin D3) 1,000 unit PO QAM 01/31/18 08/01/18 History [Vitamin D3] clopidogrel 75 mg PO QAM 01/31/18 08/01/18 History levothyroxine 150 mcg PO QAM 01/31/18 08/01/18 History rosuvastatin [Crestor] 40 mg PO DAILY 01/31/18 08/01/18 History ergocalciferol (vitamin D2) 50,000 unit PO WK 05/13/18 08/01/18 History ferrous sulfate 325 mg PO BID 05/13/18 08/01/18 History prednisone 17.5 mg PO QAM 05/13/18 08/01/18 History cefuroxime axetil 250 mg PO DAILY 08/01/18 08/01/18 History epoetin anny [Procrit] 20,000 unit SUBCUT MONTHLY 08/01/18 08/01/18 History insulin glargine [Lantus Solostar 20 unit SUBCUT DAILY 08/01/18 08/01/18 History U-100 Insulin] insulin lispro [Humalog KwikPen 10 unit SUBCUT DIRECTED 08/01/18 08/01/18 History Insulin] labetalol 100 mg PO Q12H 08/01/18 08/01/18 History lorazepam [Ativan] 0.5 - 1 mg PO BID PRN 08/01/18 08/01/18 History oxybutynin chloride 5 mg PO DAILY 08/01/18 08/01/18 History pantoprazole 40 mg PO DAILY 08/01/18 08/01/18 History Past Med/Surg History Medical History Dementia CKD (chronic kidney disease) stage 4, GFR 15-29 ml/min Metabolic encephalopathy Acute renal failure due to tubular necrosis Hyperkalemia (Acute) UTI (urinary tract infection) (Acute) Hypothyroid Personal history of transient ischemic attack (TIA), and cerebral infarction without residual deficits PMR (polymyalgia rheumatica) Anxiety and depression HTN (hypertension) HLD (hyperlipidemia) Diabetes Overactive bladder Anemia (Acute) Shortness of breath (Acute) TIA (transient ischemic attack) (Resolved) Bilateral leg edema Cramp of both lower extremities SEN (headache) Renal insufficiency TIA (transient ischemic attack) Surgical History Status post hysterectomy Family History Mother , around age 70 Diabetes Hypertension Coronary heart disease Father , around age 70 Hypertension Diabetes Coronary heart disease Other No pertinent family history Social History Preferred Language: Taiwanese Communication Ability: Impaired Cattle Sticker Required: No Beliefs That Will Affect Care: None marital status: / Current Living Situation: Family current occupational status: 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[employer] Other Information That Helps Us Care for You: No Feels Safe at Home: Yes Safety Concerns: Feels Safe At This Time Smoking Status: Former smoker Hx Alcohol Use: No Hx Substance Use: No Review of Systems Unable to obtain due to pt mental status Physical Exam Vital Signs (Past 24 Hours): Last Vital Signs Temp 34.3 C L 08/02/18 00:36 Pulse 52 L 08/02/18 01:01 Resp 12 08/02/18 01:01 BP 135/39 L 08/02/18 01:01 Pulse Ox 92 08/02/18 00:31 Physical Exam: General: In NAD, resting and reports being cold depite being warmed by warming blanket Neuro: alert but not oriented CV: RRR, no m/r/g Pulm: CTAB, equal breath sounds bilaterally, on RA GI: +BS, non-distended, NTTP in all quadrants extremities: no calf tenderness, no LE edema Results & Data Laboratory Results Abnormal lab results 08/01/18 08/01/18 08/01/18 Range/Units 23:00 23:00 23:11 RBC 3.40 L (4.2-5.4) M/uL Hgb 9.7 L (12.0-16.0) g/dL Hct 30.4 L (37-47) % MCHC 31.9 L (32-36) g/dL RDW Std Deviation 55.7 H (36.4-46.3) fL RDW Coeff of Tanya 16.9 H (11.5-14.5) % Immature Gran # (Auto) 0.10 H (0.00-0.02) K/uL Chloride 111 H (98-107) mmol/L BUN 59 H (7-18) mg/dl Creatinine 3.85 H (0.6-1.2) mg/dl Glucose 100 H (70-99) mg/dl POC Glucose 101 H (70-99) AST 12 L (15-37) U/L TSH 0.228 L (0.300-4.500) uIu/ml Urine Appearance (Clear) Urine pH (4.5-7.5) Urine Protein (Negative) Ur Leukocyte Esterase (Negative) Urine WBC (Auto) (0-5) /hpf Urine Bacteria (Auto) (Negative) 08/02/18 08/02/18 08/02/18 Range/Units 00:05 00:06 00:36 RBC (4.2-5.4) M/uL Hgb (12.0-16.0) g/dL Hct (37-47) % MCHC (32-36) g/dL RDW Std Deviation (36.4-46.3) fL RDW Coeff of Tanya (11.5-14.5) % Immature Gran # (Auto) (0.00-0.02) K/uL Chloride (98-107) mmol/L BUN (7-18) mg/dl Creatinine (0.6-1.2) mg/dl Glucose (70-99) mg/dl POC Glucose 120 H 164 H (70-99) AST (15-37) U/L TSH (0.300-4.500) uIu/ml Urine Appearance Turbid H (Clear) Urine pH 8.0 H (4.5-7.5) Urine Protein 2+ H (Negative) Ur Leukocyte Esterase 3+ H (Negative) Urine WBC (Auto) >30 H (0-5) /hpf Urine Bacteria (Auto) 1+ H (Negative) Code Status & VTE Plan Code Status Full VTE Prophylaxis Plan VTE Prophylaxis will be ordered: Yes Supervising Physician Co-Signing Physician Notes Attending addendum: I have physically seen this patient, have supervised the medical residents activities, and agree with the H&P unless as otherwise noted. Assessment and Plan: Sepsis due to UTI-- Follow urine culture and sensitivity. Received daptomycin and Primaxin IV for empiric treatment by the ED. Previous culture results reviewed: Micrococcus on 01/31/18, pansensitive E. coli on 03/19/18, E. coli resistant to Bactrim, aminoglycosides and cefazolin on 05/13/18. Start ceftriaxone 1 g IV daily. Follow urine culture and sensitivity. Rehydration with IV fluids. MARGARET on CKD stage IV/hypertension-- Baseline creatinine 2.5, with today's creatinine 3.85. Received 2-1/2 L normal saline fluid bolus in ED. Placed on D5 normal saline at 125 mL's per hour. Hold lisinopril. Continue labetalol and amlodipine. Remainder of orders and notations as noted. Resident Activity Tracking Resident Involvement: Resident Care Provided Care Provided: Adult Hospital Medicine (1) UTI (urinary tract infection) Hematuria presence: without hematuria Urinary tract infection type: site unspecified Qualified Code(s): N39.0 - Urinary tract infection, site not specified (2) Acute renal failure Acute renal failure type: unspecified Qualified Code(s): N17.9 - Acute kidney failure, unspecified (3) Hypothermia Encounter type: initial encounter Qualified Code(s): T68.XXXA - Hypothermia, initial encounter
[2018-08-02] MEDS ORDERED: ONDANSETRON INJ 2 MG/ML 2 ML VIAL IV PRN (03:56)
[2018-08-02] MEDS ORDERED: HYDROCORTISONE SOD SUCCINATE 100 MG/2 ML VIAL IV SCH (03:56)
[2018-08-02] MEDS: D5W AND NSS 1,000 ML IV SCH ×2 (04:27→16:43)
[2018-08-02] MEDS ORDERED: MICONAZOLE NITRATE POWDER 43 GM EXT PRN (05:06)
[2018-08-02] MEDS: HYDROCORTISONE SOD 100 MG in SYRINGE 0 ML IV SCH ×3 (05:14→20:28)
[2018-08-02] MEDS: INSULIN ASPART 100 UNITS/ML 3 ML PEN SC SCH ×4 (06:01→20:47)
[2018-08-02] MEDS: LEVOTHYROXINE SODIUM 150 MCG TABLET PO SCH (06:03)
[2018-08-02 06:12] LABS: Basophils # (auto) 0.01 K/uL (0-0.2); Basophils % (auto) 0.1 %; Eosinophils # (auto) 0.09 K/uL (0-0.5); Eosinophils % (auto) 1.3 %; Hematocrit (blood only) 30.3 % (37-47); Hemoglobin 9.7 g/dL (12.0-16.0); Immature Granulocytes # (auto) 0.05 K/uL (0.00-0.02); Immature Granulocytes % (auto) 0.7 %; Lymphocytes # (auto) 1.48 K/uL (1.2-3.4); Lymphocytes % (auto) 20.8 %; Mean Corpuscular Volume 89.6 fL (80-100); Mean Platelet Volume 9.3 fL (7.4-10.4); Monocytes # (auto) 0.35 K/uL (0.11-0.59); Monocytes % (auto) 4.9 %; Neutrophils # (auto) 5.14 K/uL (1.4-6.5); Neutrophils % (auto) 72.2 %; Platelet Count 286 K/uL (130-400); RDW Coefficient of Variation 16.8 % (11.5-14.5); RDW Standard Deviation 55.8 fL (36.4-46.3); Red Blood Count 3.38 M/uL (4.2-5.4); White Blood Count 7.12 K/uL (4.8-10.8)
--- NOTE | 2018-08-02 07:27 | XRay Report ---
SINGLE VIEW CHEST CLINICAL HISTORY: Generalized weakness. FINDINGS: An AP, portable, supine chest radiograph is compared to study dated 05/13/2018. Correlation is made with chest CT dated 01/01/2009. The examination is degraded by portable technique and patient r otation. The patient's head partially obscures the apices. The heart is top normal for projection an d there is atherosclerotic calcification of the thoracic aorta. The pulmonary vasculature is nonconge sted. There are low lung volumes. There is mild elevation of the right hemidiaphragm with patchy airs pace opacities at the right lung base. No large pleural effusion or pneumothorax is seen. The skeleta l structures are osteopenic. The bony thorax is grossly intact. IMPRESSION: Patchy airspace opacities are seen at the right lung base. This could represent atelecta sis versus an infectious/inflammatory pneumonitis. Clinical correlation will be required. Electronically signed by: Nicolás Henning M.D. 08/02/2018 7:25 AM
--- NOTE | 2018-08-02 07:36 | Emergency Department Note ---
Entered by Kathrine Bonner acting as a scribe for Medina Scott DO History of Present Illness General Chief complaint: Hypoglycemia Time Seen by Provider: 08/01/18 23:06 Source: patient, EMS and other (nursing staff) Limitations: altered mental status (dementia) History of Present Illness Onset (ago): day(s) (this evening) Severity: severe (31) Pain Consistency: + other (episode) Quality: + other (hypoglycemia) Associated symptoms: + denies other symptoms (being in any pain), + loss of appetite and + other (not moving much) The patient is a 73 year old female who presents to the Emergency Room with co mplaints of an episode of hypoglycemia starting this evening. Per EMS, the patient lives with family and has a history of dementia. They report that the family said she has not been eating or drinking the past few days. They state that the family reported trying to feed her, but she just didnt want to eat. They report that the family told them they have been giving her insulin like normal. EMS states that they were called tonight because her blood sugar was 31 and she wasnt moving much. They report that they gave her 25 grams of Dextrose and she came up to 171. Nursing staff reports that she is down again to 101. The patient denies being in any pain. HPI and ROS limited secondary to patients dementia. Home Medications Home Medications Medication Instructions Recorded Confirmed Type amlodipine 10 mg PO QAM 01/31/18 08/01/18 History bupropion HCl 150 mg PO BID 01/31/18 08/01/18 History buspirone 15 mg PO BID 01/31/18 08/01/18 History calcitriol 0.25 mcg PO 3XWK 01/31/18 08/01/18 History cholecalciferol (vitamin D3) 1,000 unit PO QAM 01/31/18 08/01/18 History [Vitamin D3] clopidogrel 75 mg PO QAM 01/31/18 08/01/18 History levothyroxine 150 mcg PO QAM 01/31/18 08/01/18 History rosuvastatin [Crestor] 40 mg PO DAILY 01/31/18 08/01/18 History ergocalciferol (vitamin D2) 50,000 unit PO WK 05/13/18 08/01/18 History ferrous sulfate 325 mg PO BID 05/13/18 08/01/18 History prednisone 17.5 mg PO QAM 05/13/18 08/01/18 History cefuroxime axetil 250 mg PO DAILY 08/01/18 08/01/18 History epoetin anny [Procrit] 20,000 unit SUBCUT MONTHLY 08/01/18 08/01/18 History insulin glargine [Lantus Solostar 20 unit SUBCUT DAILY 08/01/18 08/01/18 History U-100 Insulin] insulin lispro [Humalog KwikPen 10 unit SUBCUT DIRECTED 08/01/18 08/01/18 History Insulin] labetalol 100 mg PO Q12H 08/01/18 08/01/18 History lorazepam [Ativan] 0.5 - 1 mg PO BID PRN 08/01/18 08/01/18 History oxybutynin chloride 5 mg PO DAILY 08/01/18 08/01/18 History pantoprazole 40 mg PO DAILY 08/01/18 08/01/18 History Allergies Allergy/AdvReac Type Severity Reaction Status Date / Time Dbfvfvn-Oyk-Oqe Reductase Allergy Unknown VOMITING/GI Verified 08/01/18 23:48 Inhibitor ISSUES Past Med/Surg History Medical History Dementia CKD (chronic kidney disease) stage 4, GFR 15-29 ml/min Metabolic encephalopathy Acute renal failure due to tubular necrosis Hyperkalemia (Acute) UTI (urinary tract infection) (Acute) Hypothyroid Personal history of transient ischemic attack (TIA), and cerebral infarction without residual deficits PMR (polymyalgia rheumatica) Anxiety and depression HTN (hypertension) HLD (hyperlipidemia) Diabetes Overactive bladder Anemia (Acute) Shortness of breath (Acute) TIA (transient ischemic attack) (Resolved) Bilateral leg edema Cramp of both lower extremities SEN (headache) Renal insufficiency TIA (transient ischemic attack) Surgical History Status post hysterectomy Family History Mother , around age 70 Diabetes Hypertension Coronary heart disease Father , around age 70 Hypertension Diabetes Coronary heart disease Other No pertinent family history Social History Preferred Language: [place] Communication Ability: Impaired Housing Case Manager Required: No Beliefs That Will Affect Care: None marital status: / Current Living Situation: Family current occupational status: 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 Physical Exam Vital Signs Vital Signs - 24 hr 08/01/18 23:10 08/01/18 23:11 08/01/18 23:31 Temperature 34.5 C L Temperature Source Rectal Sepsis Recent Fever Within 48 Hours No Sepsis New/Unexplained Change in Mental Status No Sepsis Action Taken by Nursing No Action Required Pulse Rate 53 L 63 48 L Pulse Rate [Brachial] Pulse Rate from SpO2 Sensor 52 L 48 L Respiratory Rate 14 18 13 Respiratory Effort / Characteristics Respiratory Depth Blood Pressure 142/69 H 142/69 H 132/58 L Blood Pressure [Right Arm] Blood Pressure Mean 93 93 82 Blood Pressure Mean [Right Arm] Blood Pressure Position [Right Arm] Pulse Oximetry 95 96 96 Oxygen Delivery Method Room Air Room Air Room Air 08/01/18 23:43 08/02/18 00:01 08/02/18 00:31 Temperature Temperature Source Sepsis Recent Fever Within 48 Hours Sepsis New/Unexplained Change in Mental Status Sepsis Action Taken by Nursing Pulse Rate 53 L 51 L Pulse Rate [Brachial] Pulse Rate from SpO2 Sensor 53 L 51 L Respiratory Rate 14 16 Respiratory Effort / Characteristics Respiratory Depth Blood Pressure 140/54 L 116/48 L Blood Pressure [Right Arm] Blood Pressure Mean 82 70 Blood Pressure Mean [Right Arm] Blood Pressure Position [Right Arm] Pulse Oximetry 95 100 92 Oxygen Delivery Method Room Air Room Air 08/02/18 00:36 08/02/18 01:01 08/02/18 01:31 Temperature 34.3 C L Temperature Source Rectal Sepsis Recent Fever Within 48 Hours Sepsis New/Unexplained Change in Mental Status Sepsis Action Taken by Nursing Pulse Rate 52 L 56 L Pulse Rate [Brachial] Pulse Rate from SpO2 Sensor 56 L Respiratory Rate 12 12 Respiratory Effort / Characteristics Respiratory Depth Blood Pressure 135/39 L 140/43 L Blood Pressure [Right Arm] Blood Pressure Mean 71 75 Blood Pressure Mean [Right Arm] Blood Pressure Position [Right Arm] Pulse Oximetry 93 Oxygen Delivery Method 08/02/18 02:01 08/02/18 02:13 08/02/18 02:31 Temperature 34.2 C L Temperature Source Rectal Sepsis Recent Fever Within 48 Hours Sepsis New/Unexplained Change in Mental Status Sepsis Action Taken by Nursing Pulse Rate 57 L 56 L Pulse Rate [Brachial] Pulse Rate from SpO2 Sensor 57 L 57 L Respiratory Rate 12 13 Respiratory Effort / Characteristics Respiratory Depth Blood Pressure 121/46 L 122/46 L Blood Pressure [Right Arm] Blood Pressure Mean 71 71 Blood Pressure Mean [Right Arm] Blood Pressure Position [Right Arm] Pulse Oximetry 94 95 Oxygen Delivery Method 08/02/18 03:22 08/02/18 04:00 08/02/18 04:10 Temperature 34.2 C L 36.3 C L Temperature Source Rectal Oral Sepsis Recent Fever Within 48 Hours Sepsis New/Unexplained Change in Mental Status Sepsis Action Taken by Nursing Pulse Rate 59 L Pulse Rate [Brachial] 63 Pulse Rate from SpO2 Sensor Respiratory Rate 14 20 Respiratory Effort / Characteristics Non-Labored Spontaneous Respiratory Depth Normal Normal Blood Pressure 142/67 H Blood Pressure [Right Arm] 164/76 H Blood Pressure Mean Blood Pressure Mean [Right Arm] 105 Blood Pressure Position [Right Arm] Lying Pulse Oximetry 95 100 Oxygen Delivery Method Room Air Room Air Room Air General: Demented and lethargic. HEENT: Head - normocephalic and atraumatic Pupils are equal, round, and reactive to light. Extraocular eye muscles are intact, and sclera are anicteric. Nose - moist nasal mucosa without discharge. Mouth - moist buccal mucosa. Oropharynx is nonerythematous and there is no tonsillar exudate or edema noted. Neck: Supple; no JVD, nuchal rigidity, cervical lymphadenopathy. Heart: Bradycardic rate and regular rhythm. There is a normal S1 and S2 with no murmurs, clicks, or gallops appreciated. Lungs: Clear to auscultation bilaterally with no wheezes, rales, or rhonchi. Abdomen: Soft, completely nontender, nondistended, with good bowel sounds. There are no palpable pulsatile masses or hepatosplenomegaly. There is no guarding, rigidity, or rebound noted. Extremities: No evidence of cyanosis, clubbing, or edema. There are easily palpable peripheral pulses. Skin: Extremely cold to the touch. Pale. No rashes. Course 2322: The patient was evaluated in room A10, and a complete history and physical examination were performed. Laboratory studies were drawn as above. 2334: The patient's blood sugar dropped again and I ordered D5w and NSS 500 mls/hr IV. The patient was catheterized for urine specimen. 0031: I reevaluated the patient and updated the patient and her family at this time. The family said that she has been complaining of suprapubic abdominal pain all day today and didn't urinate at all today. I discussed code status with them and they reported that she is a full code. ' 0037: A septic protocol was performed including lactic acid and blood cultures. I ordered Primaxin 500 mg IV, Cubicin 500 mg IV. 0042: The patient's blood sugar is now 165. We will switch her from D5/ normal saline to just normal saline. 0043: Ordered NSS 1000 ml @ 999 mls/hr IV. 0058: I reviewed the patient's case with Dr. Dandy DHALIWAL Hospitalist. He will evaluate the patient for further management. Consultations Consultation #1: I reviewed the patient's case with Dr. Dandy DHALIWAL Hospitalist. He will evaluate the patient for further management. Time: 00:58 Administered Medications Dextrose/Sodium Chloride (D5w And Nss) 1,000 mls @ 125 mls/hr IV .Q8H JUSTYN Stop: 09/01/18 03:55 Last Admin: 08/02/18 04:27 Dose: 125 mls/hr Documented by: [id number] Hydrocortisone Sodium (Succinate 100 mg/ Syringe) 2 mls @ 4 mls/min IV Q8H JUSTYN Stop: 09/01/18 03:59 Last Admin: 08/02/18 05:14 Dose: 4 mls/min Documented by: [id number] Insulin Aspart (Novolog Flexpen) 0 units SC Q6H JUSTYN Stop: 09/01/18 05:59 Last Admin: 08/02/18 06:01 Dose: Not Given Documented by: [id number] Cosigned by: [id number] Levothyroxine Sodium (Synthroid) 150 mcg PO DAILYBB [facility] Stop: 09/01/18 06:29 Last Admin: 08/02/18 06:03 Dose: Not Given Documented by: [id number] Discontinued Medications Dextrose/Sodium Chloride (D5w And Nss) 1,000 mls @ 500 mls/hr IV .Q2H STA Stop: 08/02/18 01:33 Last Infusion: 08/02/18 00:56 Dose: 0 mls/hr Documented by: [id number] Admin: 08/01/18 23:49 Dose: 500 mls/hr Documented by: [id number] Imipenem/Cilastatin Sodium 500 (mg/ Dextrose) 110 mls @ 100 mls/hr IV NOW STA Stop: 08/02/18 01:42 Last Infusion: 08/02/18 02:06 Dose: 0 mls/hr Documented by: [id number] Admin: 08/02/18 01:00 Dose: 100 mls/hr Documented by: [id number] Daptomycin 500 mg/ Syringe 10 mls @ 5 mls/min IV NOW STA; Protocol Stop: 08/02/18 00:38 Last Admin: 08/02/18 01:00 Dose: 5 mls/min Documented by: [id number] Sodium Chloride (Nss 1000ml) 500 mls @ 999 mls/hr IV .Q31M ONE Stop: 08/02/18 01:13 Last Infusion: 08/02/18 01:30 Dose: 0 mls/hr Documented by: [id number] Admin: 08/02/18 00:57 Dose: 999 mls/hr Documented by: [id number] Medical Decision Making Differential Diagnosis Differential diagnoses include hypoglycemia, hypothermia, sepsis, electrolyte abnormality. Medical Records Attestation: I reviewed the patient's medical records. Home Medications Current Medication List: was personally reviewed by me Laboratory Data Attestation: I reviewed the patient's lab results. Result diagrams: 08/02/18 05:25 08/01/18 23:00 Lab Results 08/01/18 08/01/18 08/01/18 Range/Units 23:00 23:00 23:11 WBC 8.01 (4.8-10.8) K/uL RBC 3.40 L (4.2-5.4) M/uL Hgb 9.7 L (12.0-16.0) g/dL Hct 30.4 L (37-47) % MCV 89.4 (80-100) fL MCH 28.5 (25-34) pg MCHC 31.9 L (32-36) g/dL RDW Std Deviation 55.7 H (36.4-46.3) fL RDW Coeff of Tanya 16.9 H (11.5-14.5) % Plt Count 277 (130-400) K/uL MPV 9.2 (7.4-10.4) fL Immature Gran % (Auto) 1.2 % Neut % (Auto) 76.4 % Lymph % (Auto) 15.9 % [place] % (Auto) 5.7 % Eos % (Auto) 0.7 % Baso % (Auto) 0.1 % Immature Gran # (Auto) 0.10 H (0.00-0.02) K/uL Neut # (Auto) 6.11 (1.4-6.5) K/uL Lymph # (Auto) 1.27 (1.2-3.4) K/uL [place] # (Auto) 0.46 (0.11-0.59) K/uL Eos # (Auto) 0.06 (0-0.5) K/uL Baso # (Auto) 0.01 (0-0.2) K/uL PT (9.0-12.0) Seconds INR (0.9-1.1) Sodium 141 (136-145) mmol/L Potassium 4.7 (3.5-5.1) mmol/L Chloride 111 H (98-107) mmol/L Carbon Dioxide 23 (21-32) mmol/L Anion Gap 7.0 (3-11) BUN 59 H (7-18) mg/dl Creatinine 3.85 H (0.6-1.2) mg/dl Est Cr Clr Drug Dosing Not Reportable Est GFR ( Amer) 12.8 Est GFR (Non-Af Amer) 11.0 BUN/Creatinine Ratio 15.3 (10-20) Glucose 100 H (70-99) mg/dl POC Glucose 101 H (70-99) Lactate (0.4-2.0) mmol/L Calcium 9.9 (8.5-10.1) mg/dl Total Bilirubin 0.4 (0.2-1) mg/dl AST 12 L (15-37) U/L ALT 19 (12-78) U/L Alkaline Phosphatase 52 (45-117) U/L Troponin I < 0.015 (0-0.045) ng/ml Total Protein 7.3 (6.4-8.2) gm/dl Albumin 3.5 (3.4-5.0) gm/dl Globulin 3.8 (2.5-4.0) gm/dl Albumin/Globulin Ratio 0.9 (0.9-2) TSH 0.228 L (0.300-4.500) uIu/ml Free T4 1.24 (0.8-1.6) ng/dl Urine Color Urine Appearance (Clear) Urine pH (4.5-7.5) Ur Specific [place] (1.000-1.030) Urine Protein (Negative) Urine Glucose (UA) (Negative) Urine Ketones (Negative) Urine Blood (Negative) Urine Nitrite (Negative) Urine Bilirubin (Negative) Urine Urobilinogen (Negative) Ur Leukocyte Esterase (Negative) Urine WBC (Auto) (0-5) /hpf Urine RBC (Auto) (0-4) /hpf U Hyaline Cast (Auto) (0-5) /lpf U Epithel Cells (Auto) (0-5) /lpf Urine Bacteria (Auto) (Negative) 08/01/18 08/02/18 08/02/18 Range/Units 23:28 00:05 00:06 WBC (4.8-10.8) K/uL RBC (4.2-5.4) M/uL Hgb (12.0-16.0) g/dL Hct (37-47) % MCV (80-100) fL MCH (25-34) pg MCHC (32-36) g/dL RDW Std Deviation (36.4-46.3) fL RDW Coeff of Tanya (11.5-14.5) % Plt Count (130-400) K/uL MPV (7.4-10.4) fL Immature Gran % (Auto) % Neut % (Auto) % Lymph % (Auto) % [place] % (Auto) % Eos % (Auto) % Baso % (Auto) % Immature Gran # (Auto) (0.00-0.02) K/uL Neut # (Auto) (1.4-6.5) K/uL Lymph # (Auto) (1.2-3.4) K/uL [place] # (Auto) (0.11-0.59) K/uL Eos # (Auto) (0-0.5) K/uL Baso # (Auto) (0-0.2) K/uL PT (9.0-12.0) Seconds INR (0.9-1.1) Sodium (136-145) mmol/L Potassium (3.5-5.1) mmol/L Chloride (98-107) mmol/L Carbon Dioxide (21-32) mmol/L Anion Gap (3-11) BUN (7-18) mg/dl Creatinine (0.6-1.2) mg/dl Est Cr Clr Drug Dosing Est GFR ( Amer) Est GFR (Non-Af Amer) BUN/Creatinine Ratio (10-20) Glucose (70-99) mg/dl POC Glucose 93 120 H (70-99) Lactate (0.4-2.0) mmol/L Calcium (8.5-10.1) mg/dl Total Bilirubin (0.2-1) mg/dl AST (15-37) U/L ALT (12-78) U/L Alkaline Phosphatase (45-117) U/L Troponin I (0-0.045) ng/ml Total Protein (6.4-8.2) gm/dl Albumin (3.4-5.0) gm/dl Globulin (2.5-4.0) gm/dl Albumin/Globulin Ratio (0.9-2) TSH (0.300-4.500) uIu/ml Free T4 (0.8-1.6) ng/dl Urine Color Yellow Urine Appearance Turbid H (Clear) Urine pH 8.0 H (4.5-7.5) Ur Specific [place] 1.015 (1.000-1.030) Urine Protein 2+ H (Negative) Urine Glucose (UA) Negative (Negative) Urine Ketones Negative (Negative) Urine Blood Negative (Negative) Urine Nitrite Negative (Negative) Urine Bilirubin Negative (Negative) Urine Urobilinogen Negative (Negative) Ur Leukocyte Esterase 3+ H (Negative) Urine WBC (Auto) >30 H (0-5) /hpf Urine RBC (Auto) 0-4 (0-4) /hpf U Hyaline Cast (Auto) 1-5 (0-5) /lpf U Epithel Cells (Auto) 0-5 (0-5) /lpf Urine Bacteria (Auto) 1+ H (Negative) 08/02/18 08/02/18 08/02/18 Range/Units 00:36 00:55 02:12 WBC (4.8-10.8) K/uL RBC (4.2-5.4) M/uL Hgb (12.0-16.0) g/dL Hct (37-47) % MCV (80-100) fL MCH (25-34) pg MCHC (32-36) g/dL RDW Std Deviation (36.4-46.3) fL RDW Coeff of Tanya (11.5-14.5) % Plt Count (130-400) K/uL MPV (7.4-10.4) fL Immature Gran % (Auto) % Neut % (Auto) % Lymph % (Auto) % [place] % (Auto) % Eos % (Auto) % Baso % (Auto) % Immature Gran # (Auto) (0.00-0.02) K/uL Neut # (Auto) (1.4-6.5) K/uL Lymph # (Auto) (1.2-3.4) K/uL [place] # (Auto) (0.11-0.59) K/uL Eos # (Auto) (0-0.5) K/uL Baso # (Auto) (0-0.2) K/uL PT (9.0-12.0) Seconds INR (0.9-1.1) Sodium (136-145) mmol/L Potassium (3.5-5.1) mmol/L Chloride (98-107) mmol/L Carbon Dioxide (21-32) mmol/L Anion Gap (3-11) BUN (7-18) mg/dl Creatinine (0.6-1.2) mg/dl Est Cr Clr Drug Dosing Est GFR ( Amer) Est GFR (Non-Af Amer) BUN/Creatinine Ratio (10-20) Glucose (70-99) mg/dl POC Glucose 164 H 157 H (70-99) Lactate 0.8 (0.4-2.0) mmol/L Calcium (8.5-10.1) mg/dl Total Bilirubin (0.2-1) mg/dl AST (15-37) U/L ALT (12-78) U/L Alkaline Phosphatase (45-117) U/L Troponin I (0-0.045) ng/ml Total Protein (6.4-8.2) gm/dl Albumin (3.4-5.0) gm/dl Globulin (2.5-4.0) gm/dl Albumin/Globulin Ratio (0.9-2) TSH (0.300-4.500) uIu/ml Free T4 (0.8-1.6) ng/dl Urine Color Urine Appearance (Clear) Urine pH (4.5-7.5) Ur Specific [place] (1.000-1.030) Urine Protein (Negative) Urine Glucose (UA) (Negative) Urine Ketones (Negative) Urine Blood (Negative) Urine Nitrite (Negative) Urine Bilirubin (Negative) Urine Urobilinogen (Negative) Ur Leukocyte Esterase (Negative) Urine WBC (Auto) (0-5) /hpf Urine RBC (Auto) (0-4) /hpf U Hyaline Cast (Auto) (0-5) /lpf U Epithel Cells (Auto) (0-5) /lpf Urine Bacteria (Auto) (Negative) 08/02/18 08/02/18 08/02/18 Range/Units 05:25 05:25 05:58 WBC 7.12 (4.8-10.8) K/uL RBC 3.38 L (4.2-5.4) M/uL Hgb 9.7 L (12.0-16.0) g/dL Hct 30.3 L (37-47) % MCV 89.6 (80-100) fL MCH 28.7 (25-34) pg MCHC 32.0 (32-36) g/dL RDW Std Deviation 55.8 H (36.4-46.3) fL RDW Coeff of Tanya 16.8 H (11.5-14.5) % Plt Count 286 (130-400) K/uL MPV 9.3 (7.4-10.4) fL Immature Gran % (Auto) 0.7 % Neut % (Auto) 72.2 % Lymph % (Auto) 20.8 % [place] % (Auto) 4.9 % Eos % (Auto) 1.3 % Baso % (Auto) 0.1 % Immature Gran # (Auto) 0.05 H (0.00-0.02) K/uL Neut # (Auto) 5.14 (1.4-6.5) K/uL Lymph # (Auto) 1.48 (1.2-3.4) K/uL [place] # (Auto) 0.35 (0.11-0.59) K/uL Eos # (Auto) 0.09 (0-0.5) K/uL Baso # (Auto) 0.01 (0-0.2) K/uL PT 10.0 (9.0-12.0) Seconds INR 1.0 (0.9-1.1) Sodium (136-145) mmol/L Potassium (3.5-5.1) mmol/L Chloride (98-107) mmol/L Carbon Dioxide (21-32) mmol/L Anion Gap (3-11) BUN (7-18) mg/dl Creatinine (0.6-1.2) mg/dl Est Cr Clr Drug Dosing Est GFR ( Amer) Est GFR (Non-Af Amer) BUN/Creatinine Ratio (10-20) Glucose (70-99) mg/dl POC Glucose 142 H (70-99) Lactate (0.4-2.0) mmol/L Calcium (8.5-10.1) mg/dl Total Bilirubin (0.2-1) mg/dl AST (15-37) U/L ALT (12-78) U/L Alkaline Phosphatase (45-117) U/L Troponin I (0-0.045) ng/ml Total Protein (6.4-8.2) gm/dl Albumin (3.4-5.0) gm/dl Globulin (2.5-4.0) gm/dl Albumin/Globulin Ratio (0.9-2) TSH (0.300-4.500) uIu/ml Free T4 (0.8-1.6) ng/dl Urine Color Urine Appearance (Clear) Urine pH (4.5-7.5) Ur Specific [place] (1.000-1.030) Urine Protein (Negative) Urine Glucose (UA) (Negative) Urine Ketones (Negative) Urine Blood (Negative) Urine Nitrite (Negative) Urine Bilirubin (Negative) Urine Urobilinogen (Negative) Ur Leukocyte Esterase (Negative) Urine WBC (Auto) (0-5) /hpf Urine RBC (Auto) (0-4) /hpf U Hyaline Cast (Auto) (0-5) /lpf U Epithel Cells (Auto) (0-5) /lpf Urine Bacteria (Auto) (Negative) Imaging Data Attestation: I personally reviewed and interpreted this imaging study as follows: My Impression: CHEST X-RAY: The results were interpreted by me. Cardiomegaly. Right right lower patchy infiltrates. ECG Data Attestation: I personally reviewed and interpreted this ECG as follows: Indication: bradycardia Rate (beats per minute): 49 Rhythm: sinus bradycardia Findings: + other (concerning for ischemia) and + ST depression (in lead 1, aVL, and aVF) Blood Pressure Blood Pressure Findings: Low blood pressure Blood Pressure Disposition: further management by hospitalist NEPTALI Barrera The patient is a 73 year old female who presents to the Emergency Room with complaints of an episode of hypoglycemia starting this evening. The patient presents to the emergency department with an episode of hypoglycemia, hypothermia, lethargy, and some suprapubic abdominal pain. I was concerned the patient may be septic with the above symptoms and what appears to be a severe urinary tract infection. She was treated with IV fluids and IV antibiotics. She remained hemodynamically stable. A bear hugger was placed because of the hypothermia. Her blood sugar remained stable. I discussed the case with the [facility] Hospitalist they will evaluate for further management. Impression & Plan Acute renal failure, UTI (urinary tract infection), Hypothermia, Hypoglycemia, Hyperthyroidism, Sepsis Critical Care Time I have personally spent greater than 30 minutes of critical care time in the direct management of this patient. This includes bedside care, interpretation of diagnostic studies, and testing, discussion with consultants, patient, and family members, and other required patient management activities. This 30 minutes is in excess of all separately billable procedures. Critical Care Time: Yes (30 minutes) Total Critical Care Time: 30 Discharge Plan Visit Data *Final* Discharge Date/Time: 08/02/18 03:22 Chief Complaint: Hypoglycemia ED Provider: Medina Scott Discharge Problem: Acute renal failure, UTI (urinary tract infection), Hypothermia, Hypoglycemia, Hyperthyroidism, Sepsis Patient Disposition: Admitted As Inpatient Discharge Instructions Interventions: ED Discharge Assessment Last Done: 08/02/18 03:22 The scribe's documentation has been prepared under my direction and personally reviewed by me in its entirety. I confirm that the note above accurately refle cts all work, treatment, procedures, and medical decision making performed by me.
--- NOTE | 2018-08-02 07:41 | Hospitalist Progress Note ---
Date of Service August 02, 2018 Assessment & Plan (1) UTI (urinary tract infection): 73yoF with hx of advanced dementia, DM2, HTN, CKD, hypothyroidism, hx of TIA, PMR, anxiety/depression presents with AMS in the setting of initial hypoglycemia, hypothermia and found to have UTI. sepsis from urinary source -Previous UCx on 05/15 grew E.coli resistant to aminoglycosides, bactrim and ancef, 02/2018 culture grew pansensitive E. coli -Consider abdominal imaging if pt fails to show improvement -Started on Rocephin, follow cultures metabolic encephalopathy, associated with infection and hypoglycemia -Glucose was reported to be 31 prior to ED arrival -per family nurse checks glucose Q1H per ED nursing report -possible concern of insulin overdose -improved to 100s post D5NS 1L in the ED - MARGARET on CKD 4 in the setting of acute illness and significant hypovolemia -Baseline Cr around 2.5 HTN: -ECHO: 09/10 EF 65% mod LVH, diastolic dysfunction, mild AAV stenosis, mild MV and TV regurg -Holding lisinopril in the setting of MARGARET -Continue home amlodipine and labetalol DM: -Hold home long actinv insulin regimen in the setting of hypoglycemia -SSI as needed -Continue to monitor BSG Hypothyroidism: -TSH 0.228 likely impacted by acute illness, Nl Free T4 -Continue home levothyroxine -Follow up outpatient in 2 weeks History of transient ischemic attack (TIA), and cerebral infarction without residual deficits: -Continue home plavix PMR (polymyalgia rheumatica): -Hold home prednisone 5mg daily -stress dosing with hydrocortisone 100mg IV Q8H Anxiety and depression: -continue buspar and wellbutrin -continue ativan prn Chronic anemia: -Hgb 9.7 (baseline around 10) GERD: protonix Overactive bladder: -continue home oxybutynin DVT: heparin 5000u SQ Q12H Code: Full Single Wire Saw Operator consult: assess home care adequacy (2) Acute renal failure: (3) Hypothermia: (4) Hypoglycemia: (5) CKD (chronic kidney disease) stage 4, GFR 15-29 ml/min: (6) Dementia: (7) Hypothyroid: (8) PMR (polymyalgia rheumatica): (9) Personal history of transient ischemic attack (TIA), and cerebral infarction without residual deficits: (10) Anxiety and depression: (11) HTN (hypertension): (12) Diabetes: (13) Overactive bladder: (14) Anemia: Subjective Patient is awake and alert but demented she is speaking to imaginary people in the room she offers no focal complaints or problems she says she does use in the hospital does not know what year it is. Patient is elevated glucose today Review of Systems ROS: This review of systems is tempered by patient being fairly demented and hallucinating that there are people in her room well nourished well developed. No double vision blurry vision No problems with speech or swallowing No palpitations, chest pain or pressure No Wheezing or breathing issues No abdominal pain nausea vomiting diarrhea changes in appetite or weight No burning urine urine frequency or changes in color No focal joint pain or muscle pain No skin rashes or oral lesions No unusual bruising or bleeding No focused back pain or numbness or loss of strength Physical Exam Vital Signs (Past 24 Hours): Last Vital Signs Temp 36.3 C L 08/02/18 04:00 Pulse 63 08/02/18 04:00 Resp 20 08/02/18 04:00 BP 164/76 H 08/02/18 04:00 Pulse Ox 100 08/02/18 04:00 The patient appeared well nourished and normally developed. Vital signs as documented. Head exam is unremarkable. normocephalic, atraumatic Neck is without jugular venous distension, thyromegaly, or lymphademopathy Lungs are clear to auscultation and percussion. Cardiac exam reveals Rhythm is regular. Systolic ejection murmur first and second heart sounds normal. Abdominal exam reveals normal bowel sounds, no masses, no organomegaly Extremities are nonedematous and both pedal pulses are present Neurologic exam is A&Ox2, she is speaking to people she sees her room although no one is there she cannot tell me the name she says she knows them Psychologically seems neither anxious or depressed but is confused Skin is warm Dry without bruises or lesions (1) UTI (urinary tract infection) Hematuria presence: without hematuria Urinary tract infection type: site unspecified Qualified Code(s): N39.0 - Urinary tract infection, site not specified (2) Acute renal failure Acute renal failure type: unspecified Qualified Code(s): N17.9 - Acute kidney failure, unspecified (3) Hypothermia Encounter type: initial encounter Qualified Code(s): T68.XXXA - Hypothermia, initial encounter
[2018-08-02] MEDS: HEPARIN SOD 5,000 UNIT/0.5 ML VIAL SQ SCH ×2 (07:43→20:44)
[2018-08-02] MEDS: cefTRIAXone SODIUM 1,000 MG in DEXTROSE 5% 50 ML IV SCH (07:43)
[2018-08-02] MEDS: OXYBUTYNIN CHLORIDE XL 5 MG TABCR PO SCH (10:26)
[2018-08-02] MEDS: AMLODIPINE BESYLATE 5 MG TAB PO SCH (10:27)
[2018-08-02] MEDS: BuPROPion SR 150 MG TABCR PO SCH ×2 (10:27→20:47)
[2018-08-02] MEDS: BusPIRone 15 MG TAB PO SCH ×2 (10:27→20:42)
[2018-08-02] MEDS: FERROUS SULFATE 325 MG TAB PO SCH ×2 (10:27→20:43)
[2018-08-02] MEDS: LABETALOL HCL 100 MG TAB PO SCH ×2 (10:27→20:46)
[2018-08-02] MEDS: PANTOprazole 40 MG TAB PO SCH (10:27)
[2018-08-02] MEDS: ROSUVASTATIN CALCIUM 20 MG TAB PO SCH (10:27)
[2018-08-02] MEDS: CLOPIDOGREL BISULFATE 75 MG TAB PO SCH (10:27)
[2018-08-02] MEDS ORDERED: INSULIN GLARGINE SOLOSTAR 100 UNITS/ML 3 ML PEN SQ STA (12:17)
[2018-08-02] MEDS ORDERED: Nursing to Pharmacy Communication ONE (15:15)
[2018-08-02] MEDS: INSULIN GLARGINE SOLOSTAR 100 UNITS/ML 3 ML PEN SC SCH (20:45)
[2018-08-03] MEDS: HYDROCORTISONE SOD 100 MG in SYRINGE 0 ML IV SCH ×3 (04:34→20:22)
[2018-08-03] MEDS: LEVOTHYROXINE SODIUM 150 MCG TABLET PO SCH (06:30)
--- NOTE | 2018-08-03 08:38 | Hospitalist Progress Note ---
Date of Service August 03, 2018 Assessment & Plan (1) UTI (urinary tract infection): 73yoF with hx of advanced dementia, DM2, HTN, CKD, hypothyroidism, hx of TIA, PMR, anxiety/depression presents with metabolic encephalopahty in the setting of initial hypoglycemia, hypothermia and found to have UTI present on admission. sepsis from urinary source awaiting culture results -Previous UCx on 05/15 grew E.coli resistant to aminoglycosides, bactrim and ancef, 02/2018 culture grew pansensitive E. coli -awaiting sensitivities but clinically improving on ceftriaxone -Started on Rocephin, follow cultures metabolic encephalopathy, associated with infection and hypoglycemia -Glucose was reported to be 31 prior to ED arrival now is eating and off D5 MARGARET on CKD 4 in the setting of acute illness and significant hypovolemia -Baseline Cr around 2.5 HTN: -ECHO: 09/10 EF 65% mod LVH, diastolic dysfunction, mild AAV stenosis, mild MV and TV regurg -Holding lisinopril in the setting of MARGARET -Continue home amlodipine and labetalol DM: -Hold home long acting insulin regimen in the setting of hypoglycemia -SSI as needed -Continue to monitor BSG Hypothyroidism: -TSH 0.228 likely impacted by acute illness, Nl Free T4 -Continue home levothyroxine -Follow up outpatient in 2 weeks History of transient ischemic attack (TIA), and cerebral infarction without residual deficits: -Continue home plavix PMR (polymyalgia rheumatica): -Hold home prednisone 5mg daily -stress dosing with hydrocortisone 100mg IV Q8H Anxiety and depression: -continue buspar and wellbutrin -continue ativan prn Chronic anemia: -Hgb 9.7 (baseline around 10) GERD: protonix Overactive bladder: -continue home oxybutynin DVT: heparin 5000u SQ Q12H Code: Full Triple Valve Mechanic consult: assess home care adequacy (2) Acute renal failure: (3) Hypothermia: (4) Hypoglycemia: (5) CKD (chronic kidney disease) stage 4, GFR 15-29 ml/min: (6) Dementia: (7) Hypothyroid: (8) PMR (polymyalgia rheumatica): (9) Personal history of transient ischemic attack (TIA), and cerebral infarction without residual deficits: (10) Anxiety and depression: (11) HTN (hypertension): (12) Diabetes: (13) Overactive bladder: (14) Anemia: Subjective Better she still markedly confused is not oriented to place or time Review of Systems ROS: well nourished well developed. No double vision blurry vision No problems with speech or swallowing No palpitations, chest pain or pressure No Wheezing or breathing issues No abdominal pain nausea vomiting diarrhea changes in appetite or weight No burning urine complains of some mild urine frequency but no changes in color No focal joint pain or muscle pain No skin rashes or oral lesions No unusual bruising or bleeding No focused back pain or numbness or loss of strength Significant confusion persists Physical Exam Vital Signs (Past 24 Hours): Last Vital Signs Temp 37.2 C 08/03/18 07:35 Pulse 76 08/03/18 07:35 Resp 16 08/03/18 07:35 BP 176/71 H 08/03/18 07:35 Pulse Ox 95 08/03/18 07:35 the patient appeared well nourished and normally developed. Vital signs as documented. Is markedly not oriented Head exam is unremarkable. normocephalic, atraumatic Neck is without jugular venous distension, thyromegaly, or lymphademopathy Lungs are clear to auscultation and percussion. Cardiac exam reveals Rhythm is regular. First and second heart sounds normal. Abdominal exam reveals normal bowel sounds, no masses, no organomegaly Extremities are nonedematous and both pedal pulses are present Neurologic exam is A&Ox1, no focal deficits, strength is equal bilateral Psychologically seems confused at times Skin is warm Dry without bruises or lesions (1) UTI (urinary tract infection) Hematuria presence: without hematuria Urinary tract infection type: site unspecified Qualified Code(s): N39.0 - Urinary tract infection, site not specified (2) Acute renal failure Acute renal failure type: unspecified Qualified Code(s): N17.9 - Acute kidney failure, unspecified (3) Hypothermia Encounter type: initial encounter Qualified Code(s): T68.XXXA - Hypothermia, initial encounter
[2018-08-03] MEDS: PANTOprazole 40 MG TAB PO SCH (09:26)
[2018-08-03] MEDS: CLOPIDOGREL BISULFATE 75 MG TAB PO SCH (09:26)
[2018-08-03] MEDS: BuPROPion SR 150 MG TABCR PO SCH ×2 (09:26→20:23)
[2018-08-03] MEDS: LABETALOL HCL 100 MG TAB PO SCH ×2 (09:26→20:22)
[2018-08-03] MEDS: AMLODIPINE BESYLATE 5 MG TAB PO SCH (09:26)
[2018-08-03] MEDS: ROSUVASTATIN CALCIUM 20 MG TAB PO SCH (09:26)
[2018-08-03] MEDS: HEPARIN SOD 5,000 UNIT/0.5 ML VIAL SQ SCH ×2 (09:27→20:22)
[2018-08-03] MEDS: FERROUS SULFATE 325 MG TAB PO SCH ×2 (09:27→20:22)
[2018-08-03] MEDS: INSULIN GLARGINE SOLOSTAR 100 UNITS/ML 3 ML PEN SC SCH ×2 (09:27→20:21)
[2018-08-03] MEDS: BusPIRone 15 MG TAB PO SCH ×2 (09:27→20:22)
[2018-08-03] MEDS: OXYBUTYNIN CHLORIDE XL 5 MG TABCR PO SCH (09:27)
[2018-08-03] MEDS: cefTRIAXone SODIUM 1,000 MG in DEXTROSE 5% 50 ML IV SCH (09:28)
[2018-08-03] MEDS: INSULIN ASPART 100 UNITS/ML 3 ML PEN SC SCH ×4 (09:32→20:23)
[2018-08-03 09:33] LABS: BUN Creatinine Ratio 15.2 (10-20); Calcium 10.2 mg/dl (8.5-10.1); Creatinine Clr Calc Pharmacy 20.9 ml/min; Est GFR (African American) 23.3; Est GFR (Non-African American) 20.1; Potassium 4.3 mmol/L (3.5-5.1)
[2018-08-04] MEDS: HYDROCORTISONE SOD 100 MG in SYRINGE 0 ML IV SCH (04:39)
[2018-08-04] MEDS: LEVOTHYROXINE SODIUM 150 MCG TABLET PO SCH (04:40)
--- NOTE | 2018-08-04 08:00 | Hospitalist Progress Note ---
Date of Service August 04, 2018 Assessment & Plan (1) UTI (urinary tract infection): 73yoF with hx of advanced dementia, DM2, HTN, CKD, hypothyroidism, hx of TIA, PMR, anxiety/depression presents with metabolic encephalopahty in the setting of initial hypoglycemia, hypothermia and found to have UTI present on admission. sepsis from urinary source ESBL with many sensitivities, will change to Ertepenem -Previous UCx on 05/15 grew E.coli resistant to aminoglycosides, bactrim and ancef, metabolic encephalopathy, associated with infection and hypoglycemia -Glucose was reported to be 31 prior to ED arrival now is eating and off D5 MARGARET on CKD 4 in the setting of acute illness and significant hypovolemia remains near baseline HTN: -ECHO: 09/10 EF 65% mod LVH, diastolic dysfunction, mild AAV stenosis, mild MV and TV regurg -Continue holding lisinopril in the setting of MARGARET -Continue home amlodipine and labetalol DM: -Hold home long acting insulin regimen -SSI as needed -Continue to monitor BSG Hypothyroidism: -TSH 0.228 likely impacted by acute illness, Nl Free T4 -Continue home levothyroxine -Follow up outpatient in 2 weeks History of transient ischemic attack (TIA), and cerebral infarction without residual deficits: -Continues on home plavix PMR (polymyalgia rheumatica): -resume to home prednisone Anxiety and depression: -continue buspar and wellbutrin -continue ativan prn Chronic anemia: -Hgb 9.7 (baseline around 10) GERD: protonix Overactive bladder:symptoms controlled with oxybutynin DVT: remains on heparin 5000u SQ Q12H Code: Full Boiler Operator consult: assess home care adequacy (2) Acute renal failure: (3) Hypothermia: (4) Hypoglycemia: (5) CKD (chronic kidney disease) stage 4, GFR 15-29 ml/min: (6) Dementia: (7) Hypothyroid: (8) PMR (polymyalgia rheumatica): (9) Personal history of transient ischemic attack (TIA), and 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 I once again found her contact in the chart and left a message Review of Systems ROS: well nourished well developed. No double vision blurry vision No problems with speech or swallowing No palpitations, chest pain or pressure No Wheezing or breathing issues No abdominal pain nausea vomiting diarrhea changes in appetite or weight No burning urine urine frequency or changes in color No focal joint pain or muscle pain No skin rashes or oral lesions No unusual bruising or bleeding No focused back pain or numbness or loss of strength Patient is baseline confused Physical Exam Vital Signs (Past 24 Hours): Last Vital Signs Temp 36.8 C 08/04/18 04:00 Pulse 84 08/04/18 04:00 Resp 18 08/04/18 04:00 BP 152/74 H 08/04/18 04:00 Pulse Ox 95 08/04/18 04:00 (1) UTI (urinary tract infection) Hematuria presence: without hematuria Urinary tract infection type: site unspecified Qualified Code(s): N39.0 - Urinary tract infection, site not specified (2) Acute renal failure Acute renal failure type: unspecified Qualified Code(s): N17.9 - Acute kidney failure, unspecified (3) Hypothermia Encounter type: initial encounter Qualified Code(s): T68.XXXA - Hypothermia, initial encounter
[2018-08-04] MEDS ORDERED: ERTAPENEM CONSULT ACTIVE PRN (08:15)
[2018-08-04] MEDS: ERTAPENEM SODIUM 500 MG in SODIUM CHLORIDE 0.9% 50 ML IV SCH (08:59)
[2018-08-04] MEDS: BusPIRone 15 MG TAB PO SCH ×2 (09:00→20:11)
[2018-08-04] MEDS ORDERED: ERTAPENEM SODIUM 1,000 MG in SODIUM CHLORIDE 0.9% 50 ML IV SCH (09:00)
[2018-08-04] MEDS: LORazepam 0.5 MG TAB PO PRN ×2 (09:00→20:22)
[2018-08-04] MEDS: AMLODIPINE BESYLATE 5 MG TAB PO SCH (09:00)
[2018-08-04] MEDS: BuPROPion SR 150 MG TABCR PO SCH ×2 (09:00→20:11)
[2018-08-04] MEDS: predniSONE 20 MG TAB PO SCH (09:00)
[2018-08-04] MEDS: CLOPIDOGREL BISULFATE 75 MG TAB PO SCH (09:00)
[2018-08-04] MEDS: LABETALOL HCL 100 MG TAB PO SCH ×2 (09:00→20:10)
[2018-08-04] MEDS: ROSUVASTATIN CALCIUM 20 MG TAB PO SCH (09:00)
[2018-08-04] MEDS: FERROUS SULFATE 325 MG TAB PO SCH ×2 (09:01→20:12)
[2018-08-04] MEDS: INSULIN GLARGINE SOLOSTAR 100 UNITS/ML 3 ML PEN SC SCH ×2 (09:01→21:00)
[2018-08-04] MEDS: HEPARIN SOD 5,000 UNIT/0.5 ML VIAL SQ SCH ×2 (09:01→20:11)
[2018-08-04] MEDS: OXYBUTYNIN CHLORIDE XL 5 MG TABCR PO SCH (09:01)
[2018-08-04] MEDS: PANTOprazole 40 MG TAB PO SCH (09:01)
[2018-08-04] MEDS: INSULIN ASPART 100 UNITS/ML 3 ML PEN SC SCH ×4 (09:02→20:12)
[2018-08-04] MEDS ORDERED: GLUCOSE 10 TABS/TUBE PO PRN (21:00)
[2018-08-04] MEDS ORDERED: GLUCAGON FOR INJ 1 MG VIAL IM PRN (21:00)
[2018-08-04] MEDS ORDERED: CARBOHYDRATES FOR HYPOGLYCEMIA PO PRN (21:00)
[2018-08-04] MEDS ORDERED: DEXTROSE 50% 50 ML SYRINGE IV PRN (21:00)
[2018-08-04] MEDS ORDERED: GLUCOSE 40% GEL 15 GM TUBE PO PRN (21:00)
[2018-08-05] MEDS: LEVOTHYROXINE SODIUM 150 MCG TABLET PO SCH (06:19)
[2018-08-05 06:46] LABS: Hematocrit (blood only) 29.5 % (37-47); Hemoglobin 9.2 g/dL (12.0-16.0); Mean Corpuscular Hgb Conc 31.2 g/dL (32-36); Mean Platelet Volume 9.4 fL (7.4-10.4); Nucleated RBC # (auto) 0.02 K/uL (0-0); Nucleated RBC % (auto) 0.3 %; Platelet Count 231 K/uL (130-400); RDW Coefficient of Variation 17.5 % (11.5-14.5); RDW Standard Deviation 58.8 fL (36.4-46.3); Red Blood Count 3.24 M/uL (4.2-5.4); White Blood Count 7.92 K/uL (4.8-10.8)
[2018-08-05] MEDS: FERROUS SULFATE 325 MG TAB PO SCH ×2 (07:55→20:50)
[2018-08-05] MEDS: ROSUVASTATIN CALCIUM 20 MG TAB PO SCH (07:55)
[2018-08-05] MEDS: AMLODIPINE BESYLATE 5 MG TAB PO SCH (07:56)
[2018-08-05] MEDS: BuPROPion SR 150 MG TABCR PO SCH ×2 (07:56→20:51)
[2018-08-05] MEDS: BusPIRone 15 MG TAB PO SCH ×2 (07:56→20:50)
[2018-08-05] MEDS: CLOPIDOGREL BISULFATE 75 MG TAB PO SCH (07:56)
[2018-08-05] MEDS: OXYBUTYNIN CHLORIDE XL 5 MG TABCR PO SCH (07:56)
[2018-08-05] MEDS: LABETALOL HCL 100 MG TAB PO SCH ×2 (07:57→17:30)
[2018-08-05] MEDS: PANTOprazole 40 MG TAB PO SCH (07:57)
[2018-08-05] MEDS: HEPARIN SOD 5,000 UNIT/0.5 ML VIAL SQ SCH ×2 (07:57→20:50)
[2018-08-05] MEDS: INSULIN GLARGINE SOLOSTAR 100 UNITS/ML 3 ML PEN SC SCH ×2 (07:58→20:50)
[2018-08-05] MEDS: INSULIN ASPART 100 UNITS/ML 3 ML PEN SC SCH ×4 (08:02→20:51)
[2018-08-05] MEDS: predniSONE 20 MG TAB PO SCH (08:04)
[2018-08-05] MEDS: ERTAPENEM SODIUM 500 MG in SODIUM CHLORIDE 0.9% 50 ML IV SCH (08:04)
--- NOTE | 2018-08-05 10:20 | Infectious Disease Consult ---
Date of Consultation August 05, 2018 Assessment & Plan (1) UTI (urinary tract infection): agree with ertapenem would give 7 days total. wbc normal, temp improved, clinically stable. History of Present Illness Attending Physician: Brain Huertas MD, PhD, [facility] pt admitted with change in mental status, underlying dementia. found to have blood glucose in 30s, was also hypothermic on admission, tmin 34.2 on 08/02, now normal temps. UA in ER >30 wbc, +3 bacteria. urine culture growing ESBL +E. coli, on ertapenem, tolerating well. CXR in ER negative for infiltrate. wbc 7.9. blood culture negative to date. Creat on 08/03 elevated at 2.3. On my exam she is oob to chair, eating breakfast. Denies f/c. no abd pain, no n/v/d, denies gu symptoms. no cp, sob, cough, no sen. tolerating abxx. Allergies Allergy/AdvReac Type Severity Reaction Status Date / Time [id number] Reductase Allergy Unknown VOMITING/GI Verified 08/01/18 23:48 Inhibitor ISSUES Home Medications Home Medications Medication Instructions Recorded Confirmed Type amlodipine 10 mg PO QAM 01/31/18 08/01/18 History bupropion HCl 150 mg PO BID 01/31/18 08/01/18 History buspirone 15 mg PO BID 01/31/18 08/01/18 History calcitriol 0.25 mcg PO 3XWK 01/31/18 08/01/18 History cholecalciferol (vitamin D3) 1,000 unit PO QAM 01/31/18 08/01/18 History [Vitamin D3] clopidogrel 75 mg PO QAM 01/31/18 08/01/18 History levothyroxine 150 mcg PO QAM 01/31/18 08/01/18 History rosuvastatin [Crestor] 40 mg PO DAILY 01/31/18 08/01/18 History ergocalciferol (vitamin D2) 50,000 unit PO WK 05/13/18 08/01/18 History ferrous sulfate 325 mg PO BID 05/13/18 08/01/18 History prednisone 17.5 mg PO QAM 05/13/18 08/01/18 History cefuroxime axetil 250 mg PO DAILY 08/01/18 08/01/18 History epoetin anny [Procrit] 20,000 unit SUBCUT MONTHLY 08/01/18 08/01/18 History insulin glargine [Lantus Solostar 20 unit SUBCUT DAILY 08/01/18 08/01/18 History U-100 Insulin] insulin lispro [Humalog KwikPen 10 unit SUBCUT DIRECTED 08/01/18 08/01/18 History Insulin] labetalol 100 mg PO Q12H 08/01/18 08/01/18 History lorazepam [Ativan] 0.5 - 1 mg PO BID PRN 08/01/18 08/01/18 History oxybutynin chloride 5 mg PO DAILY 08/01/18 08/01/18 History pantoprazole 40 mg PO DAILY 08/01/18 08/01/18 History Patient History Medical History Dementia CKD (chronic kidney disease) stage 4, GFR 15-29 ml/min Metabolic encephalopathy Acute renal failure due to tubular necrosis Hyperkalemia (Acute) UTI (urinary tract infection) (Acute) Hypothyroid Personal history of transient ischemic attack (TIA), and cerebral infarction without residual deficits PMR (polymyalgia rheumatica) Anxiety and depression HTN (hypertension) HLD (hyperlipidemia) Diabetes Overactive bladder Anemia (Acute) Shortness of breath (Acute) TIA (transient ischemic attack) (Resolved) Bilateral leg edema Cramp of both lower extremities SEN (headache) Renal insufficiency TIA (transient ischemic attack) Surgical History Status post hysterectomy Family History Mother , around age 70 Diabetes Hypertension Coronary heart disease Father , around age 70 Hypertension Diabetes Coronary heart disease Other No pertinent family history Social History Preferred Language: Tunisian Communication Ability: Impaired Community Youth Secretary Required: No Beliefs That Will Affect Care: None marital status: / Current Living Situation: Family current occupational status: 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[employer] Other Information That Helps Us Care for You: No Feels Safe at Home: Yes Safety Concerns: Feels Safe At This Time Smoking Status: Former smoker Hx Alcohol Use: No Hx Substance Use: No Review of Systems all remaining ros reviewed and are negative Physical Exam Vital Signs (Past 24 Hours): Last Vital Signs Temp 36.6 C 08/05/18 04:55 Pulse 67 08/05/18 07:14 Resp 16 08/05/18 04:55 BP 162/78 H 08/05/18 04:55 Pulse Ox 95 08/05/18 04:55 Constitutional: WD/WN, vitals as above Eyes: PERRL, conjunctivae normal, anicteric sclerae ENMT: external ear and nose normal, oropharynx normal Neck: normal visual inspection Respiratory: normal respiratory effort, lungs clear to auscultation Cardiovascular: RRR, no murmur, no edema Gastrointestinal (Abdomen): normal bowel sounds, soft, nontender, no hepatosplenomegaly Musculoskeletal: no cyanosis or clubbing, extremities motor strength 5/5 Skin: no rashes, warm and dry Psychiatric: A+Ox3, euthymic affect Results & Data Laboratory Results Microbiology 08/02/18 00:05 Urine,Straight Cath Urine Culture - Final Escherichia coli ESBL 08/02/18 00:55 Blood Blood Culture - Preliminary No growth to date. 08/02/18 00:50 Blood Blood Culture - Preliminary No growth to date. (1) UTI (urinary tract infection) Hematuria presence: without hematuria Urinary tract infection type: site unspecified Qualified Code(s): N39.0 - Urinary tract infection, site not specified
[2018-08-05 10:39] LABS: Creatinine Clr Calc Pharmacy 17.7 ml/min; Est GFR (African American) 20.1; Est GFR (Non-African American) 17.3
--- NOTE | 2018-08-05 15:30 | Hospitalist Progress Note ---
Date of Service August 05, 2018 Assessment & Plan (1) UTI (urinary tract infection): 73yoF with hx of advanced dementia, DM2, HTN, CKD, hypothyroidism, hx of TIA, PMR, anxiety/depression presents with metabolic encephalopahty in the setting of initial hypoglycemia, hypothermia and found to have UTI present on admission. sepsis likely from urinary source ESBL UTI ESBL with many sensitivities, infectious disease input appreciated, will need Ertepenem total of 7 days, No antibiotic will need to from August 07 to July 2013, planning discharge home with home IV infusion, double check with pharmacy about the dose imipenem is 500 mg IV daily metabolic encephalopathy, associated with infection and hypoglycemia Hypoglycemia episodes, glucose was reported to be 31 prior to ED arrival, improved with discontinue D5, MARGARET on CKD 4 in the setting of acute illness and significant hypovolemia remains near baseline, creatinine still fluctuation, today is worsening yesterday we will follow-up Accelerated HTN: At 162/79, has been maximized amlodipine dose at 10 mg p.o. daily, increase labetalol to 125 from 100 p.o. twice daily, lisinopril has been on hold because of acute kidney injury, LI inhibitor or ARB because kidney function, ECHO: 09/10 EF 65% mod LVH, diastolic dysfunction, mild AAV stenosis, mild MV and TV regurg DM: With hypoglycemic episodes, blood glucose improved, Continue to hold home long acting insulin regimen Continue to monitor BSG Hypothyroidism: -TSH 0.228 likely impacted by acute illness, Nl Free T4 -Continue home levothyroxine -Follow up outpatient in 2 weeks History of transient ischemic attack (TIA), and cerebral infarction without residual deficits: Continues on home plavix PMR (polymyalgia rheumatica): resume to home prednisone Anxiety and depression: continue buspar and wellbutrin, ativan prn Chronic anemia: Hemoglobin 9.2 today from 9.7, baseline around 10 GERD: protonix Overactive bladder:symptoms controlled with oxybutynin DVT: remains on heparin 5000u SQ Q12H Code: Full Photographic Aide consult: assess home care adequacy, planning discharge home with home health care setting up of imipenem infusion, which will be started on the day after tomorrow, (2) Acute renal failure: (3) Hypothermia: (4) Hypoglycemia: (5) CKD (chronic kidney disease) stage 4, GFR 15-29 ml/min: (6) Dementia: (7) Hypothyroid: (8) PMR (polymyalgia rheumatica): (9) Personal history of transient ischemic attack (TIA), and cerebral infarction without residual deficits: (10) Anxiety and depression: (11) HTN (hypertension): (12) Diabetes: (13) Overactive bladder: (14) Anemia: Subjective Generally doing better, denies fever chills, denies dysuria urgency frequency's, eating drinking okay, Review of Systems Constitutional: Positive weakness, or fatigue Respiratory: no cough, sputum, wheezing, or dyspnea on exertion Cardiac: No chest pain, No orthopnea, No claudication, No palpitations, Abdomen: No pain, No nausea, No vomiting, No diarrhea, No constipation, No GI bleeding Musculoskeletal: No joint pain, No muscle pain, No swelling, No calf pain, No problem reported Neurologic: Denied blurry vision double vision, no paralysis, No weakness, No numbness/tingling, Psychiatric: No depression symptoms, No anhedonism, No anxiety, No insomnia, No substance abuse Heme: No abnormal bleeding/bruising, No clotting problems, No swollen lymph nodes, No night sweats Skin: No rash, No itch, No new/changing skin lesions, No color change, No bleeding Physical Exam Vital Signs (Past 24 Hours): Last Vital Signs Temp 36.6 C 08/05/18 15:23 Pulse 99 H 08/05/18 15:23 Resp 16 08/05/18 15:23 BP 176/73 H 08/05/18 15:23 Pulse Ox 94 08/05/18 15:23 Physical Exam: General Appearance: Mild pale, WD/WN, no apparent distress, Eyes: normal inspection, PERRL, EOMI, sclerae normal ENT: normal ENT inspection, hearing grossly normal, pharynx normal Neck: supple, no adenopathy, thyroid normal, no JVD, no carotid bruits, trachea midline Respiratory/Chest: chest non-tender, normal breath sounds, no respiratory distress, no accessory muscle use, breath sounds, rales, wheezing Cardiovascular: regular rate, rhythm, no JVD, no murmur Abdomen: normal bowel sounds, non tender, soft, no organomegaly, Extremities: normal range of motion, non-tender, normal inspection, Neurologic/Psychiatric: breaker tender II-XII nml as tested, no motor/sensory deficits, alert, normal mood/affect, oriented x 3 Skin: normal color, warm/dry, no rash Lymphatic: no adenopathy Results & Data Laboratory Results Laboratory Results - last 24 hr 08/04/18 08/04/18 08/04/18 16:29 19:37 20:07 WBC RBC Hgb Hct MCV MCH MCHC RDW Std Deviation RDW Coeff of Tanya Plt Count MPV Absolute Nucleated RBC Nucleated RBC % (auto) Creatinine Est Cr Clr Drug Dosing Est GFR ( Amer) Est GFR (Non-Af Amer) POC Glucose 213 H 60 L* 89 08/05/18 08/05/18 08/05/18 06:30 06:30 07:13 WBC 7.92 RBC 3.24 L Hgb 9.2 L Hct 29.5 L MCV 91.0 MCH 28.4 MCHC 31.2 L RDW Std Deviation 58.8 H RDW Coeff of Tanya 17.5 H Plt Count 231 MPV 9.4 Absolute Nucleated RBC 0.02 H Nucleated RBC % (auto) 0.3 Creatinine 2.65 H D Est Cr Clr Drug Dosing 17.7 Est GFR ( Amer) 20.1 Est GFR (Non-Af Amer) 17.3 POC Glucose 130 H 08/05/18 08/05/18 11:33 11:53 WBC RBC Hgb Hct MCV MCH MCHC RDW Std Deviation RDW Coeff of Tanya Plt Count MPV Absolute Nucleated RBC Nucleated RBC % (auto) Creatinine Est Cr Clr Drug Dosing Est GFR ( Amer) Est GFR (Non-Af Amer) POC Glucose 320 H 303 H (1) UTI (urinary tract infection) Hematuria presence: without hematuria Urinary tract infection type: site unspecified Qualified Code(s): N39.0 - Urinary tract infection, site not specified (2) Acute renal failure Acute renal failure type: unspecified Qualified Code(s): N17.9 - Acute kidney failure, unspecified (3) Hypothermia Encounter type: initial encounter Qualified Code(s): T68.XXXA - Hypothermia, initial encounter
[2018-08-06] MEDS: LEVOTHYROXINE SODIUM 150 MCG TABLET PO SCH (05:09)
[2018-08-06] MEDS: LORazepam 0.5 MG TAB PO PRN (06:34)
[2018-08-06 06:53] LABS: Albumin Level 3.4 gm/dl (3.4-5.0); BUN Creatinine Ratio 15.5 (10-20); Bilirubin,Total 0.8 mg/dl (0.2-1); Calcium 9.6 mg/dl (8.5-10.1); Creatinine Clr Calc Pharmacy 18.9 ml/min; Est GFR (African American) 20.7; Est GFR (Non-African American) 17.9; Globulin 3.5 gm/dl (2.5-4.0); Total Protein 6.9 gm/dl (6.4-8.2)
[2018-08-06 07:36] LABS: Potassium 3.7 mmol/L (3.5-5.1)
[2018-08-06 07:58] LABS: Magnesium 1.8 mg/dl (1.8-2.4)
[2018-08-06] MEDS: BuPROPion SR 150 MG TABCR PO SCH (08:00)
[2018-08-06] MEDS: CLOPIDOGREL BISULFATE 75 MG TAB PO SCH (08:00)
[2018-08-06] MEDS: PANTOprazole 40 MG TAB PO SCH (08:01)
[2018-08-06] MEDS: AMLODIPINE BESYLATE 5 MG TAB PO SCH (08:01)
[2018-08-06] MEDS: predniSONE 20 MG TAB PO SCH (08:01)
[2018-08-06] MEDS: OXYBUTYNIN CHLORIDE XL 5 MG TABCR PO SCH (08:01)
[2018-08-06] MEDS: INSULIN GLARGINE SOLOSTAR 100 UNITS/ML 3 ML PEN SC SCH (08:02)
[2018-08-06] MEDS: FERROUS SULFATE 325 MG TAB PO SCH (08:04)
[2018-08-06] MEDS: HEPARIN SOD 5,000 UNIT/0.5 ML VIAL SQ SCH (08:04)
[2018-08-06] MEDS: BusPIRone 15 MG TAB PO SCH (08:04)
[2018-08-06] MEDS: LABETALOL HCL 100 MG TAB PO SCH (08:05)
[2018-08-06] MEDS: INSULIN ASPART 100 UNITS/ML 3 ML PEN SC SCH ×2 (08:11→13:33)
[2018-08-06] MEDS: ROSUVASTATIN CALCIUM 20 MG TAB PO SCH (09:00)
[2018-08-06] MEDS: ERTAPENEM SODIUM 500 MG in SODIUM CHLORIDE 0.9% 50 ML IV SCH (09:00)
--- NOTE | 2018-08-06 15:28 | Discharge Summary ---
Date of Service August 06, 2018 Principal Diagnosis no Discharge Data Allergies Allergy/AdvReac Type Severity Reaction Status Date / Time Mzcpvom-Jkl-Okb Reductase Allergy Unknown VOMITING/GI Verified 08/01/18 23:48 Inhibitor ISSUES Consultations 08/02/18 00:46 ED Decision to Admit Stat 08/05/18 08:07 Consult Infectious Diseases Routine Hospital Course (1) UTI (urinary tract infection): 73yoF with hx of advanced dementia, DM2, HTN, CKD, hypothyroidism, hx of TIA, PMR, anxiety/depression presents with metabolic encephalopahty in the setting of initial hypoglycemia, hypothermia and found to have UTI present on admission. sepsis likely from urinary source ESBL, stable resolving UTI ESBL with many sensitivities, infectious disease input appreciated, will need Ertepenem total of 7 days, Antibiotic will need to from August 07 to August 11, 2018, planning discharge home with home IV infusion, double check with pharmacy about the dose imipenem is 500 mg IV daily Has talked to IV team, put a communication order of ultrasound-guided peripheral IV, which was to have been done. metabolic encephalopathy, associated with infection and hypoglycemia, resolved Hypoglycemia episodes, glucose was reported to be 31 prior to ED arrival, improved with discontinue D5, however I will decrease home dose of insulin upon discharge, and advised patient follow-up with PCP MARGARET on CKD 4 in the setting of acute illness and significant hypovolemia remains near baseline, creatinine still fluctuation, today is 2.5 compared to 2.6 yesterday, PCP please follow-up Accelerated HTN: At 162/79, has been maximized amlodipine dose at 10 mg p.o. daily, increase labetalol to 150 from 100 p.o. twice daily, PCP please follow-up lisinopril has been on hold because of acute kidney injury, LI inhibitor or ARB because kidney function, will continue to hold upon discharge ECHO: 09/10 EF 65% mod LVH, diastolic dysfunction, mild AAV stenosis, mild MV and TV regurg DM: With hypoglycemic episodes, blood glucose improved, Lantus home dose was 20 unit at bedtime, has decreased to 16 units at bedtime Continue to monitor BSG Hypothyroidism: -TSH 0.228 likely impacted by acute illness, Nl Free T4 -Continue home levothyroxine -Follow up outpatient in 2 weeks History of transient ischemic attack (TIA), and cerebral infarction without residual deficits: Continues on home plavix PMR (polymyalgia rheumatica): resume to home prednisone Anxiety and depression: continue buspar and wellbutrin, ativan prn Chronic anemia: Hemoglobin 9.2 today from 9.7, baseline around 10 GERD: protonix Overactive bladder:symptoms controlled with oxybutynin DVT: remains on heparin 5000u SQ Q12H Code: Full Culture Manager consult: assess home care adequacy, planning discharge home with home health care setting up of imipenem infusion I have called the patient's son Donnell [phone] and gave him update Physical exam upon discharge: General Appearance: Pleasant, conversational, WD/WN, no apparent distress, Eyes: normal inspection, PERRL, EOMI, sclerae normal ENT: normal ENT inspection, hearing grossly normal, pharynx normal Neck: supple, no adenopathy, thyroid normal, no JVD, Respiratory/Chest: chest non-tender, normal breath sounds, no respiratory distress, no accessory muscle use Cardiovascular: regular rate, rhythm, no JVD Abdomen: normal bowel sounds, non tender, soft, no organomegaly, Extremities: normal range of motion, non-tender, normal inspection, Trace pedal edema, no calf tenderness, normal capillary refill, pelvis stable, joint has no limited range of motion, Neurologic/Psychiatric: 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, no motor/sensory deficits, alert, Skin: normal color, warm/dry, no rash Lymphatic: no adenopathy (2) Acute renal failure: (3) Hypothermia: (4) Hypoglycemia: (5) CKD (chronic kidney disease) stage 4, GFR 15-29 ml/min: (6) Dementia: (7) Hypothyroid: (8) PMR (polymyalgia rheumatica): (9) Personal history of transient ischemic attack (TIA), and cerebral infarction without residual deficits: (10) Anxiety and depression: (11) HTN (hypertension): (12) Diabetes: (13) Overactive bladder: (14) Anemia: Total Time Total Time Spent Total Time Spent (In Minutes): 35 Total Time Includes: Examination of the Patient, Discharge Planning, Medication Reconciliation and Communication With Other Providers Discharge Plan Discharge Items Patient Disposition: Home - Home Health Services Reason For Visit: UROSEPSIS Discharge Diagnosis: ESBL UTI Condition: Fair Discharge Goals: Decrease discomfort, Diagnostic testing and Improve disease control Activity: Resume your previous activity Non-emergency contact: Primary Care Provider Call non-emergency contact if: you have any medication questions Follow-up/Referrals: Bryn Marin III, MD [Primary Care Provider] - 08/13/18 3:00 pm (Please, follow up at Dr. Marin's office with his clinical assistant, Esther Bonilla PA-C, on SundayAugust 13 at 3:00 pm. *If you need to change this appointment, call the office at [phone].) Diet: Heart Healthy and Low Sodium (2gm) Addtl Provider Instructions: you have sepsis likely from urinary source ESBL UTI ESBL need Ertepenem total of 7 days, need 4 days more from August 07 to July 2018, you was having Hypoglycemia episodes, I decreased your insulin you have Accelerated HTN: has increased labetalol to 150 mg twice daily, you need to follow up with your primary care physician in 1 week, - take medication as instructed, never overdose or any misuse, or take with alcohol, because misuse of medicine may cause organ damage or , call me, or your primary care physician if have questions of discharge medicaitons. - call your primary care physician, or go to local emergency room if has any fever/chill, chest pain, shortness of breathing, nausea/vomiting/abdominal pain, facial droop/slurry speech/local weakness, or if has any questions. - fall precaution - diet as instructed Prescriptions: Continued Procrit 20,000 unit/mL Solution 20,000 unit subcut MONTHLY RF: 0 oxybutynin chloride 5 mg Tablet Extended Release 24hr 5 mg PO DAILY RF: 0 insulin lispro [Humalog KwikPen Insulin] 100 unit/mL Insulin Pen 10 unit SUBCUT DIRECTED RF: 0 pantoprazole 40 mg Tablet,Delayed Release (Dr/Ec) 40 mg PO DAILY RF: 0 lorazepam [Ativan] 1 mg Tablet 0.5 - 1 mg PO BID PRN (Reason: Anxiety) RF: 0 bupropion HCl 150 mg Tablet Sustained-Release 12 Hr 150 mg PO BID RF: 0 clopidogrel 75 mg Tablet 75 mg PO QAM RF: 0 amlodipine 10 mg Tablet 10 mg PO QAM RF: 0 levothyroxine 150 mcg Tablet 150 mcg PO QAM RF: 0 calcitriol 0.25 mcg Capsule 0.25 mcg PO 3XWK RF: 0 buspirone 15 mg Tablet 15 mg PO BID RF: 0 cholecalciferol (vitamin D3) [Vitamin D3] 1,000 unit Capsule 1,000 unit PO QAM RF: 0 rosuvastatin [Crestor] 40 mg Tablet 40 mg PO DAILY RF: 0 prednisone 5 mg tablet 17.5 mg PO QAM RF: 0 ergocalciferol (vitamin D2) 50,000 unit Capsule 50,000 unit PO WK RF: 0 ferrous sulfate 325 mg (65 mg iron) Tablet,Delayed Release (Dr/Ec) 325 mg PO BID RF: 0 Changed Lantus Solostar U-100 Insulin 100 unit/mL (3 mL) insulin pen 16 unit subcut DAILY Qty: 0 RF: 0 labetalol 100 mg tablet 150 mg PO Q12H Qty: 0 RF: 0 Discontinued cefuroxime axetil 250 mg Tablet 250 mg PO DAILY RF: 0 Stand-Alone Forms: [facility] Discharge Orders: Discharge Order (Routine); Ordered 08/06/18 Ordered By: Brain Huertas Admission Data Admit Date/Time: 08/02/18 02:06 Attending Provider: Brain Huertas Admit Provider: Paul Mtz Primary Care Provider: Bryn Marin III Other Providers: Paul Mtz ; Marco Chauhan ; Buck Weir Service: Telemetry
== END 2018-08-06 18:24 | disposition home health service (06) | DRG 871 ==
LOC: ED 23:04 → 2N 08-02 02:06 → SUATTDRO 08-02 02:06 → 2N 08-02 03:22

== ENCOUNTER 2018-08-18 08:14 | Inpatient (IN) ==
[2018-08-18] MEDS ORDERED: MoRPHine SULFATE 2 MG/ML CARP IV PRN (08:24)
[2018-08-18] MEDS ORDERED: LACTATED RINGER'S 1,000 ML IV SCH (08:30)
[2018-08-18] MEDS: MoRPHine SULFATE 4 MG/ML 1 ML CARP\\VIAL IV PRN ×3 (08:45→10:56)
[2018-08-18 08:56] LABS: Basophils # (auto) 0.02 K/uL (0-0.2); Basophils % (auto) 0.3 %; Eosinophils % (auto) 2.5 %; Hematocrit (blood only) 26.6 % (37-47); Hemoglobin 8.4 g/dL (12.0-16.0); Immature Granulocytes # (auto) 0.03 K/uL (0.00-0.02); Immature Granulocytes % (auto) 0.4 %; Lymphocytes # (auto) 1.38 K/uL (1.2-3.4); Lymphocytes % (auto) 17.4 %; Mean Corpuscular Hgb Conc 31.6 g/dL (32-36); Mean Platelet Volume 9.8 fL (7.4-10.4); Monocytes # (auto) 0.35 K/uL (0.11-0.59); Monocytes % (auto) 4.4 %; Neutrophils # (auto) 5.97 K/uL (1.4-6.5); Platelet Count 181 K/uL (130-400); RDW Coefficient of Variation 17.7 % (11.5-14.5); RDW Standard Deviation 60.1 fL (36.4-46.3); Red Blood Count 2.86 M/uL (4.2-5.4); White Blood Count 7.95 K/uL (4.8-10.8)
--- NOTE | 2018-08-18 08:56 | Emergency Department Note ---
Entered by Phyllis Trent acting as a scribe for History of Present Illness General Chief complaint: Hip Pain Stated complaint: fall/ L hip pain Time Seen by Provider: 08/18/18 08:24 Source: patient and other (nursing staff) History of Present Illness Onset (ago): hour(s) (just prior to arrival) Pain Consistency: + other (episode) Quality: + other (fall) The patient is a 73 year old female who presents to the Emergency Room with complaints of an episode of a fall that occurred just prior to arrival, according to nursing staff. The patient denies any pain, and states that she is unsure if she fell. Per nursing staff, the patient was found on the floor next to her bed. The patient's history and physical are limited secondary to dementia. Home Medications Home Medications Medication Instructions Recorded Confirmed Type amlodipine 10 mg PO QDL 01/31/18 08/18/18 History bupropion HCl 150 mg PO BID 01/31/18 08/18/18 History buspirone 15 mg PO BID 01/31/18 08/18/18 History calcitriol 0.25 mcg PO 3XWK 01/31/18 08/18/18 History levothyroxine 150 mcg PO QAM 01/31/18 08/18/18 History ergocalciferol (vitamin D2) 50,000 unit PO WK 05/13/18 08/18/18 History prednisone 10 mg PO QAM 05/13/18 08/18/18 History insulin lispro [Humalog KwikPen 10 unit SUBCUT TIDM 08/01/18 08/18/18 History Insulin] lorazepam [Ativan] 0.5 - 1 mg PO BID PRN 08/01/18 08/18/18 History labetalol 150 mg PO Q12H #0 tab 08/06/18 08/18/18 Rx Lantus Solostar U-100 Insulin 16 unit SUBCUT HS 08/16/18 08/18/18 History acetaminophen [Tylenol Extra 500 mg PO Q6H PRN 08/18/18 08/18/18 History Strength] Allergies Allergy/AdvReac Type Severity Reaction Status Date / Time Wfoatkz-Skl-Qrm Reductase Allergy Unknown VOMITING/GI Verified 08/18/18 08:59 Inhibitor ISSUES Past Med/Surg History Medical History Dementia CKD (chronic kidney disease) stage 4, GFR 15-29 ml/min Metabolic encephalopathy Acute renal failure due to tubular necrosis Hyperkalemia (Acute) UTI (urinary tract infection) (Acute) Hypothyroid Personal history of transient ischemic attack (TIA), and cerebral infarction without residual deficits PMR (polymyalgia rheumatica) Anxiety and depression HTN (hypertension) HLD (hyperlipidemia) Diabetes Overactive bladder Anemia (Acute) Shortness of breath (Acute) TIA (transient ischemic attack) (Resolved) Bilateral leg edema Cramp of both lower extremities SEN (headache) Renal insufficiency TIA (transient ischemic attack) Surgical History Status post hysterectomy Family History Mother , around age 70 Diabetes Hypertension Coronary heart disease Father , around age 70 Hypertension Diabetes Coronary heart disease Other No pertinent family history Social History Preferred Language: [place] Verdean Communication Ability: Impaired Beliefs That Will Affect Care: None marital status: / Current Living Situation: Family current occupational status: 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 and A total of 10 systems reviewed and were otherwise negative The patient's history and physical are limited secondary to dementia. Physical Exam Vital Signs Vital Signs - 24 hr 08/18/18 08:27 08/18/18 08:36 08/18/18 09:15 Temperature 36.9 C Temperature Source Oral Sepsis Recent Fever Within 48 Hours No Sepsis Action Taken by Nursing No Action Required Pulse Rate 63 Pulse Rate [Apical] 65 Pulse Rhythm [Apical] Regular Pulse Strength [Apical] Normal Respiratory Rate 22 22 Respiratory Effort / Characteristics Non-Labored Spontaneous Respiratory Depth Normal Blood Pressure 147/40 H Blood Pressure [Right Arm] 151/101 H Blood Pressure Mean 75 Blood Pressure Mean [Right Arm] 117 Blood Pressure Position Lying Blood Pressure Position [Right Arm] Lying Pulse Oximetry 92 95 100 Oxygen Delivery Method Room Air Nasal Cannula Room Air Oxygen Flow Rate 2 CONSTITUTIONAL/VITAL SIGNS: Reviewed / noted above. GENERAL: Non-toxic in appearance. INTEGUMENTARY: Warm, dry, and [place]. HEAD: Normocephalic. EYES: without scleral icterus or trauma. ENT/OROPHARYNX: clear and moist. LYMPHADENOPATHY/NECK: Is supple without lymphadenopathy or meningismus. RESPIRATORY: Lungs clear and equal. CARDIOVASCULAR: Regular rate and rhythm. GI/ABDOMEN: Soft and nontender. No organomegaly or pulsatile mass. No rebound or guarding. Normal bowel sounds. EXTREMITIES: Warm and well perfused. Moderate shortening of the left leg compared to the right. Tenderness to palpation of the left hip. BACK: No CVA tenderness. NEUROLOGICAL: Intact without focal deficits. PSYCHIATRIC: normal affect. MUSCULOSKELETAL: Normally developed with good muscle tone. Course 0835: Past medical records reviewed. The patient was evaluated in room A10, and a complete history and physical examination were performed. 926: [facility] evaluation. Consultations Consultation #1: [facility] evaluation. Time: 09:27 Administered Medications Lactated Ringer's (Lr) 1,000 mls @ 150 mls/hr IV .[id number] JUSTYN Stop: 09/17/18 08:29 Last Admin: 08/18/18 08:49 Dose: 150 mls/hr Documented by: [id number] Morphine Sulfate (Morphine Sulfate) 4 mg IV Q1H PRN PRN Reason: Severe Pain (Rating 7,8,9,10) Stop: 09/01/18 08:23 Last Admin: 08/18/18 08:45 Dose: 4 mg Documented by: [id number] Medical Decision Making Differential Diagnosis Differential includes acute cardiac dysrhythmia, microinfarction, CVA, TIA, dehydration, anemia, electrolyte disturbance, seizure, trauma, intracranial bleeding, acute vascular catastrophe, thoracic aortic dissection, PE, abdominal aortic aneurysm rupture, ectopic rupture. Medical Records Attestation: I reviewed the patient's medical records. Home Medications Current Medication List: was personally reviewed by me Laboratory Data Attestation: I reviewed the patient's lab results. Result diagrams: 08/18/18 08:41 08/18/18 08:41 Lab Results 08/18/18 08/18/18 08/18/18 Range/Units 08:41 08:41 08:41 WBC 7.95 (4.8-10.8) K/uL RBC 2.86 L (4.2-5.4) M/uL Hgb 8.4 L (12.0-16.0) g/dL Hct 26.6 L (37-47) % MCV 93.0 (80-100) fL MCH 29.4 (25-34) pg MCHC 31.6 L (32-36) g/dL RDW Std Deviation 60.1 H (36.4-46.3) fL RDW Coeff of Tanya 17.7 H (11.5-14.5) % Plt Count 181 (130-400) K/uL MPV 9.8 (7.4-10.4) fL Immature Gran % (Auto) 0.4 % Neut % (Auto) 75.0 % Lymph % (Auto) 17.4 % Lyman % (Auto) 4.4 % Eos % (Auto) 2.5 % Baso % (Auto) 0.3 % Immature Gran # (Auto) 0.03 H (0.00-0.02) K/uL Neut # (Auto) 5.97 (1.4-6.5) K/uL Lymph # (Auto) 1.38 (1.2-3.4) K/uL Lyman # (Auto) 0.35 (0.11-0.59) K/uL Eos # (Auto) 0.20 (0-0.5) K/uL Baso # (Auto) 0.02 (0-0.2) K/uL PT 10.4 (9.0-12.0) Seconds INR 1.0 (0.9-1.1) APTT 22.4 (21.0-31.0) Seconds PTT Ratio 0.8 Sodium 143 (136-145) mmol/L Potassium 4.6 (3.5-5.1) mmol/L Chloride 115 H (98-107) mmol/L Carbon Dioxide 20 L (21-32) mmol/L Anion Gap 8.0 (3-11) BUN 26 H (7-18) mg/dl Creatinine 2.22 H D (0.6-1.2) mg/dl Est Cr Clr Drug Dosing Not Reportable Est GFR ( Amer) 24.9 Est GFR (Non-Af Amer) 21.4 BUN/Creatinine Ratio 11.9 (10-20) Glucose 183 H (70-99) mg/dl Calcium 9.3 (8.5-10.1) mg/dl Urine Color Urine Appearance (Clear) Urine pH (4.5-7.5) Ur Specific Buhl (1.000-1.030) Urine Protein (Negative) Urine Glucose (UA) (Negative) Urine Ketones (Negative) Urine Blood (Negative) Urine Nitrite (Negative) Urine Bilirubin (Negative) Urine Urobilinogen (Negative) Ur Leukocyte Esterase (Negative) Urine WBC (Auto) (0-5) /hpf Urine RBC (Auto) (0-4) /hpf U Hyaline Cast (Auto) (0-5) /lpf U Epithel Cells (Auto) (0-5) /lpf Urine Bacteria (Auto) (Negative) Urine Yeast (None Prsent) 08/18/18 Range/Units 08:50 WBC (4.8-10.8) K/uL RBC (4.2-5.4) M/uL Hgb (12.0-16.0) g/dL Hct (37-47) % MCV (80-100) fL MCH (25-34) pg MCHC (32-36) g/dL RDW Std Deviation (36.4-46.3) fL RDW Coeff of Tanya (11.5-14.5) % Plt Count (130-400) K/uL MPV (7.4-10.4) fL Immature Gran % (Auto) % Neut % (Auto) % Lymph % (Auto) % Lyman % (Auto) % Eos % (Auto) % Baso % (Auto) % Immature Gran # (Auto) (0.00-0.02) K/uL Neut # (Auto) (1.4-6.5) K/uL Lymph # (Auto) (1.2-3.4) K/uL Lyman # (Auto) (0.11-0.59) K/uL Eos # (Auto) (0-0.5) K/uL Baso # (Auto) (0-0.2) K/uL PT (9.0-12.0) Seconds INR (0.9-1.1) APTT (21.0-31.0) Seconds PTT Ratio Sodium (136-145) mmol/L Potassium (3.5-5.1) mmol/L Chloride (98-107) mmol/L Carbon Dioxide (21-32) mmol/L Anion Gap (3-11) BUN (7-18) mg/dl Creatinine (0.6-1.2) mg/dl Est Cr Clr Drug Dosing Est GFR ( Amer) Est GFR (Non-Af Amer) BUN/Creatinine Ratio (10-20) Glucose (70-99) mg/dl Calcium (8.5-10.1) mg/dl Urine Color Yellow Urine Appearance Clear (Clear) Urine pH 5.0 (4.5-7.5) Ur Specific Buhl 1.015 (1.000-1.030) Urine Protein 1+ H (Negative) Urine Glucose (UA) Negative (Negative) Urine Ketones Negative (Negative) Urine Blood Negative (Negative) Urine Nitrite Negative (Negative) Urine Bilirubin Negative (Negative) Urine Urobilinogen Negative (Negative) Ur Leukocyte Esterase Trace H (Negative) Urine WBC (Auto) 1-5 (0-5) /hpf Urine RBC (Auto) 0-4 (0-4) /hpf U Hyaline Cast (Auto) 1-5 (0-5) /lpf U Epithel Cells (Auto) >30 H (0-5) /lpf Urine Bacteria (Auto) Negative (Negative) Urine Yeast Budding H (None Prsent) Imaging Data Radiologist's Impression: Radiology results as stated below per my review and the radiologist's interpretation: XR hip LT min 2V CLINICAL HISTORY: fall. Left hip pain. COMPARISON STUDY: FINDINGS: Comminuted and angulated left intertrochanteric hip fracture. No dislocation. The visualized pelvic bones are intact. Soft tissue swelling within the left hip. IMPRESSION: Comminuted left intertrochanteric hip fracture. Electronically signed by: Travon Castellano M.D. 08/18/2018 9:21 AM XR chest 1V portable HISTORY: Hip fracture. Preop. COMPARISON: Chest 08/01/2018. FINDINGS: The lungs are clear. The heart is mildly enlarged. No pleural effusions. No pneumothorax. There are low lung volumes. IMPRESSION: Mild cardiomegaly. Electronically signed by: Travon Castellano M.D. 08/18/2018 9:22 AM ECG Data Attestation: I personally reviewed and interpreted this ECG as follows: Indication: other (hip fracture) Rate (beats per minute): 64 Rhythm: normal sinus Findings: no ST elevation and no ectopy Blood Pressure Blood Pressure Findings: Elevated blood pressure Blood Pressure Disposition: further management by hospitalist NEPTALI Narrative This is a 73-year-old female who presents to the ED with a chief complaint of left hip pain after a fall. The patient lives at home with her family. They heard a thump and went to investigate and found her on the floor. The patient is a poor historian. She has some dementia. Her physical exam reveals shortening of the left leg with tenderness to palpation of the left lateral hip. She does not have any findings on her head to suggest that she struck her head. There was no reported loss of consciousness. She has no neck tenderness. X- ray of the left hip reveals a comminuted left intertrochanteric left hip fracture. Chest x-ray was negative for acute disease. Hemoglobin is 8.4. This is slightly below her baseline of around 9.2-9.8. She does have chronic renal insufficiency and her creatinine is 2.2. This is near her baseline. Urine did not show infection. The patient was told the results of the test. I spoke with Dr. Whitmore who will see the patient for admission and consult orthopedics. Impression & Plan Intertrochanteric fracture of left femur, Anemia Discharge Plan Visit Data Chief Complaint: Hip Pain Stated Complaint: fall/ L hip pain ED Provider: Fred Gutpa Discharge Problem: Intertrochanteric fracture of left femur, Anemia Patient Disposition: Being Evaluated by Hospitalist Forms Stand Alone Forms: My [facility] [employer] Prescriptions Prescriptions: No Action insulin lispro [Humalog KwikPen Insulin] 100 unit/mL Insulin Pen 10 unit SUBCUT TIDM RF: 0 lorazepam [Ativan] 1 mg Tablet 0.5 - 1 mg PO BID PRN (Reason: Anxiety) RF: 0 labetalol 100 mg tablet 150 mg PO Q12H Qty: 0 RF: 0 Lantus Solostar U-100 Insulin 100 unit/mL (3 mL) insulin pen 16 unit subcut HS RF: 0 acetaminophen [Tylenol Extra Strength] 500 mg Tablet 500 mg PO Q6H PRN (Reason: Pain) RF: 0 bupropion HCl 150 mg Tablet Sustained-Release 12 Hr 150 mg PO BID RF: 0 amlodipine 10 mg Tablet 10 mg PO QDL RF: 0 levothyroxine 150 mcg Tablet 150 mcg PO QAM RF: 0 calcitriol 0.25 mcg Capsule 0.25 mcg PO 3XWK RF: 0 buspirone 15 mg Tablet 15 mg PO BID RF: 0 prednisone 5 mg tablet 10 mg PO QAM RF: 0 ergocalciferol (vitamin D2) 50,000 unit Capsule 50,000 unit PO WK RF: 0 Referrals Referrals: Bryn Marin III, MD [Primary Care Provider] - Discharge Problem: Intertrochanteric fracture of left femur Qualifiers: Encounter type: initial encounter Fracture type: closed Fracture alignment: displaced Qualified Code(s): S72.142A - Displaced intertrochanteric fracture of left femur, initial encounter for closed fracture Anemia Qualifiers: Anemia type: unspecified type Qualified Code(s): D64.9 - Anemia, unspecified The scribe's documentation has been prepared under my direction and personally reviewed by me in its entirety. I confirm that the note above accurately reflects all work, treatment, procedures, and medical decision making performed by me.
[2018-08-18 09:08] LABS: Appearance Urine Clear (Clear); Bacteria Urine Automated Negative (Negative); Bilirubin Urine Negative (Negative); Blood Urine Negative (Negative); Color Urine Yellow; Epithelial Cell Urine Auto >30 /lpf (0-5); Glucose Urine UA Negative (Negative); Ketones Urine Negative (Negative); Leukocyte Esterase Urine Trace (Negative); Nitrite Urine Negative (Negative); Protein Urine 1+ (Negative); RBC Urine Automated 0-4 /hpf (0-4); Specific Gravity Urine 1.015 (1.000-1.030); Urobilinogen Urine Negative (Negative)
[2018-08-18 09:10] LABS: Partial Thromboplastin Ratio 0.8; Partial Thromboplastin Time 22.4 Seconds (21.0-31.0); Prothrombin Time 10.4 Seconds (9.0-12.0)
[2018-08-18 09:11] LABS: BUN Creatinine Ratio 11.9 (10-20); Blood Urea Nitrogen 26 mg/dl (7-18); Calcium 9.3 mg/dl (8.5-10.1); Carbon Dioxide 20 mmol/L (21-32); Chloride 115 mmol/L (98-107); Est GFR (African American) 24.9; Est GFR (Non-African American) 21.4; Glucose 183 mg/dl (70-99); Potassium 4.6 mmol/L (3.5-5.1); Sodium 143 mmol/L (136-145)
--- NOTE | 2018-08-18 09:23 | XRay Report ---
XR hip LT min 2V CLINICAL HISTORY: fall. Left hip pain. COMPARISON STUDY: FINDINGS: Comminuted and angulated left intertrochanteric hip fracture. No dislocation. The visualize d pelvic bones are intact. Soft tissue swelling within the left hip. IMPRESSION: Comminuted left intertrochanteric hip fracture. Electronically signed by: Travon Castellano M.D. 08/18/2018 9:21 AM
--- NOTE | 2018-08-18 09:24 | XRay Report ---
XR chest 1V portable HISTORY: Hip fracture. Preop. COMPARISON: Chest 08/01/2018. FINDINGS: The lungs are clear. The heart is mildly enlarged. No pleural effusions. No pneumothorax. T here are low lung volumes. IMPRESSION: Mild cardiomegaly. Electronically signed by: Travon Castellano M.D. 08/18/2018 9:22 AM
[2018-08-18] MEDS ORDERED: POLYETHYLENE (MIRALAX) 17 GM PACK PO PRN (11:33)
[2018-08-18] MEDS ORDERED: NALOXONE HCL 0.4 MG/1 ML VIAL/CARP IV PRN (11:33)
[2018-08-18] MEDS ORDERED: ACETAMINOPHEN 325 MG TAB PO PRN (11:33)
[2018-08-18] MEDS ORDERED: MAGNESIUM HYDROXIDE SUSP 30 ML UDC PO PRN (11:33)
[2018-08-18] MEDS ORDERED: ACETAMINOPHEN 500 MG TAB PO PRN (11:33)
[2018-08-18] MEDS ORDERED: INSULIN ASPART 100 UNITS/ML 3 ML PEN SC SCH ×2 (11:33→18:00)
[2018-08-18] MEDS ORDERED: ONDANSETRON INJ 2 MG/ML 2 ML VIAL IV PRN (11:33)
[2018-08-18] MEDS ORDERED: BISACODYL 10 MG SUPP PR PRN (11:33)
[2018-08-18] MEDS ORDERED: NON-FORMULARY MEDICATION (Insulin Lispro [Humalog Kwikpen Insulin] 10 UNITS) SQ SCH (12:00)
[2018-08-18] MEDS: D5W AND LACTATED RINGERS 1,000 ML IV SCH (12:12)
[2018-08-18] MEDS ORDERED: CARBOHYDRATES FOR HYPOGLYCEMIA PO PRN (12:15)
[2018-08-18] MEDS ORDERED: GLUCAGON FOR INJ 1 MG VIAL IM PRN (12:15)
[2018-08-18] MEDS ORDERED: GLUCOSE 10 TABS/TUBE PO PRN (12:15)
[2018-08-18] MEDS ORDERED: GLUCOSE 40% GEL 15 GM TUBE PO PRN (12:15)
[2018-08-18] MEDS ORDERED: DEXTROSE 50% 50 ML SYRINGE IV PRN (12:15)
--- NOTE | 2018-08-18 13:46 | Anesthesiology Consultation ---
Date of Service August 18, 2018 Assessment & Plan Chart Review Chart Review: Pending: Refer to Additional Notes / Consult section Will order an echocardiogram as patient had possible mild aortic stenosis in 2013 with no recent echo in the system. She has a II/ LAWRENCE on exam as well. I obtained consent from her son Momo Jacobsen. He lives with the patient and has been signing all of her consents for the last five years. The patient was consented for general and spinal anesthesia as well as invasive monitoring. I also informed him that the patient may require a blood transfusion. The patient's son prefers the patient have a spinal anesthetic if medically appropriate. History Height/Weight Weight: 82.1 kg Allergies Allergy/AdvReac Type Severity Reaction Status Date / Time [place]-Ebv-Rez Reductase Allergy Unknown VOMITING/GI Verified 08/18/18 08:59 Inhibitor ISSUES Medications Home Medications Medication Instructions Recorded Confirmed Last Taken amlodipine 10 mg PO QDL 01/31/18 08/18/18 08/17/18 bupropion HCl 150 mg PO BID 01/31/18 08/18/18 08/18/18 buspirone 15 mg PO BID 01/31/18 08/18/18 08/17/18 20:00 calcitriol 0.25 mcg PO 3XWK 01/31/18 08/18/18 08/16/18 levothyroxine 150 mcg PO QAM 01/31/18 08/18/18 08/18/18 ergocalciferol (vitamin D2) 50,000 unit PO WK 05/13/18 08/18/18 08/14/18 prednisone 10 mg PO QAM 05/13/18 08/18/18 08/18/18 insulin lispro [Humalog KwikPen 10 unit SUBCUT TIDM 08/01/18 08/18/18 08/17/18 18:00 Insulin] lorazepam [Ativan] 0.5 - 1 mg PO BID PRN 08/01/18 08/18/18 08/17/18 20:15 labetalol 150 mg PO Q12H #0 tab 08/06/18 08/18/18 08/18/18 Lantus Solostar U-100 Insulin 16 unit SUBCUT HS 08/16/18 08/18/18 08/17/18 acetaminophen [Tylenol Extra 500 mg PO Q6H PRN 08/18/18 08/18/18 08/18/18 07:35 Strength] Active Medications Generic Name Dose Route Start Last Admin Trade Name Radha PRN Reason Stop Dose Admin Dextrose/Lactated Ringer's 1,000 mls @ 70 mls/hr 08/18/18 12:00 08/18/18 12:12 D5w And Lactated Ringers IV 09/17/18 11:59 70 mls/hr .[id number] JUSTYN Administration Past Medical History Medical History Dementia CKD (chronic kidney disease) stage 4, GFR 15-29 ml/min Metabolic encephalopathy Acute renal failure due to tubular necrosis Hyperkalemia (Acute) UTI (urinary tract infection) (Acute) Hypothyroid Personal history of transient ischemic attack (TIA), and cerebral infarction without residual deficits PMR (polymyalgia rheumatica) Anxiety and depression HTN (hypertension) HLD (hyperlipidemia) Diabetes Overactive bladder Anemia (Acute) Shortness of breath (Acute) TIA (transient ischemic attack) (Resolved) Bilateral leg edema Cramp of both lower extremities SEN (headache) Renal insufficiency TIA (transient ischemic attack) Past Family History Family History Mother , around age 70 Diabetes Hypertension Coronary heart disease Father , around age 70 Hypertension Diabetes Coronary heart disease Other No pertinent family history Past Surgical History Surgical History Status post hysterectomy Social History Smoking Status: Former smoker Hx Alcohol Use: No Hx Substance Use: No substance use type: does not use Physical Exam Vital Signs Last Vital Signs Temp 36.8 C 08/18/18 11:36 Pulse 71 08/18/18 12:20 Resp 20 08/18/18 12:20 BP 159/78 H 08/18/18 12:20 Pulse Ox 98 08/18/18 12:20 Respiratory normal respiratory effort Auscultation: lungs clear to auscultation bilaterally Cardiovascular Rate/Rhythm: regular rate and regular rhythm Heart Sounds: + murmur (II/ LAWRENCE) Psychiatric Orientation: alert Oriented only to person. Did not know birthday or year. The patient did know she was in a hospital but she could not name the hospital and was not sure why she is here. Testing Electrocardiogram Date: 08/16/18 Normal sinus rhythm Low voltage QRS Nonspecific ST and T wave abnormality Abnormal ECG When compared with ECG of 01-AUG-2018 23:24, QRS duration has decreased Nonspecific T wave abnormality no longer evident in Inferior leads Nonspecific T wave abnormality has replaced inverted T waves in Lateral leads Confirmed by DEBBIE PEPE ([id number]) on 08/18/2018 1:17:30 PM Echocardiogram Date: 09/08/13 1.Normal global biventricular systolic function without segmental wall motion abnormalities. 2.Moderate left ventricular hypertrophy. 3.Diastolic dysfunction suggested. 4.Aortic valve sclerosis bordering on mild stenosis. 5.Mild mitral regurgitation. 6.Mild tricuspid regurgitation Laboratory Results 08/18/18 08:41 08/18/18 08:41 Blood Type A Positive 08/18/18 08:41 Antibody Screen NEGATIVE 08/18/18 08:41 PT 10.4 Seconds (9.0-12.0) 08/18/18 08:41 INR 1.0 (0.9-1.1) 08/18/18 08:41 APTT 22.4 Seconds (21.0-31.0) 08/18/18 08:41 Urine Color Yellow 08/18/18 08:50 Urine Appearance Clear (Clear) 08/18/18 08:50 Urine pH 5.0 (4.5-7.5) 08/18/18 08:50 Ur Specific [place] 1.015 (1.000-1.030) 08/18/18 08:50 Urine Protein 1+ (Negative) H 08/18/18 08:50 Urine Glucose (UA) Negative (Negative) 08/18/18 08:50 Urine Ketones Negative (Negative) 08/18/18 08:50 Urine Nitrite Negative (Negative) 08/18/18 08:50 Ur Leukocyte Esterase Trace (Negative) H 08/18/18 08:50 Urine WBC (Auto) 1-5 /hpf (0-5) 08/18/18 08:50 Urine RBC (Auto) 0-4 /hpf (0-4) 08/18/18 08:50 U Hyaline Cast (Auto) 1-5 /lpf (0-5) 08/18/18 08:50 U Epithel Cells (Auto) >30 /lpf (0-5) H 08/18/18 08:50 Urine Bacteria (Auto) Negative (Negative) 08/18/18 08:50 08/18/18 12:22 POC Glucose 241 H
[2018-08-18] MEDS: AMLODIPINE BESYLATE 5 MG TAB PO SCH (13:47)
[2018-08-18] MEDS: LABETALOL HCL 100 MG TAB PO SCH ×2 (13:48→22:13)
[2018-08-18] MEDS ORDERED: Nursing to Pharmacy Communication ONE ×2 (13:58→16:28)
[2018-08-18] MEDS ORDERED: MoRPHine SULFATE 4 MG/ML 1 ML CARP\\VIAL IV PRN (16:06)
[2018-08-18] MEDS: BuPROPion SR 150 MG TABCR PO SCH (18:02)
[2018-08-18] MEDS: INSULIN ASPART 100 UNITS/ML 3 ML PEN SC SCH ×2 (18:05→21:41)
--- NOTE | 2018-08-18 18:06 | History & Physical Report ---
Date of Service August 18, 2018 Assessment & Plan (1) Intertrochanteric fracture of left femur: Concern would be osteoporotic. Will defer to PCP. Vitamin D level is adequate. She definitely needs operative repair. She appears to be a medically acceptable risk for fixing the hip operatively. (Anesthesia did order an echocardiogram to evaluate the murmur they auscultated) (2) Anemia: Follow, she is typed and crossed, she may need transfusion. Right now she does not show indications based on her hemoglobin or vital signs. (3) UTI (urinary tract infection): She recently had an ESBL, but it appears that it was adequately treated with home IV antibiotics. (4) Hyperthyroidism: Noted, certainly would be a reason for her to have osteoporosis. Her last TSH was 0.228, so not massively overly suppressed, but still a bit low. Right now would not be a good time to check a follow-up TSH given the trauma of the hip fracture. But certainly we want to check one in the near future and adjust her Synthroid dose if needed. (5) Dementia: Supportive care reassurance (6) CKD (chronic kidney disease) stage 4, GFR 15-29 ml/min: Her creatinine appears to be at/around her baseline (7) Diabetes: Follow fingersticks supplemental insulin. (8) HTN (hypertension): Follow, continue her home meds. (9) HLD (hyperlipidemia): Outpatient management (10) Anxiety and depression: Reassurance and supportive care as possible (11) PMR (polymyalgia rheumatica): Continue home meds, this certainly also is a risk for osteoporosis Right now she does not appear that she will need stress dosing of steroids, but obviously if she shows any hemodynamic instability this should be given strong consideration. (12) DVT prophylaxis: Preop SCDs, postop hopefully will be out of initiate Lovenox or heparin subcu depending on her creatinine clearance at the time (13) Discharge planning issues: Discussed with son Momo, she is more than likely going to need some sort of rehab stay. Given that her PCP does cover [facility] this would be a reasonable option, but obviously will defer to patient and family in this regard. As relates to her CODE STATUS she is a full code. History of Present Illness Chief Complaint: Fall, hip pain Primary Care Provider: Bryn Marin MD History is somewhat limited due to dementia. Patient is a 73-year-old female who fell. She apparently experienced near immediate hip pain, and the family brought her to the ER for further evaluation. She was found to have a hip fracture. She current complains of ongoing hip pain, but no other complaints. She does not believe she had her head she does not believe she lost consciousness, she has no head pain no chest pain or shortness of breath. Ortho updated on case, case discussed with anesthesia. Case discussed with ER. Called the patient's son Momo, updated him, as well as ascertained CODE STATUS. Allergies Allergy/AdvReac Type Severity Reaction Status Date / Time Svycopi-Ccw-Eyh Reductase Allergy Unknown VOMITING/GI Verified 08/18/18 08:59 Inhibitor ISSUES Home Medications Home Medications Medication Instructions Recorded Confirmed Type amlodipine 10 mg PO QDL 01/31/18 08/18/18 History bupropion HCl 150 mg PO BID 01/31/18 08/18/18 History buspirone 15 mg PO BID 01/31/18 08/18/18 History calcitriol 0.25 mcg PO 3XWK 01/31/18 08/18/18 History levothyroxine 150 mcg PO QAM 01/31/18 08/18/18 History ergocalciferol (vitamin D2) 50,000 unit PO WK 05/13/18 08/18/18 History prednisone 10 mg PO QAM 05/13/18 08/18/18 History insulin lispro [Humalog KwikPen 10 unit SUBCUT TIDM 08/01/18 08/18/18 History Insulin] lorazepam [Ativan] 0.5 - 1 mg PO BID PRN 08/01/18 08/18/18 History labetalol 150 mg PO Q12H #0 tab 08/06/18 08/18/18 Rx Lantus Solostar U-100 Insulin 16 unit SUBCUT HS 08/16/18 08/18/18 History acetaminophen [Tylenol Extra 500 mg PO Q6H PRN 08/18/18 08/18/18 History Strength] Past Med/Surg History Medical History Dementia CKD (chronic kidney disease) stage 4, GFR 15-29 ml/min Metabolic encephalopathy Acute renal failure due to tubular necrosis Hyperkalemia (Acute) UTI (urinary tract infection) (Acute) Hypothyroid Personal history of transient ischemic attack (TIA), and cerebral infarction without residual deficits PMR (polymyalgia rheumatica) Anxiety and depression HTN (hypertension) HLD (hyperlipidemia) Diabetes Overactive bladder Anemia (Acute) Shortness of breath (Acute) TIA (transient ischemic attack) (Resolved) Bilateral leg edema Cramp of both lower extremities SEN (headache) Renal insufficiency TIA (transient ischemic attack) Surgical History Status post hysterectomy Family History Mother , around age 70 Diabetes Hypertension Coronary heart disease Father , around age 70 Hypertension Diabetes Coronary heart disease Other No pertinent family history Social History Preferred Language: Irish Communication Ability: Effective Row Boss Hoeing Required: No Beliefs That Will Affect Care: None marital status: / Current Living Situation: Spouse current occupational status: 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[employer] Other Information That Helps Us Care for You: No Feels Safe at Home: Yes Safety Concerns: Feels Safe At This Time Smoking Status: Former smoker Hx Alcohol Use: No Hx Substance Use: No Review of Systems Review of Systems: All systems reviewed & are unremarkable except as noted in HPI & below Relatively unobtainable due to baseline mentation Physical Exam Physical Exam: General she is awake and alert pleasant appears a little bit uncomfortable no distress HEENT normal cephalic atraumatic mucous membranes moist Cardio is regular without rubs murmurs gallops (anesthesia did believe they heard a murmur) Lungs clear to auscultation bilaterally no rales rhonchi or wheeze with good effort Abdomen is soft nondistended nontender no masses or organomegaly Extremities show no cyanosis or clubbing may be trace bilateral lower extremity edema at the worst, SCDs are in place, left leg is shortened and externally rotated Neuro shows cranial nerves II through XII are grossly intact gross motor and sensory intact Skin shows no rashes no pallor icterus Musculoskeletal exam left lower extremity shortened and externally rotated as above otherwise unremarkable with no other gross findings Mental status fairly poor Results & Data Vital Signs (Past 12 Hours) Vital Signs Temp Pulse Pulse Pulse Resp BP BP 08/18/18 14:58 36.8 C 75 18 148/65 H 04/21/19 12:20 71 20 159/78 H 08/18/18 11:36 36.8 C 73 18 163/65 H 08/18/18 11:17 71 20 159/78 H 08/18/18 09:54 71 20 172/74 H 08/18/18 09:15 65 22 151/101 H 08/18/18 08:36 08/18/18 08:27 36.9 C 63 22 147/40 H Pulse Ox 08/18/18 14:58 93 08/18/18 12:20 98 08/18/18 11:36 99 08/18/18 11:17 2 L 08/18/18 09:54 08/18/18 09:15 100 08/18/18 08:36 95 08/18/18 08:27 92 Laboratory Results Labs noted, chest x-ray noted pelvis x-ray noted. EKG nonacute. (1) Intertrochanteric fracture of left femur Encounter type: initial encounter Fracture alignment: displaced Fracture type: closed Qualified Code(s): S72.142A - Displaced intertrochanteric fracture of left femur, initial encounter for closed fracture (2) Anemia Anemia type: unspecified type Qualified Code(s): D64.9 - Anemia, unspecified (3) UTI (urinary tract infection) Hematuria presence: without hematuria Urinary tract infection type: site unspecified Qualified Code(s): N39.0 - Urinary tract infection, site not specified
[2018-08-18] MEDS: MoRPHine SULFATE 2 MG/ML CARP IV PRN ×2 (18:09→20:01)
[2018-08-18] MEDS: LORazepam 0.5 MG TAB PO PRN (20:11)
[2018-08-18] MEDS ORDERED: INSULIN GLARGINE SOLOSTAR 100 UNITS/ML 3 ML PEN SQ SCH (21:00)
[2018-08-18] MEDS: BusPIRone 15 MG TAB PO SCH (22:12)
[2018-08-18] MEDS: DOCUSATE SODIUM/SENNA 50/8.6MG TAB PO SCH (22:14)
[2018-08-19] MEDS: D5W AND LACTATED RINGERS 1,000 ML IV SCH ×2 (01:15→15:27)
[2018-08-19] MEDS ORDERED: Nursing to Pharmacy Communication ONE (01:25)
[2018-08-19] MEDS ORDERED: TRANEXAMIC ACID 1,000 MG in 0.9 % SODIUM CHLORIDE 100 ML IV SCH (06:00)
[2018-08-19] MEDS: INSULIN ASPART 100 UNITS/ML 3 ML PEN SC SCH ×3 (06:14→21:28)
[2018-08-19] MEDS: LEVOTHYROXINE SODIUM 150 MCG TABLET PO SCH ×2 (06:16→11:35)
[2018-08-19 06:26] LABS: Basophils # (auto) 0.01 K/uL (0-0.2); Basophils % (auto) 0.1 %; Eosinophils # (auto) 0.13 K/uL (0-0.5); Eosinophils % (auto) 1.4 %; Hematocrit (blood only) 24.2 % (37-47); Hemoglobin 7.9 g/dL (12.0-16.0); Immature Granulocytes # (auto) 0.03 K/uL (0.00-0.02); Immature Granulocytes % (auto) 0.3 %; Lymphocytes # (auto) 1.15 K/uL (1.2-3.4); Mean Corpuscular Hgb Conc 32.6 g/dL (32-36); Mean Corpuscular Volume 90.3 fL (80-100); Monocytes # (auto) 0.47 K/uL (0.11-0.59); Monocytes % (auto) 4.9 %; Neutrophils # (auto) 7.81 K/uL (1.4-6.5); Neutrophils % (auto) 81.3 %; Platelet Count 165 K/uL (130-400); RDW Coefficient of Variation 17.5 % (11.5-14.5); RDW Standard Deviation 58.6 fL (36.4-46.3); Red Blood Count 2.68 M/uL (4.2-5.4)
[2018-08-19 06:53] LABS: Blood Urea Nitrogen 20 mg/dl (7-18); Carbon Dioxide 23 mmol/L (21-32); Chloride 115 mmol/L (98-107); Est GFR (African American) 31.2; Est GFR (Non-African American) 26.9; Glucose 77 mg/dl (70-99); Potassium 4.2 mmol/L (3.5-5.1); Sodium 143 mmol/L (136-145)
[2018-08-19] MEDS ORDERED: CEFAZOLIN 2000MG 2,000 MG/15 ML SYR IV SCH (07:00)
[2018-08-19 07:06] LABS: Schistocytes 1+; Toxic Granulation 1+
--- NOTE | 2018-08-19 07:08 | Orthopedic Consultation ---
Date of Consultation August 19, 2018 Assessment & Plan (1) Intertrochanteric fracture of left hip: Patient examined by myself at the bedside. X-rays indicate a left intertrochanteric hip fracture with some sub-neck involvement. The plan is to undergo an IM rodding of the left hip. We obtained consent with the son with a witness at the same time over the telephone. We explained the risk and benefits of the operation with the patient and did relay the message that if we do not fix this there is a significantly high mortality rate in an elderly individual with dementia. The son understood and he want to proceed with the operation to help with pain relief and help her to ambulate as soon as possible. There is always a chance that these do not heal and may require further surgery other risk R DVTs, cardiac arrest strokes in any other unforeseen complications. Thank for the consultation and the plan is to fix her later this afternoon. History of Present Illness Reason for Consultation: Left hip pain Attending Physician: Jesus Brownlee DO History of Present Illness Pleasant elderly female with significant dementia who unfortunately taken a fall yesterday and sustained a left intertrochanteric hip fracture. Patient admitted to the medical service, appears to have really no major underlying cardiac issues slightly anemic at 8.4 yesterday. But patient currently a symptomatic. Patient alert and oriented but otherwise poor historian. Allergies Allergy/AdvReac Type Severity Reaction Status Date / Time Hkaiutw-Duc-Xyv Reductase Allergy Unknown VOMITING/GI Verified 08/18/18 08:59 Inhibitor ISSUES Home Medications Home Medications Medication Instructions Recorded Confirmed Type amlodipine 10 mg PO QDL 01/31/18 08/18/18 History bupropion HCl 150 mg PO BID 01/31/18 08/18/18 History buspirone 15 mg PO BID 01/31/18 08/18/18 History calcitriol 0.25 mcg PO 3XWK 01/31/18 08/18/18 History levothyroxine 150 mcg PO QAM 01/31/18 08/18/18 History ergocalciferol (vitamin D2) 50,000 unit PO WK 05/13/18 08/18/18 History prednisone 10 mg PO QAM 05/13/18 08/18/18 History insulin lispro [Humalog KwikPen 10 unit SUBCUT TIDM 08/01/18 08/18/18 History Insulin] lorazepam [Ativan] 0.5 - 1 mg PO BID PRN 08/01/18 08/18/18 History labetalol 150 mg PO Q12H #0 tab 08/06/18 08/18/18 Rx Lantus Solostar U-100 Insulin 16 unit SUBCUT HS 08/16/18 08/18/18 History acetaminophen [Tylenol Extra 500 mg PO Q6H PRN 08/18/18 08/18/18 History Strength] Patient History Medical History Dementia CKD (chronic kidney disease) stage 4, GFR 15-29 ml/min Metabolic encephalopathy Acute renal failure due to tubular necrosis Hyperkalemia (Acute) UTI (urinary tract infection) (Acute) Hypothyroid Personal history of transient ischemic attack (TIA), and cerebral infarction without residual deficits PMR (polymyalgia rheumatica) Anxiety and depression HTN (hypertension) HLD (hyperlipidemia) Diabetes Overactive bladder Anemia (Acute) Shortness of breath (Acute) TIA (transient ischemic attack) (Resolved) Bilateral leg edema Cramp of both lower extremities SEN (headache) Renal insufficiency TIA (transient ischemic attack) Surgical History Status post hysterectomy Family History Mother , around age 70 Diabetes Hypertension Coronary heart disease Father , around age 70 Hypertension Diabetes Coronary heart disease Other No pertinent family history Social History Preferred Language: [place] Communication Ability: Effective Pit Manager Required: No Beliefs That Will Affect Care: None marital status: / Current Living Situation: Spouse current occupational status: 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 There is pain with any attempted range of motion. Results & Data Vital Signs (Past 12 Hours) Vital Signs Temp Pulse Pulse Resp BP BP Pulse Ox 08/18/18 23:02 37.0 C 68 16 160/65 H 96 08/18/18 22:10 75 176/74 H
[2018-08-19] MEDS ORDERED: PERFLUTREN LIPID MICROSPHERE (DEFINITY) IV ONE (07:45)
--- NOTE | 2018-08-19 08:22 | Family Medicine Progress Note ---
Date of Service August 19, 2018 Assessment & Plan (1) Intertrochanteric fracture of left hip: (1) Intertrochanteric fracture of left femur: -Needs outpt osteoporosis workup, vit d okay -POD 0 S/P Intramedullary nailing of left hip(Left) -Routine post-op care per ortho (2) Anemia: -Consented, Type and crossed -S/P 1 unit PRBC pre op -H/H Post op 8.2 continue to trend (3) UTI (urinary tract infection): -Recent HX, now resolved (4) Hyperthyroidism: -last TSH was 0.228, a bit low. -F/U outpt (5) Dementia: -Supportive care reassurance (6) CKD (chronic kidney disease) stage 4, GFR 15-29 ml/min: -Cr today is 1.84, trend daily (7) Diabetes: -Glycemic cx placed (8) HTN (hypertension): -Continue home meds (9) HLD (hyperlipidemia): -Continue home meds (10) Anxiety and depression: -Continue Home meds -open windows during the day to minimize ing (11) PMR (polymyalgia rheumatica): -Continue home meds -no signs of AI currently, consider stress steroids if HD instability develops (12) DVT prophylaxis: -Per Ortho, SCDS for now, will consider tx to medical AC tomorrow (13) Discharge planning issues: -will need rehab -Case managment following -PCP is at center [facility] FEN:DMII/Low Salt DVT: SCDS Full Code Dispo: rehab when cleared Supervising Physician Co-Signing Physician Notes Patient seen and examined independently of Dr. Lazo. Agree with history, exam, assessment and plan of care as documented by Dr. Lazo. In brief, Ms. Jacobsen is a very pleasant 73 year old female admitted after sustaining a mechanical fall and sustaining a left intertrochanteric femur fracture. On exam today, she reports that she is comfortable and has minimal pain post-op. 1. Left hip fracture s/p IM nailing with ortho POD #0. Pain management per ortho. She has osteoporosis with this fragility fracture. Vitamin D level within normal. No evidence of calcium hemostasis disorder. Will defer to PCP as an outpatient to whether or not to start a bisphosphonate vs SERM. PT/OT consulted for discharge planning--will likely need SNF. 2. Anemia. s/p 1 unit PRBCs pre-op. Monitor for post-op anemia. 3. Dementia. constant reorientation as she is susceptible to delirium with post- op pain, new environment, etc. 4. DM. Insulin management based on cap glucoses. 5. CKD, stage 4. Cr at baseline. monitor. Dispo: pending surgical clearance for dc, placement in SNF. Subjective Pt seen in the pacu post op. Per surgery and anesthesia she tolerated the procedure well. The pt denied any pain or other complaints, and reported feeling well. Pt met all of her post op milestones. Pt was AAOx0 and this is her baseline. No acute concerns at present. Pt denies: SOB, CP, chest tenderness, N/V/D, Fevers, Headache, dizziness, other si/sx of acute process Physical Exam Physical Exam: Gen: Obese female in NAD Eyes: EOMI/PERRLA Neck: Trachea midline, normal to inspection, no JVD Chest: CTAB/L Cards: RRR, II/IV systolic ejection murmur, no rubs or gallops, cap refill<2secs 1 + pedal edema, GI: NT/ND, NL BS MSK: moves all extremities Skin: Surgical site clean, dry, and intact, no bruises or rashes Psych: advanced dementia, AAO x0 Results & Data Vital Signs (Past 12 Hours) Vital Signs Temp Pulse Pulse Resp BP BP Pulse Ox 08/19/18 07:42 37.3 C 75 20 164/77 H 95 08/18/18 23:02 37.0 C 68 16 160/65 H 96 08/18/18 22:10 75 176/74 H Laboratory Results 08/19/18 13:48 08/19/18 05:49 08/19/18 08/19/18 08/19/18 Range/Units 13:48 13:38 11:27 WBC 8.74 (4.8-10.8) K/uL RBC 2.73 L (4.2-5.4) M/uL Hgb 8.2 L (12.0-16.0) g/dL Hct 25.1 L (37-47) % MCV 91.9 (80-100) fL MCH 30.0 (25-34) pg MCHC 32.7 (32-36) g/dL RDW Std Deviation 59.0 H (36.4-46.3) fL RDW Coeff of Tanya 17.3 H (11.5-14.5) % Plt Count 137 (130-400) K/uL MPV 10.0 (7.4-10.4) fL Immature Gran % (Auto) 0.3 % Neut % (Auto) 79.1 % Lymph % (Auto) 13.4 % [place] % (Auto) 5.4 % Eos % (Auto) 1.7 % Baso % (Auto) 0.1 % Immature Gran # (Auto) 0.03 H (0.00-0.02) K/uL Neut # (Auto) 6.91 H (1.4-6.5) K/uL Lymph # (Auto) 1.17 L (1.2-3.4) K/uL [place] # (Auto) 0.47 (0.11-0.59) K/uL Eos # (Auto) 0.15 (0-0.5) K/uL Baso # (Auto) 0.01 (0-0.2) K/uL Toxic Granulation Schistocytes Sodium (136-145) mmol/L Potassium (3.5-5.1) mmol/L Chloride (98-107) mmol/L Carbon Dioxide (21-32) mmol/L Anion Gap (3-11) BUN (7-18) mg/dl Creatinine (0.6-1.2) mg/dl Est Cr Clr Drug Dosing Est GFR ( Amer) Est GFR (Non-Af Amer) BUN/Creatinine Ratio (10-20) Glucose (70-99) mg/dl POC Glucose 90 105 H (70-99) Calcium (8.5-10.1) mg/dl Blood Type Antibody Screen Crossmatch 08/19/18 08/19/18 08/19/18 Range/Units 05:56 05:49 05:49 WBC 9.60 (4.8-10.8) K/uL RBC 2.68 L (4.2-5.4) M/uL Hgb 7.9 L (12.0-16.0) g/dL Hct 24.2 L (37-47) % MCV 90.3 (80-100) fL MCH 29.5 (25-34) pg MCHC 32.6 (32-36) g/dL RDW Std Deviation 58.6 H (36.4-46.3) fL RDW Coeff of Tanya 17.5 H (11.5-14.5) % Plt Count 165 (130-400) K/uL MPV 10.0 (7.4-10.4) fL Immature Gran % (Auto) 0.3 % Neut % (Auto) 81.3 % Lymph % (Auto) 12.0 % [place] % (Auto) 4.9 % Eos % (Auto) 1.4 % Baso % (Auto) 0.1 % Immature Gran # (Auto) 0.03 H (0.00-0.02) K/uL Neut # (Auto) 7.81 H (1.4-6.5) K/uL Lymph # (Auto) 1.15 L (1.2-3.4) K/uL [place] # (Auto) 0.47 (0.11-0.59) K/uL Eos # (Auto) 0.13 (0-0.5) K/uL Baso # (Auto) 0.01 (0-0.2) K/uL Toxic Granulation 1+ Schistocytes 1+ Sodium 143 (136-145) mmol/L Potassium 4.2 (3.5-5.1) mmol/L Chloride 115 H (98-107) mmol/L Carbon Dioxide 23 (21-32) mmol/L Anion Gap 5.0 (3-11) BUN 20 H (7-18) mg/dl Creatinine 1.84 H D (0.6-1.2) mg/dl Est Cr Clr Drug Dosing Not Reportable Est GFR ( Amer) 31.2 Est GFR (Non-Af Amer) 26.9 BUN/Creatinine Ratio 11.0 (10-20) Glucose 77 (70-99) mg/dl POC Glucose 93 (70-99) Calcium 9.0 (8.5-10.1) mg/dl Blood Type Antibody Screen Crossmatch 08/18/18 08/18/18 08/18/18 Range/Units 20:33 17:04 08:41 WBC (4.8-10.8) K/uL RBC (4.2-5.4) M/uL Hgb (12.0-16.0) g/dL Hct (37-47) % MCV (80-100) fL MCH (25-34) pg MCHC (32-36) g/dL RDW Std Deviation (36.4-46.3) fL RDW Coeff of Tanya (11.5-14.5) % Plt Count (130-400) K/uL MPV (7.4-10.4) fL Immature Gran % (Auto) % Neut % (Auto) % Lymph % (Auto) % [place] % (Auto) % Eos % (Auto) % Baso % (Auto) % Immature Gran # (Auto) (0.00-0.02) K/uL Neut # (Auto) (1.4-6.5) K/uL Lymph # (Auto) (1.2-3.4) K/uL [place] # (Auto) (0.11-0.59) K/uL Eos # (Auto) (0-0.5) K/uL Baso # (Auto) (0-0.2) K/uL Toxic Granulation Schistocytes Sodium (136-145) mmol/L Potassium (3.5-5.1) mmol/L Chloride (98-107) mmol/L Carbon Dioxide (21-32) mmol/L Anion Gap (3-11) BUN (7-18) mg/dl Creatinine (0.6-1.2) mg/dl Est Cr Clr Drug Dosing Est GFR ( Amer) Est GFR (Non-Af Amer) BUN/Creatinine Ratio (10-20) Glucose (70-99) mg/dl POC Glucose 156 H 178 H (70-99) Calcium (8.5-10.1) mg/dl Blood Type A Positive Antibody Screen NEGATIVE Crossmatch See Detail Medications Administered Current Inpatient Medications Acetaminophen (Tylenol) 650 mg PO Q6H PRN PRN Reason: MILD Pain (Scale 1,2,3) Stop: 09/17/18 11:32 Amlodipine Besylate (Norvasc) 10 mg PO QDL [facility] Stop: 09/17/18 11:32 Last Admin: 08/19/18 13:09 Dose: Not Given Documented by: Aspirin (Ecotrin Ectab) 81 mg PO BID [facility] Stop: 09/18/18 20:59 Bisacodyl (Dulcolax) 10 mg CO DAILY PRN PRN Reason: Constipation Stop: 09/17/18 11:32 Bupropion HCl (Wellbutrin-Sr) 150 mg PO BID17 [facility] Stop: 09/17/18 16:59 Last Admin: 08/19/18 09:02 Dose: Not Given Documented by: Buspirone HCl (Buspar) 15 mg PO BID [facility] Stop: 09/17/18 20:59 Last Admin: 08/19/18 09:02 Dose: Not Given Documented by: Calcitriol (Racaltrol) 0.25 mcg PO MoWeFr@0900 [facility] Stop: 09/18/18 08:59 Last Admin: 08/19/18 09:02 Dose: Not Given Documented by: Dextrose (Dextrose 50%) 25 - 50 ml IV UD PRN; Protocol PRN Reason: Hypoglycemia Protocol Stop: 09/17/18 12:14 Ergocalciferol (Vitamin D2) 50,000 units PO We@0900 [facility] Stop: 09/20/18 08:59 Glucagon (Glucagen) 1 mg IM UD PRN; Protocol PRN Reason: Hypoglycemia Protocol Stop: 09/17/18 12:14 Glucose (Glucose 40%) 15 - 30 gm PO UD PRN; Protocol PRN Reason: Hypoglycemia Protocol Stop: 09/17/18 12:14 Glucose (Dex4 Glucose) 4 - 8 tabs PO UD PRN; Protocol PRN Reason: Hypoglycemia Protocol Stop: 09/17/18 12:14 Dextrose/Lactated Ringer's (D5w And Lactated Ringers) 1,000 mls @ 70 mls/hr IV .[id number] [facility] Stop: 09/17/18 11:59 Last Infusion: 08/19/18 09:25 Dose: 0 mls/hr Documented by: Cefazolin Sodium (Ancef 2000mg) 2,000 mg in 15 mls @ 3.75 mls/min IV Q8H [facility]; Protocol Stop: 08/20/18 04:03 Insulin Aspart (Novolog Flexpen) 0 units SC Q6 [facility] Stop: 09/18/18 05:59 Last Admin: 08/19/18 06:14 Dose: Not Given Documented by: Insulin Glargine (Lantus Solostar Pen) 16 units SQ HS [facility] Stop: 09/17/18 20:59 Last Admin: 08/18/18 22:17 Dose: 16 units Documented by: Labetalol HCl (Normodyne) 150 mg PO Q12 [facility] Stop: 09/17/18 11:32 Last Admin: 08/19/18 11:33 Dose: Not Given Documented by: Levothyroxine Sodium (Synthroid) 150 mcg PO DAILYBB [facility] Stop: 09/18/18 06:29 Last Admin: 08/19/18 11:35 Dose: 150 mcg Documented by: Lorazepam (Ativan) 0.5 mg PO BID PRN PRN Reason: Anxiety Stop: 09/17/18 11:32 Last Admin: 08/18/18 20:11 Dose: 0.5 mg Documented by: Magnesium Hydroxide (Milk Of Magnesia) 30 ml PO DAILY PRN PRN Reason: Constipation Stop: 09/17/18 11:32 Miscellaneous (Carbohydrates For Hypoglycemia) 15 - 30 gm PO UD PRN PRN Reason: Hypoglycemia Treatment Stop: 09/17/18 12:14 Naloxone HCl (Narcan) 0.1 mg IV UD PRN PRN Reason: Opioid Overdose Stop: 09/18/18 14:50 Ondansetron HCl (Zofran) 4 mg IV Q6H PRN PRN Reason: Nausea Stop: 09/17/18 11:32 Polyethylene Glycol (Miralax Powder Packet) 17 gm PO DAILY PRN PRN Reason: Constipation Stop: 09/17/18 11:32 Prednisone (Prednisone) 10 mg PO QAM [facility] Stop: 09/18/18 08:59 Last Admin: 08/19/18 09:02 Dose: Not Given Documented by: Senna/Docusate Sodium (Senokot S) 2 tab PO HS [facility] Stop: 09/17/18 20:59 Last Admin: 08/18/18 22:14 Dose: Not Given Documented by: Resident Activity Tracking Resident Involvement: Resident Care Provided Care Provided: Adult Hospital Medicine
[2018-08-19] MEDS: predniSONE 10 MG TABLET PO SCH (09:02)
[2018-08-19] MEDS: LABETALOL HCL 100 MG TAB PO SCH ×2 (09:02→11:33)
[2018-08-19] MEDS: CALCITRIOL 0.25 MCG CAPSULE PO SCH (09:02)
[2018-08-19] MEDS: BusPIRone 15 MG TAB PO SCH ×2 (09:02→21:18)
[2018-08-19] MEDS: BuPROPion SR 150 MG TABCR PO SCH ×2 (09:02→18:16)
[2018-08-19] MEDS: MoRPHine SULFATE 2 MG/ML CARP IV PRN ×2 (09:55→18:12)
[2018-08-19] MEDS ORDERED: LIDOCAINE HCL 2% 2 ML VIAL/AMP(20MG/ML) INFIL ONE (10:37)
[2018-08-19] MEDS ORDERED: PHENYLEPHRINE 100MCG/ML 5ML SYR ONE (10:37)
[2018-08-19] MEDS ORDERED: PROPOFOL IV EMULSION 10 MG/ML 20 ML VIAL IV ONE ×2 (10:37→13:03)
[2018-08-19] MEDS ORDERED: ePHEDrine sulfate 50 MG/ML SYR ONE (10:37)
[2018-08-19] MEDS ORDERED: fentaNYL citrate 100 MCG/2 ML VIAL ONE (10:37)
[2018-08-19] MEDS ORDERED: BUPIVACAINE 0.5 % 5 MG/1 ML PF 10ML VIAL ONE (11:31)
[2018-08-19] MEDS ORDERED: ePHEDrine sulfate 50 MG/ML AMP IV PRN (11:57)
[2018-08-19] MEDS ORDERED: ONDANSETRON INJ 2 MG/ML 2 ML VIAL IV PRN (11:57)
[2018-08-19] MEDS ORDERED: fentaNYL citrate 100 MCG/2 ML VIAL IV PRN (11:57)
[2018-08-19] MEDS ORDERED: ATROPINE SULFATE 0.1 MG/ML 10ML SYR IV PRN (11:57)
[2018-08-19] MEDS: AMLODIPINE BESYLATE 5 MG TAB PO SCH (13:09)
--- NOTE | 2018-08-19 13:42 | Operative Report ---
Post Operative Report Pre & Post Diagnosis Operation Date: 08/19/18 07:00 Pre-Op Diagnosis: Left hip fracture Post-Op Diagnosis: Left hip fracture Procedure Operation Date: 08/19/18 07:00 Actual Procedures p Intramedullary nailing of left hip(Left) - David Bassett Surgeon David Bassett Hand Finisher None Estimated Blood Loss 100 Findings Consistent with Post-Op Diagnosis Specimens None Complications none Disposition Accompanied Patient To Recovery: No Disposition: Recovery Room Description of Procedure Positive female who reports he had taken a fall and sustained a left intertrochanteric hip fracture. Risks and benefits of the surgery were discussed the patient and the family in their entirety specifically the son. He decided to proceed with the operative intervention. Patient brought to the operating probably identified by myself anesthesia nursing staff she was given a spinal anesthetic placed on the operating table in a supine position on the fracture table. Then placed the left leg in traction right leg at harm's way and well-padded. X-rays revealed a good anatomic reduction with AP lateral planes. Fracture was quite comminuted and osteoporotic. Then prepped and draped the left hip insert or being fashion. Then made an incision centered directly above the greater trochanteric area dissected down through place a guidewire on the tip of the trochanteric region the guidewire was then advanced to the proximal femur. Then with a long guidewire in place measured to be 360 mm in length then reamed one time with a 12.5 mm reamer. The put the Synthes trochanteric nail in the place then placed next guidewire in the center of the head neck in both AP lateral planes. This measured to be 100 mm then reamed to the appropriate depth, then placed the compression screw in the place. Had great fixation of the fracture and then compressed the fracture as well. Thoroughly irrigated the wound closed wound with a 2-0 Vicryl suture then the skin with ken sterile dressings was applied patient to recovery room in stable condition. Implants used were a Synthes trochanteric nail 360 x 11 mm with a 100 mm helical blade. I attest to the content of the Intraoperative Record and any orders documented therein. Any exceptions are noted below.
--- NOTE | 2018-08-19 13:43 | Anesthesiology Progress Note ---
Date of Service August 19, 2018 Anesthesia Post Procedure Vital Signs Vital Signs: Temp Pulse Pulse Pulse Resp BP BP 08/19/18 11:55 73 18 167/77 H 08/19/18 11:30 37.6 C H 80 18 198/70 H 08/19/18 11:00 37.7 C H 78 18 180/113 H 08/19/18 10:45 37.3 C 79 79 92 H 18 182/84 H 08/19/18 10:24 36.9 C 77 16 185/74 H 08/19/18 10:00 36.9 C 79 18 188/68 H 08/19/18 09:45 36.7 C 80 20 166/82 H 08/19/18 09:19 37.6 C H 82 20 179/79 H 08/19/18 07:42 37.3 C 75 20 164/77 H 08/18/18 23:02 37.0 C 68 16 08/18/18 22:10 75 176/74 H 08/18/18 14:58 36.8 C 75 18 BP Pulse Ox 08/19/18 11:55 94 08/19/18 11:30 94 08/19/18 11:00 94 08/19/18 10:45 182/84 H 92 08/19/18 10:24 95 08/19/18 10:00 94 08/19/18 09:45 96 08/19/18 09:19 08/19/18 07:42 95 08/18/18 23:02 160/65 H 96 08/18/18 22:10 08/18/18 14:58 148/65 H 93 Pain Intensity Left Hip: Pain Intensity: 5 Notes Mental Status: alert / awake / arousable Patient Amnestic to Procedure: Yes Nausea / Vomiting: adequately controlled Pain: adequately controlled Airway Patency, RR, SpO2: stable & adequate BP & HR: stable & adequate Hydration State: stable & adequate Neuraxial Anesthesia: was administered and sensory block is resolving Anesthetic Complications: no major complications apparent and Pt Satisfied with anesthetic care
[2018-08-19 13:57] LABS: Basophils # (auto) 0.01 K/uL (0-0.2); Basophils % (auto) 0.1 %; Eosinophils # (auto) 0.15 K/uL (0-0.5); Eosinophils % (auto) 1.7 %; Hematocrit (blood only) 25.1 % (37-47); Hemoglobin 8.2 g/dL (12.0-16.0); Immature Granulocytes # (auto) 0.03 K/uL (0.00-0.02); Immature Granulocytes % (auto) 0.3 %; Lymphocytes # (auto) 1.17 K/uL (1.2-3.4); Lymphocytes % (auto) 13.4 %; Mean Corpuscular Volume 91.9 fL (80-100); Monocytes # (auto) 0.47 K/uL (0.11-0.59); Monocytes % (auto) 5.4 %; Neutrophils # (auto) 6.91 K/uL (1.4-6.5); Neutrophils % (auto) 79.1 %; Platelet Count 137 K/uL (130-400); RDW Coefficient of Variation 17.3 % (11.5-14.5); Red Blood Count 2.73 M/uL (4.2-5.4); White Blood Count 8.74 K/uL (4.8-10.8)
[2018-08-19 14:02] LABS: Mean Corpuscular Hgb Conc 32.7 g/dL (32-36)
--- NOTE | 2018-08-19 14:02 | Fluoroscopy Report ---
FL hip LT 2-3V CLINICAL HISTORY: LT TROCH NAIL COMPARISON STUDY: Left hip 08/18/2018. FLUOROSCOPY TIME: 35 seconds. FINDINGS: Single fluoroscopic spot image of the left hip demonstrates internal fixation of the intert rochanteric fracture. The alignment appears near anatomic. The hardware is intact. IMPRESSION: Fluoroscopy provided for internal fixation of a left hip fracture. Electronically signed by: Travon Castellano M.D. 08/19/2018 2:01 PM
[2018-08-19] MEDS ORDERED: NALOXONE HCL 0.4 MG/1 ML VIAL/CARP IV PRN (14:51)
[2018-08-19] MEDS ORDERED: PHARMACY GLYCEMIC MGMT CONSULT PRN (15:32)
[2018-08-19] MEDS ORDERED: ACETAMINOPHEN 500 MG TAB PO PRN (17:06)
[2018-08-19 18:34] LABS: Basophils # (auto) 0.02 K/uL (0-0.2); Basophils % (auto) 0.2 %; Eosinophils # (auto) 0.15 K/uL (0-0.5); Eosinophils % (auto) 1.3 %; Hematocrit (blood only) 25.5 % (37-47); Hemoglobin 8.3 g/dL (12.0-16.0); Immature Granulocytes # (auto) 0.04 K/uL (0.00-0.02); Immature Granulocytes % (auto) 0.4 %; Lymphocytes # (auto) 0.99 K/uL (1.2-3.4); Lymphocytes % (auto) 8.9 %; Mean Corpuscular Volume 88.9 fL (80-100); Mean Platelet Volume 9.7 fL (7.4-10.4); Monocytes # (auto) 0.64 K/uL (0.11-0.59); Monocytes % (auto) 5.7 %; Neutrophils # (auto) 9.32 K/uL (1.4-6.5); Neutrophils % (auto) 83.5 %; Platelet Count 155 K/uL (130-400); RDW Coefficient of Variation 17.5 % (11.5-14.5); RDW Standard Deviation 57.6 fL (36.4-46.3); Red Blood Count 2.87 M/uL (4.2-5.4); White Blood Count 11.16 K/uL (4.8-10.8)
--- NOTE | 2018-08-19 18:44 | XRay Report ---
XR chest 1V portable HISTORY: fever COMPARISON: Chest 08/18/2018. FINDINGS: No pneumothorax. No pleural effusions. The heart remains mildly enlarged. Bilateral perihil ar interstitial thickening has progressed. IMPRESSION: Slight progression of the bilateral perihilar interstitial thickening. This may represent mild conges tive change. An atypical pneumonitis could also have a similar appearance. Electronically signed by: Travon Castellano M.D. 08/19/2018 6:42 PM
[2018-08-19 19:00] LABS: Mean Corpuscular Hgb Conc 32.5 g/dL (32-36)
[2018-08-19] MEDS: CEFAZOLIN 2000MG 2,000 MG/15 ML SYR IV SCH (20:19)
[2018-08-19] MEDS: ASPIRIN 81 MG ECTAB PO SCH (21:18)
[2018-08-19] MEDS: DOCUSATE SODIUM/SENNA 50/8.6MG TAB PO SCH (21:19)
[2018-08-19] MEDS: INSULIN GLARGINE SOLOSTAR 100 UNITS/ML 3 ML PEN SQ SCH (21:28)
[2018-08-20] MEDS: CEFAZOLIN 2000MG 2,000 MG/15 ML SYR IV SCH (04:34)
[2018-08-20] MEDS: MoRPHine SULFATE 2 MG/ML CARP IV PRN (04:34)
[2018-08-20] MEDS: D5W AND LACTATED RINGERS 1,000 ML IV SCH (05:26)
[2018-08-20 07:40] LABS: Basophils # (auto) 0.02 K/uL (0-0.2); Basophils % (auto) 0.2 %; Eosinophils # (auto) 0.17 K/uL (0-0.5); Eosinophils % (auto) 1.9 %; Hematocrit (blood only) 25.3 % (37-47); Hemoglobin 8.3 g/dL (12.0-16.0); Immature Granulocytes # (auto) 0.03 K/uL (0.00-0.02); Immature Granulocytes % (auto) 0.3 %; Lymphocytes # (auto) 1.11 K/uL (1.2-3.4); Lymphocytes % (auto) 12.3 %; Mean Corpuscular Hgb Conc 32.8 g/dL (32-36); Mean Corpuscular Volume 90.7 fL (80-100); Mean Platelet Volume 10.4 fL (7.4-10.4); Monocytes # (auto) 0.47 K/uL (0.11-0.59); Monocytes % (auto) 5.2 %; Neutrophils % (auto) 80.1 %; Platelet Count 124 K/uL (130-400); RDW Coefficient of Variation 17.6 % (11.5-14.5); RDW Standard Deviation 58.9 fL (36.4-46.3); Red Blood Count 2.79 M/uL (4.2-5.4)
--- NOTE | 2018-08-20 07:42 | Family Medicine Progress Note ---
Date of Service August 20, 2018 Assessment & Plan (1) Intertrochanteric fracture of left hip: (1) Intertrochanteric fracture of left femur: -Needs outpt osteoporosis workup, vit d okay -POD 1 S/P Intramedullary nailing of left hip(Left) -Routine post-op care per ortho -Pain Control : Given the significant level of this patient's dementia and fears that she is not asking for pain medication due to her mental status. -Percocet 5 mg is scheduled q6h for the next 4 days with breakthrough morphine as needed. -Tylenol DC'd -MiraLAX scheduled (2) Anemia: -Consented, Type and crossed -S/P 1 unit PRBC pre op -Hemoglobin stable at 8.3 today (3) UTI (urinary tract infection): -Recent HX, now resolved (4) Hyperthyroidism: -last TSH was 0.228, a bit low. -F/U outpt (5) Dementia: -Supportive care reassurance -open windows, bright lights to avoid sundowning (6) CKD (chronic kidney disease) stage 4, GFR 15-29 ml/min: -Cr today is 1.84, trend daily (7) Diabetes: -Glycemic cx placed (8) HTN (hypertension): -Continue home meds (9) HLD (hyperlipidemia): -Continue home meds (10) Anxiety and depression: -Continue Home meds -open windows during the day to minimize sundowning (11) PMR (polymyalgia rheumatica): -Continue home meds -no signs of AI currently, consider stress steroids if HD instability develops (12) DVT prophylaxis: -Per Ortho, ASA 81mg BID. SCDS. (13) Discharge planning issues: -will need rehab -Case managment following -PCP is at [facility] FEN:DMII/Low Salt DVT: SCDS & lovenox Full Code Dispo: rehab Supervising Physician Co-Signing Physician Notes Patient seen and examined with Dr. Lazo. Agree with history, exam, assessment and plan of care as documented by Dr. Lazo. In brief, Ms. Jacobsen is a very pleasant 73 year old female admitted after a mechanical fall and sustaining a left intertrochanteric femur fracture. On exam today, she reports that she is comfortable and has minimal pain post-op. She is tugging at her [place]. 1. Left hip fracture s/p IM nailing with ortho POD #1. Pain management with Percocet + PRN morphine. Can consider tramadol, but with her CKD and lower CrCl, may increase her risk of falls. She has osteoporosis with this fragility fracture. Vitamin D level within normal. No evidence of calcium hemostasis disorder. Will defer to PCP as an outpatient to whether or not to start a bisphosphonate vs SERM. PT/OT consulted for discharge planning--will likely need SNF. DVT prophylaxis per ortho ASA 81mg BID. 2. Anemia. s/p 1 unit PRBCs pre-op. Hemoglobin stable. 3. Dementia. Constant reorientation as she is susceptible to delirium with post- op pain, new environment, etc. Limit monitors and d/c P[place] as soon as we are able. 4. DM. Insulin management based on cap glucoses. 5. CKD, stage 4. Cr at baseline. monitor. Dispo: pending surgical clearance for dc, from a medical standpoint, likely ready for discharge soon. placement in SNF. Subjective Patient is laying in bed this morning in no acute distress. Overnight patient had a fever that resolved status post Tylenol, otherwise the patient did well overnight. patient reports no pain currently, states she is tolerating her diet, states she has voided, states she has not had a bowel movement, per nursing slept well overnight. Patient was alert and oriented 0/4 during the exam today. Patient has no concerns at present answered all questions. Physical Exam Physical Exam: Gen: Obese female in NAD Eyes: EOMI/PERRLA Neck: Trachea midline, normal to inspection, no JVD Chest: CTAB/L Cards: RRR, II/IV systolic ejection murmur, no rubs or gallops, cap refill<2secs 1 + pedal edema, GI: NT/ND, NL BS MSK: moves all extremities Skin: Surgical site clean, dry, and intact, no bruises or rashes Psych: advanced dementia, AAO x0 Results & Data Vital Signs (Past 12 Hours) Vital Signs Temp Pulse Pulse Resp BP BP Pulse Ox 08/20/18 07:39 37.2 C 80 18 174/72 H 95 08/20/18 05:26 164/79 H 08/20/18 04:55 08/20/18 03:19 37.5 C 79 18 191/68 H 180/80 H 95 08/20/18 01:05 37.6 C H 08/20/18 00:20 37.9 C H 08/19/18 23:02 175/72 H 08/19/18 23:01 37.9 C H 91 H 16 183/71 H 91 Pulse Ox 08/20/18 07:39 08/20/18 05:26 08/20/18 04:55 93 08/20/18 03:19 08/20/18 01:05 08/20/18 00:20 91 08/19/18 23:02 08/19/18 23:01 Laboratory Results 08/20/18 07:09 08/20/18 07:09 08/20/18 08/20/18 08/20/18 Range/Units 08:09 07:09 07:09 WBC (4.8-10.8) K/uL RBC (4.2-5.4) M/uL Hgb (12.0-16.0) g/dL Hct (37-47) % MCV (80-100) fL MCH (25-34) pg MCHC (32-36) g/dL RDW Std Deviation (36.4-46.3) fL RDW Coeff of Tanya (11.5-14.5) % Plt Count (130-400) K/uL MPV (7.4-10.4) fL Immature Gran % (Auto) % Neut % (Auto) % Lymph % (Auto) % [place] % (Auto) % Eos % (Auto) % Baso % (Auto) % Immature Gran # (Auto) (0.00-0.02) K/uL Neut # (Auto) (1.4-6.5) K/uL Lymph # (Auto) (1.2-3.4) K/uL [place] # (Auto) (0.11-0.59) K/uL Eos # (Auto) (0-0.5) K/uL Baso # (Auto) (0-0.2) K/uL Sodium 145 (136-145) mmol/L Potassium 4.2 (3.5-5.1) mmol/L Chloride 115 H (98-107) mmol/L Carbon Dioxide 22 (21-32) mmol/L Anion Gap 8.0 (3-11) BUN 18 (7-18) mg/dl Creatinine 1.84 H (0.6-1.2) mg/dl Est Cr Clr Drug Dosing Not Reportable Est GFR ( Amer) 31.2 Est GFR (Non-Af Amer) 26.9 BUN/Creatinine Ratio 9.9 L (10-20) Glucose 66 L (70-99) mg/dl POC Glucose 78 (70-99) Estimat Average Glucose 128 mg/dl Hemoglobin A1c 6.1 H (4.5-5.6) % Calcium 9.0 (8.5-10.1) mg/dl Blood Type Antibody Screen Crossmatch 08/20/18 08/19/18 08/19/18 Range/Units 07:09 20:45 18:12 WBC 9.00 11.16 H (4.8-10.8) K/uL RBC 2.79 L 2.87 L (4.2-5.4) M/uL Hgb 8.3 L 8.3 L (12.0-16.0) g/dL Hct 25.3 L 25.5 L (37-47) % MCV 90.7 88.9 (80-100) fL MCH 29.7 28.9 (25-34) pg MCHC 32.8 32.5 (32-36) g/dL RDW Std Deviation 58.9 H 57.6 H (36.4-46.3) fL RDW Coeff of Tanya 17.6 H 17.5 H (11.5-14.5) % Plt Count 124 L 155 (130-400) K/uL MPV 10.4 9.7 (7.4-10.4) fL Immature Gran % (Auto) 0.3 0.4 % Neut % (Auto) 80.1 83.5 % Lymph % (Auto) 12.3 8.9 % [place] % (Auto) 5.2 5.7 % Eos % (Auto) 1.9 1.3 % Baso % (Auto) 0.2 0.2 % Immature Gran # (Auto) 0.03 H 0.04 H (0.00-0.02) K/uL Neut # (Auto) 7.20 H 9.32 H (1.4-6.5) K/uL Lymph # (Auto) 1.11 L 0.99 L (1.2-3.4) K/uL [place] # (Auto) 0.47 0.64 H (0.11-0.59) K/uL Eos # (Auto) 0.17 0.15 (0-0.5) K/uL Baso # (Auto) 0.02 0.02 (0-0.2) K/uL Sodium (136-145) mmol/L Potassium (3.5-5.1) mmol/L Chloride (98-107) mmol/L Carbon Dioxide (21-32) mmol/L Anion Gap (3-11) BUN (7-18) mg/dl Creatinine (0.6-1.2) mg/dl Est Cr Clr Drug Dosing Est GFR ( Amer) Est GFR (Non-Af Amer) BUN/Creatinine Ratio (10-20) Glucose (70-99) mg/dl POC Glucose 133 H (70-99) Estimat Average Glucose mg/dl Hemoglobin A1c (4.5-5.6) % Calcium (8.5-10.1) mg/dl Blood Type Antibody Screen Crossmatch 08/19/18 08/19/18 08/19/18 Range/Units 17:13 15:20 13:48 WBC 8.74 (4.8-10.8) K/uL RBC 2.73 L (4.2-5.4) M/uL Hgb 8.2 L (12.0-16.0) g/dL Hct 25.1 L (37-47) % MCV 91.9 (80-100) fL MCH 30.0 (25-34) pg MCHC 32.7 (32-36) g/dL RDW Std Deviation 59.0 H (36.4-46.3) fL RDW Coeff of Tanya 17.3 H (11.5-14.5) % Plt Count 137 (130-400) K/uL MPV 10.0 (7.4-10.4) fL Immature Gran % (Auto) 0.3 % Neut % (Auto) 79.1 % Lymph % (Auto) 13.4 % [place] % (Auto) 5.4 % Eos % (Auto) 1.7 % Baso % (Auto) 0.1 % Immature Gran # (Auto) 0.03 H (0.00-0.02) K/uL Neut # (Auto) 6.91 H (1.4-6.5) K/uL Lymph # (Auto) 1.17 L (1.2-3.4) K/uL [place] # (Auto) 0.47 (0.11-0.59) K/uL Eos # (Auto) 0.15 (0-0.5) K/uL Baso # (Auto) 0.01 (0-0.2) K/uL Sodium (136-145) mmol/L Potassium (3.5-5.1) mmol/L Chloride (98-107) mmol/L Carbon Dioxide (21-32) mmol/L Anion Gap (3-11) BUN (7-18) mg/dl Creatinine (0.6-1.2) mg/dl Est Cr Clr Drug Dosing Est GFR ( Amer) Est GFR (Non-Af Amer) BUN/Creatinine Ratio (10-20) Glucose (70-99) mg/dl POC Glucose 108 H 98 (70-99) Estimat Average Glucose mg/dl Hemoglobin A1c (4.5-5.6) % Calcium (8.5-10.1) mg/dl Blood Type Antibody Screen Crossmatch 08/19/18 08/19/18 08/18/18 Range/Units 13:38 11:27 08:41 WBC (4.8-10.8) K/uL RBC (4.2-5.4) M/uL Hgb (12.0-16.0) g/dL Hct (37-47) % MCV (80-100) fL MCH (25-34) pg MCHC (32-36) g/dL RDW Std Deviation (36.4-46.3) fL RDW Coeff of Tanya (11.5-14.5) % Plt Count (130-400) K/uL MPV (7.4-10.4) fL Immature Gran % (Auto) % Neut % (Auto) % Lymph % (Auto) % [place] % (Auto) % Eos % (Auto) % Baso % (Auto) % Immature Gran # (Auto) (0.00-0.02) K/uL Neut # (Auto) (1.4-6.5) K/uL Lymph # (Auto) (1.2-3.4) K/uL [place] # (Auto) (0.11-0.59) K/uL Eos # (Auto) (0-0.5) K/uL Baso # (Auto) (0-0.2) K/uL Sodium (136-145) mmol/L Potassium (3.5-5.1) mmol/L Chloride (98-107) mmol/L Carbon Dioxide (21-32) mmol/L Anion Gap (3-11) BUN (7-18) mg/dl Creatinine (0.6-1.2) mg/dl Est Cr Clr Drug Dosing Est GFR ( Amer) Est GFR (Non-Af Amer) BUN/Creatinine Ratio (10-20) Glucose (70-99) mg/dl POC Glucose 90 105 H (70-99) Estimat Average Glucose mg/dl Hemoglobin A1c (4.5-5.6) % Calcium (8.5-10.1) mg/dl Blood Type A Positive Antibody Screen NEGATIVE Crossmatch See Detail Medications Administered Current Inpatient Medications Acetaminophen (Tylenol) 1,000 mg PO Q8H PRN PRN Reason: MILD Pain (Scale 1,2,3) Stop: 09/17/18 11:32 Last Admin: 08/20/18 00:24 Dose: 1,000 mg Documented by: Amlodipine Besylate (Norvasc) 10 mg PO QDL [facility] Stop: 09/17/18 11:32 Last Admin: 08/19/18 13:09 Dose: Not Given Documented by: Aspirin (Ecotrin Ectab) 81 mg PO BID [facility] Stop: 09/18/18 20:59 Last Admin: 08/19/18 21:18 Dose: 81 mg Documented by: Bisacodyl (Dulcolax) 10 mg NC DAILY PRN PRN Reason: Constipation Stop: 09/17/18 11:32 Bupropion HCl (Wellbutrin-Sr) 150 mg PO BID17 [facility] Stop: 09/17/18 16:59 Last Admin: 08/19/18 18:16 Dose: Not Given Documented by: Buspirone HCl (Buspar) 15 mg PO BID [facility] Stop: 09/17/18 20:59 Last Admin: 08/19/18 21:18 Dose: 15 mg Documented by: Calcitriol (Racaltrol) 0.25 mcg PO MoWeFr@0900 [facility] Stop: 09/18/18 08:59 Last Admin: 08/19/18 09:02 Dose: Not Given Documented by: Dextrose (Dextrose 50%) 25 - 50 ml IV UD PRN; Protocol PRN Reason: Hypoglycemia Protocol Stop: 09/17/18 12:14 Ergocalciferol (Vitamin D2) 50,000 units PO We@0900 [facility] Stop: 09/20/18 08:59 Glucagon (Glucagen) 1 mg IM UD PRN; Protocol PRN Reason: Hypoglycemia Protocol Stop: 09/17/18 12:14 Glucose (Glucose 40%) 15 - 30 gm PO UD PRN; Protocol PRN Reason: Hypoglycemia Protocol Stop: 09/17/18 12:14 Glucose (Dex4 Glucose) 4 - 8 tabs PO UD PRN; Protocol PRN Reason: Hypoglycemia Protocol Stop: 09/17/18 12:14 Dextrose/Lactated Ringer's (D5w And Lactated Ringers) 1,000 mls @ 70 mls/hr IV .[id number] [facility] Stop: 09/17/18 11:59 Last Admin: 08/20/18 05:26 Dose: 70 mls/hr Documented by: Insulin Aspart (Novolog Flexpen) 0 units SC ACHS [facility] Stop: 09/18/18 05:59 Last Admin: 08/19/18 21:28 Dose: Not Given Documented by: Insulin Glargine (Lantus Solostar Pen) 0 units SQ HS [facility]; Protocol Stop: 09/17/18 20:59 Last Admin: 08/19/18 21:28 Dose: 16 units Documented by: Labetalol HCl (Normodyne) 150 mg PO Q12 [facility] Stop: 09/17/18 11:32 Last Admin: 08/19/18 11:33 Dose: Not Given Documented by: Levothyroxine Sodium (Synthroid) 150 mcg PO DAILYBB [facility] Stop: 09/18/18 06:29 Last Admin: 08/19/18 11:35 Dose: 150 mcg Documented by: Lorazepam (Ativan) 0.5 mg PO BID PRN PRN Reason: Anxiety Stop: 09/17/18 11:32 Last Admin: 08/18/18 20:11 Dose: 0.5 mg Documented by: Magnesium Hydroxide (Milk Of Magnesia) 30 ml PO DAILY PRN PRN Reason: Constipation Stop: 09/17/18 11:32 Miscellaneous (Carbohydrates For Hypoglycemia) 15 - 30 gm PO UD PRN PRN Reason: Hypoglycemia Treatment Stop: 09/17/18 12:14 Miscellaneous Information (Consult Glycemic Management Pharmacy) 1 ea N/A UD PRN PRN Reason: Consult Stop: 09/18/18 15:31 Morphine Sulfate (Morphine Sulfate) 2 mg IV Q4H PRN PRN Reason: Pain Stop: 09/02/18 17:00 Last Admin: 08/20/18 04:34 Dose: 2 mg Documented by: Naloxone HCl (Narcan) 0.1 mg IV UD PRN PRN Reason: Opioid Overdose Stop: 09/18/18 14:50 Ondansetron HCl (Zofran) 4 mg IV Q6H PRN PRN Reason: Nausea Stop: 09/17/18 11:32 Polyethylene Glycol (Miralax Powder Packet) 17 gm PO DAILY PRN PRN Reason: Constipation Stop: 09/17/18 11:32 [facility]) [facility] [place] Stop: 09/18/18 08:59 Last Admin: 08/19/18 09:02 Dose: Not Given Documented by: Senna/Docusate Sodium (Senokot S) 2 tab PO HS [facility] Stop: 09/17/18 20:59 Last Admin: 08/19/18 21:19 Dose: 2 tab Documented by: Resident Activity Tracking Resident Involvement: Resident Care Provided Care Provided: Adult Hospital Medicine
[2018-08-20 08:08] LABS: Estimated Average Glucose 128 mg/dl; Hemoglobin A1C 6.1 % (4.5-5.6)
[2018-08-20 08:11] LABS: BUN Creatinine Ratio 9.9 (10-20); Blood Urea Nitrogen 18 mg/dl (7-18); Carbon Dioxide 22 mmol/L (21-32); Chloride 115 mmol/L (98-107); Est GFR (African American) 31.2; Est GFR (Non-African American) 26.9; Glucose 66 mg/dl (70-99); Potassium 4.2 mmol/L (3.5-5.1); Sodium 145 mmol/L (136-145)
[2018-08-20] MEDS: INSULIN ASPART 100 UNITS/ML 3 ML PEN SC SCH ×5 (08:18→21:23)
[2018-08-20] MEDS: ASPIRIN 81 MG ECTAB PO SCH ×2 (08:49→21:13)
[2018-08-20] MEDS: LABETALOL HCL 100 MG TAB PO SCH ×2 (08:49→21:15)
[2018-08-20] MEDS: BusPIRone 15 MG TAB PO SCH ×2 (08:49→21:13)
[2018-08-20] MEDS: BuPROPion SR 150 MG TABCR PO SCH ×2 (08:50→18:26)
[2018-08-20] MEDS: predniSONE 10 MG TABLET PO SCH (08:51)
--- NOTE | 2018-08-20 10:38 | Pharmacy Report ---
Glycemic Control Consultation - Date of Service August 20, 2018 - Scope Scope: Glycemic Pharmacist consulted by Dr Lazo on 08/19/18 for glycemic control and to write orders per [facility] inpatient glycemic control protocol - Objective Weight: 82.1 kg Accuchecks BSG (last 24hrs): 08/19/18 08/19/18 08/19/18 11:27 13:38 15:20 Glucose POC Glucose 105 H 90 98 08/19/18 08/19/18 08/20/18 17:13 20:45 07:09 Glucose 66 L POC Glucose 108 H 133 H 08/20/18 08:09 Glucose POC Glucose 78 Laboratory Data (last 24hrs): 08/20/18 07:09 Potassium 4.2 Carbon Dioxide 22 Anion Gap 8.0 Creatinine 1.84 H Est Cr Clr Drug Dosing Not Reportable HbA1c: Hemoglobin A1c 6.1 % (4.5-5.6) H 08/20/18 07:09 - Recent Pertinent Medications Outpatient Anti-diabetic Regimen: * Lantus 16u HS, Humalog 10u TIDM * A1c = 6.1 % 08/20/18 - Assessment & Plan Assessment & Plan: ASSESSMENT: * Ms. Jacobsen is a 73yo F unbeknownst to the pharmacy glycemic service. She is POD:1 for a L hip fx repair. PMHx consistent with: anemia, HypoTH, CKD, HTN, OAB. Her A1C likely does not provide an accurate picture of her diabetic status. She has been receiving 10mg PO prednisone as an outpt, unsure of indication at this point in time. PLAN FOR INPATIENT GLYCEMIC CONTROL: * Basal insulin * Lantus scale SQ BID * give 16 units for BSGs <200mg/dL, home Rx * give 20 units for BSGs >/=200mg/dL * Bolus insulin * NovoLog per scale ACHS or Q6hrs while NPO * Goal Range: Low 110 mg/dL - High 140 mg/dL * Correction Factor: 25 mg/dL/unit * Nutritional / Prandial insulin per carb ratio of 1 unit per 8 grams CHO consumed * Please note that the plan above was derived based on current level of insulin resistance and hospital stress. These recommendations are appropriate for inpatient admission only. Plan of care upon discharge will need to be reassessed to avoid potential outpatient hypo/hyperglycemia. Thank you.
[2018-08-20] MEDS: AMLODIPINE BESYLATE 5 MG TAB PO SCH (13:16)
--- NOTE | 2018-08-20 15:17 | Orthopedic Progress Note ---
Date of Service August 20, 2018 Assessment & Plan (1) Intertrochanteric fracture of left hip: POD 1 s/p Left TFN PT/OT as able. TTWB DVT prophylaxis with ASA, SCD's, CHRIS's Pain management as written. Possibly add Tramadol instead of Percocet. Subjective POD 1 s/p Left TFN Pt is lying in bed. She continues to adjust her position in bed. She denies hip pain at this time. She answers some questions appropriately. Physical Exam Physical Exam: Proximal dressing is intact and dry. Distal incision dressing has been removed by pt per nursing. That wound looks benign. Calvs appear nontender. Toes are mobile. Results & Data Vital Signs (Past 12 Hours) Vital Signs Temp Pulse Resp BP BP Pulse Ox Pulse Ox 08/20/18 12:38 37.1 C 18 174/60 H 94 08/20/18 07:39 37.2 C 80 18 174/72 H 95 08/20/18 05:26 164/79 H 08/20/18 04:55 93 08/20/18 03:19 37.5 C 79 18 191/68 H 180/80 H 95 Laboratory Results Laboratory Results WBC 9.00 K/uL (4.8-10.8) 08/20/18 07:09 RBC 2.79 M/uL (4.2-5.4) L 08/20/18 07:09 Hgb 8.3 g/dL (12.0-16.0) L 08/20/18 07:09 Hct 25.3 % (37-47) L 08/20/18 07:09 MCV 90.7 fL (80-100) 08/20/18 07:09 MCH 29.7 pg (25-34) 08/20/18 07:09 MCHC 32.8 g/dL (32-36) 08/20/18 07:09 RDW Std Deviation 58.9 fL (36.4-46.3) H 08/20/18 07:09 RDW Coeff of Tanya 17.6 % (11.5-14.5) H 08/20/18 07:09 Plt Count 124 K/uL (130-400) L 08/20/18 07:09 MPV 10.4 fL (7.4-10.4) 08/20/18 07:09 Immature Gran % (Auto) 0.3 % 08/20/18 07:09 Neut % (Auto) 80.1 % 08/20/18 07:09 Lymph % (Auto) 12.3 % 08/20/18 07:09 [place] % (Auto) 5.2 % 08/20/18 07:09 Eos % (Auto) 1.9 % 08/20/18 07:09 Baso % (Auto) 0.2 % 08/20/18 07:09 Immature Gran # (Auto) 0.03 K/uL (0.00-0.02) H 08/20/18 07:09 Neut # (Auto) 7.20 K/uL (1.4-6.5) H 08/20/18 07:09 Lymph # (Auto) 1.11 K/uL (1.2-3.4) L 08/20/18 07:09 [place] # (Auto) 0.47 K/uL (0.11-0.59) 08/20/18 07:09 Eos # (Auto) 0.17 K/uL (0-0.5) 08/20/18 07:09 Baso # (Auto) 0.02 K/uL (0-0.2) 08/20/18 07:09 Toxic Granulation 1+ 08/19/18 05:49 Schistocytes 1+ 08/19/18 05:49 PT 10.4 Seconds (9.0-12.0) 08/18/18 08:41 INR 1.0 (0.9-1.1) 08/18/18 08:41 APTT 22.4 Seconds (21.0-31.0) 08/18/18 08:41 PTT Ratio 0.8 08/18/18 08:41 Sodium 145 mmol/L (136-145) 08/20/18 07:09 Potassium 4.2 mmol/L (3.5-5.1) 08/20/18 07:09 Chloride 115 mmol/L (98-107) H 08/20/18 07:09 Carbon Dioxide 22 mmol/L (21-32) 08/20/18 07:09 Anion Gap 8.0 (3-11) 08/20/18 07:09 BUN 18 mg/dl (7-18) 08/20/18 07:09 Creatinine 1.84 mg/dl (0.6-1.2) H 08/20/18 07:09 Est Cr Clr Drug Dosing Not Reportable 08/20/18 07:09 Est GFR ( Amer) 31.2 08/20/18 07:09 Est GFR (Non-Af Amer) 26.9 08/20/18 07:09 BUN/Creatinine Ratio 9.9 (10-20) L 08/20/18 07:09 Glucose 66 mg/dl (70-99) L 08/20/18 07:09 POC Glucose 136 (70-99) H 08/20/18 12:19 Estimat Average Glucose 128 mg/dl 08/20/18 07:09 Hemoglobin A1c 6.1 % (4.5-5.6) H 08/20/18 07:09 Calcium 9.0 mg/dl (8.5-10.1) 08/20/18 07:09 25-OH Vitamin D Total 65.3 ng/ml (30-100) 08/18/18 08:45 Urine Color Yellow 08/18/18 08:50 Urine Appearance Clear (Clear) 08/18/18 08:50 Urine pH 5.0 (4.5-7.5) 08/18/18 08:50 Ur Specific [place] 1.015 (1.000-1.030) 08/18/18 08:50 Urine Protein 1+ (Negative) H 08/18/18 08:50 Urine Glucose (UA) Negative (Negative) 08/18/18 08:50 Urine Ketones Negative (Negative) 08/18/18 08:50 Urine Blood Negative (Negative) 08/18/18 08:50 Urine Nitrite Negative (Negative) 08/18/18 08:50 Urine Bilirubin Negative (Negative) 08/18/18 08:50 Urine Urobilinogen Negative (Negative) 08/18/18 08:50 Ur Leukocyte Esterase Trace (Negative) H 08/18/18 08:50 Urine WBC (Auto) 1-5 /hpf (0-5) 08/18/18 08:50 Urine RBC (Auto) 0-4 /hpf (0-4) 08/18/18 08:50 U Hyaline Cast (Auto) 1-5 /lpf (0-5) 08/18/18 08:50 U Epithel Cells (Auto) >30 /lpf (0-5) H 08/18/18 08:50 Urine Bacteria (Auto) Negative (Negative) 08/18/18 08:50 Urine Yeast Budding (None Prsent) H 08/18/18 08:50 Blood Type A Positive 08/18/18 08:41 Antibody Screen NEGATIVE 08/18/18 08:41 Crossmatch See Detail 08/18/18 08:41
[2018-08-20] MEDS: POLYETHYLENE (MIRALAX) 17 GM PACK PO SCH (15:56)
[2018-08-20] MEDS: OXYCODONE/ACETAMINOPHEN 5mg/325mg TAB PO SCH ×2 (15:56→21:15)
[2018-08-20] MEDS: ENOXAPARIN INJ 30 MG/0.3 ML SYR SQ SCH (15:57)
[2018-08-20] MEDS: DOCUSATE SODIUM/SENNA 50/8.6MG TAB PO SCH (21:16)
[2018-08-20] MEDS: INSULIN GLARGINE SOLOSTAR 100 UNITS/ML 3 ML PEN SQ SCH (21:40)
[2018-08-21] MEDS: LORazepam 0.5 MG TAB PO PRN (00:12)
[2018-08-21] MEDS: OXYCODONE/ACETAMINOPHEN 5mg/325mg TAB PO SCH ×4 (03:43→21:28)
[2018-08-21] MEDS: LEVOTHYROXINE SODIUM 150 MCG TABLET PO SCH (06:23)
[2018-08-21 06:51] LABS: Basophils # (auto) 0.03 K/uL (0-0.2); Basophils % (auto) 0.3 %; Eosinophils % (auto) 2.1 %; Hematocrit (blood only) 22.5 % (37-47); Hemoglobin 7.3 g/dL (12.0-16.0); Immature Granulocytes # (auto) 0.02 K/uL (0.00-0.02); Immature Granulocytes % (auto) 0.2 %; Lymphocytes # (auto) 0.82 K/uL (1.2-3.4); Lymphocytes % (auto) 8.6 %; Mean Corpuscular Hgb Conc 32.4 g/dL (32-36); Mean Corpuscular Volume 90.4 fL (80-100); Mean Platelet Volume 10.6 fL (7.4-10.4); Monocytes # (auto) 0.59 K/uL (0.11-0.59); Monocytes % (auto) 6.2 %; Neutrophils # (auto) 7.92 K/uL (1.4-6.5); Neutrophils % (auto) 82.6 %; Platelet Count 135 K/uL (130-400); RDW Coefficient of Variation 17.4 % (11.5-14.5); Red Blood Count 2.49 M/uL (4.2-5.4); White Blood Count 9.58 K/uL (4.8-10.8)
--- NOTE | 2018-08-21 07:34 | Family Medicine Progress Note ---
Date of Service August 21, 2018 Assessment & Plan (1) Intertrochanteric fracture of left hip: (1) Intertrochanteric fracture of left femur: -Needs outpt osteoporosis workup, DC'd and inactive vitamin D in favor of activated form of vitamin D -POD 2 S/P Intramedullary nailing of left hip(Left) -Routine post-op care per ortho -Pain Control : Given the significant level of this patient's dementia and fears that she is not asking for pain medication due to her mental status. -Percocet 5 mg is scheduled q6h for the next 1 day with breakthrough morphine as needed. -DC morphine as metabolites have been noted to have a respiratory depression affect -Tylenol DC'd -MiraLAX scheduled (2) Anemia: -Consented, Type and crossed -S/P 1 unit PRBC pre op -Hemoglobin was 7.3 this morning repeat H&H showed 6.9. Patient was not experiencing symptoms of anemia -received a unit of packed red blood cells this morning, H&H pending (3) UTI (urinary tract infection): -Recent HX, now resolved (4) Hyperthyroidism: -last TSH was 0.228, a bit low. -F/U outpt (5) Dementia: -Supportive care reassurance -open windows, bright lights to avoid sundowning (6) CKD (chronic kidney disease) stage 4, GFR 15-29 ml/min: -Cr today is 1.84, trend daily -NSS 125 MLS/HR (7) Diabetes: -Glycemic cx placed (8) HTN (hypertension): -Continue home meds (9) HLD (hyperlipidemia): -Continue home meds (10) Anxiety and depression: -Continue Home meds -open windows during the day to minimize sundowning (11) PMR (polymyalgia rheumatica): -Continue home meds -no signs of AI currently, consider stress roids if HD instability develops (12) DVT prophylaxis: -Per Ortho, SCDS for now -Lovenox (13) Discharge planning issues: -will need rehab -Case managment following -[facility] FEN:DMII/Low Salt DVT: SCDS & lovenox Full Code Dispo: rehab Supervising Physician Co-Signing Physician Notes Patient seen and examined with Dr. Lazo. Agree with history, exam, assessment and plan of care as documented by Dr. Lazo. In brief, Ms. Jacobsen is a very pleasant 73 year old female admitted after a mechanical fall and sustaining a left intertrochanteric femur fracture. On exam today, she reports that she is comfortable and has minimal pain post-op. She is tugging at her Pryor. 1. Left hip fracture s/p IM nailing with ortho POD #2. Pain management with Percocet. She has osteoporosis with this fragility fracture. Vitamin D level within normal. No evidence of calcium hemostasis disorder. PCP can start denosumab to treat her osteoporosis. DVT prophylaxis per ortho ASA 81mg BID to start at discharge. 2. Anemia. Hgb 6.7. Transfuse 1 unit PRBCs. Repeat hgb 7.9 3. Dementia. Constant reorientation as she is susceptible to delirium with post- op pain, new environment, etc. Limit monitors and d/c Pryor as soon as we are able. 4. DM. Insulin management based on cap glucoses. 5. CKD, stage 4. Cr at baseline. monitor. 6. new O2 requirement. CXR unremarkable. d/c morphine to limit resp suppression. Encourage incentive spirometry. If unable to wean O2 or new symptoms like tachycardia, chest pain, etc consider CT or V/Q for PE work up. Dispo: pending clinical improvement. Subjective Patient sitting up in bed this morning in no acute distress. Per report patient did well overnight no acute events. In the early hours of the morning the patient had a desaturation into the mid 80s requiring 2 L of oxygen via nasal cannula. Patient is remained on oxygen throughout the day. No signs or symptoms of acute infectious process at present. Plan to obtain a chest x-ray. Patient is tolerating her diet, sleeping well, Pryor is in place draining urine, has not had a bowel movement yet. Patient reports pain is well controlled, AAO x0 today. Physical Exam Physical Exam: Gen: Obese female in NAD Eyes: EOMI/PERRLA Neck: Trachea midline, normal to inspection, no JVD Chest: CTAB/L Cards: RRR, II/IV systolic ejection murmur, no rubs or gallops, cap refill<2secs 1 + pedal edema, GI: NT/ND, NL BS MSK: moves all extremities Skin: Surgical site clean, dry, and intact, no bruises or rashes Psych: advanced dementia, AAO x0 Results & Data Vital Signs (Past 12 Hours) Vital Signs Temp Pulse Pulse Resp BP BP Pulse Ox 08/21/18 05:24 08/20/18 23:45 08/20/18 22:56 36.8 C 69 16 145/76 H 92 08/20/18 21:11 72 178/81 H Pulse Ox 08/21/18 05:24 94 08/20/18 23:45 92 08/20/18 22:56 08/20/18 21:11 Laboratory Results 08/21/18 12:02 08/20/18 07:09 08/21/18 08/21/18 08/21/18 Range/Units 17:25 12:40 12:04 WBC (4.8-10.8) K/uL RBC (4.2-5.4) M/uL Hgb (12.0-16.0) g/dL Hct (37-47) % MCV (80-100) fL MCH (25-34) pg MCHC (32-36) g/dL RDW Std Deviation (36.4-46.3) fL RDW Coeff of Tanya (11.5-14.5) % Plt Count (130-400) K/uL MPV (7.4-10.4) fL Immature Gran % (Auto) % Neut % (Auto) % Lymph % (Auto) % [place] % (Auto) % Eos % (Auto) % Baso % (Auto) % Immature Gran # (Auto) (0.00-0.02) K/uL Neut # (Auto) (1.4-6.5) K/uL Lymph # (Auto) (1.2-3.4) K/uL [place] # (Auto) (0.11-0.59) K/uL Eos # (Auto) (0-0.5) K/uL Baso # (Auto) (0-0.2) K/uL Anisocytosis Spherocytes POC Glucose 188 H 168 H (70-99) Blood Type A Positive Antibody Screen NEGATIVE Crossmatch See Detail 08/21/18 08/21/18 08/21/18 Range/Units 12:02 08:13 06:15 WBC 9.58 (4.8-10.8) K/uL RBC 2.49 L (4.2-5.4) M/uL Hgb 6.7 L* 7.3 L (12.0-16.0) g/dL Hct 20.4 L* 22.5 L (37-47) % MCV 90.4 (80-100) fL MCH 29.3 (25-34) pg MCHC 32.4 (32-36) g/dL RDW Std Deviation 58.0 H (36.4-46.3) fL RDW Coeff of Tanya 17.4 H (11.5-14.5) % Plt Count 135 (130-400) K/uL MPV 10.6 H (7.4-10.4) fL Immature Gran % (Auto) 0.2 % Neut % (Auto) 82.6 % Lymph % (Auto) 8.6 % [place] % (Auto) 6.2 % Eos % (Auto) 2.1 % Baso % (Auto) 0.3 % Immature Gran # (Auto) 0.02 (0.00-0.02) K/uL Neut # (Auto) 7.92 H (1.4-6.5) K/uL Lymph # (Auto) 0.82 L (1.2-3.4) K/uL [place] # (Auto) 0.59 (0.11-0.59) K/uL Eos # (Auto) 0.20 (0-0.5) K/uL Baso # (Auto) 0.03 (0-0.2) K/uL Anisocytosis Present Spherocytes 1+ POC Glucose 146 H (70-99) Blood Type Antibody Screen Crossmatch 08/20/18 08/20/18 08/18/18 Range/Units 20:52 17:16 08:41 WBC (4.8-10.8) K/uL RBC (4.2-5.4) M/uL Hgb (12.0-16.0) g/dL Hct (37-47) % MCV (80-100) fL MCH (25-34) pg MCHC (32-36) g/dL RDW Std Deviation (36.4-46.3) fL RDW Coeff of Tanya (11.5-14.5) % Plt Count (130-400) K/uL MPV (7.4-10.4) fL Immature Gran % (Auto) % Neut % (Auto) % Lymph % (Auto) % [place] % (Auto) % Eos % (Auto) % Baso % (Auto) % Immature Gran # (Auto) (0.00-0.02) K/uL Neut # (Auto) (1.4-6.5) K/uL Lymph # (Auto) (1.2-3.4) K/uL [place] # (Auto) (0.11-0.59) K/uL Eos # (Auto) (0-0.5) K/uL Baso # (Auto) (0-0.2) K/uL Anisocytosis Spherocytes POC Glucose 109 H 196 H (70-99) Blood Type Antibody Screen Crossmatch See Detail Medications Administered Current Inpatient Medications Amlodipine Besylate (Norvasc) 10 mg PO QDL [facility] Stop: 09/17/18 11:32 Last Admin: 08/21/18 11:39 Dose: 10 mg Documented by: Aspirin (Ecotrin Ectab) 81 mg PO BID [facility] Stop: 09/18/18 20:59 Last Admin: 08/21/18 09:31 Dose: 81 mg Documented by: Bisacodyl (Dulcolax) 10 mg KS DAILY PRN PRN Reason: Constipation Stop: 09/17/18 11:32 Bupropion HCl (Wellbutrin-Sr) 150 mg PO BID17 [facility] Stop: 09/17/18 16:59 Last Admin: 08/21/18 17:30 Dose: 150 mg Documented by: Buspirone HCl (Buspar) 15 mg PO BID [facility] Stop: 09/17/18 20:59 Last Admin: 08/21/18 09:30 Dose: 15 mg Documented by: Calcitriol (Racaltrol) 0.25 mcg PO MoWeFr@0900 [facility] Stop: 09/18/18 08:59 Last Admin: 08/21/18 09:32 Dose: 0.25 mcg Documented by: Dextrose (Dextrose 50%) 25 - 50 ml IV UD PRN; Protocol PRN Reason: Hypoglycemia Protocol Stop: 09/17/18 12:14 Enoxaparin Sodium (Lovenox) 30 mg SQ Q24H [facility] Stop: 09/19/18 15:59 Last Admin: 08/21/18 16:31 Dose: 30 mg Documented by: Glucagon (Glucagen) 1 mg IM UD PRN; Protocol PRN Reason: Hypoglycemia Protocol Stop: 09/17/18 12:14 Glucose (Glucose 40%) 15 - 30 gm PO UD PRN; Protocol PRN Reason: Hypoglycemia Protocol Stop: 09/17/18 12:14 Glucose (Dex4 Glucose) 4 - 8 tabs PO UD PRN; Protocol PRN Reason: Hypoglycemia Protocol Stop: 09/17/18 12:14 Dextrose/Lactated Ringer's (D5w And Lactated Ringers) 1,000 mls @ 70 mls/hr IV .[id number] [facility] Stop: 09/17/18 11:59 Last Infusion: 08/20/18 14:35 Dose: 0 mls/hr Documented by: Sodium Chloride (Nss 1000ml) 1,000 mls @ 125 mls/hr IV .Q8H [facility] Stop: 09/20/18 07:29 Last Infusion: 08/21/18 17:30 Dose: 125 mls/hr Documented by: Insulin Aspart (Novolog Flexpen) 0 units SC ACHS [facility] Stop: 09/18/18 05:59 Last Admin: 08/21/18 13:22 Dose: 2 units Documented by: Insulin Glargine (Lantus Solostar Pen) 0 units SQ HS [facility]; Protocol Stop: 09/17/18 20:59 Last Admin: 08/20/18 21:40 Dose: Not Given Documented by: Labetalol HCl (Normodyne) 150 mg PO Q12 [facility] Stop: 09/17/18 11:32 Last Admin: 08/21/18 09:34 Dose: 150 mg Documented by: Levothyroxine Sodium (Synthroid) 150 mcg PO DAILYBB [facility] Stop: 09/18/18 06:29 Last Admin: 08/21/18 06:23 Dose: 150 mcg Documented by: Lorazepam (Ativan) 0.5 mg PO BID PRN PRN Reason: Anxiety Stop: 09/17/18 11:32 Last Admin: 08/21/18 00:12 Dose: 0.5 mg Documented by: Magnesium Hydroxide (Milk Of Magnesia) 30 ml PO DAILY PRN PRN Reason: Constipation Stop: 09/17/18 11:32 Miscellaneous (Carbohydrates For Hypoglycemia) 15 - 30 gm PO UD PRN PRN Reason: Hypoglycemia Treatment Stop: 09/17/18 12:14 Miscellaneous Information (Consult Glycemic Management Pharmacy) 1 ea N/A UD PRN PRN Reason: Consult Stop: 09/18/18 15:31 Naloxone HCl (Narcan) 0.1 mg IV UD PRN PRN Reason: Opioid Overdose Stop: 09/18/18 14:50 Ondansetron HCl (Zofran) 4 mg IV Q6H PRN PRN Reason: Nausea Stop: 09/17/18 11:32 Oxycodone/Acetaminophen (Percocet 5mg/325mg) 1 tab PO Q6H [facility] Stop: 09/03/18 14:59 Last Admin: 08/21/18 15:11 Dose: 1 tab Documented by: Polyethylene Glycol (Miralax Powder Packet) 17 gm PO DAILY PRN PRN Reason: Constipation Stop: 09/17/18 11:32 Polyethylene Glycol (Miralax Powder Packet) 17 gm PO DAILY [facility] Stop: 09/19/18 14:44 Last Admin: 08/21/18 09:32 Dose: 17 gm Documented by: Prednisone (Prednisone) 10 mg PO QAM [facility] Stop: 09/18/18 08:59 Last Admin: 08/21/18 09:32 Dose: 10 mg Documented by: Senna/Docusate Sodium (Senokot S) 2 tab PO HS [facility] Stop: 09/17/18 20:59 Last Admin: 08/20/18 21:16 Dose: 2 tab Documented by: Resident Activity Tracking Resident Involvement: Resident Care Provided Care Provided: Adult Hospital Medicine
[2018-08-21 08:05] LABS: Anisocytosis Present; Spherocytes 1+
--- NOTE | 2018-08-21 08:26 | Orthopedic Progress Note ---
Date of Service August 21, 2018 Assessment & Plan (1) Intertrochanteric fracture of left hip: POD 2 s/p Left TFN Acute Blood Loss Anemia Transfuse as per Med Service PT/OT as able. TTWB DVT prophylaxis with ASA, SCD's, CHRIS's Pain management as written. Possibly add Tramadol instead of Percocet. Subjective POD 2 s/p Left TFN. Pt sitting up in bed. Sleeping but easily awoken. She seems more comfortable this AM. Answers some questions appropriately and follows some commands. Physical Exam Physical Exam: Dressings intact. Mild bruising noted consistent with surgery. Calves are soft, NT. NV intact. Toes mobile. Results & Data Vital Signs (Past 12 Hours) Vital Signs Temp Pulse Pulse Resp BP BP Pulse Ox 08/21/18 07:34 36.6 C 82 20 126/62 95 08/21/18 05:24 08/20/18 23:45 08/20/18 22:56 36.8 C 69 16 145/76 H 92 08/20/18 21:11 72 178/81 H Pulse Ox 08/21/18 07:34 08/21/18 05:24 94 08/20/18 23:45 92 08/20/18 22:56 08/20/18 21:11 Laboratory Results Laboratory Results WBC 9.58 K/uL (4.8-10.8) 08/21/18 06:15 RBC 2.49 M/uL (4.2-5.4) L 08/21/18 06:15 Hgb 7.3 g/dL (12.0-16.0) L 08/21/18 06:15 Hct 22.5 % (37-47) L 08/21/18 06:15 MCV 90.4 fL (80-100) 08/21/18 06:15 MCH 29.3 pg (25-34) 08/21/18 06:15 MCHC 32.4 g/dL (32-36) 08/21/18 06:15 RDW Std Deviation 58.0 fL (36.4-46.3) H 08/21/18 06:15 RDW Coeff of Tanya 17.4 % (11.5-14.5) H 08/21/18 06:15 Plt Count 135 K/uL (130-400) 08/21/18 06:15 MPV 10.6 fL (7.4-10.4) H 08/21/18 06:15 Immature Gran % (Auto) 0.2 % 08/21/18 06:15 Neut % (Auto) 82.6 % 08/21/18 06:15 Lymph % (Auto) 8.6 % 08/21/18 06:15 [place] % (Auto) 6.2 % 08/21/18 06:15 Eos % (Auto) 2.1 % 08/21/18 06:15 Baso % (Auto) 0.3 % 08/21/18 06:15 Immature Gran # (Auto) 0.02 K/uL (0.00-0.02) 08/21/18 06:15 Neut # (Auto) 7.92 K/uL (1.4-6.5) H 08/21/18 06:15 Lymph # (Auto) 0.82 K/uL (1.2-3.4) L 08/21/18 06:15 [place] # (Auto) 0.59 K/uL (0.11-0.59) 08/21/18 06:15 Eos # (Auto) 0.20 K/uL (0-0.5) 08/21/18 06:15 Baso # (Auto) 0.03 K/uL (0-0.2) 08/21/18 06:15 Toxic Granulation 1+ 08/19/18 05:49 Anisocytosis Present 08/21/18 06:15 Spherocytes 1+ 08/21/18 06:15 Schistocytes 1+ 08/19/18 05:49 PT 10.4 Seconds (9.0-12.0) 08/18/18 08:41 INR 1.0 (0.9-1.1) 08/18/18 08:41 APTT 22.4 Seconds (21.0-31.0) 08/18/18 08:41 PTT Ratio 0.8 08/18/18 08:41 Sodium 145 mmol/L (136-145) 08/20/18 07:09 Potassium 4.2 mmol/L (3.5-5.1) 08/20/18 07:09 Chloride 115 mmol/L (98-107) H 08/20/18 07:09 Carbon Dioxide 22 mmol/L (21-32) 08/20/18 07:09 Anion Gap 8.0 (3-11) 08/20/18 07:09 BUN 18 mg/dl (7-18) 08/20/18 07:09 Creatinine 1.84 mg/dl (0.6-1.2) H 08/20/18 07:09 Est Cr Clr Drug Dosing Not Reportable 08/20/18 07:09 Est GFR ( Amer) 31.2 08/20/18 07:09 Est GFR (Non-Af Amer) 26.9 08/20/18 07:09 BUN/Creatinine Ratio 9.9 (10-20) L 08/20/18 07:09 Glucose 66 mg/dl (70-99) L 08/20/18 07:09 POC Glucose 146 (70-99) H 08/21/18 08:13 Estimat Average Glucose 128 mg/dl 08/20/18 07:09 Hemoglobin A1c 6.1 % (4.5-5.6) H 08/20/18 07:09 Calcium 9.0 mg/dl (8.5-10.1) 08/20/18 07:09 25-OH Vitamin D Total 65.3 ng/ml (30-100) 08/18/18 08:45 Urine Color Yellow 08/18/18 08:50 Urine Appearance Clear (Clear) 08/18/18 08:50 Urine pH 5.0 (4.5-7.5) 08/18/18 08:50 Ur Specific [place] 1.015 (1.000-1.030) 08/18/18 08:50 Urine Protein 1+ (Negative) H 08/18/18 08:50 Urine Glucose (UA) Negative (Negative) 08/18/18 08:50 Urine Ketones Negative (Negative) 08/18/18 08:50 Urine Blood Negative (Negative) 08/18/18 08:50 Urine Nitrite Negative (Negative) 08/18/18 08:50 Urine Bilirubin Negative (Negative) 08/18/18 08:50 Urine Urobilinogen Negative (Negative) 08/18/18 08:50 Ur Leukocyte Esterase Trace (Negative) H 08/18/18 08:50 Urine WBC (Auto) 1-5 /hpf (0-5) 08/18/18 08:50 Urine RBC (Auto) 0-4 /hpf (0-4) 08/18/18 08:50 U Hyaline Cast (Auto) 1-5 /lpf (0-5) 08/18/18 08:50 U Epithel Cells (Auto) >30 /lpf (0-5) H 08/18/18 08:50 Urine Bacteria (Auto) Negative (Negative) 08/18/18 08:50 Urine Yeast Budding (None Prsent) H 08/18/18 08:50 Blood Type A Positive 08/18/18 08:41 Antibody Screen NEGATIVE 08/18/18 08:41 Crossmatch See Detail 08/18/18 08:41
[2018-08-21] MEDS: SODIUM CHLORIDE 0.9% 1000ML 1,000 ML IV SCH ×2 (08:54→19:41)
[2018-08-21] MEDS ORDERED: ERGOCALCIFEROL 50,000 UNITS CAP PO SCH (09:00)
[2018-08-21] MEDS: BusPIRone 15 MG TAB PO SCH ×2 (09:30→21:27)
[2018-08-21] MEDS: ASPIRIN 81 MG ECTAB PO SCH (09:31)
[2018-08-21] MEDS: CALCITRIOL 0.25 MCG CAPSULE PO SCH (09:32)
[2018-08-21] MEDS: POLYETHYLENE (MIRALAX) 17 GM PACK PO SCH (09:32)
[2018-08-21] MEDS: predniSONE 10 MG TABLET PO SCH (09:32)
[2018-08-21] MEDS: BuPROPion SR 150 MG TABCR PO SCH ×2 (09:33→17:30)
[2018-08-21] MEDS: LABETALOL HCL 100 MG TAB PO SCH ×2 (09:34→21:27)
[2018-08-21] MEDS: INSULIN ASPART 100 UNITS/ML 3 ML PEN SC SCH ×4 (09:49→21:01)
[2018-08-21] MEDS: AMLODIPINE BESYLATE 5 MG TAB PO SCH (11:39)
[2018-08-21 12:22] LABS: Hematocrit (blood only) 20.4 % (37-47); Hemoglobin 6.7 g/dL (12.0-16.0)
--- NOTE | 2018-08-21 13:17 | Pharmacy Report ---
Pharmacy Glycemic Short Note 2 - Date of Service August 21, 2018 - Glycemic Short BSG Results (Last 24 hours): 08/20/18 08/20/18 08/21/18 17:16 20:52 08:13 POC Glucose 196 H 109 H 146 H 08/21/18 12:04 POC Glucose 168 H ASSESSMENT: * Ms. Jacobsen's BSGs continue to be in fine order: [id number]/dL. She required 3 units of insulin yesterday, per nursing Pt's appetite is decreased. * Please see d/c recs for her osteoporosis/diabetes detailed below PLAN FOR INPATIENT GLYCEMIC CONTROL: * Basal insulin * Lantus scale SQ HS: * hold lantus for BSGs <120mg/dL * 16 units for BSGs 120-200mg/dL * 20 units for BSGs >200mg/dL * Bolus insulin * NovoLog per scale ACHS or Q6hrs while NPO * Goal Range: Low 110 mg/dL - High 140 mg/dL * Correction Factor: 25 mg/dL/unit * Nutritional / Prandial insulin per carb ratio of 1 unit per 8 grams CHO consumed PLAN FOR DISCHARGE: * Diabetes: She is chronically anemic, A1C does not provide an accurate picture of her diabetic status. Continue home regimen as long as she does not endorse hypo/hyperglycemia * Osteoporosis: I spoke with the Resident Physician today: she receives inactivated Vit D2 and Calcitriol (activated) vit D. Her CKD does not allow hydroxylation of Vit D2 to activated Vit D. Discontinue her Vit D2 QW, as this is not doing anything for her osteoporosis. * Add a calcium Supplement * She is NOT a candidate for a bisphosphonate due to her CKD. A SERM is ill- advised due to her h/o of TIA and it's associated increased risk of VTE. I would recommend Denosumab 60mg SQ [id number] to help with her osteoporosis.
--- NOTE | 2018-08-21 14:40 | XRay Report ---
XR chest 1V portable CLINICAL HISTORY: recent surgery, new 02 use dyspnea COMPARISON STUDY: 08/19/2018 FINDINGS: The bones soft tissues and hemidiaphragms are normal. The cardiomediastinal silhouette is n ormal. The lungs are clear. The pulmonary vasculature is normal. IMPRESSION: Negative chest. The above report was generated using voice recognition software. It may contain grammatical, syntax or spelling errors. Electronically signed by: Ajay Barlow M.D. 08/21/2018 2:39 PM
[2018-08-21] MEDS: ENOXAPARIN INJ 30 MG/0.3 ML SYR SQ SCH (16:31)
[2018-08-21 18:04] LABS: Hematocrit (blood only) 24.1 % (37-47); Hemoglobin 7.9 g/dL (12.0-16.0)
[2018-08-21] MEDS: DOCUSATE SODIUM/SENNA 50/8.6MG TAB PO SCH (21:00)
[2018-08-21] MEDS: INSULIN GLARGINE SOLOSTAR 100 UNITS/ML 3 ML PEN SQ SCH (21:33)
[2018-08-22] MEDS: OXYCODONE/ACETAMINOPHEN 5mg/325mg TAB PO SCH ×4 (03:50→20:19)
[2018-08-22] MEDS: SODIUM CHLORIDE 0.9% 1000ML 1,000 ML IV SCH ×2 (03:50→12:06)
[2018-08-22] MEDS: LEVOTHYROXINE SODIUM 150 MCG TABLET PO SCH ×2 (06:23→06:27)
[2018-08-22 07:21] LABS: Basophils # (auto) 0.02 K/uL (0-0.2); Basophils % (auto) 0.2 %; Eosinophils # (auto) 0.29 K/uL (0-0.5); Eosinophils % (auto) 3.3 %; Hematocrit (blood only) 23.8 % (37-47); Hemoglobin 7.9 g/dL (12.0-16.0); Immature Granulocytes # (auto) 0.04 K/uL (0.00-0.02); Immature Granulocytes % (auto) 0.5 %; Lymphocytes # (auto) 0.96 K/uL (1.2-3.4); Lymphocytes % (auto) 10.9 %; Mean Corpuscular Hgb Conc 33.2 g/dL (32-36); Mean Corpuscular Volume 87.8 fL (80-100); Mean Platelet Volume 10.2 fL (7.4-10.4); Monocytes # (auto) 0.54 K/uL (0.11-0.59); Monocytes % (auto) 6.1 %; Neutrophils # (auto) 6.99 K/uL (1.4-6.5); Platelet Count 151 K/uL (130-400); RDW Coefficient of Variation 17.6 % (11.5-14.5); RDW Standard Deviation 57.5 fL (36.4-46.3); Red Blood Count 2.71 M/uL (4.2-5.4); White Blood Count 8.84 K/uL (4.8-10.8)
[2018-08-22 07:42] LABS: Schistocytes Occasional
[2018-08-22 07:51] LABS: BUN Creatinine Ratio 12.3 (10-20); Calcium 8.9 mg/dl (8.5-10.1); Creatinine Clr Calc Pharmacy 32.1 ml/min; Est GFR (African American) 38.7; Est GFR (Non-African American) 33.4; Potassium 3.9 mmol/L (3.5-5.1)
--- NOTE | 2018-08-22 09:14 | Family Medicine Progress Note ---
Date of Service August 22, 2018 Assessment & Plan (1) Intertrochanteric fracture of left hip: (1) Intertrochanteric fracture of left femur: -Needs outpt osteoporosis workup, DC'd and inactive vitamin D in favor of activated form of vitamin D -POD 2 S/P Intramedullary nailing of left hip(Left) -Routine post-op care per ortho -Pain Control : Given the significant level of this patient's dementia and fears that she is not asking for pain medication due to her mental status. -Percocet 5 mg is scheduled q6h for the next 1 day with breakthrough morphine as needed. -DC morphine as metabolites have been noted to have a respiratory depression affect -Tylenol DC'd -MiraLAX scheduled (2) Anemia: -Consented, Type and crossed -S/P 1 unit PRBC pre op -Hemoglobin was 7.3 this morning repeat H&H showed 6.9. Patient was not experiencing symptoms of anemia -received a unit of packed red blood cells this morning, H&H pending (3) UTI (urinary tract infection): -Recent HX, now resolved (4) Hyperthyroidism: -last TSH was 0.228, a bit low. -F/U outpt (5) Dementia: -Supportive care reassurance -open windows, bright lights to avoid sundowning (6) CKD (chronic kidney disease) stage 4, GFR 15-29 ml/min: -Cr today is 1.84, trend daily -NSS 125 MLS/HR (7) Diabetes: -Glycemic cx placed (8) HTN (hypertension): -Continue home meds (9) HLD (hyperlipidemia): -Continue home meds (10) Anxiety and depression: -Continue Home meds -open windows during the day to minimize sundowning (11) PMR (polymyalgia rheumatica): -Continue home meds -no signs of AI currently, consider stress roids if HD instability develops (12) DVT prophylaxis: -Per Ortho, SCDS for now -Lovenox (13) Discharge planning issues: -will need rehab -Case managment following -[facility] FEN:DMII/Low Salt DVT: SCDS & lovenox Full Code Dispo: rehab Results & Data Vital Signs (Past 12 Hours) Vital Signs Temp Pulse Pulse Resp BP BP Pulse Ox 08/22/18 07:22 36.7 C 75 14 163/73 H 94 08/21/18 22:52 37.2 C 72 18 167/74 H 100
[2018-08-22] MEDS: BusPIRone 15 MG TAB PO SCH ×2 (09:23→20:20)
[2018-08-22] MEDS: LABETALOL HCL 100 MG TAB PO SCH ×2 (09:30→20:20)
[2018-08-22] MEDS: predniSONE 10 MG TABLET PO SCH (09:32)
[2018-08-22] MEDS: BuPROPion SR 150 MG TABCR PO SCH ×2 (09:32→18:40)
[2018-08-22] MEDS: POLYETHYLENE (MIRALAX) 17 GM PACK PO SCH (09:32)
[2018-08-22] MEDS: INSULIN ASPART 100 UNITS/ML 3 ML PEN SC SCH ×4 (09:55→22:07)
--- NOTE | 2018-08-22 10:13 | Discharge Summary ---
Date of Service 08/23/2018 Admission HPI Per Admitting Provider History is somewhat limited due to dementia. Patient is a 73-year-old female who fell. She apparently experienced near immediate hip pain, and the family brought her to the ER for further evaluation. She was found to have a hip fracture. She current complains of ongoing hip pain, but no other complaints. She does not believe she had her head she does not believe she lost consciousness, she has no head pain no chest pain or shortness of breath. Ortho updated on case, case discussed with anesthesia. Case discussed with ER. Called the patient's son Momo, updated him, as well as ascertained CODE STATUS. Admission Exam Per Admitting Provider General she is awake and alert pleasant appears a little bit uncomfortable no distress HEENT normal cephalic atraumatic mucous membranes moist Cardio is regular without rubs murmurs gallops (anesthesia did believe they heard a murmur) Lungs clear to auscultation bilaterally no rales rhonchi or wheeze with good effort Abdomen is soft nondistended nontender no masses or organomegaly Extremities show no cyanosis or clubbing may be trace bilateral lower extremity edema at the worst, SCDs are in place, left leg is shortened and externally rotated Neuro shows cranial nerves II through XII are grossly intact gross motor and sensory intact Skin shows no rashes no pallor icterus Musculoskeletal exam left lower extremity shortened and externally rotated as above otherwise unremarkable with no other gross findings Mental status fairly poor Principal Diagnosis Left hip fracture requiring intramedullary nailing of the left hip Discharge Exam Gen: Obese female in NAD Eyes: EOMI/PERRLA Neck: Trachea midline, normal to inspection, no JVD Chest: CTAB/L Cards: RRR, II/IV systolic ejection murmur, no rubs or gallops, cap refill<2secs 1 + pedal edema, GI: NT/ND, NL BS MSK: moves all extremities Skin: Surgical site clean, dry, and intact, no bruises or rashes Psych: advanced dementia, AAO x0, although more alert and awake today G/U: failed trial of voids Discharge Data Allergies Allergy/AdvReac Type Severity Reaction Status Date / Time Oldejuq-Ofc-Okj Reductase Allergy Unknown VOMITING/GI Verified 08/18/18 08:59 Inhibitor ISSUES Consultations 08/18/18 11:33 Consult Case Management - Discharge Planning Routine Consult Case Management - Discharge Planning Routine 08/18/18 12:39 Consult Orthopedic Surgery Routine 08/19/18 14:51 Consult Case Management - Discharge Planning Routine Procedures Performed Operation Date: 08/19/18 07:00 Actual Procedures p Intramedullary nailing of left hip(Left) - David Bassett Ordered Studies 08/19/18 13:30 FL fluoroscopy <1hr Routine FL hip LT 2-3V Routine Hospital Course (1) Intertrochanteric fracture of left hip: (1) Intertrochanteric fracture of left femur: Currently postop day 3 from intramedullary nailing of the left hip, she has recovered well postoperatively. She received 1 unit of packed red blood cells preoperatively. No signs or symptoms of surgical site infection surgical site is clean dry and intact. Pain was managed in the postoperative period with 2 days of scheduled every 6 hours Percocet secondary to patient's dementia and questionable capacity to ask for an acute adequate analgesia. On postop day 2 she had desaturations requiring 2 L of oxygen this was likely due to metabolites from morphine, morphine was discontinued and patient's requirements normalized. Additionally on postop day 2 her hemoglobin dropped to 6.9 she was transfused with 1 unit of packed red blood cells hemoglobin has since stabilized at 7.9 pain management will be deferred to outpatient facility. She did receive scheduled MiraLAX while hospitalized, has not had a bowel movement yet. -Needs outpt osteoporosis workup, DC'd and inactive vitamin D in favor of activated form of vitamin D (2) Anemia: Received 1 unit of PRBCs preop and 1 unit of PRBCs on postop day 2 -Hemoglobin was 7.9 and unchanged since previous measurement. -Has not experienced any anemia symptoms while hospitalized (3) UTI (urinary tract infection): -Recent HX, now resolved -Urine culture this admission showed no growth to date (4) Hyperthyroidism: -last TSH was 0.228, a bit low. -F/U outpt (5) Dementia: The patient has advanced dementia throughout her hospitalization she was AAO to 0 her attention span waxes and wanes as does her mood. There was concern she was not receiving adequate analgesia due to mental capacity. (6) CKD (chronic kidney disease) stage 4, GFR 15-29 ml/min: -Creatinine improved to 1.54 from 1.84 on discharge, patient has received 24 hours of NSS at 125 mils per hour (7) Diabetes: -Glycemic pharmacist followed patient while hospitalized (8) HTN (hypertension): -Continued home meds (9) HLD (hyperlipidemia): -Continued home meds (10) Anxiety and depression: -Continued Home meds -open windows during the day to minimize sundowning (11) PMR (polymyalgia rheumatica): -Continued home meds -no signs of AI while hospitalized (12) DVT prophylaxis: Lovenox was started on postop day 2 (13) Discharge planning issues: Case management assisted with securing a rehab location (14)Failed TOV -Pryor removed on 08/22 for trial voids prior to discharge patient failed trial of voids required self-catheterization x2. Pryor was replaced to allow for urethral tissues to relax. Patient will follow-up with an outpatient urologist for Pryor removal FEN:DMII/Low Salt DVT: SCDS & lovenox Full Code Dispo: rehab Total Time Total Time Spent Total Time Spent (In Minutes): 90 Discharge Plan Discharge Items Patient Disposition: Transfer Inpatient Rehab Fac Reason For Visit: HIP FRACTURE Discharge Diagnosis: Hip fracture requiring intramedullary nailing Discharge Goals: Therapeutic intervention Activity: As commented below Activity Comment: Per SNF/Ortho see below Weightbearing: Left partial Weightbearing Comment: with walker Non-emergency contact: Primary Care Provider and Surgeon Call non-emergency contact if: you have any medication questions, your pain is worsening and your temperature is above 100.5 Follow-up/Referrals: Bryn Marin III, MD [Primary Care Provider] - Diet: Carb Consistent or DM2 Addtl Provider Instructions: You failed your trial of voids and therefore were discharged with a Pryor, please provide routine irrigation and Pryor care. Follow-up with an outpatient urologist for Pryor removal. [facility] DISCHARGE INSTRUCTIONS: HIP FRACTURE SELF CARE INSTRUCTIONS: A. You are to ambulate with a walker or crutches for approximately 6 weeks. B. You are PARTIAL WEIGHT BEARING on your operative lower extremity for at least 6 weeks. C. Wear low heeled shoes with non-slip soles D. Be sure that your floors are free of things that could trip you throw rugs, electrical cords, and small objects. Avoid wet and waxed floors, especially with crutches/walker/cane. E. Try to walk several times a day with rest periods between. F. You may shower 48 hours after surgery and get the incision area wet, but DO NOT soak or submerge incision area in water. (No baths, swimming pools, hot tubs) G. You may have a large, band-aid like dressing over your incision (Aquacel). This will remain on your incision for 7 days, and then can be removed. You CAN shower with this on. If incision is leaking through the dressing, please call the office . H. Do NOT apply soap or any ointment/lotions directly over incision. I. You may use ice as needed to operative site. SPECIAL CARE INSTRUCTIONS: VERY IMPORTANT TO READ AND REVIEW A. You may be at risk for phlebitis or blood clots. a. Wear surgical stockings (CHRIS hose) for 2 weeks after surgery to improve circulation and reduce swelling. b. Take ASPIRIN 81 mg twice daily for 4 weeks or as directed. This is your blood thinner. c. If you are on Coumadin- you will have daily/weekly blood work to monitor your levels. This will be done by either your family physician/golf course equipment operator (if you are on Coumadin chronically) versus your orthopedic surgeon. Expect a phone call the day of or the day after your blood work is drawn to adjust your dose accordingly. B. There are a few signs you need to watch for after you are home. Call [facility] at [phone] if you experience any of the following: a. If you have a temperature of 101 degrees or higher. b. Sudden increase in pain in your hip not relieved by rest or pain medication. c. Any fluid or drainage from the incision; redness of the incision. d. Shortness of breath or chest pain. B. Please call [facility] at [phone] if you have any questions or concerns about your operation or recovery. C. Call your physician if: a. Temperature is greater than 101 degrees (F). b. Pain is not relieved by prescribed pain medications. c. Increase drainage or redness from incision. d. Unanswered questions or concerns. D. Pain Medication: a. You will be prescribed pain medication upon discharge that should last till your first post-operative appointment. b. If you experience nausea and/or skin rash, disconti nue this medication and contact our office for an alternative medication. c. Caution- narcotic pain medication can cause constipation. FOLLOW UP VISIT: Please call [facility] at [phone] to schedule a follow up appointment 10-14 days from the date of your surgery date. Prescriptions: Continued insulin lispro [Humalog KwikPen Insulin] 100 unit/mL Insulin Pen 10 unit SUBCUT TIDM RF: 0 lorazepam [Ativan] 1 mg Tablet 0.5 - 1 mg PO BID PRN (Reason: Anxiety) RF: 0 labetalol 100 mg tablet 150 mg PO Q12H Qty: 0 RF: 0 Lantus Solostar U-100 Insulin 100 unit/mL (3 mL) insulin pen 16 unit subcut HS RF: 0 acetaminophen [Tylenol Extra Strength] 500 mg Tablet 500 mg PO Q6H PRN (Reason: Pain) RF: 0 bupropion HCl 150 mg Tablet Sustained-Release 12 Hr 150 mg PO BID RF: 0 amlodipine 10 mg Tablet 10 mg PO QDL RF: 0 levothyroxine 150 mcg Tablet 150 mcg PO QAM RF: 0 calcitriol 0.25 mcg Capsule 0.25 mcg PO 3XWK RF: 0 buspirone 15 mg Tablet 15 mg PO BID RF: 0 prednisone 5 mg tablet 10 mg PO QAM RF: 0 Stand-Alone Forms: [facility] Discharge Orders: Discharge Order (Routine); Ordered 08/23/18 Ordered By: Jose Lazo Skilled Items Patient informed of condition?: Yes DNR: No Discharge Level of Care: Skilled Communicable Disease: No Discharge Prognosis: Stable Admission Data Admit Date/Time: 08/18/18 10:05 Attending Provider: David Richey Admit Provider: Jesus Brownlee Primary Care Provider: Bryn Marin III Other Providers: Lul Boothe ; Home,Nursing Agency Service: Medical Other Interventions: Discharge Summary Assessment (RN) Last Done: 08/23/18 08:28 DC Date/Time DO NOT enter until pt leaves facility: 08/23/18 10:05 Supervising Physician Co-Signing Physician Notes Attending attestation Pt seen and examined in concert with Dr. Lazo. In agreement with the documented findings as noted in the resident documentation with any exceptions or additions as noted here. Resting comfortably in bed, pain well controlled at time of examination. Left hip fracture s/p IM nail in the setting of osteoporosis- Pain mgmt with Percocet and tolerating well. Would recommend initiation of denosumab through PCP to manage underlying osteoporosis. DVT PPx - ASA 81mg BID Anemia - s/p transfusion with currently stable hgb, would warrant check at follow up appointment, no apparent sign of active bleed Dementia - approaching baseline DMII - resume outpatient management Total time spent: 25 minutes Else see resident documentation as noted. Resident Activity Tracking Resident Involvement: Resident Care Provided Care Provided: Adult Hospital Medicine
--- NOTE | 2018-08-22 11:43 | Orthopedic Progress Note ---
Date of Service August 22, 2018 Assessment & Plan (1) Intertrochanteric fracture of left hip: POD 3 s/p Left TFN Acute Blood Loss Anemia Transfuse as per Med Service if needed PT/OT as able. TTWB DVT prophylaxis with ASA, SCD's, CHRIS's Pain management as written. Possibly add Tramadol instead of Percocet. Ortho will sign off at this time. Instructions placed in EMR. Please call with any questions. Subjective Postop day 3 status post left trochanteric femoral nailing. Patient is sitting up in bed and is awake and alert. A bit of hip pain this morning in the left hip. She has no other complaints. She denies shortness of breath, chest pain, lightheadedness. Physical Exam Physical Exam: Dressings are clean, dry, and intact. No surrounding erythema noted. Thigh is soft and nontender. Calves are soft nontender. Neurovascular is intact. Toes are mobile. She has some noted bruising around the proximal incision normal for surgery. Results & Data Vital Signs (Past 12 Hours) Vital Signs Temp Pulse Resp BP Pulse Ox 08/22/18 09:28 88 170/70 H 08/22/18 07:22 36.7 C 75 14 163/73 H 94
[2018-08-22] MEDS: AMLODIPINE BESYLATE 5 MG TAB PO SCH (12:09)
[2018-08-22 12:39] LABS: Hemoglobin 8.2 g/dL (12.0-16.0)
[2018-08-22] MEDS: ENOXAPARIN INJ 30 MG/0.3 ML SYR SQ SCH (17:09)
--- NOTE | 2018-08-22 17:19 | Family Medicine Progress Note ---
Date of Service August 22, 2018 Assessment & Plan (1) Intertrochanteric fracture of left hip: (1) Intertrochanteric fracture of left femur: Currently postop day 3 from intramedullary nailing of the left hip, she has recovered well postoperatively. She received 1 unit of packed red blood cells preoperatively. No signs or symptoms of surgical site infection surgical site is clean dry and intact. Pain was managed in the postoperative period with 2 days of scheduled every 6 hours Percocet secondary to patient's dementia and questionable capacity to ask for an acute adequate analgesia. On postop day 2 she had desaturations requiring 2 L of oxygen this was likely due to metabolites from morphine, morphine was discontinued and patient's requirements normalized. Additionally on postop day 2 her hemoglobin dropped to 6.9 she was transfused with 1 unit of packed red blood cells hemoglobin has since stabilized at 7.9 pain management will be deferred to outpatient facility. She did receive scheduled MiraLAX while hospitalized, has not had a bowel movement yet. -Needs outpt osteoporosis workup, DC'd and inactive vitamin D in favor of activated form of vitamin D -DC Mohr this evening per trial of voids (2) Anemia: Received 1 unit of PRBCs preop and 1 unit of PRBCs on postop day 2 -Hemoglobin was 7.9 and unchanged since previous measurement. -Has not experienced any anemia symptoms while hospitalized (3) UTI (urinary tract infection): -Recent HX, now resolved -Urine culture this admission showed no growth to date (4) Hyperthyroidism: -last TSH was 0.228, a bit low. -F/U outpt (5) Dementia: The patient has advanced dementia throughout her hospitalization she was AAO to 0 her attention span waxes and wanes as does her mood. There was concern she was not receiving adequate analgesia due to mental capacity. (6) CKD (chronic kidney disease) stage 4, GFR 15-29 ml/min: -Creatinine improved to 1.54 from 1.84 on discharge, patient has received 24 hours of NSS at 125 mils per hour (7) Diabetes: -Glycemic pharmacist followed patient while hospitalized (8) HTN (hypertension): -Continued home meds (9) HLD (hyperlipidemia): -Continued home meds (10) Anxiety and depression: -Continued Home meds -open windows during the day to minimize ing (11) PMR (polymyalgia rheumatica): -Continued home meds -no signs of AI while hospitalized (12) DVT prophylaxis: Lovenox was started on postop day 2 (13) Discharge planning issues: Case management assisted with securing a rehab location FEN:DMII/Low Salt DVT: SCDS & lovenox Full Code Dispo: rehab Supervising Physician Co-Signing Physician Notes Patient seen and examined with Dr. Lazo. Agree with history, exam, assessment and plan of care as documented by Dr. Lazo. In brief, Ms. Jacobsen is a very pleasant 73 year old female admitted after a mechanical fall and sustaining a left intertrochanteric femur fracture. On exam today, she reports that she is comfortable and has minimal pain post-op. 1. Left hip fracture s/p IM nailing with ortho POD #3. Pain management with Percocet. She has osteoporosis with this fragility fracture. Vitamin D level within normal. No evidence of calcium hemostasis disorder. PCP can start denosumab to treat her osteoporosis. DVT prophylaxis per ortho ASA 81mg BID to start at discharge. DC MOHR. 2. Anemia. Chronic and worsened after surgery. Hgb 7.9 this AM, repeat 8.2. Consider 1 unit of PRBCs prior to discharge. 3. Dementia. Constant reorientation as she is susceptible to delirium with post- op pain, new environment, etc. Limit monitors and d/c Mohr as soon as we are able. 4. DM. Insulin management based on cap glucoses. 5. CKD, stage 4. Cr at baseline. monitor. 6. new O2 requirement. Off O2. Dispo: dc tomorrow to SNF. Subjective Patient laying in bed in no acute distress. Patient still has Mohr in place plan to DC Mohr this evening for trial of voids. Patient's oxygen requirements have normalized and she is satting well on, no fevers chills nausea vomiting diarrhea muscle aches or pain or other signs or symptoms of acute infectious process. Patient reports she finally had a bowel movement, has been making good urine in her Mohr, tolerating her diet, and sleeping well. Please encourage the patient to consume liquids as she forgets secondary to her dementia. All questions were answered no acute concerns at present. Physical Exam Physical Exam: Gen: Obese female in NAD Eyes: EOMI/PERRLA Neck: Trachea midline, normal to inspection, no JVD Chest: CTAB/L Cards: RRR, II/IV systolic ejection murmur, no rubs or gallops, cap refill<2secs 1 + pedal edema, GI: NT/ND, NL BS MSK: moves all extremities Skin: Surgical site clean, dry, and intact, no bruises or rashes Psych: advanced dementia, AAO x0 Results & Data Vital Signs (Past 12 Hours) Vital Signs Temp Pulse Pulse Resp BP Pulse Ox 08/22/18 15:32 37.1 C 72 18 166/66 H 93 08/22/18 12:07 70 18 154/69 H 95 08/22/18 09:28 88 170/70 H 08/22/18 07:22 36.7 C 75 14 163/73 H 94 Resident Activity Tracking Resident Involvement: Resident Care Provided Care Provided: Adult Hospital Medicine
[2018-08-22] MEDS ORDERED: SODIUM CHLORIDE 0.9% 250 ML IV PRN (20:33)
[2018-08-22] MEDS: INSULIN GLARGINE SOLOSTAR 100 UNITS/ML 3 ML PEN SQ SCH (22:06)
[2018-08-22] MEDS: DOCUSATE SODIUM/SENNA 50/8.6MG TAB PO SCH (22:26)
[2018-08-23] MEDS: OXYCODONE/ACETAMINOPHEN 5mg/325mg TAB PO SCH ×2 (02:15→08:35)
[2018-08-23] MEDS: LEVOTHYROXINE SODIUM 150 MCG TABLET PO SCH (06:04)
[2018-08-23 06:11] LABS: Basophils # (auto) 0.01 K/uL (0-0.2); Basophils % (auto) 0.1 %; Eosinophils # (auto) 0.25 K/uL (0-0.5); Eosinophils % (auto) 3.5 %; Hematocrit (blood only) 27.4 % (37-47); Hemoglobin 9.1 g/dL (12.0-16.0); Immature Granulocytes # (auto) 0.02 K/uL (0.00-0.02); Immature Granulocytes % (auto) 0.3 %; Lymphocytes # (auto) 1.03 K/uL (1.2-3.4); Lymphocytes % (auto) 14.3 %; Mean Corpuscular Hgb Conc 33.2 g/dL (32-36); Mean Platelet Volume 10.2 fL (7.4-10.4); Monocytes # (auto) 0.45 K/uL (0.11-0.59); Monocytes % (auto) 6.3 %; Neutrophils # (auto) 5.42 K/uL (1.4-6.5); Neutrophils % (auto) 75.5 %; Platelet Count 169 K/uL (130-400); RDW Coefficient of Variation 17.2 % (11.5-14.5); Red Blood Count 3.15 M/uL (4.2-5.4); White Blood Count 7.18 K/uL (4.8-10.8)
[2018-08-23 06:43] LABS: BUN Creatinine Ratio 12.3 (10-20); Calcium 8.8 mg/dl (8.5-10.1); Creatinine Clr Calc Pharmacy 31.7 ml/min; Est GFR (African American) 38.1; Est GFR (Non-African American) 32.9; Potassium 3.9 mmol/L (3.5-5.1)
[2018-08-23] MEDS: CALCITRIOL 0.25 MCG CAPSULE PO SCH (08:35)
[2018-08-23] MEDS: LABETALOL HCL 100 MG TAB PO SCH (08:35)
[2018-08-23] MEDS: predniSONE 10 MG TABLET PO SCH (08:35)
[2018-08-23] MEDS: BusPIRone 15 MG TAB PO SCH (08:35)
[2018-08-23] MEDS: BuPROPion SR 150 MG TABCR PO SCH (08:35)
[2018-08-23] MEDS: POLYETHYLENE (MIRALAX) 17 GM PACK PO SCH (08:36)
[2018-08-23] MEDS: INSULIN ASPART 100 UNITS/ML 3 ML PEN SC SCH (08:56)
== END 2018-08-23 10:05 | DRG 481 ==
LOC: ED 08:14 → 3N 10:05 → SUATTDRO 10:05 → 3N 12:20